=== PATIENT | male | born 1960 | race Caucasian/White ===

== ENCOUNTER 2019-07-15 16:37 | Inpatient (IN) ==
[2019-07-15 17:22] LABS: Basophils # (auto) 0.09 K/uL (0-0.2); Basophils % (auto) 1.2 %; Eosinophils # (auto) 0.07 K/uL (0-0.5); Eosinophils % (auto) 0.9 %; Hematocrit (blood only) 44.6 % (42-52); Hemoglobin 15.1 g/dL (14.0-18.0); Immature Granulocytes # (auto) 0.04 K/uL (0.00-0.02); Immature Granulocytes % (auto) 0.5 %; Lymphocytes # (auto) 1.42 K/uL (1.2-3.4); Lymphocytes % (auto) 18.6 %; Mean Corpuscular Hemoglobin 32.5 pg (25-34); Mean Corpuscular Hgb Conc 33.9 g/dL (32-36); Mean Corpuscular Volume 96.1 fL (80-100); Mean Platelet Volume 11.9 fL (7.4-10.4); Monocytes # (auto) 0.65 K/uL (0.11-0.59); Monocytes % (auto) 8.5 %; Neutrophils # (auto) 5.35 K/uL (1.4-6.5); Neutrophils % (auto) 70.3 %; Platelet Count 205 K/uL (130-400); RDW Coefficient of Variation 14.4 % (11.5-14.5); Red Blood Count 4.64 M/uL (4.7-6.1); White Blood Count 7.62 K/uL (4.8-10.8)
[2019-07-15 17:36] LABS: Alanine Aminotransferase 29 U/L (12-78); Albumin Level 4.1 gm/dl (3.4-5.0); Aspartate Aminotransferase 20 U/L (15-37); BUN Creatinine Ratio 22.9 (10-20); Blood Urea Nitrogen 42 mg/dl (7-18); Calcium 9.2 mg/dl (8.5-10.1); Carbon Dioxide 27 mmol/L (21-32); Chloride 95 mmol/L (98-107); Est GFR (African American) 45.8; Est GFR (Non-African American) 39.5; Glucose 218 mg/dl (70-99); Potassium 5.1 mmol/L (3.5-5.1); Sodium 132 mmol/L (136-145)
[2019-07-15 17:37] LABS: INR 3.5 (0.9-1.1); Partial Thromboplastin Ratio 1.3; Partial Thromboplastin Time 33.9 Seconds (21.0-31.0); Prothrombin Time 33.1 Seconds (9.0-12.0)
[2019-07-15 17:41] LABS: Albumin Globulin Ratio 1.1 (0.9-2); Alkaline Phosphatase 57 U/L (45-117); Bilirubin,Total 1.4 mg/dl (0.2-1); Globulin 3.8 gm/dl (2.5-4.0); NT Pro B Type Natriuretic Pept 2860 pg/ml (0-900); Total Protein 7.9 gm/dl (6.4-8.2); Troponin I < 0.015 ng/ml (0-0.045)
[2019-07-15 18:08] LABS: Appearance Urine Clear (Clear); Bilirubin Urine Negative (Negative); Blood Urine Negative (Negative); Color Urine Yellow; Glucose Urine UA 3+ (Negative); Ketones Urine Negative (Negative); Leukocyte Esterase Urine Negative (Negative); Nitrite Urine Negative (Negative); Protein Urine Negative (Negative); Specific Gravity Urine 1.027 (1.000-1.030); Urobilinogen Urine Negative (Negative)
--- NOTE | 2019-07-15 18:40 | XRay Report ---
SINGLE VIEW CHEST CLINICAL HISTORY: Dyspnea. FINDINGS: An AP, portable, upright chest radiograph is compared to study dated 04/01/2016. The examina tion is degraded by portable technique and patient rotation. A 3-lead cardiac AICD is unchanged in po sition and partially obscures the left lower chest. The heart is enlarged. There is mild pulmonary va scular congestion. There are low lung volumes with elevation of the right hemidiaphragm and bibasilar atelectasis. Trace pleural effusions are suspected. No pneumothorax is seen. The skeletal structures are osteopenic. The bony thorax is grossly intact. IMPRESSION: 1. Cardiomegaly and AICD. There is mild pulmonary vascular congestion. 2. Low lung volumes. 3. Suspect small pleural effusions. Electronically signed by: Kalpesh Juarez M.D. 07/15/2019 6:39 PM
[2019-07-15] MEDS ORDERED: FUROSEMIDE 40 MG/4 ML VIAL IV STA (19:13)
[2019-07-15 19:30] LABS: Magnesium 2.5 mg/dl (1.8-2.4)
[2019-07-15] MEDS ORDERED: dilTIAZem HCl 5 MG/ML 5 ML VIAL IV STA (19:33)
[2019-07-15] MEDS ORDERED: dilTIAZem HCl 125 MG in DEXTROSE 5% 100 ML IV STA (19:33)
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
[2019-07-15] MEDS ORDERED: ALBUMIN 25% 50 ML IV ONE (20:45)
--- NOTE | 2019-07-15 21:20 | Ultrasound Report ---
ULTRASOUND ASCITES CHECK CLINICAL HISTORY: Abdominal distention. COMPARISON STUDY: No priors. FINDINGS: Real-time grayscale sonography of all 4 quadrants of the abdomen is performed to assess for abdominal ascites. No abdominal ascites is identified. IMPRESSION: No abdominal ascites is seen. Electronically signed by: Kalpesh Juarez M.D. 07/15/2019 9:17 PM
[2019-07-15] MEDS ORDERED: DIGOXIN 250 MCG in SYRINGE 9 ML IV ONE (21:30)
[2019-07-15] MEDS ORDERED: GLUCOSE 10 TABS/TUBE PO PRN (22:05)
[2019-07-15] MEDS ORDERED: NITROGLYCERIN SL 0.4 MG/TAB TAB SL PRN (22:05)
[2019-07-15] MEDS ORDERED: CARBOHYDRATES FOR HYPOGLYCEMIA PO PRN (22:05)
[2019-07-15] MEDS ORDERED: PROMETHAZINE HCL 12.5 MG in SODIUM CHLORIDE 0.9% 50 ML IV PRN (22:05)
[2019-07-15] MEDS ORDERED: GLUCOSE 40% GEL 15 GM TUBE PO PRN (22:05)
[2019-07-15] MEDS ORDERED: DEXTROSE 50% 50 ML SYRINGE IV PRN (22:05)
[2019-07-15] MEDS ORDERED: GLUCAGON FOR INJ 1 MG VIAL SQ PRN (22:05)
[2019-07-15] MEDS ORDERED: TRAMADOL HCL 50 MG TABLET PO PRN (22:05)
[2019-07-15] MEDS: INSULIN ASPART 100 UNITS/ML 3 ML PEN SC SCH (22:34)
[2019-07-15] MEDS: ASPIRIN 81 MG ECTAB PO SCH (22:54)
[2019-07-15] MEDS: MIRTAZAPINE TAB 15 MG TAB PO SCH (22:54)
[2019-07-15] MEDS: ATORVASTATIN 40 MG TAB PO SCH (22:54)
[2019-07-15] MEDS: ARIPiprazole 10 MG TAB PO SCH (22:54)
[2019-07-15] MEDS: INSULIN GLARGINE SOLOSTAR 100 UNITS/ML 3 ML PEN SC SCH (22:54)
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
[2019-07-16] MEDS ORDERED: ALBUMIN 25% 50 ML IV ONE (02:46)
[2019-07-16] MEDS ORDERED: DIGOXIN 250 MCG in SYRINGE 9 ML IV ONE (03:00)
[2019-07-16 07:11] LABS: Basophils # (auto) 0.08 K/uL (0-0.2); Basophils % (auto) 1.1 %; Eosinophils # (auto) 0.07 K/uL (0-0.5); Eosinophils % (auto) 0.9 %; Hematocrit (blood only) 39.6 % (42-52); Hemoglobin 13.4 g/dL (14.0-18.0); Immature Granulocytes # (auto) 0.02 K/uL (0.00-0.02); Immature Granulocytes % (auto) 0.3 %; Lymphocytes # (auto) 1.66 K/uL (1.2-3.4); Lymphocytes % (auto) 22.4 %; Mean Corpuscular Hemoglobin 31.8 pg (25-34); Mean Corpuscular Hgb Conc 33.8 g/dL (32-36); Mean Corpuscular Volume 93.8 fL (80-100); Mean Platelet Volume 11.1 fL (7.4-10.4); Monocytes # (auto) 0.77 K/uL (0.11-0.59); Monocytes % (auto) 10.4 %; Neutrophils # (auto) 4.81 K/uL (1.4-6.5); Neutrophils % (auto) 64.9 %; Platelet Count 169 K/uL (130-400); RDW Coefficient of Variation 14.2 % (11.5-14.5); RDW Standard Deviation 48.5 fL (36.4-46.3); Red Blood Count 4.22 M/uL (4.7-6.1); White Blood Count 7.41 K/uL (4.8-10.8)
[2019-07-16 07:23] LABS: INR 3.3 (0.9-1.1); Prothrombin Time 31.2 Seconds (9.0-12.0)
[2019-07-16 07:52] LABS: BUN Creatinine Ratio 27.3 (10-20); Calcium 9.2 mg/dl (8.5-10.1); Creatinine Clr Calc Pharmacy 70.7 ml/min; Est GFR (African American) 67.2; Potassium 3.7 mmol/L (3.5-5.1)
[2019-07-16] MEDS: INSULIN ASPART 100 UNITS/ML 3 ML PEN SC SCH ×4 (07:52→21:00)
[2019-07-16] MEDS ORDERED: ALBUMIN 25% 50 ML with FUROSEMIDE 60 MG IV ONE (08:00)
[2019-07-16] MEDS: DIGOXIN 0.25 MG TAB PO SCH (08:04)
[2019-07-16] MEDS: INSULIN GLARGINE SOLOSTAR 100 UNITS/ML 3 ML PEN SC SCH ×2 (09:35→21:00)
[2019-07-16] MEDS: METOPROLOL SUCC 50MG EXT REL TAB PO SCH (09:39)
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
[2019-07-16] MEDS ORDERED: AMIODARONE / D5W 150 MG/100 ML BAG IV STA (10:34)
[2019-07-16] MEDS ORDERED: AMIODARONE IV BOLUS / DRIP IV STA (10:34)
[2019-07-16] MEDS ORDERED: AMIODARONE / D5W 360 MG/200 ML BAG IV SCH (10:45)
[2019-07-16] MEDS ORDERED: DIGOXIN 0.25 MG TAB PO SCH (16:00)
[2019-07-16] MEDS: AMIODARONE / D5W 360 MG/200 ML BAG IV SCH (16:51)
--- NOTE | 2019-07-16 17:17 | Hospitalist Progress Note ---
Date of Service July 16, 2019 Assessment & Plan (1) Atrial fibrillation with RVR: Present on admission with worsening SOB and weight gained after missing diuretic for more than 2 days EKG on admission showed Afib with RVR Rate uncontrolled with HR btw 110 to 130 Received IV Digoxin and IV Cardizem, then started on Cardizem drip that was discontinued Cardiology on board Starting on Amiodarone drip Continue monitor in tele monitor INR 3.3 today Continue coumadin (2) Acute on chronic systolic CHF (congestive heart failure): CXR showed cardiomegaly and AICD. There is mild pulmonary vascular congestion. Pro BNP on admission 2860 Continue IV lasix 40mg BID Continue fluid restriction Monitor I/O (3) Hypertension: BP stable Lisinopril on hold due to VAIBHAV Continue metoprolol (4) Acute kidney injury: Creatinine on admission 1.8, Improved to 1.3 today Lisinopril on hold Will monitor BMP while on IV lasix Avoid nephrotoxic agents Diabetes Recent outpatient hemoglobin A1c of 8.3 last June 2019 On lantus and insulin sliding scale Monitor BS DVT px on coumadin Code Status FULL CODE Disposition Continue monitor in tele Subjective Pt was seen and examined Lying in bed with mild respiratory distress Pt said that he develops SOB with minimal exertion He said that sometimes while he lies down he feels like he cannot breath He said that feeling where he cannot breath makes him very anxious and causing his heart rate to elevate higher Currently denies any chest pain, dizziness and fever Physical Exam Physical Exam: General- No acute distress Head- atraumatic Eyes- PERRL, EOMI, ENT- oropharynx clear Neck- supple, no JVD Lungs- diminished breath sound Heart- irregular rhythm, Tachycardia, no murmur Abdomen- normal bowel sounds, soft, nontender Extremities- no calf tenderness, no edema Neuro- alert, oriented x 3; PERRL, EOMI; no facial palsy; no dysarthria Skin- warm & dry Results & Data Vital Signs (Past 12 Hours) Vital Signs Temp Pulse Pulse Resp BP Pulse Ox 07/16/19 15:49 36.3 C L 135 H 19 120/80 96 07/16/19 14:54 118 H 07/16/19 12:49 111 H 108/78 97 07/16/19 11:02 36.4 C L 109 H 18 107/76 99 07/16/19 09:41 120 H 113/77 07/16/19 08:04 110 H 07/16/19 07:04 36.6 C 92 H 19 96/67 L 96
[2019-07-16] MEDS: WARFARIN SOD 5 MG TAB PO SCH (18:22)
[2019-07-16] MEDS: ASPIRIN 81 MG ECTAB PO SCH (19:57)
[2019-07-16] MEDS: ARIPiprazole 10 MG TAB PO SCH (19:57)
[2019-07-16] MEDS: MIRTAZAPINE TAB 15 MG TAB PO SCH (19:57)
[2019-07-16] MEDS: ATORVASTATIN 40 MG TAB PO SCH (19:57)
[2019-07-16] MEDS: FUROSEMIDE 40 MG in SYRINGE 0 ML IV SCH (19:57)
[2019-07-17] MEDS: AMIODARONE / D5W 360 MG/200 ML BAG IV SCH ×2 (03:54→19:21)
[2019-07-17 07:24] LABS: Hematocrit (blood only) 46.4 % (42-52); Hemoglobin 15.8 g/dL (14.0-18.0); Mean Corpuscular Hemoglobin 32.6 pg (25-34); Mean Corpuscular Hgb Conc 34.1 g/dL (32-36); Mean Corpuscular Volume 95.7 fL (80-100); Mean Platelet Volume 11.7 fL (7.4-10.4); Platelet Count 180 K/uL (130-400); RDW Coefficient of Variation 14.3 % (11.5-14.5); RDW Standard Deviation 49.9 fL (36.4-46.3); Red Blood Count 4.85 M/uL (4.7-6.1); White Blood Count 10.49 K/uL (4.8-10.8)
[2019-07-17 07:33] LABS: Prothrombin Time 28.7 Seconds (9.0-12.0)
[2019-07-17 07:54] LABS: BUN Creatinine Ratio 22.8 (10-20); Calcium 9.7 mg/dl (8.5-10.1); Creatinine Clr Calc Pharmacy 67.8 ml/min; Est GFR (African American) 64.9; Potassium 3.7 mmol/L (3.5-5.1)
[2019-07-17] MEDS: METOPROLOL SUCC 50MG EXT REL TAB PO SCH (08:37)
[2019-07-17] MEDS: FUROSEMIDE 40 MG in SYRINGE 0 ML IV SCH ×2 (08:39→20:11)
[2019-07-17] MEDS: INSULIN GLARGINE SOLOSTAR 100 UNITS/ML 3 ML PEN SC SCH ×2 (08:41→20:18)
[2019-07-17] MEDS: INSULIN ASPART 100 UNITS/ML 3 ML PEN SC SCH ×4 (08:42→20:19)
[2019-07-17] MEDS: AMIODARONE 200 MG TAB PO SCH (10:50)
--- NOTE | 2019-07-17 11:31 | Cardiology Progress Note ---
Date of Service July 17, 2019 Assessment & Plan (1) Atrial fibrillation with RVR: (2) Acute on chronic systolic CHF (congestive heart failure): (3) Presence of biventricular AICD: (4) Ischemic cardiomyopathy: Acute heart failure precipitated by paroxysmal atrial fibrillation and noncom pliance with medical therapies. Start oral amiodarone, 200 mg 3 times daily. Plans for external direct-current cardioversion in the next 48 to 72 hours pending clinical response. Continue IV Lasix 40 mg twice daily. Restart Aldactone today. Follow fluid balance, daily weight, letter lites, and GFR daily. ICD interrogation demonstrates atrial fibrillation with rapid ventricular response dating back to April. Dysrhythmia likely precipitating ongoing decompensated systolic heart failure. Subjective Patient seen and examined at the bedside. Shortness of breath improved over the past 24 hours. Heart rate unchanged with addition of IV amiodarone. Patient denies chest discomfort. Reports dyspnea on exertion and orthopnea. No significant edema. Fluid balance -2500 cc over the past 24 hours. Renal function is stable. Review of Systems Review of Systems: All systems reviewed & are unremarkable except as noted in HPI & below Physical Exam Physical Exam: General: NAD, AAO x3, well nourished. HEENT: Normocephalic. Atraumatic. Conjunctiva pink, no scleral icterus. Neck: No carotid bruits, the carotid upstrokes are brisk. No JVD. No HJR Heart: Irregular, tachycardic. Normal S-1 and S-2. No murmurs or rub appreciated. PMI is not displaced. No RV heave. Lungs: Diminished breath sounds at the bases bilaterally. No rhonchi or wheeze. Scant crackles at the left base. Abdomen: Normal bowel sounds. Soft. Nontender. No masses or organomegaly. No abdominal bruits. Extremities: No clubbing, cyanosis, or edema. Pulses: radial=2/4, Dorsalis pedis =2/4, posterior tibial=2/4. Neuro: Cranial nerves grossly intact. No focal motor deficit. Results & Data Vital Signs (Past 12 Hours) Vital Signs Temp Pulse Resp BP BP Pulse Ox 07/17/19 08:13 36.6 C 123 H 142/72 H 97 07/17/19 03:46 36.5 C 105 H 20 103/72 97 07/16/19 23:53 37.0 C 110 H 21 107/75 97 Laboratory Results Laboratory Results - last 24 hr 07/16/19 07/16/19 07/16/19 11:21 16:44 20:30 WBC RBC Hgb Hct MCV MCH MCHC RDW Std Deviation RDW Coeff of Macy Plt Count MPV PT INR Sodium Potassium Chloride Carbon Dioxide Anion Gap BUN Creatinine Est Cr Clr Drug Dosing Est GFR ( Amer) Est GFR (Non-Af Amer) BUN/Creatinine Ratio Glucose POC Glucose 175 H 227 H 164 H Calcium 07/17/19 07/17/19 07/17/19 06:45 06:45 06:45 WBC 10.49 RBC 4.85 Hgb 15.8 Hct 46.4 MCV 95.7 MCH 32.6 MCHC 34.1 RDW Std Deviation 49.9 H RDW Coeff of Macy 14.3 Plt Count 180 MPV 11.7 H PT 28.7 H INR 3.0 H Sodium 134 L Potassium 3.7 Chloride 96 L Carbon Dioxide 29 Anion Gap 9.0 BUN 31 H Creatinine 1.38 Est Cr Clr Drug Dosing 67.8 Est GFR ( Amer) 64.9 Est GFR (Non-Af Amer) 56.0 BUN/Creatinine Ratio 22.8 H Glucose 116 H POC Glucose Calcium 9.7
[2019-07-17] MEDS: SPIRONOLACTONE 25 MG TAB PO SCH (12:25)
--- NOTE | 2019-07-17 15:38 | Hospitalist Progress Note ---
Date of Service July 17, 2019 Assessment & Plan (1) Atrial fibrillation with RVR: Present on admission with worsening SOB and weight gained after missing diuretic for more than 2 days EKG on admission showed Afib with RVR Rate uncontrolled with HR btw 100's to 120 Received IV Digoxin and IV Cardizem, then started on Cardizem drip that was discontinued Cardiology on board On Amiodarone drip. Starting on oral amiodarone 200 mg 3 times daily. Plans for external direct-current cardioversion in the next 48 to 72 hours if remain in Afib Continue monitor in tele monitor INR 3.0 today Continue coumadin (2) Acute on chronic systolic CHF (congestive heart failure): CXR showed cardiomegaly and AICD. There is mild pulmonary vascular congestion. Pro BNP on admission 2860 Continue IV lasix 40mg BID Spironolactone added today Continue fluid restriction Monitor I/O Monitor BMP in am (3) Hypertension: BP stable Lisinopril on hold due to VAIBHAV Continue metoprolol (4) Acute kidney injury: Creatinine on admission 1.8, Improved to 1.3 today Lisinopril on hold Will monitor BMP while on IV lasix Avoid nephrotoxic agents resolved Diabetes Recent outpatient hemoglobin A1c of 8.3 last June 2019 On lantus and insulin sliding scale Monitor BS DVT px on coumadin Code Status FULL CODE Disposition Continue monitor in tele Subjective Pt was seen and examined Sitting in the chair with no distress He said that his breathing feels better today He said that diuretic works because he is been urinating alot Denies any chest pain, palpitation and fever Physical Exam Physical Exam: General- No acute distress Head- atraumatic Eyes- PERRL, EOMI, ENT- oropharynx clear Neck- supple, no JVD Lungs- diminished breath sound Heart- irregular rhythm, Tachycardia, no murmur Abdomen- normal bowel sounds, soft, nontender Extremities- no calf tenderness, no edema Neuro- alert, oriented x 3; PERRL, EOMI; no facial palsy; no dysarthria Skin- warm & dry Results & Data Vital Signs (Past 12 Hours) Vital Signs Temp Pulse Resp BP BP Pulse Ox 07/17/19 12:12 36.8 C 119 H 18 90/69 L 99 07/17/19 08:13 36.6 C 123 H 142/72 H 97 07/17/19 03:46 36.5 C 105 H 20 103/72 97
[2019-07-17] MEDS: WARFARIN SOD 5 MG TAB PO SCH (15:41)
[2019-07-17] MEDS: MIRTAZAPINE TAB 15 MG TAB PO SCH (20:11)
[2019-07-17] MEDS: ATORVASTATIN 40 MG TAB PO SCH (20:11)
[2019-07-17] MEDS: ASPIRIN 81 MG ECTAB PO SCH (20:11)
[2019-07-17] MEDS: ARIPiprazole 10 MG TAB PO SCH (20:11)
[2019-07-17] MEDS: ACETAMINOPHEN 325 MG TAB PO PRN (23:39)
[2019-07-18] MEDS ORDERED: DIGOXIN 250 MCG in SYRINGE 9 ML IV ONE
[2019-07-18] MEDS ORDERED: AMIODARONE 200 MG TAB PO SCH
[2019-07-18 00:30] LABS: Potassium 3.4 mmol/L (3.5-5.1)
[2019-07-18 00:34] LABS: BUN Creatinine Ratio 21.1 (10-20); Calcium 9.5 mg/dl (8.5-10.1); Creatinine Clr Calc Pharmacy 61.6 ml/min; Est GFR (African American) 57.7; Est GFR (Non-African American) 49.8; Magnesium 2.6 mg/dl (1.8-2.4)
[2019-07-18 00:36] LABS: Albumin Level 4.4 gm/dl (3.4-5.0)
[2019-07-18 00:40] LABS: Bilirubin Direct 0.8 mg/dl (0-0.2); Bilirubin,Total 2.5 mg/dl (0.2-1); Total Protein 8.1 gm/dl (6.4-8.2)
--- NOTE | 2019-07-18 00:42 | Hospitalist Progress Note ---
Date of Service July 18, 2019 Subjective Patient noted to be in rapid A. fib as per RN, cardiac rate 140s, SBP 90-110s. Missed PM oral amnio dose as per RN. Fever spike noted. No unusual cough, diarrhea, dysuria complaints as per RN. Serum creatinine 1.52 K 3.4 Procalcitonin WNL UA hyaline casts AP Rapid A. fib secondary to fever secondary to ARF, diuretic Rx, hypokalemia Rule out occult infection Facilitate oral Amio Continue amiodarone infusion Replace potassium IV Digoxin 1 dose IV albumin, hold Lasix, spironolactone for now until creatinine at baseline Cultures, check lactic acid, hold off on antibiotics until bacterial source identified for fever Will relay to AM provider. Results & Data Vital Signs (Past 12 Hours) Vital Signs Temp Pulse Pulse Resp BP Pulse Ox 07/18/19 00:33 36.7 C 07/18/19 00:03 142 H 07/17/19 23:05 38.1 C H 131 H 19 111/78 99 07/17/19 19:31 36.5 C 130 H 24 102/67 100 07/17/19 15:23 36.4 C L 112 H 20 119/82 96
[2019-07-18 00:54] LABS: Basophils # (auto) 0.02 K/uL (0-0.2); Basophils % (auto) 0.2 %; Eosinophils # (auto) 0.01 K/uL (0-0.5); Eosinophils % (auto) 0.1 %; Hemoglobin 14.8 g/dL (14.0-18.0); Immature Granulocytes # (auto) 0.04 K/uL (0.00-0.02); Immature Granulocytes % (auto) 0.4 %; Lymphocytes # (auto) 0.89 K/uL (1.2-3.4); Lymphocytes % (auto) 9.1 %; Mean Corpuscular Hgb Conc 34.4 g/dL (32-36); Mean Corpuscular Volume 92.9 fL (80-100); Mean Platelet Volume 11.2 fL (7.4-10.4); Monocytes # (auto) 0.78 K/uL (0.11-0.59); Neutrophils # (auto) 8.07 K/uL (1.4-6.5); Neutrophils % (auto) 82.2 %; Platelet Count 199 K/uL (130-400); RDW Coefficient of Variation 14.3 % (11.5-14.5); RDW Standard Deviation 48.1 fL (36.4-46.3); Red Blood Count 4.63 M/uL (4.7-6.1); White Blood Count 9.81 K/uL (4.8-10.8)
[2019-07-18] MEDS ORDERED: ALBUMIN 25% 50 ML IV ONE ×2 (01:00→03:15)
[2019-07-18 01:04] LABS: INR 3.4 (0.9-1.1); Prothrombin Time 32.1 Seconds (9.0-12.0)
[2019-07-18] MEDS ORDERED: POTASSIUM CHLORIDE 20 MEQ TABCR PO ONE ×2 (01:15)
[2019-07-18] MEDS ORDERED: METOPROLOL TARTRATE 1 MG/ML VIAL IV STA (01:49)
[2019-07-18 02:15] LABS: Appearance Urine Clear (Clear); Bacteria Urine Automated Negative (Negative); Bilirubin Urine Negative (Negative); Blood Urine Negative (Negative); Color Urine Yellow; Epithelial Cell Urine Auto >30 /lpf (0-5); Glucose Urine UA 3+ (Negative); Ketones Urine Negative (Negative); Leukocyte Esterase Urine Negative (Negative); Nitrite Urine Negative (Negative); Protein Urine 2+ (Negative); RBC Urine Automated 0-4 /hpf (0-4); Specific Gravity Urine 1.023 (1.000-1.030); Urobilinogen Urine Negative (Negative)
[2019-07-18] MEDS ORDERED: SODIUM CHLORIDE 0.9% 1000ML 1,000 ML IV SCH (02:15)
[2019-07-18 02:29] LABS: Cast Urine Automated >30 /lpf (0-5)
[2019-07-18] MEDS: METOPROLOL SUCC 25MG EXT REL TAB PO SCH (04:50)
[2019-07-18 07:06] LABS: BUN Creatinine Ratio 21.4 (10-20); Creatinine Clr Calc Pharmacy 67.7 ml/min; Est GFR (African American) 64.3; Est GFR (Non-African American) 55.5; Potassium 4.3 mmol/L (3.5-5.1)
--- NOTE | 2019-07-18 07:39 | XRay Report ---
XR chest 1V portable HISTORY: fever COMPARISON: Chest 07/15/2019. FINDINGS: No pneumothorax. Mild interstitial pulmonary edema and small bilateral pleural effusions. P atchy left basilar density is also noted. The heart remains mildly enlarged. Left-sided pacemaker/def ibrillator. IMPRESSION: 1. Interval development of mild interstitial pulmonary edema and small bilateral pleural effusions. 2. Nonspecific patchy left basilar density. This favors atelectasis from the pleural effusions but co uld also represent a pneumonia. Electronically signed by: Tristen Soto M.D. 07/18/2019 7:38 AM
[2019-07-18] MEDS: AMIODARONE / D5W 360 MG/200 ML BAG IV SCH (07:40)
[2019-07-18] MEDS: AMIODARONE 200 MG TAB PO SCH ×3 (07:41→16:57)
[2019-07-18] MEDS: DIGOXIN 0.25 MG TAB PO SCH (07:41)
[2019-07-18] MEDS: INSULIN GLARGINE SOLOSTAR 100 UNITS/ML 3 ML PEN SC SCH ×2 (07:42→20:33)
[2019-07-18] MEDS: INSULIN ASPART 100 UNITS/ML 3 ML PEN SC SCH ×4 (07:46→20:33)
[2019-07-18] MEDS ORDERED: METOPROLOL SUCC 25MG EXT REL TAB PO SCH (09:00)
--- NOTE | 2019-07-18 12:29 | Cardiology Progress Note ---
Date of Service July 18, 2019 Assessment & Plan (1) Atrial fibrillation with RVR: (2) Acute on chronic systolic CHF (congestive heart failure): (3) Presence of biventricular AICD: (4) Ischemic cardiomyopathy: Discontinue intravenous amiodarone. Continue oral amiodarone loading and tel emetry monitoring. Repeat ECG today. Risk, benefits, alternatives to external direct-current cardioversion discussed with patient at bedside. He is agreeable. He will be made n.p.o. except medications after midnight. Anesthesia consulted for sedation. Procedure will take place in a.m. [employer] on call pharmacy technician will be present after procedure for interrogation and programming. Continue IV Lasix 40 twice daily. Restart Aldactone. Cultures pending due to fever spike overnight. No recurrent fevers today. Continue to monitor. Subjective Patient seen and examined at the bedside. Fever reported overnight. Cultures pending at this time. Currently patient is feeling well. Denies chest pain or unusual shortness of breath. Edema unchanged. Sleeping in a chair due to orthopnea which is unchanged. Heart rate remains elevated on telemetry. Offers no new concerns/complaints this time. Review of Systems Review of Systems: All systems reviewed & are unremarkable except as noted in HPI & below Physical Exam Physical Exam: General: NAD, AAO x3, well nourished. HEENT: Normocephalic. Atraumatic. Conjunctiva pink, no scleral icterus. Neck: No carotid bruits, the carotid upstrokes are brisk. No JVD. No HJR Heart: Irregular, tachycardic. Normal S-1 and S-2. No murmurs or rub appreciated. PMI is not displaced. No RV heave. Lungs: Diminished breath sounds at the bases bilaterally. No rhonchi or wheeze. Scant crackles at the left base. Abdomen: Normal bowel sounds. Soft. Nontender. No masses or organomegaly. No abdominal bruits. Extremities: 1+ bilateral pretibial edema peer no clubbing, or cyanosis. Pulses: radial=2/4, Dorsalis pedis =2/4, posterior tibial=2/4. Neuro: Cranial nerves grossly intact. No focal motor deficit. Results & Data Vital Signs (Past 12 Hours) Vital Signs Temp Pulse Pulse Resp BP BP BP 07/18/19 11:04 36.8 C 117 H 21 116/81 07/18/19 07:41 115 H 07/18/19 06:42 36.8 C 113 H 19 104/74 07/18/19 03:40 122 H 07/18/19 03:07 37.4 C 121 H 17 132/80 07/18/19 02:14 97/65 L 07/18/19 01:59 97/65 L 07/18/19 00:33 36.7 C Pulse Ox 07/18/19 11:04 99 07/18/19 07:41 07/18/19 06:42 98 07/18/19 03:40 07/18/19 03:07 98 07/18/19 02:14 07/18/19 01:59 07/18/19 00:33 Laboratory Results Laboratory Results - last 24 hr 07/17/19 07/17/19 07/17/19 07:38 11:46 16:07 WBC RBC Hgb Hct MCV MCH MCHC RDW Std Deviation RDW Coeff of Macy Plt Count MPV Immature Gran % (Auto) Neut % (Auto) Lymph % (Auto) [place] % (Auto) Eos % (Auto) Baso % (Auto) Immature Gran # (Auto) Neut # (Auto) Lymph # (Auto) [place] # (Auto) Eos # (Auto) Baso # (Auto) PT INR Sodium Potassium Chloride Carbon Dioxide Anion Gap BUN Creatinine Est Cr Clr Drug Dosing Est GFR ( Amer) Est GFR (Non-Af Amer) BUN/Creatinine Ratio Glucose POC Glucose 123 H 172 H 236 H Lactate Calcium Magnesium Total Bilirubin Direct Bilirubin AST ALT Alkaline Phosphatase Total Protein Albumin Procalcitonin Urine Color Urine Appearance Urine pH Ur Specific [place] Urine Protein Urine Glucose (UA) Urine Ketones Urine Blood Urine Nitrite Urine Bilirubin Urine Urobilinogen Ur Leukocyte Esterase Urine WBC (Auto) Urine RBC (Auto) U Hyaline Cast (Auto) U Epithel Cells (Auto) Urine Bacteria (Auto) Granular Casts 07/17/19 07/17/19 07/18/19 20:12 23:46 00:44 WBC 9.81 RBC 4.63 L Hgb 14.8 Hct 43.0 MCV 92.9 MCH 32.0 MCHC 34.4 RDW Std Deviation 48.1 H RDW Coeff of Macy 14.3 Plt Count 199 MPV 11.2 H Immature Gran % (Auto) 0.4 Neut % (Auto) 82.2 Lymph % (Auto) 9.1 [place] % (Auto) 8.0 Eos % (Auto) 0.1 Baso % (Auto) 0.2 Immature Gran # (Auto) 0.04 H Neut # (Auto) 8.07 H Lymph # (Auto) 0.89 L [place] # (Auto) 0.78 H Eos # (Auto) 0.01 Baso # (Auto) 0.02 PT INR Sodium 133 L Potassium 3.4 L Chloride 96 L Carbon Dioxide 27 Anion Gap 10.0 BUN 32 H Creatinine 1.52 H Est Cr Clr Drug Dosing 61.6 Est GFR ( Amer) 57.7 Est GFR (Non-Af Amer) 49.8 BUN/Creatinine Ratio 21.1 H Glucose 164 H POC Glucose 216 H Lactate Calcium 9.5 Magnesium 2.6 H Total Bilirubin 2.5 H Direct Bilirubin 0.8 H AST 27 ALT 37 Alkaline Phosphatase 59 Total Protein 8.1 Albumin 4.4 Procalcitonin Urine Color Urine Appearance Urine pH Ur Specific [place] Urine Protein Urine Glucose (UA) Urine Ketones Urine Blood Urine Nitrite Urine Bilirubin Urine Urobilinogen Ur Leukocyte Esterase Urine WBC (Auto) Urine RBC (Auto) U Hyaline Cast (Auto) U Epithel Cells (Auto) Urine Bacteria (Auto) Granular Casts 07/18/19 07/18/19 07/18/19 00:44 00:44 00:44 WBC RBC Hgb Hct MCV MCH MCHC RDW Std Deviation RDW Coeff of Macy Plt Count MPV Immature Gran % (Auto) Neut % (Auto) Lymph % (Auto) [place] % (Auto) Eos % (Auto) Baso % (Auto) Immature Gran # (Auto) Neut # (Auto) Lymph # (Auto) [place] # (Auto) Eos # (Auto) Baso # (Auto) PT 32.1 H INR 3.4 H Sodium Potassium Chloride Carbon Dioxide Anion Gap BUN Creatinine Est Cr Clr Drug Dosing Est GFR ( Amer) Est GFR (Non-Af Amer) BUN/Creatinine Ratio Glucose POC Glucose Lactate 1.6 Calcium Magnesium Total Bilirubin Direct Bilirubin AST ALT Alkaline Phosphatase Total Protein Albumin Procalcitonin 0.05 Urine Color Urine Appearance Urine pH Ur Specific [place] Urine Protein Urine Glucose (UA) Urine Ketones Urine Blood Urine Nitrite Urine Bilirubin Urine Urobilinogen Ur Leukocyte Esterase Urine WBC (Auto) Urine RBC (Auto) U Hyaline Cast (Auto) U Epithel Cells (Auto) Urine Bacteria (Auto) Granular Casts 07/18/19 07/18/19 07/18/19 01:53 06:19 07:16 WBC RBC Hgb Hct MCV MCH MCHC RDW Std Deviation RDW Coeff of Macy Plt Count MPV Immature Gran % (Auto) Neut % (Auto) Lymph % (Auto) [place] % (Auto) Eos % (Auto) Baso % (Auto) Immature Gran # (Auto) Neut # (Auto) Lymph # (Auto) [place] # (Auto) Eos # (Auto) Baso # (Auto) PT INR Sodium 133 L Potassium 4.3 D Chloride 95 L Carbon Dioxide 29 Anion Gap 9.0 BUN 30 H Creatinine 1.39 Est Cr Clr Drug Dosing 67.7 Est GFR ( Amer) 64.3 Est GFR (Non-Af Amer) 55.5 BUN/Creatinine Ratio 21.4 H Glucose 135 H POC Glucose 132 H Lactate Calcium 9.0 Magnesium Total Bilirubin Direct Bilirubin AST ALT Alkaline Phosphatase Total Protein Albumin Procalcitonin Urine Color Yellow Urine Appearance Clear Urine pH 5.0 Ur Specific [place] 1.023 Urine Protein 2+ H Urine Glucose (UA) 3+ H Urine Ketones Negative Urine Blood Negative Urine Nitrite Negative Urine Bilirubin Negative Urine Urobilinogen Negative Ur Leukocyte Esterase Negative Urine WBC (Auto) 1-5 Urine RBC (Auto) 0-4 U Hyaline Cast (Auto) >30 H U Epithel Cells (Auto) >30 H Urine Bacteria (Auto) Negative Granular Casts 10-20 H 07/18/19 11:12 WBC RBC Hgb Hct MCV MCH MCHC RDW Std Deviation RDW Coeff of Macy Plt Count MPV Immature Gran % (Auto) Neut % (Auto) Lymph % (Auto) [place] % (Auto) Eos % (Auto) Baso % (Auto) Immature Gran # (Auto) Neut # (Auto) Lymph # (Auto) [place] # (Auto) Eos # (Auto) Baso # (Auto) PT INR Sodium Potassium Chloride Carbon Dioxide Anion Gap BUN Creatinine Est Cr Clr Drug Dosing Est GFR ( Amer) Est GFR (Non-Af Amer) BUN/Creatinine Ratio Glucose POC Glucose 207 H Lactate Calcium Magnesium Total Bilirubin Direct Bilirubin AST ALT Alkaline Phosphatase Total Protein Albumin Procalcitonin Urine Color Urine Appearance Urine pH Ur Specific [place] Urine Protein Urine Glucose (UA) Urine Ketones Urine Blood Urine Nitrite Urine Bilirubin Urine Urobilinogen Ur Leukocyte Esterase Urine WBC (Auto) Urine RBC (Auto) U Hyaline Cast (Auto) U Epithel Cells (Auto) Urine Bacteria (Auto) Granular Casts
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
[2019-07-18] MEDS: WARFARIN SOD 5 MG TAB PO SCH (16:57)
--- NOTE | 2019-07-18 17:30 | Hospitalist Progress Note ---
Date of Service July 18, 2019 Assessment & Plan (1) Atrial fibrillation with RVR: Present on admission with worsening SOB and weight gained after missing diuretic for more than 2 days EKG on admission showed Afib with RVR Rate uncontrolled with HR btw 100's to 120 Received IV Digoxin and IV Cardizem, then started on Cardizem drip that was discontinued Amiodarone drip was restarted And later on started on oral amiodarone 200 mg 3 times daily. Plans for external direct-current cardioversion tomorrow Appreciate cardiology input and recommendation Patient remains stable with minimal symptoms of shortness of breath but no chest pain (2) Acute on chronic systolic CHF (congestive heart failure): CXR showed cardiomegaly and AICD. There is mild pulmonary vascular congestion. Pro BNP on admission 2860 Continue IV lasix 40mg BID Spironolactone added today Continue fluid restriction Monitor I/O Kidney function remains stable as 07/18 (3) Hypertension: BP stable Lisinopril on hold due to VAIBHAV Continue metoprolol (4) Acute kidney injury: Creatinine on admission 1.8, Improved to 1.3 today Lisinopril on hold Will monitor BMP while on IV lasix Avoid nephrotoxic agents resolved with creatinine 1.39 as of 07/18 Diabetes Recent outpatient hemoglobin A1c of 8.3 last June 2019 On lantus and insulin sliding scale Monitor BS DVT px on coumadin INR is 3.4 as on 07/18 Code Status FULL CODE Disposition Continue monitor in tele Subjective 07/18 The patient was seen and examined in telemetry unit Has had short runs of RVR last night Remain free of any symptoms Still complains of some shortness of breath at rest but denies any chest pain Review of Systems Review of Systems: All systems reviewed and are unremarkable except as noted Respiratory: + dyspnea (At rest and with exertion) Cardiovascular: no chest pain Physical Exam Physical Exam: Sitting on a chair without any significant symptoms Constitutional: + ill appearing; no acute distress Eyes: PERRL, conjunctivae normal, anicteric sclerae ENMT: external ear and nose normal, oropharynx normal Neck: trachea midline, no thyromegaly Respiratory: normal respiratory effort Auscultation: + diminished lung sounds and + crackles (Minimal crackles at bases) Cardiovascular: Rate/Rhythm: + tachycardic; + abnormal rate and + abnormal rhythm Gastrointestinal (Abdomen): Inspection/Auscultation: abdomen normal to inspection and normal bowel sounds Percussion/Palpation: abdomen soft Musculoskeletal: No acute arthritis in any joints Neurologic: moves all extremities; no focal motor deficits Results & Data Vital Signs (Past 12 Hours) Vital Signs Temp Pulse Pulse Resp BP Pulse Ox 07/18/19 15:00 36.6 C 115 H 22 122/84 98 07/18/19 11:04 36.8 C 117 H 21 116/81 99 07/18/19 07:41 115 H 07/18/19 06:42 36.8 C 113 H 19 104/74 98 Laboratory Results Short CBC 07/18/19 Range/Units 00:44 WBC 9.81 (4.8-10.8) K/uL Hgb 14.8 (14.0-18.0) g/dL Hct 43.0 (42-52) % Plt Count 199 (130-400) K/uL BMP 07/17/19 07/18/19 23:46 06:19 Sodium 133 L 133 L Potassium 3.4 L 4.3 D Chloride 96 L 95 L Carbon Dioxide 27 29 BUN 32 H 30 H Creatinine 1.52 H 1.39 Glucose 164 H 135 H Calcium 9.5 9.0 Liver Function 07/17/19 Range/Units 23:46 Total Bilirubin 2.5 H (0.2-1) mg/dl Direct Bilirubin 0.8 H (0-0.2) mg/dl AST 27 (15-37) U/L ALT 37 (12-78) U/L Alkaline Phosphatase 59 (45-117) U/L Albumin 4.4 (3.4-5.0) gm/dl Urine 07/18/19 Range/Units 01:53 Urine Color Yellow Urine Appearance Clear (Clear) Urine pH 5.0 (4.5-7.5) Ur Specific [place] 1.023 (1.000-1.030) Urine Protein 2+ H (Negative) Urine Glucose (UA) 3+ H (Negative) Medications Administered Current Inpatient Medications Acetaminophen (Tylenol) 650 mg PO Q4H PRN PRN Reason: Pain or Fever Stop: 08/14/19 22:04 Last Admin: 07/17/19 23:39 Dose: 650 mg Documented by: Amiodarone HCl (Cordarone) 200 mg PO TIDM СВЕТЛАНА Stop: 08/17/19 07:44 Last Admin: 07/18/19 16:57 Dose: 200 mg Documented by: Aripiprazole (Abilify) 10 mg PO HS [facility] Stop: 08/14/19 22:04 Last Admin: 07/17/19 20:11 Dose: 10 mg Documented by: Aspirin (Ecotrin Ectab) 81 mg PO HS [facility] Stop: 08/14/19 22:04 Last Admin: 07/17/19 20:11 Dose: 81 mg Documented by: Atorvastatin Calcium (Lipitor) 40 mg PO HS [facility] Stop: 08/14/19 22:04 Last Admin: 07/17/19 20:11 Dose: 40 mg Documented by: Dextrose (Dextrose 50%) 25 - 50 ml IV UD PRN; Protocol PRN Reason: Hypoglycemia Protocol Stop: 08/14/19 22:04 Digoxin (Lanoxin) 0.25 mg PO MoWeFr [facility] Stop: 08/15/19 07:19 Last Admin: 07/18/19 07:41 Dose: 0.25 mg Documented by: Glucagon (Glucagen) 1 mg SQ UD PRN; Protocol PRN Reason: Hypoglycemia Protocol Stop: 08/14/19 22:04 Glucose (Glucose 40%) 15 - 30 gm PO UD PRN; Protocol PRN Reason: Hypoglycemia Protocol Stop: 08/14/19 22:04 Glucose (Dex4 Glucose) 4 - 8 tabs PO UD PRN; Protocol PRN Reason: Hypoglycemia Protocol Stop: 08/14/19 22:04 Promethazine HCl 12.5 mg/ (Sodium Chloride) 50.5 mls @ 202 mls/hr IV Q6H PRN PRN Reason: Nausea And Vomiting Stop: 08/14/19 22:04 Furosemide 40 mg/ Syringe 4 mls @ 4 mls/min IV BID [facility] Stop: 08/15/19 20:59 Last Admin: 07/17/19 20:11 Dose: 4 mls/min Documented by: Insulin Aspart (Novolog Flexpen) 0 units SC ACHS [facility] Stop: 08/14/19 22:04 Last Admin: 07/18/19 16:58 Dose: 4 units Documented by: Insulin Glargine (Lantus Solostar Pen) 5 units SC BID [facility] Stop: 08/14/19 22:04 Last Admin: 07/18/19 07:42 Dose: 5 units Documented by: Lorazepam (Ativan) 0.25 mg PO BID PRN PRN Reason: Anxiety Stop: 08/15/19 18:02 Metoprolol Succinate (Toprol Xl) 25 mg PO DAILY [facility] Stop: 08/17/19 03:14 Last Admin: 07/18/19 04:50 Dose: 25 mg Documented by: Mirtazapine (Remeron) 15 mg PO HS [facility]АН[facility] Stop: 08/14/19 22:04 Last Admin: 07/17/19 20:11 Dose: 15 mg Documented by: Miscellaneous (Carbohydrates For Hypoglycemia) 15 - 30 gm PO UD PRN PRN Reason: Hypoglycemia Treatment Stop: 08/14/19 22:04 Nitroglycerin (Nitrostat) 0.4 mg SL UD PRN PRN Reason: Chest Pain Stop: 08/14/19 22:04 Spironolactone (Aldactone) 12.5 mg PO DAILY [facility] Stop: 08/16/19 11:44 Last Admin: 07/17/19 12:25 Dose: 12.5 mg Documented by: Tramadol HCl (Ultram) 25 mg PO Q4H PRN PRN Reason: Pain Stop: 08/14/19 22:04 Warfarin Sodium (Coumadin) 5 mg PO DAILY@1600 [facility] Stop: 08/15/19 17:39 Last Admin: 07/18/19 16:57 Dose: 5 mg Documented by:
[2019-07-18] MEDS: ARIPiprazole 10 MG TAB PO SCH (20:31)
[2019-07-18] MEDS: MIRTAZAPINE TAB 15 MG TAB PO SCH (20:31)
[2019-07-18] MEDS: ATORVASTATIN 40 MG TAB PO SCH (20:31)
[2019-07-18] MEDS: ASPIRIN 81 MG ECTAB PO SCH (20:32)
[2019-07-19] MEDS: ACETAMINOPHEN 325 MG TAB PO PRN (01:06)
[2019-07-19 07:35] LABS: BUN Creatinine Ratio 25.9 (10-20); Creatinine Clr Calc Pharmacy 72.6 ml/min; Est GFR (African American) 69.7; Est GFR (Non-African American) 60.1; Magnesium 2.7 mg/dl (1.8-2.4); Potassium 3.9 mmol/L (3.5-5.1)
[2019-07-19] MEDS ORDERED: ATROPINE SULFATE 0.1 MG/ML 10ML SYR IV PRN (08:07)
[2019-07-19] MEDS ORDERED: ePHEDrine sulfate 50 MG/ML AMP IV PRN (08:07)
--- NOTE | 2019-07-19 08:27 | Cardioversion ---
Date of Service July 19, 2019 Electrical Cardioversion Rpt Electrical Cardioversion Report Patient brought to the cardiac holding area in a fasting state. Defibrillator pads were placed in anterior and posterior position. Informed consent obtained. Conscious sedation provided by the anesthesia service. Please see separate report for documentation. When adequate sedation was achieved, the defibrillator was synced to the QRS complex. A single 200 J shock was delivered. Patient was successfully converted from atrial fibrillation to sinus rhythm. ICD reprogrammed by durability technician at bedside. AV sequential pacing confirmed. Antitachycardia pacing settings were activated post cardioversion. No complication. No focal motor neurologic deficit post procedure. Conclusion: Successful external cardioversion form atrial fibrillation to Sinus rhythm with 200J.
[2019-07-19] MEDS ORDERED: PROPOFOL IV EMULSION 10 MG/ML 20 ML VIAL IV ONE (08:28)
[2019-07-19] MEDS ORDERED: LIDOCAINE HCL 2% MPF (LOCAL) 5 ML VIAL INFIL ONE (08:28)
--- NOTE | 2019-07-19 08:32 | Anesthesiology Progress Note ---
Date of Service July 19, 2019 Anesthesia Post Procedure Vital Signs Vital Signs: Temp Pulse Resp BP Pulse Ox 07/19/19 07:30 36.9 C 111 H 20 110/77 99 07/19/19 03:00 37.4 C 128 H 19 115/79 98 07/19/19 02:19 37.0 C 07/19/19 00:05 39.3 C H 128 H 20 108/75 97 07/18/19 19:12 37.3 C 115 H 17 109/76 97 07/18/19 15:00 36.6 C 115 H 22 122/84 98 07/18/19 11:04 36.8 C 117 H 21 116/81 99 Transfer of Care Handoff Completed per policy Notes Mental Status: alert / awake / arousable Patient Amnestic to Procedure: Yes Nausea / Vomiting: adequately controlled Pain: adequately controlled Airway Patency, RR, SpO2: stable & adequate BP & HR: stable & adequate Hydration State: stable & adequate Anesthetic Complications: no major complications apparent and Pt Satisfied with anesthetic care
[2019-07-19] MEDS: AMIODARONE 200 MG TAB PO SCH ×3 (09:13→16:59)
[2019-07-19] MEDS: SPIRONOLACTONE 25 MG TAB PO SCH (09:13)
[2019-07-19] MEDS: METOPROLOL SUCC 25MG EXT REL TAB PO SCH (09:13)
[2019-07-19] MEDS: INSULIN GLARGINE SOLOSTAR 100 UNITS/ML 3 ML PEN SC SCH ×2 (09:14→20:41)
[2019-07-19] MEDS: INSULIN ASPART 100 UNITS/ML 3 ML PEN SC SCH ×4 (09:14→20:41)
[2019-07-19] MEDS ORDERED: FUROSEMIDE 40 MG/4 ML VIAL IV STA (10:51)
--- NOTE | 2019-07-19 11:00 | Cardiology Progress Note ---
Date of Service July 19, 2019 Assessment & Plan (1) Atrial fibrillation with RVR: (2) Acute on chronic systolic CHF (congestive heart failure): (3) Presence of biventricular AICD: (4) Ischemic cardiomyopathy: Restart IV Lasix 40 mg twice daily. Continue oral amiodarone loading and tel emetry monitoring. Maintain negative fluid balance. Follow urine output, daily weight, electrolytes, GFR. Recurrent fever noted overnight. Possible pneumonia on chest x-ray. Will discuss antibiotic therapy with internal medicine.. Subjective Patient seen and examined at the bedside. External direct-current cardioversion performed this morning without complication. Antitachycardia settings programmed post cardioversion. Patient tolerated procedure well. Lasix placed on hold. Patient developed fever overnight. Cultures negative thus far. He offers no complaints at this time. Review of Systems Review of Systems: All systems reviewed & are unremarkable except as noted in HPI & below Physical Exam Physical Exam: General: NAD, AAO x3, well nourished. HEENT: Normocephalic. Atraumatic. Conjunctiva pink, no scleral icterus. Neck: No carotid bruits, the carotid upstrokes are brisk. No JVD. No HJR Heart: Regular rhythm. Normal S-1 and S-2. No murmurs or rub appreciated. PMI is not displaced. No RV heave. Lungs: Diminished breath sounds at the bases bilaterally. No rhonchi or wheeze. Scant crackles at the left base. Abdomen: Normal bowel sounds. Soft. Nonte nder. No masses or organomegaly. No abdominal bruits. Extremities: 1+ bilateral pretibial edema peer no clubbing, or cyanosis. Pulses: radial=2/4, Dorsalis pedis =2/4, posterior tibial=2/4. Neuro: Cranial nerves grossly intact. No focal motor deficit. Results & Data Vital Signs (Past 12 Hours) Vital Signs Temp Pulse Resp BP BP Pulse Ox 07/19/19 08:30 91 H 14 96/76 L 98 07/19/19 08:15 91 H 14 89/64 L 100 07/19/19 07:30 36.9 C 111 H 20 110/77 99 07/19/19 03:00 37.4 C 128 H 19 115/79 98 07/19/19 02:19 37.0 C 07/19/19 00:05 39.3 C H 128 H 20 108/75 97 Laboratory Results Laboratory Results - last 24 hr 07/18/19 07/18/19 07/18/19 11:12 16:28 20:07 Sodium Potassium Chloride Carbon Dioxide Anion Gap BUN Creatinine Est Cr Clr Drug Dosing Est GFR ( Amer) Est GFR (Non-Af Amer) BUN/Creatinine Ratio Glucose POC Glucose 207 H 204 H 267 H Calcium Magnesium 07/19/19 07/19/19 06:42 07:14 Sodium 133 L Potassium 3.9 Chloride 100 Carbon Dioxide 24 Anion Gap 9.0 BUN 34 H Creatinine 1.30 Est Cr Clr Drug Dosing 72.6 Est GFR ( Amer) 69.7 Est GFR (Non-Af Amer) 60.1 BUN/Creatinine Ratio 25.9 H Glucose 110 H POC Glucose 114 H Calcium 9.0 Magnesium 2.7 H
--- NOTE | 2019-07-19 13:29 | Hospitalist Progress Note ---
Date of Service July 19, 2019 Assessment & Plan (1) Atrial fibrillation with RVR: Present on admission with worsening SOB and weight gained after missing diuretic for more than 2 days EKG on admission showed Afib with RVR Rate uncontrolled with HR btw 100's to 120 Received IV Digoxin and IV Cardizem, then started on Cardizem drip that was discontinued Amiodarone drip was restarted And later on started on oral amiodarone 200 mg 3 times daily. Plans for external direct-current cardioversion tomorrow Appreciate cardiology input and recommendation Status post cardioversion this morning Remains same sinus rhythm Likely be discharged tomorrow Possible left basal pneumonia Has had fever last night more than 39 degrees No more fever since this morning Chest x-ray one secondary to possible left basilar infiltrate Could be secondary to aspiration Started with the oral Augmentin 875 mg twice daily for about 7 days to continue (2) Acute on chronic systolic CHF (congestive heart failure): Has ischemic cardiomyopathy with biventricular AICD CXR showed cardiomegaly and AICD. There is mild pulmonary vascular congestion. Has ischemic cardiomyopathy with placement of biventricular AICD Pro BNP on admission 2860 Continue IV lasix 40mg BID Spironolactone added today Continue fluid restriction Monitor I/O Kidney function remains stable as 07/18 Intravenous Lasix 40 mg twice daily have been restarted (3) Hypertension: BP stable Lisinopril on hold due to VAIBHAV Continue metoprolol (4) Acute kidney injury: Creatinine on admission 1.8, Improved to 1.3 today Lisinopril on hold Will monitor BMP while on IV lasix Avoid nephrotoxic agents resolved with creatinine 1.39 as of 07/18 Will monitor PRP Diabetes Recent outpatient hemoglobin A1c of 8.3 last June 2019 On lantus and insulin sliding scale Monitor BS DVT px on coumadin INR is 3.4 as on 07/18 Code Status FULL CODE Disposition Continue monitor in tele Subjective 07/18 The patient was seen and examined in telemetry unit Has had short runs of RVR last night Remain free of any symptoms Still complains of some shortness of breath at rest but denies any chest pain 07/19 The patient was seen and examined in telemetry unit He is status post cardioversion and the heart remains in sinus rhythm Remains generally weak and lethargic Remains shortness of breath on exertion Noted to have fever last night and the chest x-ray 1 second showed possible left basilar infiltrate Review of Systems Review of Systems: All systems reviewed and are unremarkable except as noted Respiratory: + dyspnea (At rest and with exertion) Physical Exam Physical Exam: Sitting on a chair without any acute distress Constitutional: + ill appearing; no acute distress Eyes: PERRL, conjunctivae normal, anicteric sclerae ENMT: external ear and nose normal, oropharynx normal Neck: trachea midline, no thyromegaly Respiratory: normal respiratory effort Auscultation: + diminished lung sounds and + crackles (Minimal crackles at bases) Cardiovascular: Rate/Rhythm: + tachycardic; + abnormal rate and + abnormal rhythm Extremities: + edema (1+ edema bilateral) Gastrointestinal (Abdomen): Inspection/Auscultation: abdomen normal to inspection and normal bowel sounds Percussion/Palpation: abdomen soft Neurologic: moves all extremities; no focal motor deficits Results & Data Vital Signs (Past 12 Hours) Vital Signs Temp Pulse Resp BP BP Pulse Ox 07/19/19 12:07 36.6 C 93 H 20 116/80 97 07/19/19 09:09 36.4 C L 91 H 18 112/86 99 07/19/19 08:30 91 H 14 96/76 L 98 07/19/19 08:15 91 H 14 89/64 L 100 07/19/19 07:30 36.9 C 111 H 20 110/77 99 07/19/19 03:00 37.4 C 128 H 19 115/79 98 07/19/19 02:19 37.0 C Laboratory Results [facility] 07/19/19 06:42 Sodium 133 L Potassium 3.9 Chloride 100 Carbon Dioxide 24 BUN 34 H Creatinine 1.30 Glucose 110 H Calcium 9.0 Medications Administered Current Inpatient Medications Acetaminophen (Tylenol) 650 mg PO Q4H PRN PRN Reason: Pain or Fever Stop: 08/14/19 22:04 Last Admin: 07/19/19 01:06 Dose: 650 mg Documented by: Amiodarone HCl (Cordarone) 200 mg PO TIDM [facility] Stop: 08/17/19 07:44 Last Admin: 07/19/19 12:20 Dose: 200 mg Documented by: Amoxicillin/Clavulanate Potassium (Augmentin 875mg) 1 tab PO BIDM [facility] Stop: 07/26/19 16:59 Aripiprazole (Abilify) 10 mg PO HS [facility] Stop: 08/14/19 22:04 Last Admin: 07/18/19 20:31 Dose: 10 mg Documented by: Aspirin (Ecotrin Ectab) 81 mg PO HS [facility] Stop: 08/14/19 22:04 Last Admin: 07/18/19 20:32 Dose: 81 mg Documented by: Atorvastatin Calcium (Lipitor) 40 mg PO HS [facility] Stop: 08/14/19 22:04 Last Admin: 07/18/19 20:31 Dose: 40 mg Documented by: Dextrose (Dextrose 50%) 25 - 50 ml IV UD PRN; Protocol PRN Reason: Hypoglycemia Protocol Stop: 08/14/19 22:04 Digoxin (Lanoxin) 0.25 mg PO MoWeFr [facility] Stop: 08/15/19 07:19 Last Admin: 07/18/19 07:41 Dose: 0.25 mg Documented by: Glucagon (Glucagen) 1 mg SQ UD PRN; Protocol PRN Reason: Hypoglycemia Protocol Stop: 08/14/19 22:04 Glucose (Glucose 40%) 15 - 30 gm PO UD PRN; Protocol PRN Reason: Hypoglycemia Protocol Stop: 08/14/19 22:04 Glucose (Dex4 Glucose) 4 - 8 tabs PO UD PRN; Protocol PRN Reason: Hypoglycemia Protocol Stop: 08/14/19 22:04 Promethazine HCl 12.5 mg/ (Sodium Chloride) 50.5 mls @ 202 mls/hr IV Q6H PRN PRN Reason: Nausea And Vomiting Stop: 08/14/19 22:04 Furosemide 40 mg/ Syringe 4 mls @ 4 mls/min IV BID [facility] Stop: 08/15/19 20:59 Last Admin: 07/17/19 20:11 Dose: 4 mls/min Documented by: Insulin Aspart (Novolog Flexpen) 0 units SC ACHS [facility] Stop: 08/14/19 22:04 Last Admin: 07/19/19 12:19 Dose: 2 units Documented by: Insulin Glargine (Lantus Solostar Pen) 5 units SC BID [facility] Stop: 08/14/19 22:04 Last Admin: 07/19/19 09:14 Dose: 5 units Documented by: Lorazepam (Ativan) 0.25 mg PO BID PRN PRN Reason: Anxiety Stop: 08/15/19 18:02 Metoprolol Succinate (Toprol Xl) 25 mg PO DAILY [facility] Stop: 08/17/19 03:14 Last Admin: 07/19/19 09:13 Dose: 25 mg Documented by: Mirtazapine (Remeron) 15 mg PO HS [facility] Stop: 08/14/19 22:04 Last Admin: 07/18/19 20:31 Dose: 15 mg Documented by: Miscellaneous (Carbohydrates For Hypoglycemia) 15 - 30 gm PO UD PRN PRN Reason: Hypoglycemia Treatment Stop: 08/14/19 22:04 Nitroglycerin (Nitrostat) 0.4 mg SL UD PRN PRN Reason: Chest Pain Stop: 08/14/19 22:04 Spironolactone (Aldactone) 12.5 mg PO DAILY [facility] Stop: 08/16/19 11:44 Last Admin: 07/19/19 09:13 Dose: 12.5 mg Documented by: Tramadol HCl (Ultram) 25 mg PO Q4H PRN PRN Reason: Pain Stop: 08/14/19 22:04 Warfarin Sodium (Coumadin) 5 mg PO DAILY@1600 [facility] Stop: 08/15/19 17:39 Last Admin: 07/18/19 16:57 Dose: 5 mg Documented by:
[2019-07-19] MEDS: WARFARIN SOD 5 MG TAB PO SCH ×2 (16:33→16:58)
[2019-07-19] MEDS: AMOXICILLIN/CLAVULANATE 875 MG TAB PO SCH (16:59)
[2019-07-19] MEDS: MIRTAZAPINE TAB 15 MG TAB PO SCH (20:43)
[2019-07-19] MEDS: ASPIRIN 81 MG ECTAB PO SCH (20:43)
[2019-07-19] MEDS: ATORVASTATIN 40 MG TAB PO SCH (20:43)
[2019-07-19] MEDS: ARIPiprazole 10 MG TAB PO SCH (20:43)
[2019-07-19] MEDS: FUROSEMIDE 40 MG in SYRINGE 0 ML IV SCH (20:44)
[2019-07-20 07:01] LABS: BUN Creatinine Ratio 25.3 (10-20); Calcium 8.9 mg/dl (8.5-10.1); Creatinine Clr Calc Pharmacy 74.1 ml/min; Est GFR (Non-African American) 61.3; Magnesium 2.6 mg/dl (1.8-2.4); Potassium 3.8 mmol/L (3.5-5.1)
[2019-07-20] MEDS: AMIODARONE 200 MG TAB PO SCH ×4 (07:48→20:57)
[2019-07-20] MEDS: SPIRONOLACTONE 25 MG TAB PO SCH (07:48)
[2019-07-20] MEDS: AMOXICILLIN/CLAVULANATE 875 MG TAB PO SCH ×2 (07:48→17:26)
[2019-07-20] MEDS: DIGOXIN 0.25 MG TAB PO SCH (07:49)
[2019-07-20] MEDS: FUROSEMIDE 40 MG in SYRINGE 0 ML IV SCH ×2 (07:49→20:13)
[2019-07-20] MEDS: METOPROLOL SUCC 25MG EXT REL TAB PO SCH (07:49)
[2019-07-20] MEDS: INSULIN ASPART 100 UNITS/ML 3 ML PEN SC SCH ×4 (08:57→20:16)
[2019-07-20] MEDS: INSULIN GLARGINE SOLOSTAR 100 UNITS/ML 3 ML PEN SC SCH ×2 (08:59→20:14)
[2019-07-20 09:37] LABS: Basophils # (auto) 0.07 K/uL (0-0.2); Basophils % (auto) 0.8 %; Eosinophils # (auto) 0.09 K/uL (0-0.5); Hematocrit (blood only) 42.8 % (42-52); Hemoglobin 14.5 g/dL (14.0-18.0); Immature Granulocytes # (auto) 0.03 K/uL (0.00-0.02); Immature Granulocytes % (auto) 0.3 %; Lymphocytes # (auto) 1.33 K/uL (1.2-3.4); Lymphocytes % (auto) 14.5 %; Mean Corpuscular Hemoglobin 32.2 pg (25-34); Mean Corpuscular Hgb Conc 33.9 g/dL (32-36); Mean Corpuscular Volume 95.1 fL (80-100); Mean Platelet Volume 11.9 fL (7.4-10.4); Monocytes # (auto) 0.59 K/uL (0.11-0.59); Monocytes % (auto) 6.4 %; Neutrophils # (auto) 7.06 K/uL (1.4-6.5); Platelet Count 183 K/uL (130-400); RDW Coefficient of Variation 14.2 % (11.5-14.5); RDW Standard Deviation 49.3 fL (36.4-46.3); White Blood Count 9.17 K/uL (4.8-10.8)
[2019-07-20 09:55] LABS: Prothrombin Time 61.6 Seconds (9.0-12.0)
[2019-07-20 10:32] LABS: INR 6.9 (0.9-1.1)
[2019-07-20] MEDS: LORazepam 0.5 MG TAB PO PRN (10:46)
--- NOTE | 2019-07-20 14:26 | Hospitalist Progress Note ---
Date of Service July 20, 2019 Assessment & Plan (1) Atrial fibrillation with RVR: Present on admission with worsening SOB and weight gained after missing diuretic for more than 2 days EKG on admission showed Afib with RVR Rate uncontrolled with HR btw 100's to 120 Received IV Digoxin and IV Cardizem, then started on Cardizem drip that was discontinued Amiodarone drip was restarted And later on started on oral amiodarone 200 mg 3 times daily. Plans for external direct-current cardioversion tomorrow Appreciate cardiology input and recommendation Status post cardioversion this morning Remains same sinus rhythm and denies any significant symptoms except weakness Will need a few more days to be discharged Possible left basal pneumonia Has had fever last night more than 39 degrees No more fever since this morning Chest x-ray one secondary to possible left basilar infiltrate Could be secondary to aspiration Started with the oral Augmentin 875 mg twice daily for about 7 days to continue (2) Acute on chronic systolic CHF (congestive heart failure): Has ischemic cardiomyopathy with biventricular AICD CXR showed cardiomegaly and AICD. There is mild pulmonary vascular congestion. Has ischemic cardiomyopathy with placement of biventricular AICD Pro BNP on admission 2860 Continue IV lasix 40mg BID Spironolactone added today Continue fluid restriction Monitor I/O Kidney function remains stable as 07/18 Intravenous Lasix 40 mg twice daily have been restarted Will need more diuresis before ready for discharge (3) Hypertension: BP stable Lisinopril on hold due to VAIBHAV Continue metoprolol (4) Acute kidney injury: Creatinine on admission 1.8, Improved to 1.3 today Lisinopril on hold Will monitor BMP while on IV lasix Avoid nephrotoxic agents resolved with creatinine 1.39 as of 07/18 Will monitor PRP-creatinine is back to baseline and normal Diabetes Recent outpatient hemoglobin A1c of 8.3 last June 2019 On lantus and insulin sliding scale Monitor BS DVT px on coumadin INR is 3.4 as on 07/18 Code Status FULL CODE Disposition Continue monitor in tele Subjective 07/18 The patient was seen and examined in telemetry unit Has had short runs of RVR last night Remain free of any symptoms Still complains of some shortness of breath at rest but denies any chest pain 07/19 The patient was seen and examined in telemetry unit He is status post cardioversion and the heart remains in sinus rhythm Remains generally weak and lethargic Remains shortness of breath on exertion Noted to have fever last night and the chest x-ray 1 second showed possible left basilar infiltrate 07/20 Patient was seen and examined in telemetry unit He has been complaining of some shortness of breath at rest Remains weak and tired Definitely not yet ready to go home Review of Systems Review of Systems: All systems reviewed and are unremarkable except as noted. Constitutional: + fatigue and + weakness Respiratory: + dyspnea (Minimal dyspnea at rest) Neurologic: + unsteadiness and + generalized weakness Physical Exam Physical Exam: Sitting on a chair without acute shortness of breath Constitutional: + ill appearing; no acute distress Eyes: PERRL, conjunctivae normal, anicteric sclerae ENMT: external ear and nose normal, oropharynx normal Neck: trachea midline, no thyromegaly Respiratory: normal respiratory effort Auscultation: + diminished lung sounds and + crackles (Minimal crackles at bases) Cardiovascular: Rate/Rhythm: + tachycardic; + abnormal rate and + abnormal rhythm Extremities: + edema (1+ edema bilateral) Gastrointestinal (Abdomen): Inspection/Auscultation: abdomen normal to inspection and normal bowel sounds Percussion/Palpation: abdomen soft Neurologic: moves all extremities; no focal motor deficits Results & Data Vital Signs (Past 12 Hours) Vital Signs Temp Pulse Pulse Resp BP BP Pulse Ox 07/20/19 10:50 36.6 C 85 19 116/76 96 07/20/19 07:49 95 H 07/20/19 07:13 36.4 C L 95 H 18 106/73 95 07/20/19 03:26 36.5 C 98 H 18 100/70 98 Laboratory Results Short CBC 07/20/19 Range/Units 09:19 WBC 9.17 (4.8-10.8) K/uL Hgb 14.5 (14.0-18.0) g/dL Hct 42.8 (42-52) % Plt Count 183 (130-400) K/uL BMP 07/20/19 06:19 Sodium 132 L Potassium 3.8 Chloride 95 L Carbon Dioxide 28 BUN 32 H Creatinine 1.28 Glucose 87 Calcium 8.9 Medications Administered Current Inpatient Medications Acetaminophen (Tylenol) 650 mg PO Q4H PRN PRN Reason: Pain or Fever Stop: 08/14/19 22:04 Last Admin: 07/19/19 01:06 Dose: 650 mg Documented by: Amiodarone HCl (Cordarone) 200 mg PO TIDM [facility] Stop: 08/17/19 07:44 Last Admin: 07/20/19 12:42 Dose: 200 mg Documented by: Amoxicillin/Clavulanate Potassium (Augmentin 875mg) 1 tab PO BIDM [facility] Stop: 07/26/19 16:59 Last Admin: 07/20/19 07:48 Dose: 1 tab Documented by: Aripiprazole (Abilify) 10 mg PO HS [facility] Stop: 08/14/19 22:04 Last Admin: 07/19/19 20:43 Dose: 10 mg Documented by: Aspirin (Ecotrin Ectab) 81 mg PO HS [facility] Stop: 08/14/19 22:04 Last Admin: 07/19/19 20:43 Dose: 81 mg Documented by: Atorvastatin Calcium (Lipitor) 40 mg PO HS [facility] Stop: 08/14/19 22:04 Last Admin: 07/19/19 20:43 Dose: 40 mg Documented by: Dextrose (Dextrose 50%) 25 - 50 ml IV UD PRN; Protocol PRN Reason: Hypoglycemia Protocol Stop: 08/14/19 22:04 Digoxin (Lanoxin) 0.25 mg PO MoWeFr [facility] Stop: 08/15/19 07:19 Last Admin: 07/20/19 07:49 Dose: 0.25 mg Documented by: Glucagon (Glucagen) 1 mg SQ UD PRN; Protocol PRN Reason: Hypoglycemia Protocol Stop: 08/14/19 22:04 Glucose (Glucose 40%) 15 - 30 gm PO UD PRN; Protocol PRN Reason: Hypoglycemia Protocol Stop: 08/14/19 22:04 Glucose (Dex4 Glucose) 4 - 8 tabs PO UD PRN; Protocol PRN Reason: Hypoglycemia Protocol Stop: 08/14/19 22:04 Promethazine HCl 12.5 mg/ (Sodium Chloride) 50.5 mls @ 202 mls/hr IV Q6H PRN PRN Reason: Nausea And Vomiting Stop: 08/14/19 22:04 Furosemide 40 mg/ Syringe 4 mls @ 4 mls/min IV BID [facility] Stop: 08/15/19 20:59 Last Admin: 07/20/19 07:49 Dose: 4 mls/min Documented by: Insulin Aspart (Novolog Flexpen) 0 units SC ACHS [facility] Stop: 08/14/19 22:04 Last Admin: 07/20/19 12:39 Dose: 3 units Documented by: Insulin Glargine (Lantus Solostar Pen) 5 units SC BID [facility] Stop: 08/14/19 22:04 Last Admin: 07/20/19 08:59 Dose: 5 units Documented by: Lorazepam (Ativan) 0.25 mg PO BID PRN PRN Reason: Anxiety Stop: 08/15/19 18:02 Last Admin: 07/20/19 10:46 Dose: 0.25 mg Documented by: Metoprolol Succinate (Toprol Xl) 25 mg PO DAILY [facility] Stop: 08/17/19 03:14 Last Admin: 07/20/19 07:49 Dose: 25 mg Documented by: Mirtazapine (Remeron) 15 mg PO HS [facility] Stop: 08/14/19 22:04 Last Admin: 07/19/19 20:43 Dose: 15 mg Documented by: Miscellaneous (Carbohydrates For Hypoglycemia) 15 - 30 gm PO UD PRN PRN Reason: Hypoglycemia Treatment Stop: 08/14/19 22:04 Nitroglycerin (Nitrostat) 0.4 mg SL UD PRN PRN Reason: Chest Pain Stop: 08/14/19 22:04 Spironolactone (Aldactone) 12.5 mg PO DAILY [facility] Stop: 08/16/19 11:44 Last Admin: 07/20/19 07:48 Dose: 12.5 mg Documented by: Tramadol HCl (Ultram) 25 mg PO Q4H PRN PRN Reason: Pain Stop: 08/14/19 22:04 Warfarin Sodium (Coumadin) 5 mg PO DAILY@1600 [facility] Stop: 08/15/19 17:39 Last Admin: 07/19/19 16:58 Dose: 5 mg Documented by:
--- NOTE | 2019-07-20 15:51 | Cardiology Progress Note ---
Date of Service July 20, 2019 Assessment & Plan (1) Atrial fibrillation with RVR: (2) Acute on chronic systolic CHF (congestive heart failure): (3) Presence of biventricular AICD: (4) Ischemic cardiomyopathy: (5) Pneumonia: Continue IV Lasix 40 mg twice daily. Continue oral amiodarone loading 200 mg 3 times daily (total 6-8gm) and telemetry monitoring. Reduce dose to 200 mg once daily when loading complete. Maintain negative fluid balance. Follow urine output, daily weight, electrolytes, GFR. Antibiotics per internal medicine. Subjective Patient seen and examined at the bedside. Fluid balance -2.2 L over the past 24 hours. Edema unchanged. Subjectively, patient feeling better. Shortness of breath improved. Remains sinus rhythm on telemetry as well as AV sequential pacing. Offers no new concerns/complaints at this time. Review of Systems Review of Systems: All systems reviewed & are unremarkable except as noted in HPI & below Physical Exam Physical Exam: General: NAD, AAO x3, well nourished. HEENT: Normocephalic. Atraumatic. Conjunctiva pink, no scleral icterus. Neck: No carotid bruits, the carotid upstrokes are brisk. No JVD. No HJR Heart: Regular rhythm. Normal S-1 and S-2. No murmurs or rub appreciated. PMI is not displaced. No RV heave. Lungs: Diminished breath sounds at the bases bilaterally. No rhonchi or wheeze. Scant crackles at the left base. Abdomen: Normal bowel sounds. Soft. Nontender. No masses or organomegaly. No abdominal bruits. Extremities: 1-2+ bilateral pretibial edema. no clubbing, or cyanosis. Pulses: radial=2/4, Dorsalis pedis =2/4, posterior tibial=2/4. Neuro: Cranial nerves grossly intact. No focal motor deficit. Results & Data Vital Signs (Past 12 Hours) Vital Signs Temp Pulse Pulse Resp BP BP Pulse Ox 07/20/19 15:13 36.6 C 91 H 20 110/76 92 07/20/19 10:50 36.6 C 85 19 116/76 96 07/20/19 07:49 95 H 07/20/19 07:13 36.4 C L 95 H 18 106/73 95
[2019-07-20] MEDS: ATORVASTATIN 40 MG TAB PO SCH (20:13)
[2019-07-20] MEDS: MIRTAZAPINE TAB 15 MG TAB PO SCH (20:13)
[2019-07-20] MEDS: ARIPiprazole 10 MG TAB PO SCH (20:13)
[2019-07-20] MEDS: ASPIRIN 81 MG ECTAB PO SCH (20:13)
[2019-07-21 06:57] LABS: Basophils # (auto) 0.07 K/uL (0-0.2); Basophils % (auto) 0.8 %; Eosinophils # (auto) 0.11 K/uL (0-0.5); Eosinophils % (auto) 1.3 %; Hematocrit (blood only) 40.7 % (42-52); Immature Granulocytes # (auto) 0.03 K/uL (0.00-0.02); Immature Granulocytes % (auto) 0.4 %; Lymphocytes # (auto) 1.41 K/uL (1.2-3.4); Lymphocytes % (auto) 16.9 %; Mean Corpuscular Hemoglobin 32.3 pg (25-34); Mean Corpuscular Hgb Conc 34.4 g/dL (32-36); Mean Corpuscular Volume 93.8 fL (80-100); Mean Platelet Volume 11.5 fL (7.4-10.4); Monocytes # (auto) 0.61 K/uL (0.11-0.59); Monocytes % (auto) 7.3 %; Neutrophils # (auto) 6.12 K/uL (1.4-6.5); Neutrophils % (auto) 73.3 %; Platelet Count 193 K/uL (130-400); RDW Coefficient of Variation 14.2 % (11.5-14.5); RDW Standard Deviation 48.5 fL (36.4-46.3); Red Blood Count 4.34 M/uL (4.7-6.1); White Blood Count 8.35 K/uL (4.8-10.8)
[2019-07-21 07:29] LABS: Prothrombin Time 45.5 Seconds (9.0-12.0)
[2019-07-21 07:31] LABS: BUN Creatinine Ratio 23.7 (10-20); Calcium 9.3 mg/dl (8.5-10.1); Creatinine Clr Calc Pharmacy 67.8 ml/min; Est GFR (African American) 64.3; Est GFR (Non-African American) 55.5; Magnesium 2.5 mg/dl (1.8-2.4); Potassium 3.6 mmol/L (3.5-5.1)
[2019-07-21] MEDS: AMOXICILLIN/CLAVULANATE 875 MG TAB PO SCH ×2 (08:25→17:21)
[2019-07-21] MEDS: METOPROLOL SUCC 25MG EXT REL TAB PO SCH (08:25)
[2019-07-21] MEDS: SPIRONOLACTONE 25 MG TAB PO SCH (08:25)
[2019-07-21] MEDS: FUROSEMIDE 40 MG in SYRINGE 0 ML IV SCH ×2 (08:25→21:32)
[2019-07-21] MEDS: AMIODARONE 200 MG TAB PO SCH ×3 (08:26→17:21)
[2019-07-21] MEDS: INSULIN ASPART 100 UNITS/ML 3 ML PEN SC SCH ×4 (08:26→21:34)
[2019-07-21] MEDS: INSULIN GLARGINE SOLOSTAR 100 UNITS/ML 3 ML PEN SC SCH ×2 (08:27→21:34)
--- NOTE | 2019-07-21 12:29 | Cardiology Progress Note ---
Date of Service July 21, 2019 Assessment & Plan (1) Atrial fibrillation with RVR: Patient remains in sinus rhythm status post synchronized electrical cardioversion We will continue amiodarone load Increase Toprol-XL to 25 mg a.m. 12.5 g p.m. Discontinue digoxin INR is remained supratherapeutic likely due to amiodarone, warfarin remains on hold (2) Acute on chronic systolic CHF (congestive heart failure): We will continue IV Lasix today hold dose after p.m. dose this evening Supplement potassium while continuing spironolactone (3) Presence of biventricular AICD: (4) Ischemic cardiomyopathy: As above. (5) Pneumonia: Follow-up chest x-ray ordered for a.m. Antibiotics per internal medicine. Subjective Patient seen and examined at the bedside. Chart, medications, telemetry reviewed. Remains sinus rhythm on telemetry as well as AV sequential pacing. Heart rate still trending somewhat high. Has continued to manifest diuresis with improving lower extremity edema Physical Exam Constitutional: WD/WN, vitals as above Eyes: PERRL, conjunctivae normal, anicteric sclerae ENMT: external ear and nose normal, oropharynx normal Neck: trachea midline, no thyromegaly Respiratory: Auscultation: + crackles (Few left basilar) Cardiovascular: Rate/Rhythm: regular rate, regular rhythm and + tachycardic Heart Sounds: normal S1 and normal S2; no murmur Vessels: normal carotid upstroke and radial pulses present; no JVD and no carotid bruit Extremities: + edema (1-2+) Gastrointestinal (Abdomen): normal bowel sounds, soft, nontender, no hepatosplenomegaly Musculoskeletal: no cyanosis or clubbing, extremities motor strength 5/5 Skin: no rashes, warm and dry Neurologic: Motor/Sensory: + tremor Psychiatric: A+Ox3, euthymic affect Results & Data Vital Signs (Past 12 Hours) Vital Signs Temp Pulse Resp BP BP Pulse Ox 07/21/19 10:46 36.5 C 90 20 106/74 91 07/21/19 07:47 36.5 C 102 H 16 111/79 94 07/21/19 03:51 36.4 C L 96 H 18 130/80 95
[2019-07-21] MEDS ORDERED: POTASSIUM CHLORIDE 20 MEQ TABCR PO SCH (13:00)
[2019-07-21] MEDS: LORazepam 0.5 MG TAB PO PRN (18:39)
[2019-07-21] MEDS ORDERED: METOPROLOL SUCC 25MG EXT REL TAB PO SCH (21:00)
[2019-07-21] MEDS: ARIPiprazole 10 MG TAB PO SCH (21:33)
[2019-07-21] MEDS: MIRTAZAPINE TAB 15 MG TAB PO SCH (21:33)
[2019-07-21] MEDS: ASPIRIN 81 MG ECTAB PO SCH (21:33)
[2019-07-21] MEDS: ATORVASTATIN 40 MG TAB PO SCH (21:33)
[2019-07-22 06:54] LABS: INR 3.7 (0.9-1.1); Prothrombin Time 34.9 Seconds (9.0-12.0)
--- NOTE | 2019-07-22 07:32 | XRay Report ---
XR chest 1V portable HISTORY: Pneumonia, heart failure COMPARISON: Chest 07/18/2019. FINDINGS: No pneumothorax. There are low lung volumes. Mild interstitial pulmonary edema persists. Sm all bilateral pleural effusions have improved. Left-sided pacemaker/defibrillator is again noted. The heart remains mildly enlarged. IMPRESSION: 1. No change in the mild interstitial pulmonary edema. 2. Small bilateral pleural effusions have improved. Electronically signed by: Tristen Soto M.D. 07/22/2019 7:30 AM
[2019-07-22 07:34] VITALS: TEMP 97.5
[2019-07-22] MEDS: AMIODARONE 200 MG TAB PO SCH ×2 (09:02→13:17)
[2019-07-22] MEDS: SPIRONOLACTONE 25 MG TAB PO SCH (09:02)
[2019-07-22] MEDS: INSULIN GLARGINE SOLOSTAR 100 UNITS/ML 3 ML PEN SC SCH (09:03)
[2019-07-22] MEDS: AMOXICILLIN/CLAVULANATE 875 MG TAB PO SCH (09:03)
[2019-07-22] MEDS: INSULIN ASPART 100 UNITS/ML 3 ML PEN SC SCH ×2 (09:12→13:18)
[2019-07-22] MEDS: METOPROLOL SUCC 25MG EXT REL TAB PO SCH (09:34)
--- NOTE | 2019-07-22 10:45 | Hospitalist Progress Note ---
Date of Service The date of service is July 22, 2019 July 22, 2019 Assessment & Plan (1) Atrial fibrillation with RVR: Present on admission with worsening SOB and weight gained after missing diuretic for more than 2 days EKG on admission showed Afib with RVR Rate uncontrolled with HR btw 100's to 120 Received IV Digoxin and IV Cardizem, then started on Cardizem drip that was discontinued Amiodarone drip was restarted And later on started on oral amiodarone 200 mg 3 times daily. Plans for external direct-current cardioversion tomorrow Appreciate cardiology input and recommendation Status post cardioversion this morning Remains same sinus rhythm and denies any significant symptoms except weakness Will need a few more days to be discharged Remains weak and lethargic-not been participating in physical therapy We will discussed the sister about discharge home today Likely to need more physical therapy in the hospital in that case I will transfer him out of telemetry unit to medical floor this afternoon Possible left basal pneumonia Has had fever last night more than 39 degrees No more fever since this morning Chest x-ray one secondary to possible left basilar infiltrate Could be secondary to aspiration Started with the oral Augmentin 875 mg twice daily for about 7 days to continue INR is up likely secondary to antibiotic (2) Acute on chronic systolic CHF (congestive heart failure): Has ischemic cardiomyopathy with biventricular AICD CXR showed cardiomegaly and AICD. There is mild pulmonary vascular congestion. Has ischemic cardiomyopathy with placement of biventricular AICD Pro BNP on admission 2860 Continue IV lasix 40mg BID Spironolactone added today Continue fluid restriction Monitor I/O Kidney function remains stable as 07/18 Intravenous Lasix 40 mg twice daily have been restarted We will start him oral dose of furosemide on discharge (3) Hypertension: BP stable Lisinopril on hold due to VAIBHAV Continue metoprolol (4) Acute kidney injury: Creatinine on admission 1.8, Improved to 1.3 today Lisinopril on hold Will monitor BMP while on IV lasix Avoid nephrotoxic agents resolved with creatinine 1.39 as of 07/18 Will monitor PRP-creatinine is back to baseline and normal Diabetes Recent outpatient hemoglobin A1c of 8.3 last June 2019 On lantus and insulin sliding scale Monitor BS DVT px on coumadin INR is 3.4 as on 07/18 Code Status FULL CODE Disposition Continue monitor in tele To do steps O2 saturation could not be performed due to weakness We will get room air ABG to evaluate oxygen level Will discuss with the sister about more physical therapy in house or even send the patient home with home health services Subjective 07/18 The patient was seen and examined in telemetry unit Has had short runs of RVR last night Remain free of any symptoms Still complains of some shortness of breath at rest but denies any chest pain 07/19 The patient was seen and examined in telemetry unit He is status post cardioversion and the heart remains in sinus rhythm Remains generally weak and lethargic Remains shortness of breath on exertion Noted to have fever last night and the chest x-ray 1 second showed possible left basilar infiltrate 07/20 Patient was seen and examined in telemetry unit He has been complaining of some shortness of breath at rest Remains weak and tired Definitely not yet ready to go home 07/21 The patient was seen and examined in telemetry unit He remains weak but denies any other symptoms Review of Systems Review of Systems: All systems reviewed and are unremarkable except as noted. Constitutional: + fatigue and + weakness Respiratory: + dyspnea (Minimal dyspnea at rest) Neurologic: + unsteadiness and + generalized weakness Physical Exam Physical Exam: Remains weak and lethargic but looks brighter Constitutional: + ill appearing; no acute distress Eyes: PERRL, conjunctivae normal, anicteric sclerae ENMT: external ear and nose normal, oropharynx normal Neck: trachea midline, no thyromegaly Respiratory: normal respiratory effort Auscultation: + diminished lung sounds and + crackles (Minimal crackles at bases) Cardiovascular: Rate/Rhythm: + tachycardic; + abnormal rate and + abnormal rhythm Extremities: + edema (1+ edema bilateral) Gastrointestinal (Abdomen): Inspection/Auscultation: abdomen normal to inspection and normal bowel sounds Percussion/Palpation: abdomen soft Neurologic: moves all extremities; no focal motor deficits Results & Data Vital Signs (Past 12 Hours) Vital Signs Temp Pulse Resp BP BP Pulse Ox 07/22/19 07:33 36.4 C L 88 18 112/81 98 07/22/19 03:37 36.9 C 98 H 18 109/79 91 07/22/19 00:17 36.5 C 106 H 16 109/74 97
[2019-07-22 11:03] VITALS: PULSE 97; O2SAT 92
[2019-07-22 11:47] LABS: Base Excess ABG 1.9 mEq/L (-9-1.8); HCO3 ABG 24 mmol/L (19-24); Oxygen Saturation ABG 96.8 % (90-95); PCO2 ABG 30 mmHg (35-46); PO2 ABG 81 mm/Hg (80-95)
[2019-07-22 11:49] LABS: Allen Test Pos (Pos)
[2019-07-22 11:51] LABS: pH ABG 7.52 (7.35-7.45)
--- NOTE | 2019-07-22 12:08 | Hospitalist Progress Note ---
Date of Service July 22, 2019 Assessment & Plan (1) Atrial fibrillation with RVR: Present on admission with worsening SOB and weight gained after missing diuretic for more than 2 days EKG on admission showed Afib with RVR Rate uncontrolled with HR btw 100's to 120 Received IV Digoxin and IV Cardizem, then started on Cardizem drip that was discontinued Amiodarone drip was restarted And later on started on oral amiodarone 200 mg 3 times daily. Plans for external direct-current cardioversion tomorrow Appreciate cardiology input and recommendation Status post cardioversion this morning Remains same sinus rhythm and denies any significant symptoms except weakness Will need a few more days to be discharged Remains weak and lethargic-not been participating in physical therapy Has been participating in physical therapy Remains weak and lethargy otherwise stable at res Will need to discuss with the sister before sending him home He did not want to participate in to do steps O2 saturation test Arterial blood gas on room air showed respiratory alkalosis with CO2 of 31 and PO2 of 81 Possible left basal pneumonia Has had fever last night more than 39 degrees No more fever since this morning Chest x-ray one secondary to possible left basilar infiltrate Could be secondary to aspiration Started with the oral Augmentin 875 mg twice daily for about 7 days to continue INR is up likely secondary to antibiotic (2) Acute on chronic systolic CHF (congestive heart failure): Has ischemic cardiomyopathy with biventricular AICD CXR showed cardiomegaly and AICD. There is mild pulmonary vascular congestion. Has ischemic cardiomyopathy with placement of biventricular AICD Pro BNP on admission 2860 Continue IV lasix 40mg BID Spironolactone added today Continue fluid restriction Monitor I/O Kidney function remains stable as 07/18 Intravenous Lasix 40 mg twice daily have been restarted We will start him oral dose of furosemide on discharge (3) Hypertension: BP stable Lisinopril on hold due to VAIBHAV Continue metoprolol (4) Acute kidney injury: Creatinine on admission 1.8, Improved to 1.3 today Lisinopril on hold Will monitor BMP while on IV lasix Avoid nephrotoxic agents resolved with creatinine 1.39 as of 07/18 Will monitor PRP-creatinine is back to baseline and normal Diabetes Recent outpatient hemoglobin A1c of 8.3 last June 2019 On lantus and insulin sliding scale Monitor BS DVT px on coumadin INR is 3.4 as on 07/18 INR is more than 3 today We will hold Coumadin today decrease the dose from tomorrow Code Status FULL CODE Disposition Continue monitor in tele To do steps O2 saturation could not be performed due to weakness We will get room air ABG to evaluate oxygen level Will discuss with the sister about more physical therapy in house or even send the patient home with home health services Subjective 07/18 The patient was seen and examined in telemetry unit Has had short runs of RVR last night Remain free of any symptoms Still complains of some shortness of breath at rest but denies any chest pain 07/19 The patient was seen and examined in telemetry unit He is status post cardioversion and the heart remains in sinus rhythm Remains generally weak and lethargic Remains shortness of breath on exertion Noted to have fever last night and the chest x-ray 1 second showed possible left basilar infiltrate 07/20 Patient was seen and examined in telemetry unit He has been complaining of some shortness of breath at rest Remains weak and tired Definitely not yet ready to go home 07/21 The patient was seen and examined in telemetry unit He remains weak but denies any other symptoms 07/22 The patient was seen and examined in telemetry unit He has been remains weak and lethargic and has not been participating in physical therapy He did not even go for to do steps O2 saturation test He denies any acute symptoms at rest He wants to go home today and I discussed that with his sister before sending him home Review of Systems Review of Systems: All systems reviewed and are unremarkable except as noted. Constitutional: + fatigue and + weakness Respiratory: + dyspnea (Minimal dyspnea at rest) Cardiovascular: no chest pain Neurologic: + unsteadiness and + generalized weakness Physical Exam Physical Exam: Denies any acute symptoms at rest Constitutional: + ill appearing; no acute distress Eyes: PERRL, conjunctivae normal, anicteric sclerae ENMT: external ear and nose normal, oropharynx normal Neck: trachea midline, no thyromegaly Respiratory: normal respiratory effort Auscultation: + diminished lung sounds and + crackles (Minimal crackles at bases) Cardiovascular: Rate/Rhythm: + tachycardic; + abnormal rate and + abnormal rhythm Extremities: + edema (1+ edema bilateral) Gastrointestinal (Abdomen): Inspection/Auscultation: abdomen normal to inspection and normal bowel sounds Percussion/Palpation: abdomen soft Neurologic: moves all extremities; no focal motor deficits Remains pleasantly confused Results & Data Vital Signs (Past 12 Hours) Vital Signs Temp Pulse Resp BP BP Pulse Ox 07/22/19 11:03 97 H 18 116/69 92 07/22/19 07:33 36.4 C L 88 18 112/81 98 07/22/19 03:37 36.9 C 98 H 18 109/79 91 07/22/19 00:17 36.5 C 106 H 16 109/74 97 Medications Administered Current Inpatient Medications Acetaminophen (Tylenol) 650 mg PO Q4H PRN PRN Reason: Pain or Fever Stop: 08/14/19 22:04 Last Admin: 07/19/19 01:06 Dose: 650 mg Documented by: Amiodarone HCl (Cordarone) 200 mg PO TIDM [facility] Stop: 08/17/19 07:44 Last Admin: 07/22/19 09:02 Dose: 200 mg Documented by: Amoxicillin/Clavulanate Potassium (Augmentin 875mg) 1 tab PO BIDM [facility] Stop: 07/26/19 16:59 Last Admin: 07/22/19 09:03 Dose: 1 tab Documented by: Aripiprazole (Abilify) 10 mg PO [facility] Stop: 08/14/19 22:04 Last Admin: 07/21/19 21:33 Dose: 10 mg Documented by: Aspirin (Ecotrin Ectab) 81 mg PO [facility] Stop: 08/14/19 22:04 Last Admin: 07/21/19 21:33 Dose: 81 mg Documented by: Atorvastatin Calcium (Lipitor) 40 mg PO [facility] Stop: 08/14/19 22:04 Last Admin: 07/21/19 21:33 Dose: 40 mg Documented by: Dextrose (Dextrose 50%) 25 - 50 ml IV UD PRN; Protocol PRN Reason: Hypoglycemia Protocol Stop: 08/14/19 22:04 Glucagon (Glucagen) 1 mg SQ UD PRN; Protocol PRN Reason: Hypoglycemia Protocol Stop: 08/14/19 22:04 Glucose (Glucose 40%) 15 - 30 gm PO UD PRN; Protocol PRN Reason: Hypoglycemia Protocol Stop: 08/14/19 22:04 Glucose (Dex4 Glucose) 4 - 8 tabs PO UD PRN; Protocol PRN Reason: Hypoglycemia Protocol Stop: 08/14/19 22:04 Promethazine HCl 12.5 mg/ (Sodium Chloride) 50.5 mls @ 202 mls/hr IV Q6H PRN PRN Reason: Nausea And Vomiting Stop: 08/14/19 22:04 Furosemide 40 mg/ Syringe 4 mls @ 4 mls/min IV BID СВЕТЛАНА Stop: 08/15/19 20:59 Last Admin: 07/21/19 21:32 Dose: 4 mls/min Documented by: Insulin Aspart (Novolog Flexpen) 0 units SC ACHS СВЕТЛАНА Stop: 08/14/19 22:04 Last Admin: 07/22/19 09:12 Dose: 3 units Documented by: Insulin Glargine (Lantus Solostar Pen) 5 units SC BID СВЕТЛАНА Stop: 08/14/19 22:04 Last Admin: 07/22/19 09:03 Dose: 5 units Documented by: Lorazepam (Ativan) 0.25 mg PO BID PRN PRN Reason: Anxiety Stop: 08/15/19 18:02 Last Admin: 07/21/19 18:39 Dose: 0.25 mg Documented by: Metoprolol Succinate (Toprol Xl) 25 mg PO DAILY [facility] Stop: 08/17/19 03:14 Last Admin: 07/22/19 09:34 Dose: 25 mg Documented by: Metoprolol Succinate (Toprol Xl) 12.5 mg PO QPM [facility] Stop: 08/20/19 20:59 Last Admin: 07/21/19 21:36 Dose: 12.5 mg Documented by: Mirtazapine (Remeron) 15 mg PO HS [facility] Stop: 08/14/19 22:04 Last Admin: 07/21/19 21:33 Dose: 15 mg Documented by: Miscellaneous (Carbohydrates For Hypoglycemia) 15 - 30 gm PO UD PRN PRN Reason: Hypoglycemia Treatment Stop: 08/14/19 22:04 Nitroglycerin (Nitrostat) 0.4 mg SL UD PRN PRN Reason: Chest Pain Stop: 08/14/19 22:04 Spironolactone (Aldactone) 12.5 mg PO DAILY [facility] Stop: 08/16/19 11:44 Last Admin: 07/22/19 09:02 Dose: 12.5 mg Documented by: Tramadol HCl (Ultram) 25 mg PO Q4H PRN PRN Reason: Pain Stop: 08/14/19 22:04 Warfarin Sodium (Coumadin) 5 mg PO DAILY@1600 [facility] Stop: 08/15/19 17:39 Last Admin: 07/19/19 16:58 Dose: 5 mg Documented by:
--- NOTE | 2019-07-22 13:13 | Cardiology Progress Note ---
Date of Service July 22, 2019 Assessment & Plan (1) Atrial fibrillation with RVR: Patient remains in sinus rhythm status post synchronized electrical cardioversion We will continue amiodarone load Toprol 25 mill grams twice per day INR is remained supratherapeutic likely due to amiodarone,, antibiotic warfarin remains on hold (2) Acute on chronic systolic CHF (congestive heart failure): Will change IV Lasix to oral Continue spironolactone (3) Presence of biventricular AICD: (4) Ischemic cardiomyopathy: As above. (5) Pneumonia: Follow-up chest x-ray ordered for a.m. Antibiotics per internal medicine. Subjective Patient seen and examined at the bedside. Chart, medications, telemetry reviewed. Remains sinus rhythm on telemetry as well as AV sequential pacing. . Heart rate slowed somewhat but still elevated Continues to diurese Physical Exam Constitutional: WD/WN, vitals as above Eyes: PERRL, conjunctivae normal, anicteric sclerae ENMT: external ear and nose normal, oropharynx normal Neck: trachea midline, no thyromegaly Respiratory: Auscultation: + crackles (Few left basilar) Cardiovascular: Rate/Rhythm: regular rate, regular rhythm and + tachycardic Heart Sounds: normal S1 and normal S2; no murmur Vessels: normal carotid upstroke and radial pulses present; no JVD and no carotid bruit Extremities: + edema (1-2+) Gastrointestinal (Abdomen): normal bowel sounds, soft, nontender, no hepatosplenomegaly Musculoskeletal: no cyanosis or clubbing, extremities motor strength 5/5 Skin: no rashes, warm and dry Neurologic: Motor/Sensory: + tremor Psychiatric: A+Ox3, euthymic affect Results & Data Vital Signs (Past 12 Hours) Vital Signs Temp Pulse Resp BP BP Pulse Ox 07/22/19 11:03 97 H 18 116/69 92 07/22/19 07:33 36.4 C L 88 18 112/81 98 07/22/19 03:37 36.9 C 98 H 18 109/79 91
[2019-07-22 15:33] VITALS: BP 109/79
[2019-07-22] MEDS ORDERED: FUROSEMIDE 40 MG TAB PO SCH (17:00)
[2019-07-22] MEDS ORDERED: METOPROLOL SUCC 25MG EXT REL TAB PO SCH (21:00)
--- NOTE | 2019-07-23 07:22 | Discharge Summary ---
Date of Service July 23, 2019 Admission HPI Per Admitting Provider 59 year old male who presents to the ED for evaluation of shortness of breath, weight gain, and lower extremity edema. About 2 weeks ago, patient was instructed by the Coumadin clinic to hold his Coumadin for 2 days. Patient accidentally did not take any of his afternoon pills during those 2 days and therefore missed his Lasix. He started to develop orthopnea, weight gain, worsening lower extremity edema and was seen by his PCP on 07/05 and Lasix was increased for 3 days. Despite this, patient still has had worsening of symptoms. He reports a 7 pound weight gain in the past 2 weeks. He denies chest pain. No lightheadedness, dizziness, diaphoresis, syncopal events. He denies abdominal pain, nausea, vomiting, diarrhea. No fevers or chills. He denies any urinary symptoms. In the ED, patient was found to be in A. fib with RVR. Labs show mild VAIBHAV with creatinine 1.8. proBNP 2860. Patient was given Lasix 40 mg IV, Cardizem 5 mg bolus and started on a drip. Admission Exam Per Admitting Provider Constitutional: WD/WN, vitals as above Eyes: PERRL, conjunctivae normal, anicteric sclerae ENMT: external ear and nose normal, oropharynx normal Respiratory: normal respiratory effort; no respiratory distress Auscultation: + crackles (Bilateral bases) Cardiovascular: Rate/Rhythm: + tachycardic and + irregularly irregular Vessels: normal peripheral pulses Extremities: + edema (+2 pitting edema BLE) Gastrointestinal (Abdomen): normal bowel sounds, soft, nontender, no hepatosplenomegaly Musculoskeletal: no cyanosis or clubbing, extremities motor strength 5/5 Skin: no rashes, warm and dry Neurologic: PERRL, EOMI, accommodation nl, no face palsy, no dysarthria Psychiatric: Orientation: alert and oriented x 3 Affect: + flat affect Principal Diagnosis Atrial fibrillation with RVR, status post cardioversion with reversion to sinus rhythm on amiodarone, ischemic cardiomyopathy status post AICD, chronic systolic heart failure, pneumonia Discharge Exam Constitutional + ill appearing; no acute distress Eyes PERRL, conjunctivae normal, anicteric sclerae ENMT external ear and nose normal, oropharynx normal Neck trachea midline, no thyromegaly Respiratory normal respiratory effort Auscultation: + diminished lung sounds and + crackles (Minimal crackles at bases) Cardiovascular Rate/Rhythm: + tachycardic; + abnormal rate and + abnormal rhythm Extremities: + edema (1+ edema bilateral) Gastrointestinal (Abdomen) Inspection/Auscultation: abdomen normal to inspection and normal bowel sounds Percussion/Palpation: abdomen soft Neurologic moves all extremities; no focal motor deficits Discharge Data Allergies Allergy/AdvReac Type Severity Reaction Status Date / Time codeine Allergy Severe ANAPHYLAXSI Unverified 07/15/19 19:43 S propoxyphene Allergy Severe RASH PER PT Unverified 07/15/19 19:43 oxycodone Allergy Intermediate RASH Unverified 07/15/19 20:37 acetaminophen Allergy Unknown RASH-PT Unverified 07/15/19 19:43 NOT SURE Consultations 07/15/19 20:46 ED Decision to Admit Stat 07/15/19 22:05 Consult Cardiology Routine Consult Case Management - Discharge Planning Routine 07/18/19 11:01 Consult Anesthesiology Routine 07/22/19 14:30 Consult Case Management - Discharge Planning Routine Procedures Performed Operation Date: 07/19/19 08:00 Actual Procedures p Cardioversion - Nick Pabon DO Ordered Studies 07/15/19 20:43 US abdomen ltd ascites Urgent Hospital Course (1) Atrial fibrillation with RVR: Present on admission with worsening SOB and weight gained after missing diuretic for more than 2 days EKG on admission showed Afib with RVR Rate uncontrolled with HR btw 100's to 120 Received IV Digoxin and IV Cardizem, then started on Cardizem drip that was discontinued Amiodarone drip was restarted And later on started on oral amiodarone 200 mg 3 times daily. Plans for external direct-current cardioversion tomorrow Appreciate cardiology input and recommendation Status post cardioversion this morning Remains same sinus rhythm and denies any significant symptoms except weakness Will need a few more days to be discharged Remains weak and lethargic-not been participating in physical therapy Has been participating in physical therapy Remains weak and lethargy otherwise stable at [facility] Will need to discuss with the sister before sending him home He did not want to participate in to do steps O2 saturation test Arterial blood gas on room air showed respiratory alkalosis with CO2 of 31 and PO2 of 81 Possible left basal pneumonia Has had fever last night more than 39 degrees No more fever since this morning Chest x-ray one secondary to possible left basilar infiltrate Could be secondary to aspiration Started with the oral Augmentin 875 mg twice daily for about 7 days to continue INR is up likely secondary to antibiotic (2) Acute on chronic systolic CHF (congestive heart failure): Has ischemic cardiomyopathy with biventricular AICD CXR showed cardiomegaly and AICD. There is mild pulmonary vascular congestion. Has ischemic cardiomyopathy with placement of biventricular AICD Pro BNP on admission 2860 Continue IV lasix 40mg BID Spironolactone added today Continue fluid restriction Monitor I/O Kidney function remains stable as 07/18 Intravenous Lasix 40 mg twice daily have been restarted We will start him oral dose of furosemide on discharge (3) Hypertension: BP stable Lisinopril on hold due to VAIBHAV Continue metoprolol (4) Acute kidney injury: Creatinine on admission 1.8, Improved to 1.3 today Lisinopril on hold Will monitor BMP while on IV lasix Avoid nephrotoxic agents resolved with creatinine 1.39 as of 07/18 Will monitor PRP-creatinine is back to baseline and normal Diabetes Recent outpatient hemoglobin A1c of 8.3 last June 2019 On lantus and insulin sliding scale Monitor BS DVT px on coumadin INR is 3.4 as on 07/18 INR is more than 3 today We will hold Coumadin today decrease the dose from tomorrow Code Status FULL CODE Disposition Continue monitor in tele To do steps O2 saturation could not be performed due to weakness We will get room air ABG to evaluate oxygen level Will discuss with the sister about more physical therapy in house or even send the patient home with home health services Total Time Total Time Spent Total Time Spent (In Minutes): 35 minutes Total Time Includes: Examination of the Patient, Discharge Planning, Medication Reconciliation and Communication With Other Providers Discharge Plan Discharge Items Patient Disposition: Home - Home Health Services Reason For Visit: CHF Discharge Diagnosis: Atrial fibrillation with RVR, status post cardioversion with reversion to sinus rhythm on amiodarone, ischemic cardiomyopathy status post AICD, chronic systolic heart failure, pneumonia Condition on Discharge: Fair Activity: Resume your previous activity Activity Comment: Take extreme precaution to avoid falls Non-emergency contact: Primary Care Provider Call non-emergency contact if: you have any medication questions and your symptoms worsen Follow-up/Referrals: Gómez Pierson MD [Primary Care Provider] - (Your doctor's office will call with an appointment within 7 days. Keep appointment with your coagulation clinic. Cardiology will call with an appointment within 1 to 2 weeks.) Diet: Heart Healthy and Low Sodium (2gm) Fluids: 1500ml (6 cups) Addtl Attending Provider Instructions: Start taking Coumadin 5 mg from Tuesday afternoon. Have your INR checked on Tuesday for further dosing. Please take extreme precaution to avoid fall. Try to keep your legs elevated while sitting and especially while lying/sleep Pending Studies at Discharge: No Stand-Alone Forms: My [facility] Medications and DC Order Prescriptions: New amiodarone 200 mg Tablet 200 mg PO BID 30 Days Qty: 60 RF: 0 spironolactone 25 mg Tablet 12.5 mg PO DAILY 30 Days Qty: 15 RF: 0 metoprolol succinate 25 mg Tablet Extended Release 24 Hr 25 mg PO BID 30 Days Qty: 60 RF: 0 amoxicillin-pot clavulanate 875-125 mg Tablet 1 tab PO BIDM 4 Days Qty: 8 RF: 0 Continued glipizide 5 mg tablet extended release 24hr 5 mg PO DAILY RF: 0 furosemide 40 mg tablet 40 mg PO BID RF: 0 Jardiance 10 mg tablet 10 mg PO DAILY RF: 0 atorvastatin 40 mg tablet 40 mg PO HS RF: 0 albuterol sulfate 90 mcg/actuation Hfa Aerosol Inhaler 2 puff INHALATION Q4H PRN (Reason: Wheezing) RF: 0 warfarin 5 mg tablet 5 mg PO MOFR RF: 0 warfarin 5 mg tablet 7.5 mg PO SUTUWETHSA RF: 0 aripiprazole 10 mg tablet 10 mg PO HS RF: 0 aspirin [Aspir-81] 81 mg Tablet,Delayed Release (Dr/Ec) 81 mg PO HS RF: 0 mupirocin 2 % ointment 1 applic topical TID RF: 0 mirtazapine 15 mg tablet 15 mg PO HS RF: 0 Discontinued spironolactone 25 mg tablet 12.5 mg PO Q2D RF: 0 metoprolol succinate 100 mg tablet extended release 24 hr 100 mg PO DAILY RF: 0 lisinopril 2.5 mg tablet 2.5 mg PO QAM RF: 0 metformin 1,000 mg tablet 1,000 mg PO BIDM RF: 0 digoxin 250 mcg tablet 250 mcg PO 3XWK RF: 0 Discharge Orders: Discharge Order (Routine); Ordered 07/22/19 Ordered By: Gus Walton Admission Data Admit Date/Time: 07/15/19 20:47 Attending Provider: Gus Walton Admit Provider: Catracho Mcintyre Primary Care Provider: Gómez Pierson Other Providers: Catracho Mcintyre ; Nick Pabon ; Shirley Alaniz ; Reyna Cheney ; Zee Mckeon ; Eleonora Meza ; Tracie Renee ; Brittany Ordonez ; Tona Levine ; José Miguel Hickey ; Fadi Burton ; Khang Moreno ; Tristen Reyez ; Coral Reyez ; King Hahn ; Mai Santos ; Justo Mendez ; Gautam Pedersen ; Chano Murillo ; Bubba Wayne ; Carlos Samano ; Jen Marcano ; Kit Carvalho ; Amber Mas ; Ann Marie Carvalho ; Galdino Walden ; Yulia Chance ; Tremayne Duncan ; Yumiko Ward ; Bety Romero ; Carlton Milton ; Erika Smith A ; Apoorva Gonzales ; Bree Connelly ; Priya Kim ; Catracho Kim V ; Silvestre Bravo ; Eleonora Reyes ; Rocco Hoyt ; Viraj Castillo ; Katy Ponce ; Cat Loo ; Catracho Schmidt ; Espinoza Marcano ; Luis Sampson ; Bridgette Carter ; Bree Lam ; Khang Nielsen ; Michelle Richey ; Gautam Mcnair ; Emory Samano ; Ana Celis ; Johnathon Padilla ; Odalys Garcia Other Interventions: Discharge Summary Assessment (RN) Last Done: 07/22/19 15:32 DC Date/Time DO NOT enter until pt leaves facility: 07/22/19 16:18
== END 2019-07-22 16:18 | disposition home health service (06) | DRG 308 ==
LOC: ED 16:37 → SUATTDRO 20:47 → 2S 20:47

== ENCOUNTER 2019-07-24 21:39 | Inpatient (IN) ==
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
[2019-07-24 23:55] LABS: Basophils # (auto) 0.06 K/uL (0-0.2); Basophils % (auto) 0.6 %; Eosinophils # (auto) 0.04 K/uL (0-0.5); Eosinophils % (auto) 0.4 %; Hematocrit (blood only) 42.7 % (42-52); Hemoglobin 14.9 g/dL (14.0-18.0); Immature Granulocytes # (auto) 0.08 K/uL (0.00-0.02); Immature Granulocytes % (auto) 0.8 %; Lymphocytes # (auto) 1.68 K/uL (1.2-3.4); Mean Corpuscular Hemoglobin 32.7 pg (25-34); Mean Corpuscular Hgb Conc 34.9 g/dL (32-36); Mean Corpuscular Volume 93.6 fL (80-100); Mean Platelet Volume 11.4 fL (7.4-10.4); Monocytes # (auto) 0.88 K/uL (0.11-0.59); Monocytes % (auto) 8.4 %; Neutrophils # (auto) 7.77 K/uL (1.4-6.5); Neutrophils % (auto) 73.8 %; Platelet Count 200 K/uL (130-400); RDW Coefficient of Variation 15.1 % (11.5-14.5); RDW Standard Deviation 49.8 fL (36.4-46.3); Red Blood Count 4.56 M/uL (4.7-6.1); White Blood Count 10.51 K/uL (4.8-10.8)
[2019-07-25 00:39] LABS: Partial Thromboplastin Ratio 1.1; Prothrombin Time 28.2 Seconds (9.0-12.0)
[2019-07-25 00:45] LABS: Alanine Aminotransferase 569 U/L (12-78); Albumin Level 3.6 gm/dl (3.4-5.0); Aspartate Aminotransferase 319 U/L (15-37); BUN Creatinine Ratio 21.9 (10-20); Blood Urea Nitrogen 48 mg/dl (7-18); Calcium 8.9 mg/dl (8.5-10.1); Carbon Dioxide 26 mmol/L (21-32); Chloride 94 mmol/L (98-107); Creatinine Clr Calc Pharmacy 39.8 ml/min; Est GFR (African American) 37.1; Glucose 261 mg/dl (70-99); Potassium 4.9 mmol/L (3.5-5.1); Sodium 132 mmol/L (136-145)
[2019-07-25 00:49] LABS: Albumin Globulin Ratio 0.9 (0.9-2); Alkaline Phosphatase 95 U/L (45-117); Bilirubin,Total 2.7 mg/dl (0.2-1); Globulin 3.8 gm/dl (2.5-4.0); Total Protein 7.4 gm/dl (6.4-8.2); Troponin I < 0.015 ng/ml (0-0.045)
[2019-07-25] MEDS ORDERED: SODIUM CHLORIDE 0.9% 1000ML 250 ML IV ONE (01:07)
[2019-07-25] MEDS ORDERED: ALBUTEROL HFA 8 GM INHALER INH PRN (04:16)
[2019-07-25] MEDS ORDERED: NITROGLYCERIN SL 0.4 MG/TAB TAB SL PRN (04:16)
[2019-07-25] MEDS ORDERED: ALUMINUM/MAGNESIUM SUSP 30 ML UDC PO PRN (04:16)
[2019-07-25] MEDS ORDERED: ONDANSETRON INJ 2 MG/ML 2 ML VIAL IV PRN (04:16)
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
[2019-07-25] MEDS ORDERED: GLUCOSE 40% GEL 15 GM TUBE PO PRN (05:00)
[2019-07-25] MEDS ORDERED: GLUCAGON FOR INJ 1 MG VIAL IM PRN (05:00)
[2019-07-25] MEDS ORDERED: CARBOHYDRATES FOR HYPOGLYCEMIA PO PRN (05:00)
[2019-07-25] MEDS ORDERED: DEXTROSE 50% 50 ML SYRINGE IV PRN (05:00)
[2019-07-25] MEDS ORDERED: GLUCOSE 10 TABS/TUBE PO PRN (05:00)
[2019-07-25] MEDS ORDERED: INFLUENZA VIRUS QUAD VACCINE 0.5 ML SYR IM ONE (06:15)
[2019-07-25] MEDS ORDERED: INFLUENZA ADMINISTRATION CHARGE ONE (06:15)
--- NOTE | 2019-07-25 06:53 | Ultrasound Report ---
BILIARY ULTRASOUND CLINICAL HISTORY: Elevated bilirubin and LFTs. COMPARISON STUDY: February 19, 2016 FINDINGS: The study was difficult for technical standpoint secondary to patient's body habitus and inability to take deep breaths. The pancreas was not visualized. No focal hepatic masses were visualized. There is slightly coarsened hepatic echotexture. There is a nonspecific finding which can indicate hepatic steatosis or a nonspecific hepatitis. No gallstones are visualized. There is no ductal dilatation. The common bile duct measured 5 mm. There is no right-sided hydronephrosis. IMPRESSION: 1. Technically limited study. Nondiagnostic evaluation of pancreas. Ultrasonographically normal gallb ladder. No ductal dilatation. 2. Slightly coarsened hepatic echotexture. This is a nonspecific finding which could indicate hepatic steatosis or nonspecific hepatitis. Electronically signed by: Eleazar Yee M.D. 07/25/2019 6:51 AM
[2019-07-25 07:01] LABS: Basophils # (auto) 0.07 K/uL (0-0.2); Basophils % (auto) 0.7 %; Eosinophils # (auto) 0.06 K/uL (0-0.5); Eosinophils % (auto) 0.6 %; Hematocrit (blood only) 42.4 % (42-52); Hemoglobin 14.3 g/dL (14.0-18.0); Immature Granulocytes # (auto) 0.07 K/uL (0.00-0.02); Immature Granulocytes % (auto) 0.7 %; Lymphocytes # (auto) 1.57 K/uL (1.2-3.4); Lymphocytes % (auto) 16.3 %; Mean Corpuscular Hemoglobin 31.9 pg (25-34); Mean Corpuscular Hgb Conc 33.7 g/dL (32-36); Mean Corpuscular Volume 94.6 fL (80-100); Mean Platelet Volume 11.4 fL (7.4-10.4); Monocytes # (auto) 1.16 K/uL (0.11-0.59); Neutrophils % (auto) 69.7 %; Platelet Count 192 K/uL (130-400); RDW Coefficient of Variation 15.1 % (11.5-14.5); RDW Standard Deviation 51.3 fL (36.4-46.3); Red Blood Count 4.48 M/uL (4.7-6.1); White Blood Count 9.63 K/uL (4.8-10.8)
--- NOTE | 2019-07-25 07:08 | XRay Report ---
SINGLE VIEW CHEST CLINICAL HISTORY: Dyspnea. FINDINGS: An AP, portable, upright chest radiograph is compared to study dated 07/22/2019. The examina tion is degraded by portable technique and patient rotation. A 3-lead cardiac AICD is unchanged in p osition and partially obscures the left lung base. The heart is enlarged noting atherosclerotic calci fication of the thoracic aorta. There is mild pulmonary vascular congestion. Scarring/atelectasis is seen at both lung bases. No airspace consolidation or large pleural effusion is identified. No pneumo thorax is seen. The skeletal structures are osteopenic. The bony thorax is grossly intact. IMPRESSION: 1. Cardiomegaly and AICD. There is mild pulmonary vascular congestion. 2. No airspace consolidation or large pleural effusion is identified. Electronically signed by: Kalpesh Juarez M.D. 07/25/2019 7:07 AM
[2019-07-25 07:15] LABS: INR 3.1 (0.9-1.1); Prothrombin Time 29.2 Seconds (9.0-12.0)
[2019-07-25 07:27] LABS: Albumin Level 3.6 gm/dl (3.4-5.0); BUN Creatinine Ratio 24.8 (10-20); Bilirubin Direct 1.3 mg/dl (0-0.2); Calcium 9.5 mg/dl (8.5-10.1); Creatinine Clr Calc Pharmacy 48.7 ml/min; Est GFR (Non-African American) 37.1; Magnesium 2.4 mg/dl (1.8-2.4); Potassium 4.3 mmol/L (3.5-5.1)
[2019-07-25 07:29] LABS: Bilirubin,Total 2.7 mg/dl (0.2-1); Total Protein 7.3 gm/dl (6.4-8.2)
[2019-07-25] MEDS: AMOXICILLIN/CLAVULANATE 875 MG TAB PO SCH ×2 (08:06→16:59)
[2019-07-25] MEDS: INSULIN ASPART 100 UNITS/ML 3 ML PEN SC SCH ×4 (08:07→20:22)
[2019-07-25] MEDS: METOPROLOL SUCC 25MG EXT REL TAB PO SCH ×2 (08:08→20:21)
[2019-07-25] MEDS: INSULIN GLARGINE SOLOSTAR 100 UNITS/ML 3 ML PEN SC SCH ×2 (08:08→20:22)
[2019-07-25] MEDS ORDERED: AMIODARONE 200 MG TAB PO SCH (09:00)
[2019-07-25 12:43] LABS: Base Excess ABG -0.6 mEq/L (-9-1.8); HCO3 ABG 21 mmol/L (19-24); PCO2 ABG 27 mmHg (35-46); PO2 ABG 97 mm/Hg (80-95)
[2019-07-25 12:47] LABS: Allen Test Pos (Pos)
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
--- NOTE | 2019-07-25 14:54 | Hospitalist Progress Note ---
Date of Service July 25, 2019 Assessment & Plan (1) Acute dyspnea: Patient is a 59 yr female with H/O chronic systolic CHF--EF less than 20% S/P biventricular AICD placement, DM, CKD III, recently diagnosed to have afib presents with SOB, Orthopnea. Shortness of breath/Orthopnea Possible due to Amiodarone Toxicity DD: Pulmonary HTN contributing CXR:Cardiomegaly and AICD. There is mild pulmonary vascular congestion. No airspace consolidation or large pleural effusion is identified. Will need CT chest when renal function improves Saturating well on room air Will consider Pulmonology eval if needed Amiodarone discontinued Appreciate Cardiology Input Monitor Volume status closely Resume diuretics as able Acute kidney injury on CKD III Baseline Cr:1.3 Cr:1.94 today Hold diuretics for now Avoid Nephrotoxics as able Monitor renal function Transaminitis Likely due to amiodarone --Gall Bladder USD:Technically limited study. Nondiagnostic evaluation of pancreas. Ultrasonographically normal gallbladder. No ductal dilatation. Slightly coarsened hepatic echotexture. This is a nonspecific finding which could indicate hepatic steatosis or nonspecific hepatitis. --Monitor LFTs --Consider GI eval if no improvement of LFTs off amiodarone H/O left basilar pneumonia Diagnosed during prior admission Continue Augmentin to complete the course Chronic systolic congestive heart failure EF of 20%, biventricular AICD Diuretics held due to VAIBHAV Monitor Volume status Resume diuretics as able Hypertension Continue Metoprolol Monitor DM II: Continue ISS, Lantus Monitor Atrial fibrillation Amiodarone discontinued Continue Metoprolol Continue Coumadin for anticoagulation Monitor INR:3.1 today Monitor on Telemetry DVT Px: ON Coumadin Code Status Full Code Subjective Patient is seen and examined at bedside Complains of Insomnia due to Orthopnea Also reports palpitations Denies any chest pain, SOB, dizziness, nausea, abd pain Discussed with Cardiology Today Review of Systems Review of Systems: All systems reviewed & are unremarkable except as noted in HPI & below Physical Exam Physical Exam: Physical Exam: Vitals signs as noted above General Appearance:Moderately built and nourished, no apparent distress Head: normocephalic, Atraumatic Eyes: normal inspection, EOMI Neck: supple, Trachea midline Respiratory/Chest: Decreased breath sounds at bases Cardiovascular: S1, S2, +systolic murmur Abdomen/GI:Soft, Non tender, Bowel sounds present Extremities/Musculoskelatal:normal inspection, B/L LE edema Neurologic/Psych:AAOX3, grossly no focal neurological deficits, +Resting tremor Skin: normal color, warm Results & Data Vital Signs (Past 12 Hours) Vital Signs Temp Pulse Pulse Resp BP BP Pulse Ox 07/25/19 12:17 36.4 C L 99 H 18 115/76 97 07/25/19 06:43 36.4 C L 95 H 22 99/69 L 94 07/25/19 04:00 36.8 C 94 H 16 119/87 98 07/25/19 03:14 110/86 07/25/19 03:00 97 H 13 95 Laboratory Results Short CBC 07/24/19 07/25/19 Range/Units 23:13 06:48 WBC 10.51 9.63 (4.8-10.8) K/uL Hgb 14.9 14.3 (14.0-18.0) g/dL Hct 42.7 42.4 (42-52) % Plt Count 200 192 (130-400) K/uL BMP 07/24/19 07/25/19 07/25/19 23:13 00:12 06:48 Sodium Cancelled 132 L 131 L Potassium Cancelled 4.9 4.3 Chloride Cancelled 94 L 97 L Carbon Dioxide Cancelled 26 24 BUN Cancelled 48 H 48 H Creatinine Cancelled 2.19 H 1.94 H Glucose Cancelled 261 H 215 H Calcium Cancelled 8.9 9.5 Cardiac Enzymes 07/24/19 07/25/19 Range/Units 23:13 00:12 Troponin I Cancelled < 0.015 Liver Function 07/24/19 07/25/19 07/25/19 Range/Units 23:13 00:12 06:48 Total Bilirubin Cancelled 2.7 H 2.7 H Direct Bilirubin 1.3 H (0-0.2) mg/dl AST Cancelled 319 H 379 H ALT Cancelled 569 H 597 H Alkaline Phosphatase Cancelled 95 94 Albumin Cancelled 3.6 3.6
[2019-07-25] MEDS: WARFARIN SOD 7.5 MG TAB PO SCH (16:59)
[2019-07-25] MEDS: ASPIRIN 81 MG ECTAB PO SCH (20:21)
[2019-07-25] MEDS: LORazepam 0.5 MG TAB PO PRN (20:21)
[2019-07-25] MEDS: ARIPiprazole 10 MG TAB PO SCH (20:21)
[2019-07-25] MEDS: ATORVASTATIN 40 MG TAB PO SCH (20:21)
[2019-07-25] MEDS: MIRTAZAPINE TAB 15 MG TAB PO SCH (20:21)
[2019-07-26 06:04] LABS: INR 3.1 (0.9-1.1); Prothrombin Time 29.3 Seconds (9.0-12.0)
[2019-07-26 06:23] LABS: Albumin Level 3.3 gm/dl (3.4-5.0); BUN Creatinine Ratio 23.4 (10-20); Calcium 8.7 mg/dl (8.5-10.1); Creatinine Clr Calc Pharmacy 54.3 ml/min; Est GFR (Non-African American) 42.3
[2019-07-26 06:26] LABS: Albumin Globulin Ratio 0.9 (0.9-2); Bilirubin,Total 2.3 mg/dl (0.2-1); Globulin 3.6 gm/dl (2.5-4.0); Total Protein 6.9 gm/dl (6.4-8.2)
[2019-07-26] MEDS: INSULIN ASPART 100 UNITS/ML 3 ML PEN SC SCH ×4 (08:20→20:48)
[2019-07-26] MEDS: INSULIN GLARGINE SOLOSTAR 100 UNITS/ML 3 ML PEN SC SCH ×2 (08:21→20:47)
[2019-07-26] MEDS: METOPROLOL SUCC 25MG EXT REL TAB PO SCH ×2 (08:21→19:27)
[2019-07-26] MEDS: AMOXICILLIN/CLAVULANATE 875 MG TAB PO SCH (08:22)
[2019-07-26] MEDS: LORazepam 0.5 MG TAB PO PRN ×2 (11:33→20:47)
--- NOTE | 2019-07-26 15:48 | Cardiology Progress Note ---
Date of Service July 26, 2019 Assessment & Plan (1) Acute dyspnea: Clinically patient has returned to baseline. Diuretics have been held and he does not examined significantly volume overloaded. His amiodarone has been stopped but no other intervention was performed. So at this point I am not quite sure what to make of his episode of shortness of breath. I still believe that pulmonary medicine evaluation and likely high-resolution CT scan of the chest would be appropriate We will continue to follow his volume status clinically. (2) Transaminitis: Concern for amiodarone toxicity, no significant improvement today Would not hesitate to ask our GI colleagues for input (3) VAIBHAV (acute kidney injury): Diuretics being held Improving To be followed (4) Atrial fibrillation with RVR: Currently normal sinus rhythm Should he go back into atrial fibrillation would recommend attempting rate control with IV beta-blockade and if that is insufficient Cardizem drip (5) Acute on chronic systolic CHF (congestive heart failure): Does not examine as significantly volume overloaded at this time. Diuretics held secondary to his acute kidney failure We will continue to follow his volume status clinically. Subjective Patient seen and examined, out of bed in chair. States that he feels well today. He states his breathing has improved since admission and believes it is now back to baseline. He denies expressing any chest pain, palpitations, lightheadedness, dizziness or syncope. Telemetry monitoring shows normal sinus rhythm. Review of Systems Review of Systems: All systems reviewed & are unremarkable except as noted in HPI & below Physical Exam Physical Exam: General: Awake, alert and oriented x 3. No acute distress. Flattened affect does not make eye contact during conversation HEENT: Normocephalic, atraumatic. Pupils equal, round and reactive to light and accommodation. Extraocular muscles are intact. Anicteric sclera. Moist mucous membranes. Neck: No JVD. No bruit. Cardiovascular: Regular. Positive S-4. Normal S-1 and S-2. No S-3. 3/6 holosystolic ejection murmur, 5th intercostal space, mid-clavicular line without radiation. No rubs. Pulmonary: Clear to auscultation bilaterally. No rales, rhonchi, or wheezing. Abdomen: Bowel sounds x 4, soft. No rebound, guarding or tenderness. No organomegaly. Extremities: No clubbing, cyanosis or edema. +2 pedal pulses bilaterally. Skin: Warm and dry. Results & Data Vital Signs (Past 12 Hours) Vital Signs Temp Pulse Resp BP BP Pulse Ox 07/26/19 11:40 36.6 C 82 18 125/66 93 07/26/19 08:00 37.1 C 74 20 106/79 94 07/26/19 07:22 73 18 109/77 98 07/26/19 04:50 36.4 C L 73 22 108/76 97
[2019-07-26] MEDS: WARFARIN SOD 7.5 MG TAB PO SCH (17:06)
--- NOTE | 2019-07-26 17:34 | Hospitalist Progress Note ---
Date of Service July 26, 2019 Assessment & Plan (1) Acute dyspnea: Patient is a 59 yr female with H/O chronic systolic CHF--EF less than 20% S/P biventricular AICD placement, DM, CKD III, recently diagnosed to have afib presents with SOB, Orthopnea. Shortness of breath/Orthopnea Possible due to Amiodarone Toxicity DD: Pulmonary HTN contributing CXR:Cardiomegaly and AICD. There is mild pulmonary vascular congestion. No airspace consolidation or large pleural effusion is identified. Will need CT chest when renal function improves Saturating well on room air Will consider Pulmonology eval if needed Amiodarone discontinued Appreciate Cardiology Input Monitor Volume status closely Resume diuretics as able Symptomatically improved today Acute kidney injury on CKD III Baseline Cr:1.3 Cr:1.94>>>1.74 Hold diuretics for now Avoid Nephrotoxics as able Monitor renal function Transaminitis Likely due to amiodarone --Gall Bladder USD:Technically limited study. Nondiagnostic evaluation of pancreas. Ultrasonographically normal gallbladder. No ductal dilatation. Slightly coarsened hepatic echotexture. This is a nonspecific finding which could indicate hepatic steatosis or nonspecific hepatitis. --Monitor LFTs daily --Consider GI eval if no significant improvement of LFTs --May take several days for LFTs to improve if transaminitis secondary to amiodarone as per GI H/O left basilar pneumonia Diagnosed during prior admission Continue Augmentin to complete the course Chronic systolic congestive heart failure EF of 20%, biventricular AICD Diuretics held due to VAIBHAV Monitor Volume status Resume diuretics as able Hypertension Continue Metoprolol Monitor DM II: Continue ISS, Lantus Monitor Atrial fibrillation Amiodarone discontinued Continue Metoprolol Continue Coumadin for anticoagulation Monitor INR:3.1 today Monitor on Telemetry DVT Px: ON Coumadin Code Status Full Code Disposition Home with Home Health when stable Subjective Patient is seen and examined at bedside States feeling better today Orthopnea, SOB improved Slept well overnight per patient Denies any chest pain, dizziness, nausea, abd pain Offers no complaints Discussed with GI Today-- advised to continue monitoring LFTs Review of Systems Review of Systems: All systems reviewed & are unremarkable except as noted in HPI & below Physical Exam Physical Exam: Physical Exam: Vitals signs as noted above General Appearance:Moderately built and nourished, no apparent distress Head: normocephalic, Atraumatic Eyes: normal inspection, EOMI Neck: supple, Trachea midline Respiratory/Chest: Decreased breath sounds at bases Cardiovascular: S1, S2, +systolic murmur Abdomen/GI:Soft, Non tender, Bowel sounds present Extremities/Musculoskelatal:normal inspection, B/L LE edema Neurologic/Psych:AAOX3, grossly no focal neurological deficits, +Resting tremor Skin: normal color, warm Results & Data Vital Signs (Past 12 Hours) Vital Signs Temp Pulse Pulse Resp BP BP Pulse Ox 07/26/19 16:04 36.6 C 89 18 109/69 96 07/26/19 11:40 36.6 C 82 18 125/66 93 07/26/19 08:00 37.1 C 74 20 106/79 94 07/26/19 07:22 73 18 109/77 98 Laboratory Results [facility] 07/26/19 05:35 Sodium 133 L Potassium 4.0 Chloride 100 Carbon Dioxide 26 BUN 41 H Creatinine 1.74 H Glucose 103 H Calcium 8.7 Liver Function 07/26/19 Range/Units 05:35 Total Bilirubin 2.3 H (0.2-1) mg/dl AST 303 H (15-37) U/L ALT 568 H (12-78) U/L Alkaline Phosphatase 85 (45-117) U/L Albumin 3.3 L (3.4-5.0) gm/dl
[2019-07-26] MEDS: ASPIRIN 81 MG ECTAB PO SCH (19:26)
[2019-07-26] MEDS: ATORVASTATIN 40 MG TAB PO SCH (19:27)
[2019-07-26] MEDS: ARIPiprazole 10 MG TAB PO SCH (19:27)
[2019-07-26] MEDS: MIRTAZAPINE TAB 15 MG TAB PO SCH (19:27)
[2019-07-27 08:41] LABS: INR 5.2 (0.9-1.1); Prothrombin Time 47.2 Seconds (9.0-12.0)
[2019-07-27] MEDS: INSULIN ASPART 100 UNITS/ML 3 ML PEN SC SCH ×4 (08:45→21:16)
[2019-07-27] MEDS: INSULIN GLARGINE SOLOSTAR 100 UNITS/ML 3 ML PEN SC SCH ×2 (08:46→21:16)
[2019-07-27] MEDS: METOPROLOL SUCC 25MG EXT REL TAB PO SCH ×3 (08:47→21:20)
[2019-07-27 08:48] LABS: Albumin Level 3.7 gm/dl (3.4-5.0); BUN Creatinine Ratio 24.1 (10-20); Calcium 9.4 mg/dl (8.5-10.1); Creatinine Clr Calc Pharmacy 54.5 ml/min; Est GFR (African American) 48.7; Potassium 3.9 mmol/L (3.5-5.1)
[2019-07-27 08:51] LABS: Bilirubin,Total 2.4 mg/dl (0.2-1); Globulin 3.9 gm/dl (2.5-4.0); Total Protein 7.6 gm/dl (6.4-8.2)
[2019-07-27] MEDS: LORazepam 0.5 MG TAB PO PRN ×3 (09:12→23:40)
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
--- NOTE | 2019-07-27 11:04 | CT Scan Report ---
CT SCAN OF THE CHEST WITHOUT IV CONTRAST CLINICAL HISTORY: Dyspnea. Clinical concern for amiodarone toxicity. COMPARISON STUDY: Chest x-ray dated 07/24/2019. TECHNIQUE: CT scan of the thorax was performed from the thoracic inlet to the upper abdomen. Images are reviewed in the axial, sagittal, and coronal planes. IV contrast was not administered for this ex amination as per the referring clinician. A dose lowering technique was utilized adhering to the [facility]. Examination is severely degraded by motion artifact. CT DOSE: 685.81 mGy.cm FINDINGS: Thyroid: Imaged portions of the thyroid gland are normal in size and attenuation. Thoracic aorta: There is atherosclerotic calcification of the thoracic aorta, which is normal in kely abe and demonstrates 4-vessel variant arch anatomy. Heart: A 3-lead cardiac AICD is present in the right chest wall. The heart is markedly enlarged and t here is trace pericardial effusion. The coronary arteries are densely calcified. Myocardial calcific ation in the ventricular septum and left ventricular wall suggests previous ischemia. The pulmonary a rteries appear dilated indicator pulmonary artery hypertension. Lungs and pleural spaces: Evaluation of the lung parenchyma is severely degraded by motion artifact. This degrades assessment for small pulmonary lesions. Emphysema change is suggested. There are small loculated pleural effusions. Loculated pleural fluid is seen at the anterior left lung base, the ante rior right lung base, and at the lateral left apex. Trace fluid is noted along the left major fissure . Trace dependent pleural effusion is seen at the right lung base. There is no lobar consolidation to indicate pneumonia. Mild diffuse intralobular septal thickening suggests congestive failure. The tra kenneth and central airways are clear. There is no hyperdense pulmonary lesion seen to indicate amiodaro ne toxicity. Mediastinum: There are mildly enlarged and the sternal lymph nodes. A pretracheal node on image #99 m easures 1.6 cm in short axis prevascular nodes measure up to 10 mm in short axis. A subcarinal node m easures 1.4 cm in short axis. Cristina: Not well assessed without IV contrast. Axillae: There is no axillary lymphadenopathy. Upper abdomen: Partially visualized upper abdominal viscera is grossly unremarkable but not well eval uated. There is no hepatic hyperdensity to suggest amiodarone toxicity. A calcified hepatic granuloma is incidentally noted. Skeletal structures: The skeletal structures are osteopenic. Degenerative change is noted throughout the thoracic spine and in the shoulders. No lytic or blastic bony lesions are seen. There is chronic posttraumatic deformity of the left scapula. IMPRESSION: 1. Severely motion degraded examination. 2. There is no CT evidence of amiodarone toxicity as clinically queried 3. Marked cardiomegaly and AICD. There is diffuse intralobular septal thickening. This could present acute versus chronic congestive change. 4. Suspect emphysema. 5. Small loculated pleural effusions as above. 6. There is no airspace consolidation typical for pneumonia. 7. Mildly enlarged mediastinal lymph nodes are nonspecific. 8. Additional findings as above. Electronically signed by: Kalpesh Juarez M.D. 07/27/2019 11:03 AM
[2019-07-27] MEDS ORDERED: WARFARIN SOD 5 MG TAB PO SCH (16:00)
--- NOTE | 2019-07-27 16:41 | Cardiology Progress Note ---
Date of Service July 27, 2019 Assessment & Plan (1) Acute dyspnea: Clinically patient has returned to baseline. Diuretics have been held and he does not examined significantly volume overloaded. His amiodarone has been stopped but no other intervention was performed. So at this point I am not quite sure what to make of his episode of shortness of breath. CT performed, no sign of amio toxicity, emphasematous changes, no significant volume overload cont to hold diuretics We will continue to follow his volume status clinically. ok to d/c tele from cardiac standpoint (2) Transaminitis: Concern for amiodarone toxicity, no significant improvement today Has been seen by GI (3) VAIBHAV (acute kidney injury): Diuretics being held Improving To be followed (4) Atrial fibrillation with RVR: Currently normal sinus rhythm Should he go back into atrial fibrillation would recommend attempting rate control with IV beta-blockade and if that is insufficient Cardizem drip (5) Acute on chronic systolic CHF (congestive heart failure): Does not examine as significantly volume overloaded at this time. Diuretics held secondary to his acute kidney failure We will continue to follow his volume status clinically. Subjective Pt seen and examined, states that he's feeling anxious today. States breathing is ok, no sob. Denies cp, palpitations, lightheadedness or dizziness. tele reviewed: sinus rhythm without arrhythmia or significant ectopy. Review of Systems Review of Systems: All systems reviewed & are unremarkable except as noted in HPI & below Physical Exam Physical Exam: General: Awake, alert and oriented x 3. No acute distress. Moderately anxious HEENT: Normocephalic, atraumatic. Pupils equal, round and reactive to light and accommodation. Extraocular muscles are intact. Anicteric sclera. Moist mucous membranes. Neck: No JVD. No bruit. Cardiovascular: Regular. Positive S-4. Normal S-1 and S-2. No S-3. No murmurs or rubs. Pulmonary: Clear to auscultation B/L. No rales, rhonchi or wheezing Abdomen: Bowel sounds x 4, soft. No rebound, guarding or tenderness. No organomegaly. Extremities: No clubbing, cyanosis or edema. +2 pedal pulses bilaterally. Skin: Warm and dry. Results & Data Vital Signs (Past 12 Hours) Vital Signs Temp Pulse Resp BP BP Pulse Ox 07/27/19 15:10 36.5 C 91 H 19 111/77 94 07/27/19 11:36 36.4 C L 91 H 17 113/80 94 07/27/19 07:28 36.6 C 95 H 17 117/82 98
--- NOTE | 2019-07-27 18:59 | Hospitalist Progress Note ---
Date of Service July 27, 2019 Assessment & Plan (1) Acute dyspnea: Patient is a 59 yr female with H/O chronic systolic CHF--EF less than 20% S/P biventricular AICD placement, DM, CKD III, recently diagnosed to have afib presents with SOB, Orthopnea. Shortness of breath/Orthopnea: Likely due to CHF CT chest not suggestive of amiodarone toxicity Pulmonary HTN could be contributing CXR:Cardiomegaly and AICD. There is mild pulmonary vascular congestion. No airspace consolidation or large pleural effusion is identified. Saturating well on room air Will consider Pulmonology eval if needed Amiodarone discontinued Appreciate Cardiology Input Monitor Volume status closely Resume diuretics as able Acute kidney injury on CKD III Baseline Cr:1.3 Cr:1.94>>>1.75 Hold diuretics for now Avoid Nephrotoxics as able Monitor renal function Will consider nephrology input if no improvement Transaminitis Likely due to amiodarone, Augmentin --Gall Bladder USD:Technically limited study. Nondiagnostic evaluation of pancreas. Ultrasonographically normal gallbladder. No ductal dilatation. Slightly coarsened hepatic echotexture. This is a nonspecific finding which could indicate hepatic steatosis or nonspecific hepatitis. --Monitor LFTs daily --Appreciate GI Input --Persistent elevated INR, if develops altered mental status--could be due to acute liver failure --Acute hepatitis panel, PANKAJ, AMA, ASMA pending --We will check factor V, factor VII if INR continues to be elevated H/O left basilar pneumonia Diagnosed during prior admission Completed Augmentin course Acute on Chronic systolic congestive heart failure EF of 20%, biventricular AICD Diuretics held due to VAIBHAV Monitor Volume status Resume diuretics as able Hypertension Continue Metoprolol Monitor DM II: Continue ISS, Lantus Monitor Atrial fibrillation Amiodarone discontinued Continue Metoprolol Continue to hold Coumadin Monitor INR:5.2 DVT Px: INR supratherapeutic Coumadin on hold Code Status Full Code Disposition Home with Home Health when stable Subjective Patient is seen and examined at bedside Patient was anxious earlier today Received Ativan--currently drowsy Denies any significant shortness of breath CT chest not suggestive of amiodarone toxicity Orthopnea, SOB improved Review of Systems Review of Systems: All systems reviewed & are unremarkable except as noted in HPI & below Physical Exam Physical Exam: Physical Exam: Vitals signs as noted above General Appearance:Moderately built and nourished, no apparent distress Head: normocephalic, Atraumatic Eyes: normal inspection, EOMI Neck: supple, Trachea midline Respiratory/Chest: Decreased breath sounds at bases Cardiovascular: S1, S2, +systolic murmur Abdomen/GI:Soft, Non tender, Bowel sounds present Extremities/Musculoskelatal:normal inspection, B/L LE edema Neurologic/Psych:AAOX3, grossly no focal neurological deficits, +Resting tremor Skin: normal color, warm Results & Data Vital Signs (Past 12 Hours) Vital Signs Temp Pulse Resp BP BP Pulse Ox 07/27/19 15:10 36.5 C 91 H 19 111/77 94 07/27/19 11:36 36.4 C L 91 H 17 113/80 94 07/27/19 07:28 36.6 C 95 H 17 117/82 98 Laboratory Results [facility] 07/27/19 08:07 Sodium 131 L Potassium 3.9 Chloride 98 Carbon Dioxide 25 BUN 42 H Creatinine 1.75 H Glucose 122 H Calcium 9.4 Liver Function 07/27/19 Range/Units 08:07 Total Bilirubin 2.4 H (0.2-1) mg/dl AST 230 H (15-37) U/L ALT 522 H (12-78) U/L Alkaline Phosphatase 97 (45-117) U/L Albumin 3.7 (3.4-5.0) gm/dl
[2019-07-27] MEDS: MIRTAZAPINE TAB 15 MG TAB PO SCH (19:53)
[2019-07-27] MEDS: ARIPiprazole 10 MG TAB PO SCH (19:53)
[2019-07-27] MEDS: ASPIRIN 81 MG ECTAB PO SCH (19:54)
[2019-07-27] MEDS: ATORVASTATIN 40 MG TAB PO SCH ×2 (21:15→21:20)
[2019-07-27] MEDS ORDERED: POTASSIUM CHLORIDE 20 MEQ TABCR PO STA (23:14)
[2019-07-27] MEDS ORDERED: METOPROLOL TARTRATE 25 MG TAB PO STA (23:16)
[2019-07-27 23:42] LABS: Magnesium 2.8 mg/dl (1.8-2.4)
[2019-07-27] MEDS ORDERED: LORazepam 0.5 MG TAB PO STA (23:44)
[2019-07-28 07:31] LABS: Prothrombin Time 51.1 Seconds (9.0-12.0)
[2019-07-28 07:45] LABS: Albumin Level 3.7 gm/dl (3.4-5.0); BUN Creatinine Ratio 24.4 (10-20); Bilirubin Direct 1.1 mg/dl (0-0.2); Calcium 9.1 mg/dl (8.5-10.1); Creatinine Clr Calc Pharmacy 55.7 ml/min; Est GFR (African American) 49.7; Est GFR (Non-African American) 42.9
[2019-07-28 07:46] LABS: INR 5.6 (0.9-1.1)
[2019-07-28 07:48] LABS: Bilirubin,Total 2.4 mg/dl (0.2-1)
[2019-07-28] MEDS: INSULIN ASPART 100 UNITS/ML 3 ML PEN SC SCH ×4 (08:35→20:20)
[2019-07-28] MEDS: INSULIN GLARGINE SOLOSTAR 100 UNITS/ML 3 ML PEN SC SCH ×2 (08:35→20:21)
[2019-07-28 08:43] LABS: Hepatitis B Surface Antigen Neg (Neg)
[2019-07-28 09:11] LABS: Hepatitis C IgG 13Yrs+Old_Rflx Neg (Neg)
--- NOTE | 2019-07-28 09:54 | Gastroenterology Progress Note ---
Date of Service July 28, 2019 Assessment & Plan (1) Transaminitis: (2) Bilirubinemia: Liver panel improved slightly overnight, however, his INR has risen significantly. Obvious asterixis on exam and unable to answer questions appropriately. I spoke with Dr. Corona his hospitalist and recommended transfer to Liver Transplant center secondary to elevated INR and decreased mental status. Clearly the patient has significant comorbid medical conditions and may not meet criteria for transplant including Schizoaffective disorder and history of heart failure. Would at least check with transplant center for any recommendations at this time. Agree with stopping his Amiodarone and Augmentin Subjective Kit was sitting in bedside chair this AM. He is having a hard time staying awake during our discussion, and states, "I barely slept last night." Nursing reports that he was agitated overnight, and did receive Ativan therapy. He is not able to answer questions appropriately at present. Review of Systems Review of Systems: Unobtainable due to cognitive status Physical Exam Constitutional: WD/WN, vitals as above + ill appearing (Chronic) and + disheveled Respiratory: normal respiratory effort, lungs clear to auscultation Cardiovascular: RRR, no murmur, no edema Gastrointestinal (Abdomen): normal bowel sounds, soft, nontender, no hepatosplenomegaly Neurologic: + Asterixis Results & Data Vital Signs (Past 12 Hours) Vital Signs Temp Pulse Pulse Resp BP Pulse Ox 07/28/19 07:58 36.3 C L 92 H 18 116/78 90 07/28/19 04:52 36.8 C 94 H 20 113/83 97 07/27/19 23:45 104 H 07/27/19 23:07 36.4 C L 99 H 20 111/78 98 PG Care Time/CCT Total # of Minutes Spent Total Time Spent with Patient: Total time spent is greater than 50% in coordination of care (as documented) at patient's floor/unit and/or counseling patient:
[2019-07-28] MEDS: METOPROLOL SUCC 25MG EXT REL TAB PO SCH ×2 (10:20→20:17)
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
--- NOTE | 2019-07-28 11:57 | Cardiology Progress Note ---
Date of Service July 28, 2019 Assessment & Plan (1) Acute dyspnea: Clinically patient has returned to baseline. Diuretics have been held and he does not examined significantly volume overloaded. His amiodarone has been stopped but no other intervention was performed. So at this point I am not quite sure what to make of his episode of shortness of breath. CT performed, no sign of amio toxicity, emphasematous changes, no significant volume overload cont to hold diuretics We will continue to follow his volume status clinically. ok to d/c tele from cardiac standpoint (2) Transaminitis: Concern for amiodarone toxicity, no significant improvement today Has been seen by GI (3) VAIBHAV (acute kidney injury): Diuretics being held Improving To be followed (4) Atrial fibrillation with RVR: Currently normal sinus rhythm Should he go back into atrial fibrillation would recommend attempting rate control with IV beta-blockade and if that is insufficient Cardizem drip (5) Acute on chronic systolic CHF (congestive heart failure): Does not examine as significantly volume overloaded at this time. Diuretics held secondary to his acute kidney failure We will continue to follow his volume status clinically. Subjective Pt seen and examined, states that he feels well today. Still mildly anxious but breathing is at baseline. Denies cp, sob, palpitation, lightheadedness or dizziness. Tele reviewed: sinus rhythm without arrhythmia or significant ectopy. Review of Systems Review of Systems: All systems reviewed & are unremarkable except as noted in HPI & below Physical Exam Physical Exam: General: Awake, alert and oriented x 3. No acute distress. Flattened affect. HEENT: Normocephalic, atraumatic. Pupils equal, round and reactive to light and accommodation. Extraocular muscles are intact. Anicteric sclera. Moist mucous membranes. Neck: No JVD. No bruit. Cardiovascular: Regular. Positive S-4. Normal S-1 and S-2. No S-3. No murmurs or rubs. Pulmonary: Clear to auscultation B/L. No rales, rhonchi or wheezing Abdomen: Bowel sounds x 4, soft. No rebound, guarding or tenderness. No organomegaly. Extremities: No clubbing, cyanosis or edema. +2 pedal pulses bilaterally. Skin: Warm and dry. Results & Data Vital Signs (Past 12 Hours) Vital Signs Temp Pulse Pulse Resp BP Pulse Ox 07/28/19 11:53 36.4 C L 90 21 114/80 92 07/28/19 09:48 93 H 07/28/19 07:58 36.3 C L 92 H 18 116/78 90 07/28/19 04:52 36.8 C 94 H 20 113/83 97
--- NOTE | 2019-07-28 12:38 | Hospitalist Progress Note ---
Date of Service July 28, 2019 Assessment & Plan (1) Acute dyspnea: Patient is a 59 yr female with H/O chronic systolic CHF--EF less than 20% S/P biventricular AICD placement, DM, CKD III, recently diagnosed to have afib presents with SOB, Orthopnea. Shortness of breath/Orthopnea: Likely due to acute hepatic failure, CHF could be contributing CT chest not suggestive of amiodarone toxicity Pulmonary HTN could be contributing CXR:Cardiomegaly and AICD. There is mild pulmonary vascular congestion. No airspace consolidation or large pleural effusion is identified. Saturating well on room air Will consider Pulmonology eval if needed Amiodarone discontinued Appreciate Cardiology Input Monitor Volume status closely Resume diuretics as able Acute kidney injury on CKD III Baseline Cr:1.3 Cr:1.94>>>1.75 Hold diuretics for now Avoid Nephrotoxics as able Monitor renal function Will consider nephrology input if no improvement Transaminitis Likely due to amiodarone, Augmentin --Gall Bladder USD:Technically limited study. Nondiagnostic evaluation of pancreas. Ultrasonographically normal gallbladder. No ductal dilatation. Slightly coarsened hepatic echotexture. This is a nonspecific finding which could indicate hepatic steatosis or nonspecific hepatitis. --Monitor LFTs daily --Appreciate GI Input --Persistent elevated INR, if develops altered mental status--could be due to acute liver failure --Acute hepatitis panel pending -- PANKAJ, AMA, ASMA pending --Digoxin level:0.4 --Hepatitis A IgM antibody pending --Hepatitis C antibody negative --Hepatitis B core IgM antibody pending --We will check factor V, factor VII if INR continues to be elevated --Discussed with gastroenterology Case today Given MELD score 36, +Asterixis, gastroenterology recommended transfer to higher facility for evaluation by liver transplant team --Patient is accepted by Cecilia Miller at [facility] for further evaluation and management H/O left basilar pneumonia Diagnosed during prior admission Completed Augmentin course Acute on Chronic systolic congestive heart failure EF of 20%, biventricular AICD Diuretics held due to VAIBHAV Monitor Volume status Resume diuretics as able Hypertension Continue Metoprolol Monitor DM II: Continue ISS, Lantus Monitor Atrial fibrillation Amiodarone discontinued Continue Metoprolol Continue to hold Coumadin Monitor INR:5.6 DVT Px: INR supratherapeutic Coumadin on hold Code Status Full Code Disposition Transferred to [facility] for evaluation by liver transplant team Family: Sister aware of the transfer/patient's condition Accepting physician: Dr.Yanni Bateman Subjective Patient is seen and examined at bedside Sitting in chair, very drowsy this morning States sleeping poorly last night No significant change in shortness of breath from yesterday Discussed with gastroenterology today Given MELD score 36, +Asterixis, gastroenterology recommended transfer to higher facility for evaluation by liver transplant team INR remains elevated, no bleeding issues Review of Systems Review of Systems: All systems reviewed & are unremarkable except as noted in HPI & below Physical Exam Physical Exam: Physical Exam: Vitals signs as noted above General Appearance:Moderately built and nourished, no apparent distress Head: normocephalic, Atraumatic Eyes: normal inspection, EOMI Neck: supple, Trachea midline Respiratory/Chest: Decreased breath sounds at bases Cardiovascular: S1, S2, +systolic murmur Abdomen/GI:Soft, Non tender, Bowel sounds present Extremities/Musculoskelatal:normal inspection, B/L LE edema Neurologic/Psych:AAOX3, grossly no focal neurological deficits, +tremor, drowsy Skin: normal color, warm Results & Data Vital Signs (Past 12 Hours) Vital Signs Temp Pulse Pulse Resp BP Pulse Ox 07/28/19 11:53 36.4 C L 90 21 114/80 92 07/28/19 09:48 93 H 07/28/19 07:58 36.3 C L 92 H 18 116/78 90 07/28/19 04:52 36.8 C 94 H 20 113/83 97 Laboratory Results [facility] 07/28/19 06:34 Sodium 128 L Potassium 4.0 Chloride 95 L Carbon Dioxide 27 BUN 42 H Creatinine 1.72 H Glucose 109 H Calcium 9.1 Liver Function 07/28/19 Range/Units 06:34 Total Bilirubin 2.4 H (0.2-1) mg/dl Direct Bilirubin 1.1 H (0-0.2) mg/dl AST 199 H (15-37) U/L ALT 487 H (12-78) U/L Alkaline Phosphatase 102 (45-117) U/L Albumin 3.7 (3.4-5.0) gm/dl
--- NOTE | 2019-07-28 12:45 | Discharge Summary ---
Date of Service July 28, 2019 Admission HPI Per Admitting Provider CHIEF COMPLAINT: Shortness of breath. HISTORY OF PRESENT ILLNESS: This is a 59-year-old male with past medical history significant for type 2 diabetes, hyperlipidemia, chronic systolic congestive heart failure, ejection fraction of less than 20%, hypertension, ischemic cardiomyopathy, paroxysmal atrial tachycardia, left ventricular thrombus with old [place], chronic kidney disease stage III, schizoaffective disorder, depression, history of psychosis, CAD status post stent placement, biventricular AICD, history of coma, history of cerebrovascular accident. Currently lives with his sister. Was recently in the hospital for rapid AFib and CHF. He was admitted on 07/15/2019 and discharge on 07/22/2019. His medications were adjusted. He was started on amiodarone. He was on Cardizem drip and then later on amiodarone drip and discharged on amiodarone p.o. and also his spironolactone was changed to daily dose, Toprol-XL dose was decreased to 25 mg b.i.d. and on discharge he was at 4 more days of Augmentin for his possible pneumonia and his lisinopril, metformin, and digoxin were stopped last admission. Does continue with the glipizide and Jardiance for diabetes. The patient says since going home he is getting short of breath. When he lies down, he gets short of breath, but denies any shortness of breath on exertion. He is ambulating okay. He says he is eating okay. Denies any chest pain. No nausea, no vomiting, no headache, no dizziness, no blurred vision, no earache, no runny nose, no sore throat, no dysphagia. Normal bowel and bladder movements. No hematuria or hematochezia. His edema in the legs is same. Denies any fever, chills, no cough. 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 So we are called for admission. Currently hemodynamically stable. Admission Exam Per Admitting Provider PHYSICAL EXAMINATION: GENERAL: The patient is of moderate build, not in acute distress. VITAL SIGNS: Temperature 36.7, pulse 97, respiratory rate 20, blood pressure 112/77, oxygen 91% on room air. HEENT: No pallor, no icterus. Pupils equal, round, and reactive. NECK: No JVD. No neck masses. No carotid bruits. CARDIOVASCULAR: S1, S2 heard, regular rate and rhythm, no murmur, no gallop. RESPIRATORY SYSTEM: Normal AP diameter. No accessory muscle use. No wheezing. Mild bibasilar crackles. ABDOMEN: Soft, bowel sounds present, nontender. Nontender. No distention. CENTRAL NERVOUS SYSTEM: Cranial nerves II-XII grossly intact. Nonfocal. EXTREMITIES: Lower extremity edema present, no erythema seen. 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 Supratherapeutic INR Hyponatremia CHF exacerbation History of ischemic cardiomyopathy EF less than 20% S/P AICD Transaminitis Atrial fibrillation Discharge Data Allergies Allergy/AdvReac Type Severity Reaction Status Date / Time codeine Allergy Severe ANAPHYLAXSI Verified 07/24/19 23:28 S propoxyphene Allergy Severe RASH PER PT Verified 07/24/19 23:28 oxycodone Allergy Intermediate RASH Verified 07/24/19 23:28 acetaminophen Allergy Unknown RASH-PT Verified 07/24/19 23:28 NOT SURE Consultations 07/25/19 04:16 Consult Case Management - Discharge Planning Routine 07/25/19 08:00 Consult Cardiology Routine 07/27/19 09:36 Consult Gastroenterology Routine Procedures Performed Chest CT: 1. Severely motion degraded examination. 2. There is no CT evidence of amiodarone toxicity as clinically queried 3. Marked cardiomegaly and AICD. There is diffuse intralobular septal thickening. This could present acute versus chronic congestive change. 4. Suspect emphysema. 5. Small loculated pleural effusions as above. 6. There is no airspace consolidation typical for pneumonia. 7. Mildly enlarged mediastinal lymph nodes are nonspecific. Gallbladder ultrasound 1. Technically limited study. Nondiagnostic evaluation of pancreas. Ultrasonographically normal gallbladder. No ductal dilatation. 2. Slightly coarsened hepatic echotexture. This is a nonspecific finding which could indicate hepatic steatosis or nonspecific hepatitis. Ordered Studies 07/25/19 01:08 US gallbladder Urgent 07/27/19 09:35 CT chest wo con Routine Hospital Course (1) Acute dyspnea: Patient is a 59 yr female with H/O chronic systolic CHF--EF less than 20% S/P biventricular AICD placement, DM, CKD III, recently diagnosed to have afib presents with SOB, Orthopnea. Shortness of breath/Orthopnea: Likely due to acute hepatic failure, CHF could be contributing CT chest not suggestive of amiodarone toxicity Pulmonary HTN could be contributing CXR:Cardiomegaly and AICD. There is mild pulmonary vascular congestion. No airspace consolidation or large pleural effusion is identified. Saturating well on room air Will consider Pulmonology eval if needed Amiodarone discontinued Appreciate Cardiology Input Monitor Volume status closely Resume diuretics as able Acute kidney injury on CKD III Baseline Cr:1.3 Cr:1.94>>>1.75 Hold diuretics for now Avoid Nephrotoxics as able Monitor renal function Will consider nephrology input if no improvement Transaminitis Likely due to amiodarone, Augmentin --Gall Bladder USD:Technically limited study. Nondiagnostic evaluation of pancreas. Ultrasonographically normal gallbladder. No ductal dilatation. Slightly coarsened hepatic echotexture. This is a nonspecific finding which could indicate hepatic steatosis or nonspecific hepatitis. --Monitor LFTs daily --Appreciate GI Input --Persistent elevated INR, if develops altered mental status--could be due to acute liver failure --Acute hepatitis panel pending -- PANKAJ, AMA, ASMA pending --Digoxin level:0.4 --Hepatitis A IgM antibody pending --Hepatitis C antibody negative --Hepatitis B core IgM antibody pending --We will check factor V, factor VII if INR continues to be elevated --Discussed with gastroenterology Case today Given MELD score 36, +Asterixis, gastroenterology recommended transfer to higher facility for evaluation by liver transplant team --Patient is accepted by Cecilia Miller at [facility] for further evaluation and management H/O left basilar pneumonia Diagnosed during prior admission Completed Augmentin course Acute on Chronic systolic congestive heart failure EF of 20%, biventricular AICD Diuretics held due to VAIBHAV Monitor Volume status Resume diuretics as able Hypertension Continue Metoprolol Monitor DM II: Continue ISS, Lantus Monitor Atrial fibrillation Amiodarone discontinued Continue Metoprolol Continue to hold Coumadin Monitor INR:5.6 DVT Px: INR supratherapeutic Coumadin on hold Code Status Full Code Disposition Transferred to [facility] for evaluation by liver transplant team Family: Sister aware of the transfer/patient's condition Accepting physician: Dr.Yanni Bateman Total Time Total Time Spent Total Time Spent (In Minutes): 40 minutes Total Time Includes: Examination of the Patient, Discharge Planning, Medication Reconciliation, Communication With Other Providers and Other Discharge Plan Discharge Items Patient Disposition: Transfer Acute Care Hospital Reason For Visit: SOB Discharge Diagnosis: Acute hepatic failure Possible amiodarone toxicity VAIBHAV on CKD III Supratherapeutic INR Hyponatremia CHF exacerbation History of ischemic cardiomyopathy EF less than 20% S/P AICD Transaminitis Atrial fibrillation Activity: Per Instructions section Exercise/Sports: Wait until after follow-up appointment Non-emergency contact: Primary Care Provider, Car Tester and Environmental Adviser Call non-emergency contact if: you have any medication questions, your symptoms worsen, your pain is not controlled, your pain is worsening, your pain is unusual for you, your pain is concerning for you and you have a fever Follow-up/Referrals: Gómez Pierson MD [Primary Care Provider] - Diet: Carb Consistent or DM2, Heart Healthy and Low Sodium (2gm) Addtl Attending Provider Instructions: Follow-up with Dr.Yanni Bateman at [facility] for further evaluation and management Follow-up with your primary care physician, material man and antenna machine operator upon discharge from the hospital Seek immediate medical attention if your symptoms reoccur or worsen Pending Studies at Discharge: Yes Studies:: Serological and immunological tests Stand-Alone Forms: My [facility] Skilled Items Patient informed of condition?: Yes DNR: No Discharge Level of Care: Other Communicable Disease: No Discharge Prognosis: Stable Lines: None Urinary Catheter: No Medications and DC Order Prescriptions: Continued glipizide 5 mg tablet extended release 24hr 5 mg PO DAILY RF: 0 furosemide 40 mg tablet 40 mg PO BID RF: 0 Jardiance 10 mg tablet 10 mg PO DAILY RF: 0 atorvastatin 40 mg tablet 40 mg PO HS RF: 0 albuterol sulfate 90 mcg/actuation Hfa Aerosol Inhaler 2 puff INHALATION Q4H PRN (Reason: Wheezing) RF: 0 warfarin 5 mg tablet 5 mg PO MOFR RF: 0 warfarin 5 mg tablet 7.5 mg PO SUTUWETHSA RF: 0 aripiprazole 10 mg tablet 10 mg PO HS RF: 0 aspirin [Aspir-81] 81 mg Tablet,Delayed Release (Dr/Ec) 81 mg PO HS RF: 0 mirtazapine 15 mg tablet 15 mg PO HS RF: 0 spironolactone 25 mg Tablet 12.5 mg PO DAILY 30 Days Qty: 15 RF: 0 metoprolol succinate 25 mg Tablet Extended Release 24 Hr 25 mg PO BID 30 Days Qty: 60 RF: 0 Discontinued amiodarone 200 mg Tablet 200 mg PO BID 30 Days Qty: 60 RF: 0 Discharge Orders: Discharge Order (Routine); Ordered 07/28/19 Ordered By: Vahe Corona Admission Data Admit Date/Time: 07/25/19 14:39 Attending Provider: Vahe Corona Admit Provider: Mc Mercedes Primary Care Provider: Gómez Pierson Other Providers: Carlton Garcia ; Gautam Ellington ; Israel Pérez ; Nick Pabon ; Khang Copeland ; Kit Cook ; Janine Morales ; Lupe Gordillo ; Murali Romero ; Jaylin Padron ; Esther Lr ; Edin Zavala ; Austen Rainey ; Gaurav Eaton ; Mica Casper ; Vlad Galindo ; Lance Villar ; Gay Cruz ; Mitra Kent ; Naz Lombardo ; Dee Tomas ; Ayanna Blandon ; [facility]
[2019-07-28] MEDS ORDERED: ALBUT/IPRATROP 3MG/0.5MG NEB 3 ML VIAL NEB PRN (16:40)
[2019-07-28] MEDS ORDERED: Nursing to Pharmacy Communication ONE (16:41)
[2019-07-28] MEDS ORDERED: PHARMACY GLYCEMIC MGMT CONSULT PRN (16:42)
[2019-07-28] MEDS ORDERED: ALBUTEROL 0.083% NEBU SOLN 3 ML VIAL NEB PRN (16:44)
[2019-07-28] MEDS ORDERED: INSULIN HUMAN REGULAR PER UNIT 5 UNITS in SYRINGE 4.95 ML IV ONE (17:15)
--- NOTE | 2019-07-28 17:48 | XRay Report ---
XR chest 1V portable HISTORY: 59 years-old Male SOB acute shortness of breath COMPARISON: Chest CT 07/27/2019, chest radiograph 07/24/2019 TECHNIQUE: Portable AP view of the chest FINDINGS: Cardiac silhouette is enlarged, unchanged. Left subclavian pacer/AICD redemonstrated. Unchanged mild right hemidiaphragmatic elevation. There is mild pulmonary vascular congestion. No large pleural effu omega. Subsegmental left basilar opacities. Degenerative changes of the shoulders and spine. IMPRESSION: 1. Cardiomegaly with pulmonary vascular congestion. 2. Unchanged mild right hemidiaphragmatic elevation. 3. Subsegmental left basilar opacities suggest atelectasis, pneumonitis considered less likely. The above report was generated using voice recognition software. It may contain grammatical, syntax o r spelling errors. Electronically signed by: Balaji Mooney M.D. 07/28/2019 5:47 PM
[2019-07-28] MEDS ORDERED: FUROSEMIDE 40 MG/4 ML VIAL IV STA (17:52)
[2019-07-28] MEDS ORDERED: FUROSEMIDE 40 MG in SYRINGE 0 ML IV STA (17:58)
[2019-07-28] MEDS: ARIPiprazole 10 MG TAB PO SCH (20:16)
[2019-07-28] MEDS: MIRTAZAPINE TAB 15 MG TAB PO SCH (20:16)
[2019-07-28] MEDS: ATORVASTATIN 40 MG TAB PO SCH (20:17)
[2019-07-28] MEDS: ASPIRIN 81 MG ECTAB PO SCH (20:17)
[2019-07-28] MEDS: LORazepam 0.5 MG TAB PO PRN (21:05)
[2019-07-28] MEDS ORDERED: INSULIN GLARGINE SOLOSTAR 100 UNITS/ML 3 ML PEN SC STA (21:17)
[2019-07-29] MEDS ORDERED: INSULIN ASPART 100 UNITS/ML 3 ML PEN SC SCH
[2019-07-31 19:25] LABS: Anti Nuclear Antibody Screen NEGATIVE (NEGATIVE); Hepatitis A Antibody IgM NON-REACTIVE (NON-REACTIVE); Hepatitis B Core Antibody IgM NON-REACTIVE (NON-REACTIVE); Smooth Muscle Antibody 1:40 TITER
== END 2019-07-28 23:00 | disposition short-term general hospital (02) | DRG 441 ==
LOC: ED 21:39 → 2S 21:39

== ENCOUNTER 2023-01-05 08:37 | Inpatient (IN) ==
--- NOTE | 2023-01-05 09:13 | Emergency Department Note ---
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 @ 999 mls/hr IV .Q1H1M СВЕТЛАНА Stop: 01/05/23 10:15 Last Infusion: 01/05/23 11:09 Dose: 0 mls/hr Documented By: Admin: 01/05/23 09:15 Dose: 999 mls/hr Documented By: AM Acetaminophen (Ofirmev) 1,000 mg in 100 mls @ 400 mls/hr IV NOW STA Stop: 01/05/23 10:04 Last Infusion: 01/05/23 10:50 Dose: 0 mls/hr Documented By: Admin: 01/05/23 10:12 Dose: 400 mls/hr Documented By: AM Ceftriaxone Sodium (Rocephin) 2,000 mg in 70 mls @ 140 mls/hr IV NOW STA Stop: 01/05/23 16:17 Last Admin: 01/05/23 16:24 Dose: 140 mls/hr Documented By: JACQUELIN Imaging Data Radiologist's Impression: Hip/Pelvis X-Ray 01/05/23 09:04 XR hip RT 2V w pelvis CLINICAL HISTORY: trauma TECHNIQUE: 2 views of the right hip and single frontal view of the pelvis were obtained. Comparison: None available at the time of this dictation. FINDINGS: There is no evidence of an acute fracture. Degenerative changes are seen in the hip joint. Vascular calcifications are noted. IMPRESSION: No evidence of acute osseous injury. ACT 112: Negative or not required by law. Electronically signed by: Luis Shelton M.D. 01/05/2023 10:32 AM Chest X-Ray 01/05/23 09:05 SINGLE VIEW CHEST CLINICAL HISTORY: Sepsis. FINDINGS: An AP, portable, upright chest radiograph is compared to study dated 07/28/2019 and correlated with chest CT dated 07/27/2019. A 3-lead cardiac ICD is unchanged in position. The heart is enlarged noting atherosclerotic calcification of the thoracic aorta. There is pulmonary vascular congestion. There are small pleural effusions with dependent atelectasis. No pneumothorax is seen. The skeletal structures are osteopenic. The bony thorax is grossly intact. Arthritic change is noted in the shoulders and spine. IMPRESSION: 1. Cardiomegaly and AICD with evidence of congestive failure. 2. Small pleural effusions. ACT 112: Negative or not required by law. Electronically signed by: Kalpesh Juarez M.D. 01/05/2023 10:39 AM Discharge Plan Visit Data Chief Complaint: Weakness Stated Complaint: SOB, WEAKNESS, BACK PAIN ED Provider: Lucero Mesa Discharge Problem: Dyspnea, Hypoxia, Fall, Acute pain of right hip, Generalized weakness, Elevated troponin, Elevated brain natriuretic peptide (BNP) level, Tremor Patient Disposition: Admitted As Inpatient Discharge Instructions Interventions: ED Discharge Assessment Last Done: 01/05/23 15:40
[2023-01-05] MEDS ORDERED: SODIUM CHLORIDE 0.9% 1000ML 1,000 ML IV SCH (09:15)
[2023-01-05 09:29] LABS: Basophils # (auto) 0.09 K/uL (0-0.2); Basophils % (auto) 0.7 %; Eosinophils # (auto) 0.01 K/uL (0-0.50); Eosinophils % (auto) 0.1 %; Hematocrit (blood only) 45.1 % (42.0-52.0); Hemoglobin 15.4 g/dl (14.0-18.0); Immature Granulocytes # (auto) 0.06 K/uL (0.01-0.20); Immature Granulocytes % (auto) 0.5 %; Lymphocytes # (auto) 0.76 K/uL (1.2-3.4); Lymphocytes % (auto) 6.1 %; Mean Corpuscular Hgb Conc 34.1 g/dL (32.0-36.0); Mean Corpuscular Volume 96.6 fL (80.0-100.0); Mean Platelet Volume 12.7 fL (9.4-12.4); Neutrophils # (auto) 10.58 K/uL (1.40-6.50); Neutrophils % (auto) 84.6 %; Platelet Count 173 K/uL (130-400); RDW Coefficient of Variation 13.2 % (11.5-14.5); RDW Standard Deviation 46.7 fL (36.4-46.3); Red Blood Count 4.67 M/uL (4.70-6.10)
[2023-01-05 09:40] LABS: Albumin Level 4.1 gm/dl (3.4-5.0); BUN Creatinine Ratio 17.5 (10-20); Bilirubin Direct 0.5 mg/dl (0-0.2); Calcium 9.5 mg/dl (8.6-10.3); Creatinine Clr Calc Pharmacy 79.1 ml/min; Est GFR (African American) 75.2 ml/min; Est GFR (Non-African American) 64.9 ml/min; Magnesium 1.8 mg/dl (1.7-2.4); Potassium 4.2 mmol/L (3.5-5.1); Total Protein 7.5 gm/dl (6.0-8.3)
[2023-01-05 09:45] LABS: Troponin I High Sensitivity 24.1 pg/ml (0-20)
[2023-01-05] MEDS ORDERED: ACETAMINOPHEN 1,000 MG/100 ML VIAL IV STA (09:50)
[2023-01-05 10:00] LABS: INR 1.3 (0.9-1.1); Prothrombin Time 13.5 Seconds (9.0-12.0)
[2023-01-05 10:26] LABS: Adenovirus PCR Not Detected (NotDetected); Bordetella parapertussis PCR Not Detected (NotDetected); Bordetella pertussis PCR Not Detected (NotDetected); Chlamydia pneumoniae PCR Not Detected (NotDetected); Coronavirus 229E PCR Not Detected (NotDetected); Coronavirus CoV-2 (COVID19)PCR Not Detected (NotDetected); Coronavirus HKU1 PCR Not Detected (NotDetected); Coronavirus NL63 PCR Not Detected (NotDetected); Coronavirus OC43PCR Not Detected (NotDetected); Human Metapneumovirus PCR Not Detected (NotDetected); Influenza A PCR Not Detected (NotDetected); Influenza B PCR Not Detected (NotDetected); Mycoplasma pneumoniae PCR Not Detected (NotDetected); Parainfluenza Virus 1 PCR Not Detected (NotDetected); Parainfluenza Virus 2 PCR Not Detected (NotDetected); Parainfluenza Virus 3 PCR Not Detected (NotDetected); Parainfluenza Virus 4 PCR Not Detected (NotDetected); Respiratory Syncytial VirusPCR Not Detected (NotDetected); Rhinovirus/Enterovirus PCR Not Detected (NotDetected)
--- NOTE | 2023-01-05 10:33 | XRay Report ---
XR hip RT 2V w pelvis CLINICAL HISTORY: trauma TECHNIQUE: 2 views of the right hip and single frontal view of the pelvis were obtained. Comparison: None available at the time of this dictation. FINDINGS: There is no evidence of an acute fracture. Degenerative changes are seen in the hip joint. Vascular c alcifications are noted. IMPRESSION: No evidence of acute osseous injury. ACT 112: Negative or not required by law. Electronically signed by: Luis Shelton M.D. 01/05/2023 10:32 AM
--- NOTE | 2023-01-05 10:40 | XRay Report ---
SINGLE VIEW CHEST CLINICAL HISTORY: Sepsis. FINDINGS: An AP, portable, upright chest radiograph is compared to study dated 07/28/2019 and correla vipul with chest CT dated 07/27/2019. A 3-lead cardiac ICD is unchanged in position. The heart is enlar ged noting atherosclerotic calcification of the thoracic aorta. There is pulmonary vascular congestio n. There are small pleural effusions with dependent atelectasis. No pneumothorax is seen. The skeleta l structures are osteopenic. The bony thorax is grossly intact. Arthritic change is noted in the shou lders and spine. IMPRESSION: 1. Cardiomegaly and AICD with evidence of congestive failure. 2. Small pleural effusions. ACT 112: Negative or not required by law. Electronically signed by: Kalpesh Juarez M.D. 01/05/2023 10:39 AM
[2023-01-05] MEDS ORDERED: FUROSEMIDE 40 MG/4 ML VIAL IV ONE (12:09)
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
--- NOTE | 2023-01-05 13:27 | Communication Note ---
Date of Service: January 05, 2023 History and physical exam performed by me. History notable for 62-year-old man with ischemic cardiomyopathy with EF of less than 20%, diabetes and other medical problems as detailed who presents with weakness today. History provided by patient and sister who was at bedside. Reported he tried to get out of bed but was so weak that he fell back on the bed and then slid down to the floor and could not get up and was too much for assistance to get up hence they called EMS. Patient denied hitting his head. Was noted to be hypoxic by EMS and had a temperature of 38.1 on presentation. According to sister, patient has been chronically weak which has been getting worse over time. She also reports chronic tremors especially in the hands and lower jaw. He denies any fevers, chills at home, nausea, vomiting, cough, shortness of breath at rest, dysuria, frequency, urgency, diarrhea Patient responds sluggishly which sister said was his baseline Reported remote h/o smoking General: Not in resp distress Eyes: PERRL, conjunctivae normal, not pale, anicteric sclerae, EOM intact bilaterally ENMT: External ear and nose normal, oropharynx normal, lower jaw tremors Respiratory: Normal respiratory effort, no respiratory distress, on nasal cannula, Basilar crackles Cardiovascular: RRR S1 S2 Gastrointestinal (Abdomen): Abdomen is not distended, soft, non-tender to palpation, no guarding, no palpable hepatosplenomegaly, normal bowel sounds Musculoskeletal: No pedal edema Genitourinary: No CVA tenderness Skin: Has an erythematous patch on anterior mid kline of left leg with scab. Has multiple macular rash over both feet and leg, petechial like. Neurologic: Alert and oriented x to person, place and day of the week, not to month/year (appears to be baseline per sister), Resting tremors on RUE, No focal deficit in power noted Psychiatric: Flat affect Labs notable for WBC of 12.5, lactate of 3 improved to 1.2, troponin of 24, procalcitonin was normal less than 0.05 UA was not remarkable, digoxin level was on the lower end of normal 0.7, respiratory PCR was negative Chest x-ray noted cardiomegaly, ICD with evidence of congestive heart failure, small pleural effusions Hip and pelvic x-ray did not show any acute fracture. Generalized weakness Acute respiratory failure with hypoxia Acute on chronic systolic heart failure. IV Lasix 40 twice daily Cardiology consult Trend trop, check BNP EKG is paced Patient does have a rash on lower extremities and an area on the left leg that appear cellulitic Rash may be petechial as patient is on anticoagulant. Could also be vasculitic Ceftriaxone IV for now. Follow up infectious workup Get ESR, CRP Considering h/o progressive weakness, fall a few months ago per sister, tremors, sluggish speech; parkinsonism/parkinson disease process is a possibility PT/OT eval Patient reports he is DNR Other plans as detailed by Luann Morgan PA-C
[2023-01-05 13:32] LABS: Appearance Urine Clear (Clear); Bacteria Urine Automated Negative (Negative); Bilirubin Urine Negative (Negative); Blood Urine Negative (Negative); Color Urine Dark Yellow; Glucose Urine UA Negative (Negative); Ketones Urine Trace (Negative); Leukocyte Esterase Urine Negative (Negative); Nitrite Urine Negative (Negative); Protein Urine Trace (Negative); RBC Urine Automated 0-4 /hpf (0-4); Specific Gravity Urine 1.023 (1.000-1.030); Urobilinogen Urine Negative (Negative); pH Urine 6.5 (4.5-7.5)
--- NOTE | 2023-01-05 14:19 | Electrocardiogram Report ---
Test Reason : Blood Pressure : / mmHG Vent. Rate : 073 BPM Atrial Rate : 075 BPM P-R Int : 000 ms QRS Dur : 160 ms QT Int : 476 ms P-R-T Axes : 000 -79 266 degrees QTc Int : 524 ms Ventricular-paced rhythm Biventricular pacemaker detected Abnormal ECG When compared with ECG of 24-JUL-2019 22:29, Vent. rate has decreased BY 21 BPM Confirmed by Derrek Naqvi ([id number]) on 01/05/2023 2:19:26 PM Referred By: REFERRED SELF Confirmed By:Maxx Naqvi
[2023-01-05 14:28] LABS: C Reactive Protein 4.04 mg/dl (0-0.5)
[2023-01-05 14:33] LABS: Troponin I High Sensitivity 29.8 pg/ml (0-20)
[2023-01-05] MEDS ORDERED: GLUCOSE 40% GEL 15 GM TUBE PO PRN (15:43)
[2023-01-05] MEDS ORDERED: GLUCOSE 10 TAB/TUBE PO PRN (15:43)
[2023-01-05] MEDS ORDERED: DEXTROSE 50% 50 ML SYRINGE IV PRN (15:43)
[2023-01-05] MEDS ORDERED: POLYETHYLENE (MIRALAX) 17 GM PACK PO PRN (15:43)
[2023-01-05] MEDS ORDERED: GLUCAGON FOR INJ 1 MG VIAL SQ PRN (15:43)
[2023-01-05] MEDS ORDERED: cefTRIAXone SODIUM 2,000 MG/70 ML BAG IV STA (15:48)
[2023-01-05] MEDS: INSULIN ASPART PER UNIT CHARGE SC SCH ×2 (17:22→20:33)
[2023-01-05] MEDS: METOPROLOL SUCC 50MG EXT REL TAB PO SCH (18:16)
[2023-01-05] MEDS: traZODone HCL 50 MG TAB PO SCH (20:31)
[2023-01-05] MEDS: APIXABAN 5 MG TABLET PO SCH (20:31)
[2023-01-05] MEDS: ARIPiprazole 10 MG TAB PO SCH (20:31)
[2023-01-05] MEDS: FUROSEMIDE 40 MG/4 ML VIAL IV SCH (20:32)
[2023-01-05] MEDS: ATORVASTATIN 40 MG TAB PO SCH (20:32)
[2023-01-05] MEDS: LANTUS PER UNIT CHARGE SQ SCH (20:33)
[2023-01-06 07:23] LABS: Basophils # (auto) 0.06 K/uL (0-0.2); Basophils % (auto) 0.7 %; Eosinophils # (auto) 0.03 K/uL (0-0.50); Eosinophils % (auto) 0.3 %; Hematocrit (blood only) 40.1 % (42.0-52.0); Immature Granulocytes # (auto) 0.05 K/uL (0.01-0.20); Immature Granulocytes % (auto) 0.6 %; Lymphocytes # (auto) 1.42 K/uL (1.2-3.4); Lymphocytes % (auto) 16.2 %; Mean Corpuscular Hemoglobin 32.9 pg (25.0-34.0); Mean Corpuscular Hgb Conc 34.9 g/dL (32.0-36.0); Mean Corpuscular Volume 94.1 fL (80.0-100.0); Mean Platelet Volume 12.3 fL (9.4-12.4); Monocytes # (auto) 0.78 K/uL (0.11-0.59); Monocytes % (auto) 8.9 %; Neutrophils % (auto) 73.3 %; Platelet Count 158 K/uL (130-400); RDW Coefficient of Variation 12.9 % (11.5-14.5); RDW Standard Deviation 44.4 fL (36.4-46.3); Red Blood Count 4.26 M/uL (4.70-6.10); White Blood Count 8.74 K/ul (4.8-10.8)
[2023-01-06] MEDS: CARBOHYDRATES FOR HYPOGLYCEMIA PO PRN ×2 (07:25→07:46)
[2023-01-06 07:40] LABS: Calcium 8.8 mg/dl (8.6-10.3); Creatinine Clr Calc Pharmacy 83.5 ml/min; Est GFR (African American) 88.4 ml/min; Est GFR (Non-African American) 76.2 ml/min; Magnesium 1.9 mg/dl (1.7-2.4); Potassium 3.3 mmol/L (3.5-5.1)
[2023-01-06 08:10] LABS: Estimated Average Glucose 174 mg/dl; Hemoglobin A1C 7.7 % (4.5-5.6)
[2023-01-06] MEDS: LANTUS PER UNIT CHARGE SQ SCH (08:12)
[2023-01-06] MEDS: INSULIN ASPART PER UNIT CHARGE SC SCH ×4 (08:12→20:42)
[2023-01-06] MEDS: APIXABAN 5 MG TABLET PO SCH ×2 (08:19→20:41)
[2023-01-06] MEDS: DIGOXIN 0.125 MG TAB PO SCH (08:19)
[2023-01-06] MEDS: MULTIVITAMIN TAB PO SCH (08:20)
[2023-01-06] MEDS: ASPIRIN 81 MG ECTAB PO SCH (08:20)
[2023-01-06] MEDS: METOPROLOL SUCC 50MG EXT REL TAB PO SCH (08:20)
[2023-01-06] MEDS: FUROSEMIDE 40 MG/4 ML VIAL IV SCH (08:21)
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
[2023-01-06] MEDS ORDERED: POTASSIUM CHLORIDE CRTAB 20 MEQ TABCR PO STA (09:50)
--- NOTE | 2023-01-06 14:18 | Electrocardiogram Report ---
Test Reason : Blood Pressure : / mmHG Vent. Rate : 061 BPM Atrial Rate : 227 BPM P-R Int : 000 ms QRS Dur : 166 ms QT Int : 476 ms P-R-T Axes : 000 269 078 degrees QTc Int : 479 ms Ventricular-paced rhythm Biventricular pacemaker detected Abnormal ECG When compared with ECG of 05-JAN-2023 08:53, Vent. rate has decreased BY 12 BPM Confirmed by Derrek Naqvi ([id number]) on 01/06/2023 2:17:50 PM Referred By: REFERRED SELF Confirmed By:Maxx Naqvi
[2023-01-06] MEDS: cefTRIAXone SODIUM 2,000 MG in DEXTROSE 5% 50 ML IV SCH (15:52)
[2023-01-06] MEDS ORDERED: cefTRIAXone SODIUM 1,000 MG in DEXTROSE 5% AD-VAN 50 ML IV SCH (16:00)
[2023-01-06] MEDS: ATORVASTATIN 40 MG TAB PO SCH (20:41)
[2023-01-06] MEDS: ARIPiprazole 10 MG TAB PO SCH (20:41)
[2023-01-06] MEDS: traZODone HCL 50 MG TAB PO SCH (20:43)
--- NOTE | 2023-01-06 22:51 | Hospitalist Progress Note ---
Date of Service January 06, 2023 Assessment & Plan (1) Weakness: Plan: Patient is 62-year-old male with PMH chronic systolic heart failure, chronic ischemic cardiomyopathy, persistent atrial fibrillation, s/p BiV AICD, AV dav ablation, LV thrombus without [place], HTN, dyslipidemia, DM II, CKD III, CVA, schizoaffective disorder presented to ER with complaint of weakness. Progressive weakness, last night so weak had to lower self to floor and unable to get up. CT chest showed no acute finding Blood cx no growth and procalcitonin negative Questionable cellulitis Currently on IV ceftriaxone Continue PT/OT Fall precaution (2) Leukocytosis: Plan: Possible reactive WBC: 12.5 and lactate: 3 on admission Blood culture and procalcitonin negative Lactate and WBC are normalized Blood cultures pending CXR: No acute infiltrate Continue ceftriaxone (3) Rash: Plan: Cellulitis vs vasculitis Elevated ESR and CRP Continue ceftriaxone Consider to add low-dose of steroid (4) Elevated troponin: Plan: High-sensitivity troponin: 24, then peak to 29.8 EKG: Paced rhythm Denies chest pain or shortness of breath Trop trending down Echo shows severely reduced LV systolic function with large, septal, inferior and posterior scar with severe hypokinesis with ejection fraction 15 to 20% Continue monitor (5) Chronic systolic HF (heart failure): (6) Ischemic cardiomyopathy: Plan: S/p BiV AICD CXR: Cardiomegaly and AICD with evidence of congestive failure. Small pleural effusions. BNP 172 Cardiology on board-does not think patient is volume overload IV Lasix discontinued by cardiology Will resume torsemide p.o. Continue all outpatient cardiac medications No further cardiac testing necessary at this time as per cardiology Continue monitor closely (7) Atrial fibrillation: Plan: Persistent atrial fibrillation anticoagulated on Eliquis Digoxin level pending Continue digoxin, Eliquis, metoprolol succinate (8) Left ventricular apical thrombus: Plan: History LV thrombus Continue Eliquis (9) Hyperlipidemia: Plan: Continue atorvastatin (10) DM2 (diabetes mellitus, type 2): Plan: Most recent hemoglobin A1c 7.7 on 01/06 Continue to hold home metformin, Trulicity Continue home Lantus Novolog sliding scale per protocol Continue monitor blood sugar (11) CKD (chronic kidney disease), stage III: Plan: Cr: 1.2. Baseline Cr~1.3 Monitor renal functions, avoid nephrotoxic agents when possible (12) Schizoaffective disorder: Plan: Continue aripiprazole, trazodone DVT Prophylaxis On Eliquis CODE STATUS DNR/DNI Admission and Anticipated Discharge Date Admission Date: January 05, 2023 Subjective Patient was seen and evaluated for follow-up weakness Lying in bed no acute distress Patient said that he walked with therapy today in the hallway He said that he has very poor energy Denies any chest pain, palpitation, dizziness, shortness of breath. Review of Systems Review of Systems: All systems reviewed & are unremarkable except as noted in Subjective Physical Exam Physical Exam: General- No acute distress Head- atraumatic Eyes- PERRL, EOMI, ENT- oropharynx clear Neck- supple, no JVD Lungs- clear to auscultation Heart- regular rhythm; no murmur Abdomen- normal bowel sounds, soft, nontender Extremities- no calf tenderness, +multiple macular rash over both feet and l eg, petechial like, +bruises in LE Neuro- alert, oriented x 3; PERRL, EOMI; no facial palsy; no dysarthria Skin- warm & dry Results & Data Results & Data Vital Signs (Past 12 Hours) Vital Signs Temp Pulse Pulse Resp BP Pulse Ox O2 Del Method 01/06/23 19:00 36.6 C 75 18 106/70 95 Room Air 01/06/23 15:00 60 01/06/23 14:41 36.7 C 60 18 114/70 97 Room Air 01/06/23 12:54 92 01/06/23 12:00 36.8 C 64 16 116/72 95 Room Air
[2023-01-07 06:51] LABS: BUN Creatinine Ratio 17.9 (10-20); Calcium 8.9 mg/dl (8.6-10.3); Creatinine Clr Calc Pharmacy 89.4 ml/min; Est GFR (African American) 87.4 ml/min; Est GFR (Non-African American) 75.4 ml/min; Potassium 3.8 mmol/L (3.5-5.1)
[2023-01-07] MEDS: ASPIRIN 81 MG ECTAB PO SCH (07:55)
[2023-01-07] MEDS: TORSEMIDE 20 MG TAB PO SCH ×2 (07:55→16:37)
[2023-01-07] MEDS: APIXABAN 5 MG TABLET PO SCH ×2 (07:55→21:15)
[2023-01-07] MEDS: SPIRONOLACTONE 12.5 MG TAB PO SCH (07:55)
[2023-01-07] MEDS: METOPROLOL SUCC 50MG EXT REL TAB PO SCH (07:55)
[2023-01-07] MEDS: DIGOXIN 0.125 MG TAB PO SCH (07:56)
[2023-01-07] MEDS: MULTIVITAMIN TAB PO SCH (07:57)
[2023-01-07] MEDS: INSULIN ASPART PER UNIT CHARGE SC SCH ×4 (08:02→21:15)
[2023-01-07] MEDS: cefTRIAXone SODIUM 2,000 MG in DEXTROSE 5% 50 ML IV SCH (16:38)
--- NOTE | 2023-01-07 17:01 | Hospitalist Progress Note ---
Date of Service January 07, 2023 Assessment & Plan (1) Weakness: Plan: Patient is 62-year-old male with PMH chronic systolic heart failure, chronic ischemic cardiomyopathy, persistent atrial fibrillation, s/p BiV AICD, AV dav ablation, LV thrombus without [place], HTN, dyslipidemia, DM II, CKD III, CVA, schizoaffective disorder presented to ER with complaint of weakness. Progressive weakness, last night so weak had to lower self to floor and unable to get up. CT chest showed no acute finding Blood cx no growth and procalcitonin negative Questionable cellulitis Currently on IV ceftriaxone Continue PT/OT Fall precaution (2) Leukocytosis: Plan: Possible reactive WBC: 12.5 and lactate: 3 on admission Blood culture and procalcitonin negative Lactate and WBC are normalized Blood cultures pending CXR: No acute infiltrate Continue ceftriaxone (3) Rash: Plan: Cellulitis vs vasculitis Elevated ESR and CRP Continue ceftriaxone Clinically improved significantly (4) Elevated troponin: Plan: High-sensitivity troponin: 24, then peak to 29.8 EKG: Paced rhythm Denies chest pain or shortness of breath Trop trending down Echo shows severely reduced LV systolic function with large, septal, inferior and posterior scar with severe hypokinesis with ejection fraction 15 to 20% Continue monitor (5) Chronic systolic HF (heart failure): (6) Ischemic cardiomyopathy: Plan: S/p BiV AICD CXR: Cardiomegaly and AICD with evidence of congestive failure. Small pleural effusions. BNP 172 Cardiology on board-does not think patient is volume overload IV Lasix discontinued by cardiology Will resume torsemide p.o. Continue all outpatient cardiac medications No further cardiac testing necessary at this time as per cardiology Continue monitor closely (7) Atrial fibrillation: Plan: Persistent atrial fibrillation anticoagulated on Eliquis Digoxin level pending Continue digoxin, Eliquis, metoprolol succinate (8) Left ventricular apical thrombus: Plan: History LV thrombus Continue Eliquis (9) Hyperlipidemia: Plan: Continue atorvastatin (10) DM2 (diabetes mellitus, type 2): Plan: Most recent hemoglobin A1c 7.7 on 01/06 Continue to hold home metformin, Trulicity Continue home Lantus Novolog sliding scale per protocol Continue monitor blood sugar (11) CKD (chronic kidney disease), stage III: Plan: Cr: 1.2. Baseline Cr~1.3 Monitor renal functions, avoid nephrotoxic agents when possible (12) Schizoaffective disorder: Plan: Continue aripiprazole, trazodone DVT Prophylaxis On Eliquis CODE STATUS DNR/DNI Admission and Anticipated Discharge Date Admission Date: January 05, 2023 Subjective Patient was seen and evaluated for follow-up weakness Sitting in chair with no acute distress watching TV Denies any chest pain, palpitation, dizziness, shortness of breath. Review of Systems Review of Systems: All systems reviewed & are unremarkable except as noted in Subjective Physical Exam Physical Exam: General- No acute distress Head- atraumatic Eyes- PERRL, EOMI, ENT- oropharynx clear Neck- supple, no JVD Lungs- clear to auscultation Heart- regular rhythm; no murmur Abdomen- normal bowel sounds, soft, nontender Extremities- no calf tenderness, +multiple macular rash over both feet and leg, petechial like, +bruises in LE Neuro- alert, oriented x 3; PERRL, EOMI; no facial palsy; no dysarthria Skin- warm & dry Results & Data Results & Data Vital Signs (Past 12 Hours) Vital Signs Temp Pulse Pulse Resp BP Pulse Ox O2 Del Method 01/07/23 16:18 60 01/07/23 15:07 36.6 C 60 20 121/72 94 Room Air 01/07/23 11:44 37.1 C 61 20 117/65 95 Room Air 01/07/23 07:32 36.6 C 79 20 127/79 95 Room Air 01/07/23 07:04 68
[2023-01-07] MEDS: ARIPiprazole 10 MG TAB PO SCH (21:14)
[2023-01-07] MEDS: ATORVASTATIN 40 MG TAB PO SCH (21:15)
[2023-01-07] MEDS: traZODone HCL 50 MG TAB PO SCH (21:17)
[2023-01-08] MEDS: METOPROLOL SUCC 50MG EXT REL TAB PO SCH (08:26)
[2023-01-08] MEDS: SPIRONOLACTONE 12.5 MG TAB PO SCH (08:26)
[2023-01-08] MEDS: TORSEMIDE 20 MG TAB PO SCH ×2 (08:26→17:23)
[2023-01-08] MEDS: MULTIVITAMIN TAB PO SCH (08:26)
[2023-01-08] MEDS: DIGOXIN 0.125 MG TAB PO SCH (08:27)
[2023-01-08] MEDS: ASPIRIN 81 MG ECTAB PO SCH (08:27)
[2023-01-08] MEDS: APIXABAN 5 MG TABLET PO SCH ×2 (08:27→21:45)
[2023-01-08] MEDS: INSULIN ASPART PER UNIT CHARGE SC SCH ×4 (08:31→21:49)
[2023-01-08] MEDS: cefTRIAXone SODIUM 2,000 MG in DEXTROSE 5% 50 ML IV SCH (16:41)
--- NOTE | 2023-01-08 17:35 | Hospitalist Progress Note ---
Date of Service January 08, 2023 Assessment & Plan (1) Weakness: Plan: Patient is 62-year-old male with PMH chronic systolic heart failure, chronic ischemic cardiomyopathy, persistent atrial fibrillation, s/p BiV AICD, AV dav ablation, LV thrombus without [place], HTN, dyslipidemia, DM II, CKD III, CVA, schizoaffective disorder presented to ER with complaint of weakness. Progressive weakness, last night so weak had to lower self to floor and unable to get up. CT chest showed no acute finding Blood cx no growth and procalcitonin negative Questionable cellulitis Currently on IV ceftriaxone Continue PT/OT Fall precaution (2) Leukocytosis: Plan: Possible reactive WBC: 12.5 and lactate: 3 on admission Blood culture and procalcitonin negative Lactate and WBC are normalized Blood cultures pending CXR: No acute infiltrate Continue ceftriaxone (3) Rash: Plan: Cellulitis vs vasculitis Elevated ESR and CRP Continue ceftriaxone will transition to PO abx to complete the course Resolved (4) Elevated troponin: Plan: High-sensitivity troponin: 24, then peak to 29.8 EKG: Paced rhythm Denies chest pain or shortness of breath Trop trending down Echo shows severely reduced LV systolic function with large, septal, inferior and posterior scar with severe hypokinesis with ejection fraction 15 to 20% Continue monitor (5) Chronic systolic HF (heart failure): (6) Ischemic cardiomyopathy: Plan: S/p BiV AICD CXR: Cardiomegaly and AICD with evidence of congestive failure. Small pleural effusions. BNP 172 Cardiology on board-does not think patient is volume overload IV Lasix discontinued by cardiology Will resume torsemide p.o. Continue all outpatient cardiac medications No further cardiac testing necessary at this time as per cardiology Continue monitor closely (7) Atrial fibrillation: Plan: Persistent atrial fibrillation anticoagulated on Eliquis Digoxin level pending Continue digoxin, Eliquis, metoprolol succinate (8) Left ventricular apical thrombus: Plan: History LV thrombus Continue Eliquis (9) Hyperlipidemia: Plan: Continue atorvastatin (10) DM2 (diabetes mellitus, type 2): Plan: Most recent hemoglobin A1c 7.7 on 01/06 Continue to hold home metformin, Trulicity Continue home Lantus Novolog sliding scale per protocol Continue monitor blood sugar (11) CKD (chronic kidney disease), stage III: Plan: Cr: 1.2. Baseline Cr~1.3 Monitor renal functions, avoid nephrotoxic agents when possible (12) Schizoaffective disorder: Plan: Continue aripiprazole, trazodone DVT Prophylaxis On Eliquis CODE STATUS DNR/DNI Admission and Anticipated Discharge Date Admission Date: January 05, 2023 Subjective Patient was seen and evaluated for follow-up weakness Sitting in chair with no acute distress Denies any chest pain, palpitation, dizziness, shortness of breath. Review of Systems Review of Systems: All systems reviewed & are unremarkable except as noted in Subjective Physical Exam Physical Exam: General- No acute distress Head- atraumatic Eyes- PERRL, EOMI, ENT- oropharynx clear Neck- supple, no JVD Lungs- clear to auscultation Heart- regular rhythm; no murmur Abdomen- normal bowel sounds, soft, nontender Extremities- no calf tenderness, +multiple macular rash over both feet and leg, petechial like, +bruises in LE Neuro- alert, oriented x 3; PERRL, EOMI; no facial palsy; no dysarthria Skin- warm & dry Results & Data Results & Data Vital Signs (Past 12 Hours) Vital Signs Temp Pulse Pulse Resp BP BP Pulse Ox 01/08/23 14:33 36.6 C 61 20 112/74 95 01/08/23 11:47 36.6 C 60 20 119/78 96 01/08/23 08:27 62 01/08/23 07:00 36.6 C 60 20 116/74 92 O2 Del Method 01/08/23 14:33 Room Air 01/08/23 11:47 Room Air 01/08/23 08:27 01/08/23 07:00 Room Air
[2023-01-08] MEDS: ARIPiprazole 10 MG TAB PO SCH (21:45)
[2023-01-08] MEDS: ATORVASTATIN 40 MG TAB PO SCH (21:45)
[2023-01-08] MEDS: traZODone HCL 50 MG TAB PO SCH (21:48)
[2023-01-09] MEDS: ACETAMINOPHEN 325 MG TAB PO PRN (01:08)
[2023-01-09] MEDS: METOPROLOL SUCC 50MG EXT REL TAB PO SCH (08:39)
[2023-01-09] MEDS: APIXABAN 5 MG TABLET PO SCH ×2 (08:39→22:30)
[2023-01-09] MEDS: TORSEMIDE 20 MG TAB PO SCH ×2 (08:39→17:29)
[2023-01-09] MEDS: MULTIVITAMIN TAB PO SCH (08:39)
[2023-01-09] MEDS: SPIRONOLACTONE 12.5 MG TAB PO SCH (08:40)
[2023-01-09] MEDS: DIGOXIN 0.125 MG TAB PO SCH (08:40)
[2023-01-09] MEDS: ASPIRIN 81 MG ECTAB PO SCH (08:40)
[2023-01-09] MEDS: INSULIN ASPART PER UNIT CHARGE SC SCH ×4 (08:43→22:36)
[2023-01-09] MEDS ORDERED: LANTUS PER UNIT CHARGE SQ SCH (09:00)
--- NOTE | 2023-01-09 15:00 | Hospitalist Progress Note ---
Date of Service January 09, 2023 Assessment & Plan (1) Weakness: Plan: Patient is 62-year-old male with PMH chronic systolic heart failure, chronic ischemic cardiomyopathy, persistent atrial fibrillation, s/p BiV AICD, AV dav ablation, LV thrombus without [place], HTN, dyslipidemia, DM II, CKD III, CVA, schizoaffective disorder presented to ER with complaint of weakness. Progressive weakness, last night so weak had to lower self to floor and unable to get up. CT chest showed no acute finding Blood cx no growth and procalcitonin negative Questionable cellulitis Currently on IV ceftriaxone Continue PT/OT Fall precaution (2) Leukocytosis: Plan: Possible reactive WBC: 12.5 and lactate: 3 on admission Blood culture and procalcitonin negative Lactate and WBC are normalized Blood cultures no growth CXR: No acute infiltrate Continue ceftriaxone (3) Rash: Plan: Cellulitis vs vasculitis Elevated ESR and CRP Continue ceftriaxone will transition to PO abx to complete the course Resolved (4) Elevated troponin: Plan: High-sensitivity troponin: 24, then peak to 29.8 EKG: Paced rhythm Denies chest pain or shortness of breath Trop trending down Echo shows severely reduced LV systolic function with large, septal, inferior and posterior scar with severe hypokinesis with ejection fraction 15 to 20% Continue monitor (5) Chronic systolic HF (heart failure): (6) Ischemic cardiomyopathy: Plan: S/p BiV AICD CXR: Cardiomegaly and AICD with evidence of congestive failure. Small pleural effusions. BNP 172 Cardiology on board-does not think patient is volume overload IV Lasix discontinued by cardiology Will resume torsemide p.o. Continue all outpatient cardiac medications No further cardiac testing necessary at this time as per cardiology Continue monitor closely (7) Atrial fibrillation: Plan: Persistent atrial fibrillation anticoagulated on Eliquis Digoxin level pending Continue digoxin, Eliquis, metoprolol succinate (8) Left ventricular apical thrombus: Plan: History LV thrombus Continue Eliquis (9) Hyperlipidemia: Plan: Continue atorvastatin (10) DM2 (diabetes mellitus, type 2): Plan: Most recent hemoglobin A1c 7.7 on 01/06 Continue to hold home metformin, Trulicity Continue home Lantus Novolog sliding scale per protocol Continue monitor blood sugar (11) CKD (chronic kidney disease), stage III: Plan: Cr: 1.2. Baseline Cr~1.3 Monitor renal functions, avoid nephrotoxic agents when possible (12) Schizoaffective disorder: Plan: Continue aripiprazole, trazodone DVT Prophylaxis On Eliquis CODE STATUS DNR/DNI Admission and Anticipated Discharge Date Admission Date: January 05, 2023 Subjective Patient was seen and evaluated for follow-up weakness Sitting in chair with no acute distress Denies any chest pain, palpitation, dizziness, shortness of breath. Review of Systems Review of Systems: All systems reviewed & are unremarkable except as noted in Subjective Physical Exam Physical Exam: General- No acute distress Head- atraumatic Eyes- PERRL, EOMI, ENT- oropharynx clear Neck- supple, no JVD Lungs- clear to auscultation Heart- regular rhythm; no murmur Abdomen- normal bowel sounds, soft, nontender Extremities- no calf tenderness, +multiple macular rash over both feet and leg, petechial like, +bruises in LE Neuro- alert, oriented x 3; PERRL, EOMI; no facial palsy; no dysarthria Skin- warm & dry Results & Data Results & Data Vital Signs (Past 12 Hours) Vital Signs Temp Pulse Pulse Resp BP BP Pulse Ox 01/09/23 08:16 01/09/23 11:10 36.5 C 61 20 116/71 93 01/09/23 08:40 61 01/09/23 08:05 36.4 C L 61 20 112/69 92 01/09/23 07:24 64 01/09/23 04:05 37.0 C 58 L 20 112/67 94 O2 Del Method 01/09/23 08:16 Room Air 01/09/23 11:10 Room Air 01/09/23 08:40 01/09/23 08:05 Room Air 01/09/23 07:24 01/09/23 04:05 Room Air
[2023-01-09] MEDS: cefTRIAXone SODIUM 2,000 MG in DEXTROSE 5% 50 ML IV SCH (17:28)
[2023-01-09] MEDS: traZODone HCL 50 MG TAB PO SCH (22:29)
[2023-01-09] MEDS: ATORVASTATIN 40 MG TAB PO SCH (22:30)
[2023-01-09] MEDS: ARIPiprazole 10 MG TAB PO SCH (22:30)
[2023-01-10] MEDS: APIXABAN 5 MG TABLET PO SCH ×2 (08:02→21:46)
[2023-01-10] MEDS: MULTIVITAMIN TAB PO SCH (08:03)
[2023-01-10] MEDS: DIGOXIN 0.125 MG TAB PO SCH (08:03)
[2023-01-10] MEDS: TORSEMIDE 20 MG TAB PO SCH ×2 (08:03→17:18)
[2023-01-10] MEDS: ASPIRIN 81 MG ECTAB PO SCH (08:03)
[2023-01-10] MEDS: METOPROLOL SUCC 50MG EXT REL TAB PO SCH (08:03)
[2023-01-10] MEDS: SPIRONOLACTONE 12.5 MG TAB PO SCH (08:03)
[2023-01-10] MEDS: INSULIN ASPART PER UNIT CHARGE SC SCH ×4 (08:11→21:46)
[2023-01-10 10:02] LABS: BUN Creatinine Ratio 18.8 (10-20); Calcium 8.9 mg/dl (8.6-10.3); Creatinine Clr Calc Pharmacy 78.3 ml/min; Est GFR (African American) 81.7 ml/min; Est GFR (Non-African American) 70.5 ml/min
[2023-01-10] MEDS: ACETAMINOPHEN 325 MG TAB PO PRN (12:22)
[2023-01-10] MEDS: cefTRIAXone SODIUM 2,000 MG in DEXTROSE 5% 50 ML IV SCH (16:15)
[2023-01-10] MEDS ORDERED: LANTUS PER UNIT CHARGE SQ SCH (21:00)
[2023-01-10] MEDS: traZODone HCL 50 MG TAB PO SCH (21:45)
[2023-01-10] MEDS: ARIPiprazole 10 MG TAB PO SCH (21:46)
[2023-01-10] MEDS: ATORVASTATIN 40 MG TAB PO SCH (21:46)
--- NOTE | 2023-01-10 21:57 | Hospitalist Progress Note ---
Date of Service January 10, 2023 Assessment & Plan (1) Weakness: Plan: Patient is 62-year-old male with PMH chronic systolic heart failure, chronic ischemic cardiomyopathy, persistent atrial fibrillation, s/p BiV AICD, AV dav ablation, LV thrombus without [place], HTN, dyslipidemia, DM II, CKD III, CVA, schizoaffective disorder presented to ER with complaint of weakness. Progressive weakness, last night so weak had to lower self to floor and unable to get up. CT chest showed no acute finding Blood cx no growth and procalcitonin negative Questionable cellulitis Continue IV ceftriaxone Continue PT/OT Fall precaution (2) Leukocytosis: Plan: Possible reactive WBC: 12.5 and lactate: 3 on admission Blood culture and procalcitonin negative Lactate and WBC are normalized Blood cultures no growth CXR: No acute infiltrate Continue ceftriaxone (3) Rash: Plan: Cellulitis vs vasculitis Elevated ESR and CRP Continue ceftriaxone will transition to PO abx to complete the course Resolved (4) Elevated troponin: Plan: High-sensitivity troponin: 24, then peak to 29.8 EKG: Paced rhythm Denies chest pain or shortness of breath Trop trending down Echo shows severely reduced LV systolic function with large, septal, inferior and posterior scar with severe hypokinesis with ejection fraction 15 to 20% Continue monitor (5) Chronic systolic HF (heart failure): (6) Ischemic cardiomyopathy: Plan: S/p BiV AICD CXR: Cardiomegaly and AICD with evidence of congestive failure. Small pleural effusions. BNP 172 Cardiology on board-does not think patient is volume overload IV Lasix discontinued by cardiology Will resume torsemide p.o. Continue all outpatient cardiac medications No further cardiac testing necessary at this time as per cardiology Continue monitor closely (7) Atrial fibrillation: Plan: Persistent atrial fibrillation anticoagulated on Eliquis Digoxin level pending Continue digoxin, Eliquis, metoprolol succinate (8) Left ventricular apical thrombus: Plan: History LV thrombus Continue Eliquis (9) Hyperlipidemia: Plan: Continue atorvastatin (10) DM2 (diabetes mellitus, type 2): Plan: Most recent hemoglobin A1c 7.7 on 01/06 Continue to hold home metformin, Trulicity Continue home Lantus Novolog sliding scale per protocol Continue monitor blood sugar (11) CKD (chronic kidney disease), stage III: Plan: Cr: 1.2. Baseline Cr~1.3 Monitor renal functions, avoid nephrotoxic agents when possible (12) Schizoaffective disorder: Plan: Continue aripiprazole, trazodone DVT Prophylaxis On Eliquis CODE STATUS DNR/DNI Disposition Waiting for placement Admission and Anticipated Discharge Date Admission Date: January 05, 2023 Subjective Patient was seen and evaluated for follow-up weakness Sitting in chair with no acute distress Denies any chest pain, palpitation, dizziness, shortness of breath. Review of Systems Review of Systems: All systems reviewed & are unremarkable except as noted in Subjective Physical Exam Physical Exam: General- No acute distress Head- atraumatic Eyes- PERRL, EOMI, ENT- oropharynx clear Neck- supple, no JVD Lungs- clear to auscultation Heart- regular rhythm; no murmur Abdomen- normal bowel sounds, soft, nontender Extremities- no calf tenderness, +multiple macular rash over both feet and leg, petechial like, +bruises in LE Neuro- alert, oriented x 3; PERRL, EOMI; no facial palsy; no dysarthria Skin- warm & dry Results & Data Results & Data Vital Signs (Past 12 Hours) Vital Signs Temp Pulse Resp BP BP Pulse Ox O2 Del Method 01/10/23 19:00 36.5 C 62 18 113/73 92 Room Air 01/10/23 15:11 36.4 C L 65 20 138/81 96 Room Air 01/10/23 11:13 34.6 C L 60 16 114/72 96 Room Air
[2023-01-11] MEDS: SPIRONOLACTONE 12.5 MG TAB PO SCH (08:00)
[2023-01-11] MEDS: TORSEMIDE 20 MG TAB PO SCH ×2 (08:00→17:23)
[2023-01-11] MEDS: APIXABAN 5 MG TABLET PO SCH ×2 (08:00→21:08)
[2023-01-11] MEDS: DIGOXIN 0.125 MG TAB PO SCH (08:01)
[2023-01-11] MEDS: MULTIVITAMIN TAB PO SCH (08:01)
[2023-01-11] MEDS: ASPIRIN 81 MG ECTAB PO SCH (08:01)
[2023-01-11] MEDS: METOPROLOL SUCC 50MG EXT REL TAB PO SCH (08:01)
[2023-01-11] MEDS: ACETAMINOPHEN 325 MG TAB PO PRN (08:05)
[2023-01-11] MEDS: INSULIN ASPART PER UNIT CHARGE SC SCH ×4 (08:05→21:08)
[2023-01-11] MEDS ORDERED: LANTUS PER UNIT CHARGE SQ ONE (09:44)
[2023-01-11] MEDS ORDERED: INSULIN ASPART PER UNIT CHARGE SC ONE (09:44)
[2023-01-11] MEDS: cefTRIAXone SODIUM 2,000 MG in DEXTROSE 5% 50 ML IV SCH (16:36)
--- NOTE | 2023-01-11 16:55 | Hospitalist Progress Note ---
Date of Service January 11, 2023 Assessment & Plan (1) Weakness: Plan: Patient is 62-year-old male with PMH chronic systolic heart failure, chronic ischemic cardiomyopathy, persistent atrial fibrillation, s/p BiV AICD, AV dav ablation, LV thrombus without [place], HTN, dyslipidemia, DM II, CKD III, CVA, schizoaffective disorder presented to ER with complaint of weakness. Progressive weakness, last night so weak had to lower self to floor and unable to get up. CT chest showed no acute finding Blood cx no growth and procalcitonin negative Questionable cellulitis Currently on IV ceftriaxone day 7, will discontinue abx Continue PT/OT Fall precaution (2) Leukocytosis: Plan: Possible reactive WBC: 12.5 and lactate: 3 on admission Blood culture and procalcitonin negative Lactate and WBC are normalized Blood cultures no growth CXR: No acute infiltrate Will complete 7 days course of ceftriaxone Resolved (3) Rash: Plan: Cellulitis vs vasculitis Elevated ESR and CRP Continue ceftriaxone will transition to PO abx to complete the course Resolved (4) Elevated troponin: Plan: High-sensitivity troponin: 24, then peak to 29.8 EKG: Paced rhythm Denies chest pain or shortness of breath Trop trending down Echo shows severely reduced LV systolic function with large, septal, inferior and posterior scar with severe hypokinesis with ejection fraction 15 to 20% Continue monitor (5) Chronic systolic HF (heart failure): (6) Ischemic cardiomyopathy: Plan: S/p BiV AICD CXR: Cardiomegaly and AICD with evidence of congestive failure. Small pleural effusions. BNP 172 Cardiology on board-does not think patient is volume overload IV Lasix discontinued by cardiology Continue torsemide p.o. Continue all outpatient cardiac medications No further cardiac testing necessary at this time as per cardiology Continue monitor closely (7) Atrial fibrillation: Plan: Persistent atrial fibrillation anticoagulated on Eliquis Digoxin level 0.7 Continue digoxin, Eliquis, metoprolol succinate (8) Left ventricular apical thrombus: Plan: History LV thrombus Continue Eliquis (9) Hyperlipidemia: Plan: Continue atorvastatin (10) DM2 (diabetes mellitus, type 2): Plan: Most recent hemoglobin A1c 7.7 on 01/06 Elevated BS today Continue to hold home metformin, Trulicity Lantus asjusted while inpatient Novolog sliding scale per protocol Continue monitor blood sugar (11) CKD (chronic kidney disease), stage III: Plan: Cr: 1.2. Baseline Cr~1.3 Monitor renal functions, avoid nephrotoxic agents when possible (12) Schizoaffective disorder: Plan: Continue aripiprazole, trazodone DVT Prophylaxis On Eliquis CODE STATUS DNR/DNI Disposition Waiting for placement Admission and Anticipated Discharge Date Admission Date: January 05, 2023 Subjective Patient was seen and evaluated for follow-up weakness Sitting in chair with no acute distress Waiting for placement to rehab Denies any chest pain, palpitation, dizziness, shortness of breath. Review of Systems Review of Systems: All systems reviewed & are unremarkable except as noted in Subjective Physical Exam Physical Exam: General- No acute distress Head- atraumatic Eyes- PERRL, EOMI, ENT- oropharynx clear Neck- supple, no JVD Lungs- clear to auscultation Heart- regular rhythm; no murmur Abdomen- normal bowel sounds, soft, nontender Extremities- no calf tenderness, +bruises in LE Neuro- alert, oriented x 3; PERRL, EOMI; no facial palsy; no dysarthria Skin- warm & dry Results & Data Results & Data Vital Signs (Past 12 Hours) Vital Signs Temp Pulse Pulse Resp BP Pulse Ox O2 Del Method 01/11/23 15:24 36.3 C L 65 18 111/70 96 Room Air 01/11/23 15:21 60 01/11/23 11:40 36.4 C L 60 18 108/70 95 Room Air 01/11/23 08:00 Room Air 01/11/23 07:30 60 01/11/23 08:01 63 01/11/23 07:34 36.6 C 63 18 117/75 97 Room Air
[2023-01-11] MEDS ORDERED: INSULIN HUMAN REGULAR PER UNIT 8 UNITS in SYRINGE 7.92 ML IV STA (17:20)
[2023-01-11] MEDS ORDERED: LANTUS PER UNIT CHARGE SQ SCH (21:00)
[2023-01-11] MEDS: traZODone HCL 50 MG TAB PO SCH (21:08)
[2023-01-11] MEDS: ATORVASTATIN 40 MG TAB PO SCH (21:08)
[2023-01-11] MEDS: ARIPiprazole 10 MG TAB PO SCH (21:08)
[2023-01-12 07:30] LABS: Hematocrit (blood only) 41.2 % (42.0-52.0); Hemoglobin 14.2 g/dl (14.0-18.0); Mean Corpuscular Hemoglobin 32.6 pg (25.0-34.0); Mean Corpuscular Hgb Conc 34.5 g/dL (32.0-36.0); Mean Corpuscular Volume 94.7 fL (80.0-100.0); Mean Platelet Volume 11.2 fL (9.4-12.4); Platelet Count 248 K/uL (130-400); RDW Coefficient of Variation 12.4 % (11.5-14.5); Red Blood Count 4.35 M/uL (4.70-6.10); White Blood Count 8.96 K/ul (4.8-10.8)
[2023-01-12] MEDS: INSULIN ASPART PER UNIT CHARGE SC SCH ×2 (08:12→12:04)
[2023-01-12] MEDS: MULTIVITAMIN TAB PO SCH (08:12)
[2023-01-12] MEDS: METOPROLOL SUCC 50MG EXT REL TAB PO SCH (08:12)
[2023-01-12] MEDS: SPIRONOLACTONE 12.5 MG TAB PO SCH (08:13)
[2023-01-12] MEDS: ASPIRIN 81 MG ECTAB PO SCH (08:13)
[2023-01-12] MEDS: TORSEMIDE 20 MG TAB PO SCH (08:13)
[2023-01-12] MEDS: APIXABAN 5 MG TABLET PO SCH (08:13)
[2023-01-12] MEDS: DIGOXIN 0.125 MG TAB PO SCH (08:13)
[2023-01-12 09:16] LABS: BUN Creatinine Ratio 18.3 (10-20); Creatinine Clr Calc Pharmacy 76.2 ml/min; Est GFR (African American) 79.2 ml/min; Est GFR (Non-African American) 68.3 ml/min; Potassium 3.9 mmol/L (3.5-5.1)
--- NOTE | 2023-01-12 12:01 | Hospitalist Progress Note ---
Date of Service January 12, 2023 Assessment & Plan (1) Weakness: Plan: Patient is 62 yo M with chronic systolic heart failure, chronic ischemic cardiomyopathy, persistent atrial fibrillation, s/p BiV AICD, AV dav ablation, LV thrombus without [place], HTN, dyslipidemia, DM II, CKD III, CVA, schizoaffective disorder presented to ER with complaint of weakness. Progressive weakness, prior to admission so weak had to lower self to floor and unable to get up. CT chest showed no acute finding Blood cx no growth and procalcitonin negative Questionable cellulitis Treated with IV ceftriaxone while inpt Continue PT/OT Fall precaution (2) Leukocytosis: Plan: Possible reactive WBC: 12.5 and lactate: 3 on admission Blood culture and procalcitonin negative Lactate and WBC are normalized Blood cultures no growth CXR: No acute infiltrate Will complete 7 days course of ceftriaxone Resolved (3) Rash: Plan: Cellulitis vs vasculitis Elevated ESR and CRP Continue ceftriaxone will transition to PO abx to complete the course Resolved (4) Elevated troponin: Plan: High-sensitivity troponin: 24, then peak to 29.8 EKG: Paced rhythm Denies chest pain or shortness of breath Echo shows severely reduced LV systolic function with large, septal, inferior and posterior scar with severe hypokinesis with ejection fraction 15 to 20%. No change from previous study. Continue monitor (5) Chronic systolic HF (heart failure): (6) Ischemic cardiomyopathy: Plan: S/p BiV AICD CXR: Cardiomegaly and AICD with evidence of congestive failure. Small pleural effusions. BNP 172 Cardiology consulted -does not think patient is volume overload IV Lasix discontinued by cardiology Continue torsemide p.o. Continue all outpatient cardiac medications No further cardiac testing necessary at this time as per cardiology Continue monitor closely (7) Atrial fibrillation: Plan: Persistent atrial fibrillation anticoagulated on Eliquis Digoxin level 0.7 Continue digoxin, Eliquis, metoprolol succinate (8) Left ventricular apical thrombus: Plan: History LV thrombus Continue Eliquis (9) Hyperlipidemia: Plan: Continue atorvastatin (10) DM2 (diabetes mellitus, type 2): Plan: Most recent hemoglobin A1c 7.7 on 01/06 Elevated BS today Continue to hold home metformin, Trulicity Lantus asjusted while inpatient Novolog sliding scale per protocol Continue monitor blood sugar (11) CKD (chronic kidney disease), stage III: Plan: Cr: 1.2. Baseline Cr~1.3 Monitor renal functions, avoid nephrotoxic agents when possible (12) Schizoaffective disorder: Plan: Continue aripiprazole, trazodone DVT Prophylaxis On Eliquis CODE STATUS DNR/DNI Disposition Waiting for placement Admission and Anticipated Discharge Date Admission Date: January 05, 2023 Subjective Patient was seen in follow-up weakness Currently sitting up in chair in no acute distress he is having lunch Denies any chest pain, palpitation, dizziness, shortness of breath. Waiting for placement to rehab Review of Systems Review of Systems: All systems reviewed & are unremarkable except as noted in Subjective Physical Exam Physical Exam: General- WD/WN M in no acute distress Head- atraumatic Eyes- PERRL, EOMI, ENT- oropharynx clear Neck- supple, no JVD Lungs- clear to auscultation Heart- regular rhythm; no murmur Abdomen- normal bowel sounds, soft, nontender Extremities- +bruises in LE, moves extremities Neuro- alert, oriented x 3; PERRL, EOMI; no facial palsy; no dysarthria, moves extremities Skin- warm & dry Results & Data Results & Data Vital Signs (Past 12 Hours) Vital Signs Temp Pulse Pulse Resp BP Pulse Ox O2 Del Method 01/12/23 11:45 36.5 C 62 18 122/77 95 Room Air 01/12/23 08:13 60 01/12/23 08:00 36.7 C 62 20 112/69 93 Room Air 01/12/23 03:05 36.7 C 65 18 113/70 95 Room Air Laboratory Results 01/12/23 01/12/23 01/12/23 Range/Units 11:32 07:27 06:48 WBC (4.8-10.8) K/ul RBC (4.70-6.10) M/uL Hgb (14.0-18.0) g/dl Hct (42.0-52.0) % MCV (80.0-100.0) fL MCH (25.0-34.0) pg MCHC (32.0-36.0) g/dL RDW Std Deviation (36.4-46.3) fL RDW Coeff of Macy (11.5-14.5) % Plt Count (130-400) K/uL MPV (9.4-12.4) fL Sodium 138 (136-145) mmol/L Potassium 3.9 (3.5-5.1) mmol/L Chloride 98 (98-107) mmol/L Carbon Dioxide 30 (21-32) mmol/L Anion Gap 10 (3-11) BUN 21 (6-23) mg/dl Creatinine 1.15 (0.6-1.4) mg/dl Est Cr Clr Drug Dosing 76.2 ml/min Est GFR ( Amer) 79.2 ml/min Est GFR (Non-Af Amer) 68.3 ml/min BUN/Creatinine Ratio 18.3 (10-20) Glucose 151 H (70-99(Fasting)) mg/dl POC Glucose 271 H 157 H (70-99) mg/dl Calcium 9.0 (8.6-10.3) mg/dl 01/12/23 01/11/23 01/11/23 Range/Units 06:48 20:19 16:29 WBC 8.96 (4.8-10.8) K/ul RBC 4.35 L (4.70-6.10) M/uL Hgb 14.2 (14.0-18.0) g/dl Hct 41.2 L (42.0-52.0) % MCV 94.7 (80.0-100.0) fL MCH 32.6 (25.0-34.0) pg MCHC 34.5 (32.0-36.0) g/dL RDW Std Deviation 43.0 (36.4-46.3) fL RDW Coeff of Macy 12.4 (11.5-14.5) % Plt Count 248 (130-400) K/uL MPV 11.2 (9.4-12.4) fL Sodium (136-145) mmol/L Potassium (3.5-5.1) mmol/L Chloride (98-107) mmol/L Carbon Dioxide (21-32) mmol/L Anion Gap (3-11) BUN (6-23) mg/dl Creatinine (0.6-1.4) mg/dl Est Cr Clr Drug Dosing ml/min Est GFR ( Amer) ml/min Est GFR (Non-Af Amer) ml/min BUN/Creatinine Ratio (10-20) Glucose (70-99(Fasting)) mg/dl POC Glucose 201 H 305 H* (70-99) mg/dl Calcium (8.6-10.3) mg/dl 01/11/23 Range/Units 16:28 WBC (4.8-10.8) K/ul RBC (4.70-6.10) M/uL Hgb (14.0-18.0) g/dl Hct (42.0-52.0) % MCV (80.0-100.0) fL MCH (25.0-34.0) pg MCHC (32.0-36.0) g/dL RDW Std Deviation (36.4-46.3) fL RDW Coeff of Macy (11.5-14.5) % Plt Count (130-400) K/uL MPV (9.4-12.4) fL Sodium (136-145) mmol/L Potassium (3.5-5.1) mmol/L Chloride (98-107) mmol/L Carbon Dioxide (21-32) mmol/L Anion Gap (3-11) BUN (6-23) mg/dl Creatinine (0.6-1.4) mg/dl Est Cr Clr Drug Dosing ml/min Est GFR ( Amer) ml/min Est GFR (Non-Af Amer) ml/min BUN/Creatinine Ratio (10-20) Glucose (70-99(Fasting)) mg/dl POC Glucose 301 H* (70-99) mg/dl Calcium (8.6-10.3) mg/dl Medications Administered Current Inpatient Medications Acetaminophen (Acetaminophen 325 Mg Tab) 650 mg PO Q4H PRN PRN Reason: Pain or Fever Stop: 02/04/23 15:42 Last Admin: 01/11/23 08:05 Dose: 650 mg Apixaban (Apixaban 5 Mg Tablet) 5 mg PO BID СВЕТЛАНА Stop: 02/04/23 20:59 Last Admin: 01/12/23 08:13 Dose: 5 mg Aripiprazole (Aripiprazole 10 Mg Tab) 10 mg PO HS СВЕТЛАНА Stop: 02/04/23 20:59 Last Admin: 01/11/23 21:08 Dose: 10 mg Aspirin (Aspirin 81 Mg Ectab) 81 mg PO DAILY СВЕТЛАНА Stop: 02/05/23 08:59 Last Admin: 01/12/23 08:13 Dose: 81 mg Atorvastatin Calcium (Atorvastatin 40 Mg Tab) 40 mg PO HS СВЕТЛАНА Stop: 02/04/23 20:59 Last Admin: 01/11/23 21:08 Dose: 40 mg Dextrose (Dextrose 50% 50 Ml Syringe) 25 - 50 ml IV UD PRN; Protocol PRN Reason: Hypoglycemia Protocol Stop: 02/04/23 15:42 Digoxin (Digoxin 0.125 Mg Tab) 0.125 mg PO DAILY СВЕТЛАНА Stop: 02/05/23 08:59 Last Admin: 01/12/23 08:13 Dose: 0.125 mg Glucagon (Glucagon For Inj 1 Mg Vial) 1 mg SQ UD PRN; Protocol PRN Reason: Hypoglycemia Protocol Stop: 02/04/23 15:42 Glucose (Glucose 10 Tab/Tube) 4 - 8 tab PO UD PRN; Protocol PRN Reason: Hypoglycemia Treatment Stop: 02/04/23 15:42 Glucose (Glucose 40% Gel 15 Gm Tube) 15 - 30 gm PO UD PRN; Protocol PRN Reason: Hypoglycemia Protocol Stop: 02/04/23 15:42 Ceftriaxone Sodium 2,000 mg/ (Dextrose) 70 mls @ 140 mls/hr IV Q24H СВЕТЛАНА Stop: 01/13/23 15:59 Last Infusion: 01/11/23 17:06 Dose: Infused Insulin Aspart (Insulin Aspart Per Unit Charge) 0 units SC ACHS СВЕТЛАНА Stop: 02/09/23 11:29 Last Admin: 01/12/23 08:12 Dose: 7 units Insulin Glargine (Lantus Per Unit Charge) 10 units SQ BID СВЕТЛАНА Stop: 02/10/23 20:59 Metoprolol Succinate (Metoprolol Succ 50mg Ext Rel Tab) 50 mg PO DAILY СВЕТЛАНА Stop: 02/04/23 15:42 Last Admin: 01/12/23 08:12 Dose: 50 mg Miscellaneous (Carbohydrates For Hypoglycemia ) 15 - 30 gm PO UD PRN PRN Reason: Hypoglycemia Protocol Stop: 02/04/23 15:42 Last Admin: 01/06/23 07:46 Dose: 15 gm Multivitamins (Multivitamin Tab) 1 tab PO DAILY СВЕТЛАНА Stop: 02/05/23 08:59 Last Admin: 01/12/23 08:12 Dose: 1 tab Polyethylene Glycol (Polyethylene (Miralax) 17 Gm Pack) 17 gm PO DAILY PRN PRN Reason: Constipation Stop: 02/04/23 15:42 Spironolactone (Spironolactone 12.5 Mg Tab) 12.5 mg PO DAILY СВЕТЛАНА Stop: 02/06/23 08:59 Last Admin: 01/12/23 08:13 Dose: 12.5 mg Torsemide (Torsemide 20 Mg Tab) 20 mg PO [id number] СВЕТЛАНА Stop: 02/06/23 08:59 Last Admin: 01/12/23 08:13 Dose: 20 mg Trazodone HCl (Trazodone Hcl 50 Mg Tab) 50 mg PO HS СВЕТЛАНА Stop: 02/04/23 20:59 Last Admin: 01/11/23 21:08 Dose: 50 mg
[2023-01-12] MEDS: cefTRIAXone SODIUM 2,000 MG in DEXTROSE 5% 50 ML IV SCH (13:00)
[2023-01-12] MEDS ORDERED: ADVANCED PROBIOTIC 1250 MG CAPSULE PO SCH (13:00)
--- NOTE | 2023-01-12 13:01 | Discharge Summary ---
Date of Service January 12, 2023 Admission HPI Per Admitting Provider Patient is 62-year-old male with PMH chronic systolic heart failure, chronic ischemic cardiomyopathy, persistent atrial fibrillation, s/p BiV AICD, AV dav ablation, LV thrombus without CT, HTN, dyslipidemia, DM II, CKD III, CVA, schizoaffective disorder presented to ER with complaint of weakness. History obtained from patient, patient's sister and inpatient and outpatient chart review. Patient reports during the night stood up out of bed and felt weak and slid himself to the floor. He was unable to get up off floor. Denies LOC, or hitting his head. Family found patient on floor this morning and also was unable to get patient up. It is reported patient was noted to be hypoxic upon EMS arrival. Patient and sister reports weakness for years, however been gradually worsening. He does not use assistive devices for ambulation. States over a month ago missed a step and fell, denies other falls. States past 3 months with bilateral lower leg sores and redness. Patient thinks hit left lower leg on trailer prior to onset of leg redness. Sister reports patient chronically slow to respond and no increase changes. Patient has tremors in arms, legs, mouth for at least a year. Denies fever/chills, diaphoresis, N/V/D/C, ELIZONDO, dizziness, syncope, vision changes, neck pain, CP, SOB, orthopnea, palpitations, cough, sore throat, choking, rhinorrhea, abdominal pain, paresthesias, extremity edema, other rashes, urinary symptoms. Per outpatient chart review: Echo 09/01/2021: EF<20%, diffuse hypokinesis to akinesis, large size apical, septal, inferior and posterior scar, mild MR, mild TR Admission Exam Per Admitting Provider General: Not in resp distress Eyes: PERRL, conjunctivae normal, not pale, anicteric sclerae, EOM intact bilaterally ENMT: External ear and nose normal, oropharynx normal, lower jaw tremors Respiratory: Normal respiratory effort, no respiratory distress, on nasal cannula, Basilar crackles Cardiovascular: RRR S1 S2 Gastrointestinal (Abdomen): Abdomen is not distended, soft, non-tender to palpation, no guarding, no palpable hepatosplenomegaly, normal bowel sounds Musculoskeletal: No pedal edema Genitourinary: No CVA tenderness Skin: Has an erythematous patch on anterior mid kline of left leg with scab. Has multiple macular rash over both feet and leg, petechial like. Neurologic: Alert and oriented x to person, place and day of the week, not to month/year (appears to be baseline per sister), Resting tremors on RUE, No focal deficit in power noted Psychiatric: Flat affect Principal Diagnosis Weakness, leukocytosis, rash - likely secondary to cellulitis Discharge Exam General- WD/WN M in no acute distress Head- atraumatic Eyes- PERRL, EOMI, ENT- oropharynx clear Neck- supple, no JVD Lungs- clear to auscultation Heart- regular rhythm; no murmur Abdomen- normal bowel sounds, soft, nontender Extremities- +bruises in LE, moves extremities Neuro- alert, oriented x 3; PERRL, EOMI; no facial palsy; no dysarthria, moves extremities Skin- warm & dry Discharge Data Allergies Allergy/AdvReac Type Severity Reaction Status Date / Time codeine Allergy Severe ANAPHYLAXSI Verified 01/05/23 09:43 S propoxyphene Allergy Severe RASH PER PT Verified 01/05/23 09:43 oxycodone Allergy Intermediate RASH Verified 01/05/23 09:43 acetaminophen Allergy Unknown RASH-PT Verified 01/05/23 09:43 NOT SURE Consultations 01/05/23 12:27 ED Decision to Admit Stat 01/05/23 13:32 Consult Cardiology Routine Hospital Course (1) Weakness: Patient is 62 yo M with chronic systolic heart failure, chronic ischemic cardiomyopathy, persistent atrial fibrillation, s/p BiV AICD, AV dav ablation, LV thrombus without CT, HTN, dyslipidemia, DM II, CKD III, CVA, schizoaffective disorder presented to ER with complaint of weakness. Progressive weakness, prior to admission so weak had to lower self to floor and unable to get up. CT chest showed no acute finding Blood cx no growth and procalcitonin negative Questionable cellulitis Treated with IV ceftriaxone while inpt Continue PT/OT Fall precaution (2) Leukocytosis: Possible reactive WBC: 12.5 and lactate: 3 on admission Blood culture and procalcitonin negative Lactate and WBC are normalized Blood cultures no growth CXR: No acute infiltrate Completed 7 days course of ceftriaxone, will DC on PO doxy to finish empiric course Resolved (3) Rash: Cellulitis vs vasculitis Elevated ESR and CRP Continue ceftriaxone will transition to PO abx to complete the course Resolved (4) Elevated troponin: High-sensitivity troponin: 24, then peak to 29.8 EKG: Paced rhythm Denies chest pain or shortness of breath Echo shows severely reduced LV systolic function with large, septal, inferior and posterior scar with severe hypokinesis with ejection fraction 15 to 20%. No change from previous study. Continue monitor (5) Chronic systolic HF (heart failure): (6) Ischemic cardiomyopathy: S/p BiV AICD CXR: Cardiomegaly and AICD with evidence of congestive failure. Small pleural effusions. BNP 172 Cardiology consulted -does not think patient is volume overload IV Lasix discontinued by cardiology Continue torsemide p.o. Continue all outpatient cardiac medications No further cardiac testing necessary at this time as per cardiology Continue monitor closely (7) Atrial fibrillation: Persistent atrial fibrillation anticoagulated on Eliquis Digoxin level 0.7 Continue digoxin, Eliquis, metoprolol succinate (8) Left ventricular apical thrombus: History LV thrombus Continue Eliquis (9) Hyperlipidemia: Continue atorvastatin (10) DM2 (diabetes mellitus, type 2): Most recent hemoglobin A1c 7.7 on 01/06 Continue to hold home metformin, Trulicity Lantus asjusted while inpatient Novolog sliding scale per protocol Continue monitor blood sugar (11) CKD (chronic kidney disease), stage III: Cr: 1.2. Baseline Cr~1.3 Monitor renal functions, avoid nephrotoxic agents when possible (12) Schizoaffective disorder: Continue aripiprazole, trazodone Total Time Total Time Spent Total Time Spent (In Minutes): 40 Discharge Plan Discharge Items Patient Disposition: Transfer Inpatient Rehab Fac Reason For Visit: WEAKNESS Discharge Diagnosis: Weakness, leukocytosis, rash - likely secondary to cellulitis Activity: Per Instructions section Non-emergency contact: Primary Care Provider Call non-emergency contact if: you have any medication questions and your symptoms worsen Follow-up/Referrals: Gómez Pierson MD [Primary Care Provider] - Diet: Carb Consistent or DM2 and Low Sodium (2gm) Addtl Attending Provider Instructions: Follow-up with primary care physician within 1 week. Finish antibiotic treatment as prescribed. Recommend taking probiotics, while on antibiotic, to prevent stomach upset. Pending Studies at Discharge: No Stand-Alone Forms: My [facility] Skilled Items Patient informed of condition?: Yes DNR: Yes Discharge Level of Care: Acute rehab Communicable Disease: No Discharge Prognosis: Stable Lines: None Urinary Catheter: No Medications and DC Order Prescriptions: New doxycycline hyclate 100 mg capsule 100 mg PO BID 4 Days Qty: 8 0RF Advanced Probiotic 625 mg (10 billion cell) Capsule 2 cap PO DAILY 5 Days Qty: 10 0RF Continued atorvastatin 40 mg tablet 40 mg PO HS aripiprazole 10 mg tablet 10 mg PO HS multivitamin Tablet 1 tab PO DAILY metformin 500 mg Tablet 2,000 mg PO DAILY metoprolol succinate 50 mg Tablet Extended Release 24 Hr 50 mg PO DAILY spironolactone 25 mg Tablet 12.5 mg DAILY digoxin 125 mcg (0.125 mg) Tablet 125 mcg PO DAILY Eliquis 5 mg Tablet 5 mg PO BID Trulicity 1.5 mg/0.5 mL Pen Injector 1.5 mg SUBCUT WK torsemide 20 mg tablet 20 mg PO BID aspirin [Aspirin Low-Strength] 81 mg Tablet,Delayed Release (Dr/Ec) 81 mg PO DAILY insulin glargine [Lantus Solostar U-100 Insulin] 100 unit/mL (3 mL) insulin pen 26 unit SUBCUT HS trazodone 50 mg tablet 50 mg PO HS Discharge Orders: Discharge Order (Routine); Ordered 01/12/23 Ordered By: Karri Maki/Other Patient Handouts: Managing Type 2 Diabetes Admission Data Admit Date/Time: 01/05/23 12:57 Attending Provider: Karri Alvarenga Admit Provider: Kathleen Lopez I. Primary Care Provider: Góemz Pierson Other Providers: Israel Pérez ; Kathleen Lopez I. ; [facility] ; Shirley Alaniz
--- NOTE | 2023-01-15 16:25 | Coding Query ---
CODING QUERY To promote full compliance with coding requirements relating to patient care, provider participation is requested in all cases of driver material handler uncertainty. Please assist us with the question(s) below: Coding Question(s): Pt admitted with dyspnea, general weakness , rise in troponin and elevated BNP. Cardiology consult stated diastolic heart failure with no fluid overload. Please document, if known or suspected, the etiology of the generalized weakness. Thanks for your help! Angelo Iglesias [facility] Physician's Response(s): weakness likely secondary to acute illness - cellulitis in the setting of known cardiomyopathy, severe systolic heart failure (EF < 20%). Pt improved on antibiotics. Principal Diagnosis: "that condition established after study, to be chiefly responsible for occasioning the admission of the patient to the hospital for care." Co-Existing Principal Diagnosis: "when two or more diagnoses equally meet the criteria for principal diagnosis as determined by the circumstances of admission, diagnostic work up, and/or therapy provided, and the Alphabetic Index, Tabular List, or another coding guideline does not provide sequencing direction, any one of the diagnoses may be sequenced first." "When the physician has documented what appears to be a current diagnosis in the body of the record, but has not included the diagnosis in the final diagnostic statement, the physician should be asked whether the diagnosis should be added." (Source Coding Clinic 2 QTR90. p3-4) FIDE
== END 2023-01-12 16:10 | DRG 602 ==
LOC: ED 08:37 → EDINP 12:57 → SUATTDRO 12:57 → EDINP 15:40 → 2N 16:42

== ENCOUNTER 2024-05-10 06:36 | Inpatient (IN) ==
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
[2024-05-10 07:17] LABS: Basophils # (auto) 0.07 K/uL (0.00-0.20); Basophils % (auto) 1.1 %; Hematocrit (blood only) 45.2 % (42.0-52.0); Hemoglobin 15.8 g/dl (14.0-18.0); Immature Granulocytes # (auto) 0.05 K/uL (0.01-0.20); Immature Granulocytes % (auto) 0.8 %; Lymphocytes # (auto) 0.72 K/uL (1.20-3.40); Lymphocytes % (auto) 11.1 %; Mean Corpuscular Hemoglobin 32.5 pg (25.0-34.0); Mean Platelet Volume 12.6 fL (9.4-12.4); Monocytes # (auto) 0.68 K/uL (0.11-0.59); Monocytes % (auto) 10.4 %; Neutrophils # (auto) 4.99 K/uL (1.40-6.50); Neutrophils % (auto) 76.6 %; Platelet Count 104 K/uL (130-400); RDW Coefficient of Variation 12.8 % (11.5-14.5); RDW Standard Deviation 43.7 fL (36.4-46.3); Red Blood Count 4.86 M/uL (4.70-6.10); White Blood Count 6.51 K/ul (4.8-10.8)
[2024-05-10] MEDS: SODIUM CHLORIDE 0.9% 500 ML IV ONE (07:42)
[2024-05-10 07:53] LABS: Influenza A virus by PCR Negative (Neg); Influenza B virus by PCR Negative (Neg); RSV by PCR Negative (Neg); SARS CoV2 RNA(COVID-19) Ceph NEGATIVE (Negative)
[2024-05-10 07:55] LABS: Alanine Aminotransferase 50 U/L (7-52); Bilirubin,Total 1.7 mg/dl (0.2-1.0); Blood Urea Nitrogen 35 mg/dl (6-23); Calcium 9.4 mg/dl (8.6-10.3); Carbon Dioxide 28 mmol/L (21-32); Chloride 99 mmol/L (98-107); Creatine Kinase 215 U/L (30-223); Creatinine Clr Calc Pharmacy 61.9 ml/min; Est GFR (Non-African American) 53.5 ml/min; Glucose 203 mg/dl (70-99(Fasting)); Total Protein 7.8 gm/dl (6.0-8.3); Troponin I High Sensitivity 47.5 pg/ml (0-20)
[2024-05-10 07:57] LABS: Appearance Urine Clear (Clear); Bacteria Urine Automated None Seen (None Seen); Bilirubin Urine Negative (Negative); Blood Urine 1+ (Negative); Color Urine Dark Yellow; Epithelial Cell Urine Auto 0-2 /hpf (0-2); Glucose Urine UA 1+ (Negative); Granular Casts Urine Present /lpf (None Prsent); Ketones Urine Negative (Negative); Leukocyte Esterase Urine Negative (Negative); Nitrite Urine Negative (Negative); Protein Urine 2+ (Negative); RBC Urine Automated 0-2 /hpf (0-2); Specific Gravity Urine 1.021 (1.000-1.030); Urobilinogen Urine Negative (Negative); WBC Urine Automated 0-5 /hpf (0-5)
--- NOTE | 2024-05-10 07:59 | XRay Report ---
XR chest 1V portable HISTORY: weakness COMPARISON: Chest 01/05/2023. FINDINGS: No pneumothorax. There are low lung volumes. The heart is mildly enlarged. There is mild ce ntral pulmonary vascular congestion without overt edema. This has improved. No new focal lung consoli dations to suggest a pneumonia. No pleural effusions. Left-sided pacemaker/defibrillator again noted. No acute fractures. IMPRESSION: Cardiomegaly and mild pulmonary vascular congestion without overt edema. This has improved. ACT 112: Negative or not required by law. Electronically signed by: Tristen Soto M.D. 05/10/2024 7:58 AM
--- NOTE | 2024-05-10 08:06 | CT Scan Report ---
HEAD CT NONCONTRAST CT DOSE: 625.8 mGy.cm HISTORY: leg weakness TECHNIQUE: Multiaxial CT images of the head were performed without the use of intravenous contrast. A utomated exposure control was utilized for this study. A dose lowering technique was utilized adheri ng to the principles of ALARA. Comparison: None. Findings: The paranasal sinuses and right mastoid air cells are clear. There is a left mastoid/middle ear effusion noted. Old nasal bone fractures are present. Mild motion artifact. Small foci of enceph alomalacia within the left occipital lobe and right high convexity consistent with old infarcts. Ther e is an old right basal ganglia infarct also noted. The calvarium and skull base are intact. There is no mass, hematoma, midline shift, acute infarct. White matter hypodensity is nonspecific but suggest latrice of microvascular ischemic change. The ventricles and sulci demonstrate mild age-related involutio nal changes. Impression: 1. Mild motion artifact. 2. No acute infarct or intracranial hemorrhage. 3. Old small infarcts as described above. ACT 112: Negative or not required by law. Electronically signed by: Tristen Soto M.D. 05/10/2024 8:03 AM
--- OUTSIDE RECORDS SUMMARY | 2024-05-10 08:25 | External Medical Summary | Summary of Care ---
Author Name Unknown Organization [facility] Address [address] [place] [address] Phone [phone] Care Team Providers Care Time Study Engineer Name Role Phone Lauren Benitez MD Primary Care Provide r Reason for Visit * Reason Comments eRx-Medication Refill Encounter Details Date Type Department Care Team (Late st Contact Info) Description 05/03/2024 Refill Cardiology, [facility] [address] [place] [phone] Kit Cook, [place] [address] [place] [address] Heart failure, systolic and diastolic, acute on chronic (HCC); HTN, goal below 140/90 Allergies Active Allergy Reactions Criticality Noted Date Comments Codeine Edema face/lips/tongue High 01/31/2016 Propoxyphene 01/31/2016 Oxycodone-Acetaminophen Itching 01/31/2016 No rash or swelling documented as of this encounter (statuses as of 05/04/2024) Medications Medication Sig Dispensed Refills Start Date End Date Status aspirin 81 MG chewable tablet Take 1 Tablet by mouth in the morning. with food.. 100 Tab 5 6 Active Alcohol Swabs PADS Use as directed daily. E 11.9 100 Each 11 6 Active ARIPiprazole (ABILIFY) 10 MG TabletIndications:Ot her schizoaffective disorders (HCC) Take 1 Tablet by mouth in the morning. One daily. 30 Tab 3 7 Active Multiple Vitamins-Minerals (ONE-A-DAY MENS 50+ ADVANTAGE) TABS Take by mouth. Activ e OneTouch Delica Lancets 33GIndications:Type 2 diabetes mellitus with hemoglobin A1c goal of less than 8.0% (HCC) Use to test blood sugar four times a day dx e11.9 400 Each 3 1 Active OneTouch Verio In Vitro Strip (Glucose Blood)Indications:Ty pe 2 diabetes mellitus with hemoglobin A1c goal of less than 8.0% (HCC) Use to test blood sugar four times a day dx e11.9 400 Strip 3 1 Active OneTouch Verio Flex System w/Device KitIndications:Type 2 diabetes mellitus with hemoglobin A1c goal of less than 8.0% (HCC) Use as directed . Ck FS daily E 11.9 1 Kit 2 Active traZODone HCl 50 MG Oral Tablet (Desyrel) Take 1 Tablet by mouth at bedtime. 30 Tablet 5 3 Active Nystatin 200070 UNIT/GM External CreamIndications:Brennan matophytosis of groin Apply topically to affected area 2 times a day. To affacted area for two weeks. 30 g 2 3 Active Spironolactone 25 MG Oral Tablet (Aldactone)Indicatio ns:Heart failure, systolic and diastolic, acute on chronic (HCC),HTN, goal below 140/90 TAKE 1 TABLET BY MOUTH IN THE MORNING 90 Tablet 3 3 Active Metoprolol Succinate ER 50 MG Oral Tablet Extended Release 24 Hour (toPROL XL)Indications:Ische navin cardiomyopathy,Perma nent atrial fibrillation (HCC),HTN, goal below 130/80 TAKE 1 TABLET BY MOUTH IN THE MORNING 90 Tablet 3 3 Active Eliquis 5 MG Oral Tablet (Apixaban) Take 1 tablet by mouth twice daily 180 Tablet 3 4 Active Tamsulosin HCl 0.4 MG Oral Capsule (Flomax)Indications: Nocturia Take 1 Capsule by mouth in the morning. 30 Capsule 2 4 Active Atorvastatin Calcium 40 MG Oral Tablet (Lipitor)Indications :Dyslipidemia, goal LDL below 70 Take 1 tablet by mouth once daily 90 Tablet 3 4 Active Trulicity 4.5 MG/0.5ML Subcutaneous Solution Pen-injector (Dulaglutide)Indicat ions:Type 2 diabetes mellitus with hemoglobin A1c goal of less than 8.0% ([facility]) Inject 4.5 mg under the skin once a week. 2 mL 5 4 Active Insulin Glargine Solostar 100 UNIT/ML Subcutaneous Solution Pen-injector (Lantus SoloStar)Indications :Type 2 diabetes mellitus with hemoglobin A1c goal of less than 8.0% ([facility]),Type 2 diabetes mellitus with microalbuminuria, without long-term current use of insulin ([facility]) Inject 30 Units under the skin every evening. DX e11.9 4 Active Torsemide 20 MG Oral Tablet (Demadex)Indications :Chronic systolic heart failure (HCC),HTN, goal below 130/80,Ischemic cardiomyopathy,Biven tricular automatic implantable cardioverter defibrillator in situ Take 1 Tablet by mouth in the morning. 4 Active BD Pen Needle Joanna 2nd Gen 32G X 4 MM (Insulin Pen Needle)Indications:T ype 2 diabetes mellitus with hemoglobin A1c goal of less than 8.0% ([facility]),Type 2 diabetes mellitus with microalbuminuria, without long-term current use of insulin ([facility]) USE TO INJECT LANTUS ONCE DAILY 100 Each 4 Active metFORMIN HCl ER 500 MG Oral Tablet Extended Release 24 Hour (Glucophage XR)Indications:Type 2 diabetes mellitus with hemoglobin A1c goal of less than 7.0% ([facility]),Type 2 diabetes mellitus with microalbuminuria, without long-term current use of insulin ([facility]) TAKE 4 TABLETS BY MOUTH IN THE MORNING 360 Tablet 1 4 Active Digoxin 125 MCG Oral Tablet (Lanoxin)Indications :Heart failure, systolic and diastolic, acute on chronic (HCC),HTN, goal below 140/90 Take 1 tablet by mouth once daily 90 Tablet 4 Active Digoxin 125 MCG Oral Tablet (Lanoxin)Indications :Heart failure, systolic and diastolic, acute on chronic (HCC),HTN, goal below 140/90 Take 1 tablet by mouth once daily 90 Tablet 3 3 05/04/20 24 Discontinued documented as of this encounter (statuses as of 05/04/2024) Active Problems Problem Noted Date Diagnosed Date Non-pressure chronic ulcer of left lower leg 06/2024 Major depressive disorder wi th single episode, in partial remission 05/26/2023 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 10/19/2022 Chronic left shoulder pain 10/19/2022 Unspecified sequelae of cerebral infarction 04/17 Age-related nuclear cataract, bilateral 12/18/19 Schizoaffective disorder, bipolar type Chronic systolic heart failure 12/17/2021 DNR (do not resuscitate) 08/12/2019 Overview: 08/04 see palliative consult [facility] Chronic anticoagulation 08/01/2019 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 06/01 FOB WNL juan carlos yearly PPD , STI in future. Biventricular automatic impl antable cardioverter defibrillator in situ 04/08/2016 Type 2 diabetes mellitus wit h microalbuminuria, without long-term current use of insulin 03/11/2016 Ischemic cardiomyopathy 02/26/2016 Dyslipidemia 02/26/2016 Schizoaffective disorder 02/05/2016 Overview: Jose Alberto [place]--lives w/sister--she assists w/meds. S/P coronary artery stent placement 02/05/2016 Type 2 diabetes mellitus wit h hemoglobin A1c goal of less than 8.0% Overview: Dx 23yo (obese) HTN, goal below 130/80 documented as of this encounter (statuses as of 05/04/2024) Resolved Problems Problem Noted Date Diagnosed Date Resolved Date Corns and callosities 05/11/20222022 Stage 3 chronic kidney disease 12/17/2021 12/30/2021 Acute cystitis 08/10/2019 09/03/2019 Acute hyponatremia 08/05/2019 9 Acute respiratory failure with hypoxia 07/31/2019 09/03/2019 Liver dysfunction 07/29/2019 11/25/2020 Chronic right shoulder pain 09/02/2016 11/25/2020 LV (left ventricular) mural thrombus 04/02/2016 12/20/2017 Stage 3 chronic kidney disease 03/25/2016 10/25/2023 PAT (paroxysmal atrial tachycardia) 03/18/2016 08/01/2019 Heart failure, systolic and diastolic, acute on chronic 03/06/2016 10/19/2022 CVA (cerebrovascular accident) 02/26/2016 09/08/2019 Abscess of right shoulder 02/05/2016 Heart failure, etiology unknown 02/05/2016 02/26/2016 Overview: 03/01 EF 20%. Hyperlipemia 08/01/2019 Depression 11/25/2020 Psychosis 08/01/2019 documented as of this encounter (statuses as of 05/04/2024) Immunizations Name Administration Dates Next Due COVID-19 mRNA, LNP-s, No Pre serve, 2-Dose Series (Moderna) 01/02/2021,12/12/2020 Hepatitis B, 20+ yrs 08/05/2016,03/11/2016,02/04 Pneumococcal Conjugate Vacci ne, 20-valent (Frnanca65) 05/11/2022 Pneumococcal Polysaccharide PPV23 (Pneumovax) 09/02/2016 Seasonal Influenza, PF, 6 M & above, IM , (FluLaval or Fluzone) 10/25/2023,07/06/2022,07/30/2021,07/15,08/31/2018,07/07/2017 Seasonal Influenza, Quadriva lent, No Preserve, IM 09/02/2016 TD - Tetanus/Diptheria (ADULT) 10/13/2015 TDAP (age 10 and older)(Boostrix) 02/05/2016 Zoster Vaccine Recombinant (Shingrix) 07/15/2020 ,06/15/2018 documented as of this encounter Social History Tobacco Use Types Packs/Day Years Used Date Smoking Tobacco: Former Cigarettes Q uit: 10/17/2014 Smokeless Tobacco: Never Alcohol Use Standard Drinks/Week Comments No 0 (1 standard drink = 0.6 oz pure alcohol) did drink alcohol, but no longer. PHQ-2 Answer Date Recorded PHQ Adult Total Score 0 11/25/2020 Hunger Vital Sign Answer Date Recorded Within the past 12 months, y ou worried that your food would run out before you got the money to buy more. Never true 11/25/19 21 Within the past 12 months, t he food you bought just didn't last and you didn't have money to get more. Never true 11/25/2020 Utilities Answer Date Recorded Do you have trouble paying y our heating, water, or electric bill? (Adult - for ages 18 years and over) Not on file 04/03/2024 Is your family able to pay t he heat, water, or electric bill? (Household - for ages 0-17 years) Not on file 04/03/2024 Does your family have access to good internet? (Household - for ages 0-17 years) Not on file 04/03/2024 Social Connections Answer Date Recorded How often do you feel lonely or isolated from those around you? (Adult - for ages 18 years and over) Not on file 04/03/2024 Sex and Gender Information Value Date Recorded Sex Assigned at Male 01/12/2019 10:37 AM EDT Gender Identity Male 01/12/2019 10:37 AM EDT Sexual Orientation Straight 01/12/2019 10 :37 AM EDT Job Start Date Occupation Industry Not on file Not on file Not on file documented as of this encounter Functional Status Functional Status Response Date of Assess ment Are you deaf or do you have serious difficulty h earing? No 07/29/2019 Are you blind or do you have serious difficulty seeing, even when wearing glasses? No 07/29/2019 Do you have serious difficul ty walking or climbing stairs? (5 years old or older) No 08/06/2019 Do you have difficulty dress ing or bathing? (5 years old or older) No 07/29/2019 Because of a physical, menta l, or emotional condition, do you have difficulty doing errands alone such as visiting a doctor s office or shopping? (15 years old or older) Yes 07/29/20 Cognitive Status Response Date of Assessm ent Because of a physical, menta l, or emotional condition, do you have serious difficulty concentrating, remembering, or making decisions? (5 years old or older) Yes 07/29/2019 documented as of this encounter Miscellaneous Notes * Telephone Encounter - Lauren Benitez MD - 05/04/2024 11:53 AM EDT Signed Prescriptions: Disp Refills Digoxin 125 MCG Oral Tablet (Lanoxin) 90 Tab*0 Sig: Take 1 tablet by mouth once daily Authorizing Provider: LAUREN BENITEZ * Telephone Encounter - Paula Macdonald CMA - 05/04/2024 11:47 AM EDTPending Prescriptions: Disp Refills Digoxin 125 MCG Oral Tablet 90 Tab*0 Sig: Take 1 tablet by mouth once daily * Telephone Encounter - Paula Macdonald CMA - 05/04/2024 11:44 AM EDT Pending Prescriptions: Disp Refills Digoxin 125 MCG Oral Tablet (Lanoxin) [Ph*90 Tab*0 Sig: Take 1 tablet by mouth once daily Last Visit: 04/21/2021 (in office), 01/20/2021 (telemedicine) Next Visit: 06/12/2024 Last date the medication was ordered: 05/09/2023 Patient Active Problem List Diagnosis Type 2 diabetes mellitus with hemoglobin A1c goal of less than 8.0% ([facility]) HTN, goal below 130/80 Schizoaffective disorder ([facility]) S/P coronary artery stent placement Ischemic cardiomyopathy Dyslipidemia Type 2 diabetes mellitus with microalbuminuria, without long-term current use of insulin ([facility]) Biventricular automatic implantable cardioverter defibrillator in situ Well adult exam History of coma History of CVA (cerebrovascular accident) 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 ([facility]) Chronic anticoagulation DNR (do not resuscitate) Age-related nuclear cataract, bilateral Schizoaffective disorder, bipolar type (HCC) Chronic systolic heart failure (HCC) Unspecified sequelae of cerebral infarction Type 2 diabetes mellitus with diabetic polyneuropathy (HCC) Chronic left shoulder pain Major depressive disorder with single episode, in partial remission (HCC) Non-pressure chronic ulcer of left lower leg (HCC) Labs: Lab Results Component Value Date/Time CREATININE - [facility] 1.2 01/24/2024 08:28 AM CREATININE - [facility] 1.1 08/14/2020 10:59 AM CREATININE ISTAT 1.0 08/23/2019 01:12 PM CREATININE, RANDOM URINE - [facility] 95 05/30/2023 07:56 AM CREATININE, RANDOM URINE - [facility] 24 09/07/2019 01:31 PM CREATININE-OUTSIDE LAB 0.98 08/27/2019 12:00 AM Lab Results Component Value Date/Time POTASSIUM - [facility] 4.4 01/24/2024 08:28 AM POTASSIUM - [facility] 4.4 08/14/2020 10:59 AM POTASSIUM POCT - [facility] 4.4 08/23/2019 01:12 PM POTASSIUM, RANDOM URINE - [facility] 76.3 08/04/2019 05:16 AM POTASSIUM, WHOLE BLOOD - [facility] 4.3 08/11/2019 08:01 AM POTASSIUM-OUTSIDE LAB 3.9 08/27/2019 12:00 AM Lab Results Component Value Date/Time TSH - [facility] 6.94 (H) 01/06/2022 08:12 AM TSH - [facility] 3.07 07/30/2019 05:11 AM Lab Results Component Value Date/Time LDL CHOLESTEROL (CALCULATED) - [facility] 40 12/27/2023 07:56 AM LDL CHOLESTEROL (CALCULATED) - [facility] 43 06/22/2023 07:48 AM LDL CHOLESTEROL (CALCULATED) - [facility] 154 (H) 10/09/2019 11:24 AM LDL CHOLESTEROL (CALCULATED) - [facility] 43 07/30/2019 05:11 AM LDL CHOLESTEROL (DIRECT MEASURE) - [facility] 50 05/10/2022 08:32 AM LDL CHOLESTEROL (DIRECT MEASURE) - [facility] 41 06/03/2021 08:16 AM LDL CHOLESTEROL (DIRECT MEASURE) - [facility] 55 07/15/2020 03:01 PM LDL CHOLESTEROL (DIRECT MEASURE) - [facility] NOT APPLICABLE 05/22/2018 07:46 AM Lab Results Component Value Date/Time ALT - [facility] 21 02/08/2023 09:02 AM ALT - [facility] 37 07/15/2020 03:01 PM ALT-OUTSIDE LAB 1,109 (A) 03/03/2016 12:00 AM Hemoglobin AIC Results: Lab Results Component Value Date/Time HEMOGLOBIN A1C - [facility] 8.8 (H) 01/24/2024 08:28 AM HEMOGLOBIN A1C - [facility] 10.1 (H) 10/25/2023 08:26 AM HEMOGLOBIN A1C - [facility] 9.9 (H) 06/22/2023 07:48 AM HEMOGLOBIN A1C - [facility] 9.0 (H) 07/15/2020 03:01 PM HEMOGLOBIN A1C - [facility] 7.2 (H) 10/09/2019 11:24 AM HEMOGLOBIN A1C - [facility] 8.2 (H) 07/30/2019 05:11 AM * Telephone Encounter - Gloria Mars CMA - 05/03/2024 8:40 AM EDTPending Prescriptions: Disp Refills Digoxin 125 MCG Oral Tablet 90 Tab*0 Sig: Take 1 tablet by mouth once daily * Telephone Encounter - Gloria Mars CMA - 05/03/2024 8:40 AM EDT Patient has not been seen by cardiology since 2021. Defer to PCP for refills/follow up. documented in this encounter Plan of Treatment Upcoming Encounters Date Type Department Care Team (Late st Contact Info) Description 06/12/2024 8:30 AM EDT Office Visit Cardiology, [facility] [address] [place] [phone] Yulia Ramirez CRNP [address] [place] [phone] 06/19/2024 8:30 AM EDT Office Visit Pharmacy, [address] [place] [phone] [place] [phone] 07/31/2024 7:40 AM EDT Office Visit Family Medicine [address] [place] [phone] Lauren Benitez MD [address] [place] [address] [place] [phone] Health Maintenance Due Date Last Done Comments Cologuard 2006 Colonoscopy 2006 Sigmoidoscopy 2006 Depression Monitoring 11/25/2021 11/25/2020 Colorectal Cancer Screening 01/06/2022 Fecal Occult Blood Test 01/06/2022 01/07/20 21, 06/30/2018, 06/14/2016 Diabetic Foot Exam 07/30/2022 07/30/2021, 0 06/15/2018, 03/31/2017, Additional history exists COVID-19 Vaccine ( season) 2023 01/02/2021, 12/12/2020 Diabetic Eye Exam 11/09/2023 11/09/2022, , 01/26/2017 DIG LEVEL FOR MEDICATION MONITORING YEARLY 04/18/2024 04/18/2023, 04/21/2021, 01/13/2021, Additional history exists Albumin/Creatinine Ratio 05/30/2024 023, 02/08/2023, 10/12/2021, Additional history exists Influenza Vaccine (FLU shot) (#1) 2024 10/25/2023, 07/06/2022, 07/30/2021, Additional history exists HbA1c 07/25/2024 01/24/2024, 01/0 06/2024, 06/22/2023, Additional history exists B-12 01/23/2025 01/24/2024, 03/2 12/2021, 08/14/2020, Additional history exists GFR 01/23/2025 01/24/2024, 01/0 06/2024, 08/23/2023, Additional history exists DTaP,Tdap,and Td Vaccines (2 - Td or Tdap) 02/04/2026 02/05/2016, 10/13/2015 Hepatitis B Vaccine Completed 08/05/2016, 03/11/2016, 02/05/2016 Zoster Vaccines Completed 07/15/2020, 06/15/2018 Pneumococcal Vaccine: Pediatrics (0 to 5 Years) and At-Risk Patients (6 to 64 Years) Completed 05/11/2022, 09/02/2016 HPV (Gardasil) Vaccine Aged Out No lo nger eligible based on patient's age to complete this topic MENINGOCOCCAL (MENACTRA/MENVEO) Aged Out No longer eligible based on patient's age to complete this topic documented as of this encounter Medical Devices Not on filedocumented as of this encounter Visit Diagnoses Diagnosis Heart failure, systolic and diastolic, acute on chronic (HCC) Acute on chronic combined systolic and diastolic heart failure HTN, goal below 140/90 Unspecified essential hypertension documented in this encounter Advance Directives Documents on File Type Date Recorded Patient Leather Scraper Expl anation Advance Directives and Living Will 05/20/2017 ADVANCE DIRECTIVE PE NNA ADVANCE HEALTH CARE DIRECTIVE Advance Directives and Living Will 05/20/2017 LIVING WILL LIVING W ILL DECLARATION Power of Automotive Porter 05/20/2017 POWER OF A TTORNEY DURABLE POWER OF DRAFTER DIRECTIONAL SURVEY FOR HEALTH CARE * No Code (Latest Code Status on File) Date Activated Date Inactivated Comments 07/31/2019 2:38 PM 08/12/2019 4:06 PM This order reflects the patients wishes and were consensually agreed upon. Question Answer Comments Discussion of Advance Directives occurred with: Patient/Family * Full Code Date Activated Date Inactivated Comments 07/29/2019 2:27 AM 07/31/2019 2:38 PM This order reflects the patients wishes and were consensually agreed upon. Question Answer Comments Discussion of Advance Directives occurred with: Family Care Teams Time Study Engineer Relationship Specialty Start Date End Date Lauren Benitez MD [address] [place] [address] [place] [phone] PCP - General Family Medicine 05/26/23 documented as of this encounter
--- OUTSIDE RECORDS SUMMARY | 2024-05-10 08:26 | External Medical Summary | Summary of Care ---
Author Name Unknown Organization [facility] Address [address] [place] [address] Phone [phone] Care Team Providers Care Mysql Dba Name Role Phone Lauren Benitez MD Primary Care Provide r Reason for Referral * Precert (Within 10 days (routine)) - Authorized Specialty Diagnoses / Procedures Referred By Sole mcallister Referred To Contact Cardiac Studies Diagnoses Mild mitral regurgitation Procedures ECHO, COMPLETE (2D), TRANS-THORACIC Lauren Benitez MD [address] [place] [address] [place] [id number] Referral ID Status Reason Start Date Expiration Date V isits Requested Visits Authorized [id number] Authorized Precert 02/21/2024 999 999 Reason for Visit * Reason Onset Date Comments Cardiology Study 02/21/2024 Encounter Details Date Type Department Care Team (Late st Contact Info) Description 02/21/2024 Telephone Cardiac Studies [address] [place] [phone] Lauren Benitez MD [address] [place] [address] [place] [phone] Cardiology Study Allergies Active Allergy Reactions Criticality Noted Date Comments Codeine Edema face/lips/tongue High 01/31/2016 Propoxyphene 01/31/2016 Oxycodone-Acetaminophen Itching 01/31/2016 No rash or swelling documented as of this encounter (statuses as of 04/23/2024) Medications Medication Sig Dispensed Refills Start Date End Date Status aspirin 81 MG chewable tablet Take 1 Tablet by mouth in the morning. with food.. 100 Tab 5 01/31/2016 Active Alcohol Swabs PADS Use as directed daily. E 11.9 100 Each 11 09/02/2016 Active ARIPiprazole (ABILIFY) 10 MG TabletIndications:Othe r schizoaffective disorders (HCC) Take 1 Tablet by mouth in the morning. One daily. 30 Tab 3 12/30/2016 Active Multiple Vitamins-Minerals (ONE-A-DAY MENS 50+ ADVANTAGE) TABS Take by mouth. Activ e OneTouch Delica Lancets 33GIndications:Type 2 diabetes mellitus with hemoglobin A1c goal of less than 8.0% ([facility]) Use to test blood sugar four times a day dx e11.9 400 Each 3 05/07/2021 Active OneTouch Verio In Vitro Strip (Glucose Blood)Indications:Type 2 diabetes mellitus with hemoglobin A1c goal of less than 8.0% ([facility]) Use to test blood sugar four times a day dx e11.9 400 Strip 3 05/07/2021 Active OneTouch Verio Flex System w/Device KitIndications:Type 2 diabetes mellitus with hemoglobin A1c goal of less than 8.0% ([facility]) Use as directed . Ck FS daily E 11.9 1 Kit 08/05/2022 Active traZODone HCl 50 MG Oral Tablet (Desyrel) Take 1 Tablet by mouth at bedtime. 30 Tablet 5 02/08/2023 Active Digoxin 125 MCG Oral Tablet (Lanoxin)Indications:H eart failure, systolic and diastolic, acute on chronic (HCC),HTN, goal below 140/90 Take 1 tablet by mouth once daily 90 Tablet 3 05/09/2023 Active Nystatin 495408 UNIT/GM External CreamIndications:[place] tophytosis of groin Apply topically to affected area 2 times a day. To affacted area for two weeks. 30 g 2 08/23/2023 Active Spironolactone 25 MG Oral Tablet (Aldactone)Indications :Heart failure, systolic and diastolic, acute on chronic (HCC),HTN, goal below 140/90 TAKE 1 TABLET BY MOUTH IN THE MORNING 90 Tablet 3 09/03/2023 Active Metoprolol Succinate ER 50 MG Oral Tablet Extended Release 24 Hour (toPROL XL)Indications:Ischemi c cardiomyopathy,Permane nt atrial fibrillation (HCC),HTN, goal below 130/80 TAKE 1 TABLET BY MOUTH IN THE MORNING 90 Tablet 3 10/12/2023 Active Eliquis 5 MG Oral Tablet (Apixaban) Take 1 tablet by mouth twice daily 180 Tablet 3 10/19/2023 Active Tamsulosin HCl 0.4 MG Oral Capsule (Flomax)Indications:No cturia Take 1 Capsule by mouth in the morning. 30 Capsule 2 10/25/2023 Active Atorvastatin Calcium 40 MG Oral Tablet (Lipitor)Indications:D yslipidemia, goal LDL below 70 Take 1 tablet by mouth once daily 90 Tablet 3 12/14/2023 Active Trulicity 4.5 MG/0.5ML Subcutaneous Solution Pen-injector (Dulaglutide)Indicatio ns:Type 2 diabetes mellitus with hemoglobin A1c goal of less than 8.0% ([facility]) Inject 4.5 mg under the skin once a week. 2 mL 5 12/24/2023 Active Insulin Glargine Solostar 100 UNIT/ML Subcutaneous Solution Pen-injector (Lantus SoloStar)Indications:T ype 2 diabetes mellitus with hemoglobin A1c goal of less than 8.0% ([facility]),Type 2 diabetes mellitus with microalbuminuria, without long-term current use of insulin ([facility]) Inject 30 Units under the skin every evening. DX e11.9 01/24/2024 Active Torsemide 20 MG Oral Tablet (Demadex)Indications:C hronic systolic heart failure (HCC),HTN, goal below 130/80,Ischemic cardiomyopathy,Biventr icular automatic implantable cardioverter defibrillator in situ Take 1 Tablet by mouth in the morning. 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 10/19/2022 Chronic left shoulder pain 10/19/2022 Unspecified sequelae of cerebral infarction 04/17 Age-related nuclear cataract, bilateral 12/18/19 22 Schizoaffective disorder, bipolar type 2 Chronic systolic heart failure 12/17/2021 DNR (do not resuscitate) 08/12/2019 Overview: 08/04 see palliative consult [facility] [place] anticoagulation 08/01/2019 Left ventricular thrombus without [place] 08/23/2017 History of coma 03/08/2017 Overview: 1976, [...] as of this encounter (statuses as of 04/23/2024) Resolved Problems Problem Noted Date Diagnosed Date [...] as of this encounter (statuses as of 04/23/2024) Immunizations Name Administration Dates Next Due COVID-19 mRNA, LNP-s, No Pre serve, 2-Dose Series (Moderna) 01/02/2021,12/12/2020 Hepatitis B, 20+ yrs 08/05/2016,03/11/2016,02/04 Pneumococcal Conjugate Vacci ne, 20-valent ([id number]) 05/11/2022 Pneumococcal Polysaccharide PPV23 (Pneumovax) 09/02/2016 Seasonal [...] Yes 07/29/2019 documented as of this encounter Plan of Treatment Upcoming Encounters Date Type Department Care Team (Late st Contact Info) Description 05/10/2024 9:00 AM EDT Cardiac Studies Cardiology, [facility] [address] [place] [address] [facility] [address] [address] 06/12/2024 8:30 AM EDT Office Visit Cardiology, [facility] [address] [place] [address] Yulia Raimrez CRNP [address] [place] [address] 06/19/2024 8:30 AM EDT Office Visit Pharmacy, [address] [place] [address] [place] [address] 07/31/2024 7:40 AM EDT Office Visit Family Medicine [address] [place] [phone] Lauren Benitez MD [address] [place] [address] [place] [phone] Health Maintenance Due Date Last Done Comments [...] 04/21/2021, 01/13/2021, Additional history exists Albumin/Creatinine Ratio 05/30/202405/30/ 023, 02/08/2023, 10/12/2021, Additional history exists Influenza Vaccine (FLU shot) (#1) 2024 10/25/2023, 07/06/2022, 07/30/2021, Additional history exists HbA1c 07/25/2024 01/24/2024, /0 06/2024, 06/22/2023, Additional history exists B-12 01/23/2025 01/24/2024, 03/2 12/2021, 08/14/2020, Additional history exists GFR 01/23/2025 01/24/2024, /0 06/2024, 08/23/2023, Additional history exists DTaP,Tdap,and Td [...] Not on filedocumented as of this encounter Results * ECHO, COMPLETE (2D), TRANS-THORACIC (02/21/2024 9:28 AM EDT) LEFT VENTRICULAR EJECTION FRACTION 20 % [facility] 02/21/2024 8:51 AM EDT Lauren Benitez MD ECHOCARDIOLOG Y [facility] documented in this encounter Visit Diagnoses Diagnosis Mild mitral regurgitation- Primary Mitral valve disorders documented in this encounter Advance Directives Documents on File Type Date Recorded Patient Billing And Accounting Staff Assistant Expl anation Advance Directives and Living Will 05/20/2017 ADVANCE DIRECTIVE PE NNA ADVANCE HEALTH CARE DIRECTIVE Advance Directives and Living Will 05/20/2017 LIVING WILL LIVING W ILL DECLARATION Power of Jewelry Manager 05/20/2017 POWER OF A TTORNEY DURABLE POWER OF MACHINE OPERATOR GENERAL FOR HEALTH CARE * No Code (Latest Code Status on File) Date Activated Date Inactivated Comments 07/31/2019 2:38 PM 08/12/2019 4:06 PM This orde r reflects the patients wishes and were consensually agreed upon. Question Answer Comments Discussion of Advance Directives occurred with: Patient/Family * Full Code Date Activated Date Inactivated Comments 07/29/2019 2:27 AM 07/31/2019 2:38 PM This order reflects the patients wishes and were consensually agreed upon. Question Answer Comments Discussion of Advance Directives occurred with: Family Care Teams Mysql Dba Relationship Specialty Start Date End Date Lauren Benitez MD [address] [place] [address] [place] [phone] PCP - General Family Medicine 05/26/23 documented as of this encounter
--- OUTSIDE RECORDS SUMMARY | 2024-05-10 08:26 | External Medical Summary | Summary of Care ---
Author Name Unknown Organization [facility] Address [address] [place] [address] Phone [phone] Care Team Providers Care Criminal Investigative Agent Name Role Phone Lauren Benitez MD Primary Care Provide r Reason for Visit * Reason Comments eRx-Medication Refill Encounter Details Date Type Department Care Team (Late st Contact Info) Description 03/18/2024 Refill Pharmacy, [address] [place] [phone] Lauren Benitez MD [address] [place] [address] [place] [phone] Type 2 diabetes mellitus with hemoglobin A1c goal of less than 8.0% ([facility]); Type 2 diabetes mellitus with microalbuminuria, without long-term current use of insulin ([facility]) Allergies Active Allergy Reactions Criticality Noted Date Comments Codeine Edema face/lips/tongue High 01/31/2016 Propoxyphene 01/31/2016 Oxycodone-Acetaminophen Itching 01/31/2016 No rash or swelling documented as of this encounter (statuses as of 03/19/2024) Medications Medication Sig Dispensed Refills Start Date [...] hemoglobin A1c goal of less than 8.0% ([facility]) Use to test blood sugar four times [...] hemoglobin A1c goal of less than 8.0% ([facility]) Use as directed . Ck FS daily E 11.9 1 Kit 2 Active traZODone HCl 50 MG Oral Tablet (Desyrel) Take 1 Tablet by mouth at bedtime. 30 Tablet 5 3 Active Digoxin 125 MCG Oral Tablet (Lanoxin)Indications :Heart failure, systolic and diastolic, acute on chronic (HCC),HTN, goal below 140/90 Take 1 tablet by mouth once daily 90 Tablet 3 3 Active Nystatin 437640 UNIT/GM External CreamIndications:[place]rennan matophytosis of groin Apply [...] twice daily 180 Tablet 3 4 Active metFORMIN HCl ER 500 MG Oral Tablet Extended Release 24 Hour (Glucophage XR)Indications:Type 2 diabetes mellitus with hemoglobin A1c goal of less than 7.0% ([facility]),Type 2 diabetes mellitus with microalbuminuria, without long-term current use of insulin ([facility]) 4 tabs in am 360 Tablet 1 4 Active Tamsulosin HCl 0.4 MG Oral [...] hemoglobin A1c goal of less than 8.0% ([facility]) Inject 4.5 mg under the skin once a week. 2 mL 5 4 Active Insulin Glargine Solostar 100 UNIT/ML Subcutaneous Solution Pen-injector (Lantus SoloStar)Indications :Type 2 diabetes mellitus with hemoglobin A1c goal of less than 8.0% (HCC),Type 2 diabetes mellitus with microalbuminuria, without long-term current use of insulin ([facility]) Inject 30 Units under the skin every [...] hemoglobin A1c goal of less than 8.0% (HCC),Type 2 diabetes mellitus with microalbuminuria, without long-term current use of insulin ([facility]) USE TO INJECT LANTUS ONCE DAILY 100 Each 4 Active BD Pen Needle Joanna 2nd Gen 32G X 4 MM (Insulin Pen Needle)Indications:T ype 2 diabetes mellitus with hemoglobin A1c goal of less than 8.0% ([facility]),Type 2 diabetes mellitus with microalbuminuria, without long-term current use of insulin ([facility]) Use to inject Lantus once daily 100 Each 1 3 03/19/20 24 Discontinued documented as of this encounter (statuses as of 03/19/2024) Active Problems Problem Noted Date Diagnosed Date [...] resuscitate) 08/12/2019 Overview: 08/04 see palliative consult [facility] Chronic anticoagulation 08/01/2019 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 08/23/2017 History of coma 03/08/2017 Overview: 1976, [...] as of this encounter (statuses as of 03/19/2024) Resolved Problems Problem Noted Date Diagnosed Date [...] as of this encounter (statuses as of 03/19/2024) Immunizations Name Administration Dates Next Due COVID-19 mRNA, LNP-s, No Pre serve, 2-Dose Series (Moderna) 01/02/2021,12/12/2020 Hepatitis B, 20+ yrs 08/05/2016,03/11/2016,02/04 Pneumococcal Conjugate Vacci ne, 20-valent ([id number]) 05/11/2022 Pneumococcal Polysaccharide PPV23 (Pneumovax) 09/02/2016 Seasonal [...] money to get more. Never true 11/25/2020 Sex and Gender Information Value Date Recorded [...] (15 years old or older) Yes 07/29/20 19 Cognitive Status Response Date of Assessm ent Because of a physical, menta l, or emotional condition, do you have serious difficulty concentrating, remembering, or making decisions? (5 years old or older) Yes 07/29/2019 documented as of this encounter Miscellaneous Notes * Telephone Encounter - Rosalba Contreras, [facility] - 03/19/2024 8:24 AM EDT Signed Prescriptions: Disp Refills BD Pen Needle Joanna 2nd Gen 32G X 4 MM (Ins*100 Ea*0 Sig: USE TOINJECT LANTUS ONCE DAILYAuthorizing Provider: Vi BENITEZ User: ROSALBA CONTRERAS documented in this encounter Plan of Treatment Upcoming Encounters Date Type Department Care Team (Late st Contact Info) Description 04/17/2024 8:30 AM EDT Office Visit Pharmacy, [address] [place] [address] [place] [address] 05/10/2024 9:00 AM EDT [facility] [place] [address] Gonzalo [facility] [address] [facility] [place] [address] 06/12/2024 8:30 AM EDT [facility] [place] [address] Yulia Ramirez CRNP [address] [place] [address] 07/31/2024 7:40 AM EDT Office Visit Family Medicine [address] [place] [phone] Lauren Benitez MD [address] [place] [address] [place] [address] Health Maintenance Due Date Last Done Comments Cologuard 2006 Colonoscopy 2006 Sigmoidoscopy 2006 Colorectal Cancer Screening 01/06/2022 Fecal Occult Blood Test 01/06/2022 01/07/20 21, 06/30/2018, 06/14/2016 Diabetic Foot Exam 07/30/2022 07/30/2021, 0 06/15/2018, 03/31/2017, Additional history exists COVID-19 Vaccine ( season) 2023 01/02/2021, 12/12/2020 Diabetic Eye Exam 11/09/2023 11/09/2022, , 01/26/2017 DIG LEVEL FOR MEDICATION MONITORING YEARLY 04/18/2024 04/18/2023, 04/21/2021, 01/13/2021, Additional history exists Albumin/Creatinine Ratio 05/30/2024 023, 02/08/2023, 10/12/2021, Additional history exists HbA1c 07/25/2024 01/24/2024, 0 06/2024, 06/22/2023, Additional history exists B-12 01/23/2025 01/24/2024, 12/16, 08/14/2020, Additional history exists GFR 01/23/2025 01/24/2024, 06/2024, 08/23/2023, Additional history exists DTaP,Tdap,and Td Vaccines (2 - Td or Tdap) 02/04/2026 02/05/2016, 10/13/2015 Hepatitis B Completed 08/05/2016, 02/15, 02/05/2016 Zoster Vaccines Completed 07/15/2020, 06/15/2018 Pneumococcal Vaccine: Pediatrics (0 to 5 Years) and At-Risk Patients (6 to 64 Years) Completed 05/11/2022, 09/02/2016 Influenza Vaccine (FLU shot) Completed 06/2024, 07/06/2022, 07/30/2021, Additional history exists GARDASIL-HPV IMMUNIZATION SERIES Aged Out No longer eligible based on patient's age to complete this topic MENINGOCOCCAL (MENACTRA/MENVEO) Aged Out No longer eligible based on patient's age to complete this topic documented as of this encounter Medical Devices Not on filedocumented as of this encounter Visit Diagnoses Diagnosis Type 2 diabetes mellitus with hemoglobin A1c goal of less than 8.0% (HCC) Type 2 diabetes mellitus with microalbuminuria, without long-term current use of insulin (HCC) documented in this encounter Advance Directives Documents on File Type Date Recorded Patient Beverage Specialist Expl anation Advance Directives and Living Will 05/20/2017 ADVANCE DIRECTIVE PE NNA ADVANCE HEALTH CARE DIRECTIVE Advance Directives and Living Will 05/20/2017 LIVING WILL LIVING W ILL DECLARATION Power of Promotion Producer 05/20/2017 POWER OF A TTORNEY DURABLE POWER OF POINT OF CARE SPECIALIST FOR HEALTH CARE * No Code (Latest [...] Advance Directives occurred with: Family Care Teams Criminal Investigative Agent Relationship Specialty Start Date End Date Lauren Benitez MD [address] [place] [address] [place] [phone] PCP - General Family Medicine 05/26/23 documented as of this encounter
--- OUTSIDE RECORDS SUMMARY | 2024-05-10 08:26 | External Medical Summary | Summary of Care ---
Author Name Unknown Organization [facility] Address [address] [place] [address] Phone [phone] Care Team Providers Care Novelty Twister Operator Name Role Phone Lauren Benitez MD Primary Care Provide r Reason for Visit * Reason Onset Date Comments Medication Problem 01/26/2024 Encounter Details Date Type Department Care Team (Late st Contact Info) Description 01/26/2024 Telephone Pharmacy Call Center [phone] [facility] [place] [phone] [place] [address] Medication Problem Allergies Active Allergy Reactions Criticality Noted Date Comments Codeine Edema face/lips/tongue High 01/31/2016 Propoxyphene 01/31/2016 Oxycodone-Acetaminophen Itching 01/31/2016 No rash or swelling documented as of this encounter (statuses as of 04/26/2024) Medications Medication Sig Dispensed Refills Start Date [...] hemoglobin A1c goal of less than 8.0% ([facility]) Use to test blood sugar four times a day dx e11.9 400 Strip 3 05/07/2021 Active OneTouch Verio Flex System w/Device KitIndications:Type 2 diabetes mellitus with hemoglobin A1c goal of less than 8.0% ([facility]) Use as directed . Ck FS [...] daily 90 Tablet 3 05/09/2023 Active Nystatin 584798 UNIT/GM External CreamIndications:[place] tophytosis of groin Apply topically to affected [...] hemoglobin A1c goal of less than 8.0% ([facility]) Inject 4.5 mg under the skin once a week. 2 mL 5 12/24/2023 Active Insulin Glargine Solostar 100 UNIT/ML Subcutaneous Solution Pen-injector (Lantus SoloStar)Indications:T ype 2 diabetes mellitus with hemoglobin A1c goal of less than 8.0% ([facility]),Type 2 diabetes mellitus with microalbuminuria, without long-term current use of insulin (HCC) Inject 30 Units under the skin every evening. DX e11.9 01/24/2024 Active Torsemide 20 MG Oral Tablet (Demadex)Indications:C hronic systolic heart failure (HCC),HTN, goal below 130/80,Ischemic cardiomyopathy,Biventr icular automatic implantable cardioverter defibrillator in situ Take 1 Tablet by mouth in the morning. 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 10/19/2022 Chronic left shoulder pain 10/19/2022 Unspecified sequelae of cerebral infarction 04/17 Age-related nuclear cataract, bilateral 12/18/19 Schizoaffective disorder, bipolar type 2 Chronic systolic heart failure 12/17/2021 DNR (do not resuscitate) 08/12/2019 Overview: 08/04 see palliative consult [facility] Chronic anticoagulation 08/01/2019 Left ventricular thrombus without [place] 08/23/2017 History of coma 03/08/2017 Overview: 1976, [...] as of this encounter (statuses as of 04/26/2024) Resolved Problems Problem Noted Date Diagnosed Date [...] as of this encounter (statuses as of 04/26/2024) Immunizations Name Administration Dates Next Due COVID-19 mRNA, LNP-s, No Pre serve, 2-Dose Series (Moderna) 01/02/2021,12/12/2020 Hepatitis B, 20+ yrs 08/05/2016,03/11/2016,02/04 Pneumococcal Conjugate Vacci ne, 20-valent ([id number]) 05/11/2022 Pneumococcal Polysaccharide PPV23 (Pneumovax) 09/02/2016 Seasonal [...] encounter Miscellaneous Notes * Telephone Encounter - Mellissa Smith PHARM Tech - 01/26/2024 3:06 PM EDT Caller's name: Bozena Preferred call back number(OFFICE NUMBER FOR ): [phone] Reason for call: Bozena calling about pts Trulicity, she said the [facility] pharmacy has the 3mg and is asking if you can send a prescription in for that. Please advise and return her call. Thank you, Mellissa Smith [facility] 01/26/2024,3:06 PM documented in this encounter Plan of Treatment Upcoming Encounters Date Type Department Care Team (Late st Contact Info) Description 05/10/2024 9:00 AM EDT Cardiac Studies Cardiology, [facility] [address] [facility] [place] [address] [facility] [address] [place] [address] 06/12/2024 8:30 AM EDT Office Visit Cardiology, [facility] [address] [place] [address] Yulia Ramirez CRNP [address] [place] [address] 06/19/2024 8:30 AM EDT Office Visit Pharmacy, [address] [place] [address] [place] [address] 07/31/2024 7:40 AM EDT Office Visit Family Medicine [address] [place] [phone] Lauren Benitez MD [address] [place] [address] [place] [address] Health Maintenance Due Date Last Done Comments [...] Not on filedocumented as of this encounter Advance Directives Documents on File Type Date Recorded Patient Senior Software Qa Analyst Expl anation Advance Directives and Living Will 05/20/2017 ADVANCE DIRECTIVE PE NNA ADVANCE HEALTH CARE DIRECTIVE Advance Directives and Living Will 05/20/2017 LIVING WILL LIVING W ILL DECLARATION Power of Timber Supervisor 05/20/2017 POWER OF A TTORNEY DURABLE POWER OF HYDRAULIC CONTROLS TECHNICIAN FOR HEALTH CARE * No Code (Latest [...] Advance Directives occurred with: Family Care Teams Novelty Twister Operator Relationship Specialty Start Date End Date Lauren Benitez MD [address] [place] [address] [place] [phone] PCP - General Family Medicine 05/26/23 documented as of this encounter
--- OUTSIDE RECORDS SUMMARY | 2024-05-10 08:26 | External Medical Summary | Summary of Care ---
Author Name Unknown Organization [facility] Address [address] [place] [address] Phone [phone] Care Team Providers Care Supervising Appraiser Name Role Phone Lauren Benitez MD Primary Care Provide r Reason for Visit * Reason Comments eRx-Medication Refill Encounter Details Date Type Department Care Team (Late st Contact Info) Description 04/03/2024 Refill Family Practice [facility] [address] [facility] [place] [address] Shiva Hernandez, DO [address] [place] [phone] Type 2 diabetes mellitus with hemoglobin A1c goal of less than 7.0% ([facility]); Type 2 diabetes mellitus with microalbuminuria, without long-term current use of insulin ([facility]) Allergies Active Allergy Reactions Criticality Noted Date Comments Codeine Edema face/lips/tongue High 01/31/2016 Propoxyphene 01/31/2016 Oxycodone-Acetaminophen Itching 01/31/2016 No rash or swelling documented as of this encounter (statuses as of 04/03/2024) Medications Medication Sig Dispensed Refills Start Date [...] hemoglobin A1c goal of less than 8.0% ([facility]) Use to test blood sugar four times [...] hemoglobin A1c goal of less than 8.0% ([facility]) Use as directed . Ck FS daily E 11.9 1 Kit 2 Active traZODone HCl 50 MG Oral Tablet (Desyrel) Take 1 Tablet by mouth at bedtime. 30 Tablet 5 3 Active Digoxin 125 MCG Oral Tablet (Lanoxin)Indications :Heart failure, systolic and diastolic, acute on chronic (HCC),HTN, goal below 140/90 Take 1 tablet by mouth once daily 90 Tablet 3 3 Active Nystatin 054180 UNIT/GM External CreamIndications:Brennan matophytosis of groin Apply [...] hemoglobin A1c goal of less than 8.0% ([facility]) Inject 4.5 mg under the skin once a week. 2 mL 5 4 Active Insulin Glargine Solostar 100 UNIT/ML Subcutaneous Solution Pen-injector (Lantus SoloStar)Indications :Type 2 diabetes mellitus with hemoglobin A1c goal of less than 8.0% ([facility]),Type 2 diabetes mellitus with microalbuminuria, without long-term current use of insulin ([facility]) Inject 30 Units under the skin every [...] hemoglobin A1c goal of less than 8.0% ([facility]),Type 2 diabetes mellitus with microalbuminuria, without long-term current use of insulin ([facility]) USE TO INJECT LANTUS ONCE DAILY 100 Each 4 Active metFORMIN HCl ER 500 MG Oral Tablet Extended Release 24 Hour (Glucophage XR)Indications:Type 2 diabetes mellitus with hemoglobin A1c goal of less than 7.0% ([facility]),Type 2 diabetes mellitus with microalbuminuria, without long-term current use of insulin ([facility]) TAKE 4 TABLETS BY MOUTH IN THE MORNING 360 Tablet 1 4 Active metFORMIN HCl ER 500 MG Oral Tablet Extended Release 24 Hour (Glucophage XR)Indications:Type 2 diabetes mellitus with hemoglobin A1c goal of less than 7.0% ([facility]),Type 2 diabetes mellitus with microalbuminuria, without long-term current use of insulin ([facility]) 4 tabs in am 360 Tablet 1 4 04/03/20 24 Discontinued documented as of this encounter (statuses as of 04/03/2024) Active Problems Problem Noted Date Diagnosed Date [...] resuscitate) 08/12/2019 Overview: 08/04 see palliative consult [facility] Chronic anticoagulation 08/01/2019 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 Never true 11/25/19 Within the past 12 months, t he [...] encounter Miscellaneous Notes * Telephone Encounter - Cely Kelly RPh - 04/03/2024 8:51 PM EDTSigned Prescriptions: Disp Refills metFORMIN HCl ER 500 MG Oral Tablet Extend*360 Ta*1 Sig: TAKE 4 TABLETS BY MOUTH IN THE MORNINGAuthorizing Provider: LAUREN BENITEZOrdermukesh User: CHARLES KELLY documented in this encounter Plan of Treatment Upcoming Encounters Date Type Department Care Team (Late st Contact Info) Description 04/17/2024 8:30 AM EDT Office Visit Pharmacy, [address] [place] [address] [place] [address] 05/10/2024 9:00 AM EDT Cardiac Studies Cardiology, [facility] [address] [facility] [place] [address] Gonzalo Levi [facility] [address] [facility] [place] [address] 06/12/2024 8:30 AM EDT Office Visit Cardiology, [facility] [address] [facility] [place] [address] Yulia Ramirez CRNP [address] [place] [address] 07/31/2024 7:40 AM EDT Office Visit Family Medicine [address] [place] [phone] Lauren Benitez MD [address] [place] [address] [place] [address] Health Maintenance Due Date Last Done Comments [...] 08/14/2020, Additional history exists GFR 01/23/2025 01/24/2024, 0 06/2024, 08/23/2023, Additional history exists DTaP,Tdap,and Td [...] hemoglobin A1c goal of less than 7.0% (HCC) Type 2 diabetes mellitus with microalbuminuria, without long-term current use of insulin (HCC) documented in this encounter Advance Directives Documents on File Type Date Recorded Patient Care Attendant Expl anation Advance Directives and Living Will 05/20/2017 ADVANCE DIRECTIVE PE NNA ADVANCE HEALTH CARE DIRECTIVE Advance Directives and Living Will 05/20/2017 LIVING WILL LIVING W ILL DECLARATION Power of Program Trainer 05/20/2017 POWER OF A TTORNEY DURABLE POWER OF SUPERVISOR COSTUMING FOR HEALTH CARE * No Code (Latest [...] Advance Directives occurred with: Family Care Teams Supervising Appraiser Relationship Specialty Start Date End Date Lauren Benitez MD [address] [place] [address] [place] [address] PCP - General Family Medicine 05/26/23 documented as of this encounter
--- OUTSIDE RECORDS SUMMARY | 2024-05-10 08:26 | External Medical Summary | Summary of Care ---
Author Name Unknown Organization [facility] Address [address] [place] [address] Phone [phone] Care Team Providers Care Design Quality Engineer Name Role Phone Lauren Benitez MD Primary Care Provide r Reason for Visit * Reason Comments Dosage Adjustment In Person (Anticoag Cl inic) Diabetes Follow-Up Encounter Details Date Type Department Care Team (Late st Contact Info) Description 04/17/2024 8:30 AM EDT Office Visit Pharmacy, [address] [place] [address] [place] [address] Type 2 diabetes mellitus with hyperglycemia, with long-term current use of insulin ([facility])* Allergies Active Allergy Reactions Criticality Noted Date Comments Codeine Edema face/lips/tongue High 01/31/2016 Propoxyphene 01/31/2016 Oxycodone-Acetaminophen Itching 01/31/2016 No rash or swelling documented as of this encounter (statuses as of 04/17/2024) Medications Medication Sig Dispensed Refills Start Date [...] ADVANTAGE) TABS Take by mouth. Activ e CredportTouch Delica Lancets 33GIndications:Type 2 diabetes mellitus with hemoglobin A1c goal of less than 8.0% ([facility]) Use to test blood sugar four times a day dx e11.9 400 Each 3 05/07/2021 Active OneTouch Verio In Vitro Strip (Glucose Blood)Indications:Type 2 diabetes mellitus with hemoglobin A1c goal of less than 8.0% ([facility]) Use to test blood sugar four times a day dx e11.9 400 Strip 3 05/07/2021 Active OneTouch Verio Flex System w/Device KitIndications:Type 2 diabetes mellitus with hemoglobin A1c goal of less than 8.0% ([facility]) Use as directed . Ck [...] daily 90 Tablet 3 05/09/2023 Active Nystatin 025203 UNIT/GM External CreamIndications:Peletier tophytosis of groin Apply topically to affected [...] goal of less than 8.0% ([facility]) Inject 4.5 mg under the skin once a week. 2 mL 5 12/24/2023 Active Insulin Glargine Solostar 100 UNIT/ML Subcutaneous Solution Pen-injector (Lantus SoloStar)Indications:T ype 2 diabetes mellitus with hemoglobin A1c goal of less than 8.0% (HCC),Type 2 diabetes mellitus with microalbuminuria, without long-term current use of insulin ([facility]) Inject 30 Units under the skin every evening. DX e11.9 01/24/2024 Active Torsemide 20 MG Oral Tablet (Demadex)Indications:C hronic systolic heart failure (HCC),HTN, goal below 130/80,Ischemic cardiomyopathy,Biventr icular automatic implantable cardioverter defibrillator in situ Take 1 Tablet by mouth in the morning. 01/24/2024 Active BD Pen Needle Joanna 2nd Gen 32G X 4 MM (Insulin Pen Needle)Indications:Typ e 2 diabetes mellitus with hemoglobin A1c goal of less than 8.0% (HCC),Type 2 diabetes mellitus with microalbuminuria, without long-term current use of insulin ([facility]) USE TO INJECT LANTUS ONCE DAILY 100 Each 03/19/2024 Active metFORMIN HCl ER 500 MG Oral Tablet Extended Release 24 Hour (Glucophage XR)Indications:Type 2 diabetes mellitus with hemoglobin A1c goal of less than 7.0% ([facility]),Type 2 diabetes mellitus with microalbuminuria, without long-term current use of insulin ([facility]) TAKE 4 TABLETS BY MOUTH IN THE MORNING 360 Tablet 1 04/03/2024 Active documented as of this encounter (statuses as of 04/17/2024) Active Problems Problem Noted Date Diagnosed Date [...] resuscitate) 08/12/2019 Overview: 08/04 see palliative consult [facility] Chronic anticoagulation 08/01/2019 Left ventricular thrombus without [place] 08/23/2017 History of coma 03/08/2017 Overview: 1976, [...] as of this encounter (statuses as of 04/17/2024) Resolved Problems Problem Noted Date Diagnosed Date [...] as of this encounter (statuses as of 04/17/2024) Immunizations Name Administration Dates Next Due COVID-19 mRNA, LNP-s, No Pre serve, 2-Dose Series (Moderna) 01/02/2021,12/12/2020 Hepatitis B, 20+ yrs 08/05/2016,03/11/2016,02/04 Pneumococcal Conjugate Vacci ne, 20-valent ([id number]) 05/11/2022 Pneumococcal Polysaccharide PPV23 (Pneumovax) 09/02/2016 Seasonal [...] Yes 07/29/2019 documented as of this encounter Progress Notes * Megan Contreras, [facility] - 04/17/2024 8:30 AM EDT Medication Therapy [facility] - Diabetes Management Progress Note Kit Reagn, identified by name and date of , is a 63 year old male being seen for diabetes management/education. Patient presents for return diabetic visit. DIABETES: Current diabetic medications: Metformin ER 500 mg - 2 tablets BID Lantus Pen - 30 units in the evening (patient had been taking 35 while out of Trulicity) Trulicity 4.5 mg SQ once a week - SATURDAYS eGFR 71 as of 10/25/23 Medication Injection Site: Abdomen Lifestyle: Diet: unchanged Glucose Review/SMBG: Readings obtained from patient device Pre am 122 160 86 366 258 261 213 251 304 284 232 Average [address] 231.6667 Range 280 Hypoglycemia: Does your blood sugar go below 70 mg/dL? No Hyperglycemia symptoms present: none Recent Labs Units 01/24/24 0828 10/25/23 0826 06/22/23 0748 HEMOGLOBIN A1C - [facility] % 8.8* 10.1* 9.9* Recent Labs Units 01/24/24 0828 10/25/23 0826 08/23/23 1042 ESTIMATED GLOMERULAR FILTRATION RATE - [facility] mL/min 69 71 73 CREATININE - [facility] mg/dL 1.2 1.2 1.1 HYPERTENSION: Patient on ACEi/ARB: no, not indicated BP Readings from Last 3 Encounters: 01/24/24 130/80 10/25/23 124/64 08/23/23 105/58 Blood pressure at goal: yes HYPERLIPIDEMIA: Patient is taking moderate or high intensity statin: yes HEALTH MAINTENANCE REVIEW: Health Maintenance Due Topic Date Due Depression Monitoring 11/25/2021 Colorectal Cancer Screening 01/06/2022 Diabetic Foot Exam 07/30/2022 COVID-19 Vaccine ( season) 2023 Diabetic Eye Exam 11/09/2023 DIG LEVEL FOR MEDICATION MONITORING YEARLY 04/18/2024 Albumin/Creatinine Ratio 05/30/2024 ASSESSMENT & PLAN: ICD-10-CM 1. Type 2 diabetes mellitus with hyperglycemia, with long-term current use of insulin ([facility]) E11.65 Z79.4 Considerations: HF Bozena, sister, helps manage medications Roman - declines, patient prefers fingerstick Declined SGLT2 (urinary incontinence) BG Readings - Blood sugars uncontrolled. Significantly elevated while off of Trulicity. Returning to baseline. Medications - Reviewed current regimen. Patient reports he was out of Trulicity for several weeks. MTM unaware. Just recently obtained, restarted without issue. Patient reports while without Trulicity he increased Lantus to 35 units. Encouraged to contact MTM if unable to obtain medication. Diet, Exercise, Lifestyle - Patient notes that his sister was away for a week, cheated with cheez-its, doritos, chips, etc. Encouraged when having these snacks to focus on serving size and place in abowl instead of eating out of the bag. Patient expressed understanding. Now that patient is back on Trulicity, encouraged to reduce Lantus to 30 units daily to avoid hypoglycemia. Patient expressed understanding. Patient is agreeable to SMBG 1 time(s) daily. Patient aware to contact clinic if any hypoglycemia before next visit. MEDICATION CHANGES: See below Diabetic Medications: Metformin ER 500 mg - 2 tablets BID Lantus Pen - 30 units in the evening (DEC from 35 units patient had been taking) Trulicity 4.5 mg SQ once a week - SATURDAYS eGFR 71 as of 10/25/23 HEALTH MAINTENANCE INTERVENTIONS: Deferred d/t time constraints FOLLOW UP: Return to clinic in 9 weeks 06/19/2024 Megan Contreras [facility] Clinical Pharmacist - Rfid Engineer Medication Therapy Management Clinic 04/17/2024, 8:30 AM documented in this encounter Plan of Treatment Upcoming Encounters Date Type Department Care Team (Late st Contact Info) Description 05/10/2024 9:00 AM EDT Cardiac Studies Cardiology, [facility] [address] [place] [address] Gonz[facility] [address] [place] [address] 06/12/2024 8:30 AM EDT Office Visit Cardiology, [facility] [address] [place] [address] Yulia Ramirez CRNP [address] [place] [phone] 06/19/2024 8:30 AM EDT Office Visit Pharmacy, [address] [place] [address] [place] [address] 07/31/2024 7:40 AM EDT Office Visit Family Medicine [address] [place] [phone] Lauren Benitez MD [address] [place] [address] [place] [address] Health Maintenance Due Date Last Done Comments [...] (6 to 64 Years) Completed 05/11/2022, 09/02/2016 GARDASIL-HPV IMMUNIZATION SERIES Aged Out No longer eligible based on patient's age to complete this topic MENINGOCOCCAL (MENACTRA/MENVEO) Aged Out No longer eligible based on patient's age to complete this topic documented as of this encounter Medical Devices Not on filedocumented as of this encounter Visit Diagnoses Diagnosis Type 2 diabetes mellitus with hyperglycemia, with long-term current use of insulin (HCC)- Primary documented in this encounter Advance Directives Documents on File Type Date Recorded Patient Diabetes Educator Expl anation Advance Directives and Living Will 05/20/2017 ADVANCE DIRECTIVE PE NNA ADVANCE HEALTH CARE DIRECTIVE Advance Directives and Living Will 05/20/2017 LIVING WILL LIVING W ILL DECLARATION Power of Foamite Mixer 05/20/2017 POWER OF A TTORNEY DURABLE POWER OF COIL CUTTER FOR HEALTH CARE * No Code (Latest [...] Advance Directives occurred with: Family Care Teams Design Quality Engineer Relationship Specialty Start Date End Date Lauren Benitez MD [address] [place] [address] [place] [address] PCP - General Family Medicine 05/26/23 documented as of this encounter
--- OUTSIDE RECORDS SUMMARY | 2024-05-10 08:27 | External Medical Summary | Summary of Care ---
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 02/06/2024 03:27 PM Modules accepted: Orders documented in this encounter Plan of Treatment Upcoming Encounters Date Type Department Care Team (Late st Contact Info) Description 02/21/2024 8:30 AM EDT Office Visit Pharmacy, [address] [place] [address] [place] [address] 02/21/2024 9:00 AM EDT Cardiac Studies Cardiac Studies [address] [place] [address] 05/10/2024 9:00 AM EDT Cardiac Studies Cardiology, [facility] [address] [place] [address] [facility] [address] [place] [address] 06/12/2024 8:30 AM EDT Office Visit Cardiology, [facility] [place] [address] Yulia Ramirez CRNP [address] [place] [address] 07/31/2024 7:40 AM EDT Office Visit Family Medicine [address] [place] [phone] Lauren Benitez MD [address] [place] [address] [place] [address] Scheduled Orders Name Type Priority Associated Diagnoses Orde r Schedule ECHO, COMPLETE (2D), TRANS-THORACIC Echocardiology Routine Chronic systolic heart failure (HCC) Mild mitral regurgitation Ordered: 01/24/2024 Health Maintenance Due Date Last Done Comments [...] Not on filedocumented as of this encounter Procedures Procedure Name Priority Date/Time Associated Diagnosis Comments HEMOGLOBIN A1C Routine 01/24/2024 8:28 AM EDT Type 2 diabetes mellitus with diabetic polyneuropathy, with long-term current use of insulin (HCC) BASIC METABOLIC PANEL Routine 01/24/2024 8:28 AM EDT Type 2 diabetes mellitus with diabetic polyneuropathy, with long-term current use of insulin (HCC) VITAMIN B12 Routine 01/24/2024 8:28 AM EDT Type 2 diabetes mellitus with diabetic polyneuropathy, with long-term current use of insulin (HCC) documented in this encounter Results * VITAMIN B12 (01/24/2024 8:28 AM EDT) Vitamin B12 821 232 - 1,245 pg/mL 01/24/2024 4:12 PM EDT LABORATORY [facility] Blood Venous blood specimen / Unknown Venipuncture / Unknown 01/24/2024 8:28 AM EDT 01/24/2024 8:28 AM EDT Lauren Benitez MD LAB BLOOD ORD ERABLES LABORATORY [facility] [address] [place] [address] * (ABNORMAL) BASIC METABOLIC PANEL (01/24/2024 8:28 AM EDT) BUN 25(H) 6 - 20 mg/dL 01/24/2024 3:35 PM EDT LABORATORY [facility] Creatinine 1.2 0.6 - 1.2 mg/dL 01/24/2024 3:35 PM EDT LABORATORY [facility] Estimated Glomerular Filtration Rate 69 >=60 mL/min 01/24/2024 3:35 PM EDT LAB[facility]ATORY [facility] Comment:eGFR is calculated b ased on the CKD-EPI 2020 equation Sodium 135 135 - 146 mmol/L 01/24/2024 3:35 PM EDT LAB[facility]ATORY [facility] Potassium 4.4 3.5 - 5.1 mmol/L 01/24/2024 3:35 PM EDT LAB[facility]ATORY [facility] Chloride 94(L) 98 - 107 mmol/L 01/24/2024 3:35 PM EDT LABORATORY [facility] CO2 31 22 - 32 mmol/L 01/24/2024 3:35 PM EDT LABORATORY [facility] Anion Gap 10 7 - 15 mmol/L 01/24/2024 3:35 PM EDT LABORATORY [facility] Glucose 200(H) 70 - 120 mg/dL 01/24/2024 3:35 PM EDT LABORATORY [facility] Calcium 9.6 8.4 - 10.2 mg/dL 01/24/2024 3:35 PM EDT LABORATORY [facility] Blood Venous blood specimen / Unknown Venipuncture / Unknown 01/24/2024 8:28 AM EDT 01/24/2024 8:28 AM EDT Lauren Benitez MD LAB BLOOD ORD ERABLES Performing Organization Address [facility] de Phone Number LABORATORY [facility] [address] [place] [address] * (ABNORMAL) HEMOGLOBIN A1C (01/24/2024 8:28 AM EDT) [facility] Hemoglobin A1C 8.8(H) 4.0 - 5.6 % 01/24/2024 3:41 PM EDT LABORATORY [facility] Comment:The use of HbA1c to monitor glycemic status is based on normal hemoglobin and HbA composition. This test should not be used in patients with abnormal hemoglobin that affects the half life of the red blood cell or the in vivo glycation rates. Estimated Average Glucose 206(H) <126 mg/dL 01/24/2024 3:41 PM EDT LABORATORY [facility] Blood Venous blood specimen / Unknown Venipuncture / Unknown 01/24/2024 8:28 AM EDT 01/24/2024 8:28 AM EDT Lauren Benitez MD LAB BLOOD ORD ERABLES Performing Organization Address [facility] Co de Phone Number LABORATORY [facility] [address] [place] [address] documented in this encounter Visit Diagnoses Diagnosis Type 2 diabetes mellitus with diabetic polyneuropathy, with long-term current use of insulin (HCC)- Primary Chronic systolic heart failure (HCC) Chronic systolic heart failure HTN, goal below 130/80 Unspecified essential hypertension Schizoaffective disorder, unspecified type (HCC) Mild mitral regurgitation Mitral valve disorders HFrEF (heart failure with reduced ejection fraction) (HCC) Type 2 diabetes mellitus with hemoglobin A1c goal of less than 8.0% (HCC) Type 2 diabetes mellitus with microalbuminuria, without long-term current use of insulin (HCC) Ischemic cardiomyopathy Other specified forms of chronic ischemic heart disease Biventricular automatic implantable cardioverter defibrillator in situ documented in this encounter Advance Directives Documents on File Type Date Recorded Patient Animal Handler Expl anation Advance Directives and Living Will 05/20/2017 ADVANCE DIRECTIVE PE NNA ADVANCE HEALTH CARE DIRECTIVE Advance Directives and Living Will 05/20/2017 LIVING WILL LIVING W ILL DECLARATION Power of Location Worker 05/20/2017 POWER OF A TTORNEY DURABLE POWER OF CONSULTANT INTERNSHIP FOR HEALTH CARE Latest Code Status on File Code Status Date Activated Date Inactivated Comments No Code 07/31/2019 2:38 PM 08/12/2019 4:06 PM Thi s order reflects the patients wishes and were consensually agreed upon. Question Answer Comments Discussion of Advance Directives occurred with: Patient/Family Code Status History Code Status Date Activated Date Inactivated Comments Full Code 07/29/2019 2:27 AM 07/31/2019 2:38 PM Thi s order reflects the patients wishes and were consensually agreed upon. Question Answer Comments Discussion of Advance Directives occurred with: Family Care Teams Laboratory Director Relationship Specialty Start Date End Date Lauren Benitez MD [address] [place] [address] [place] [address] PCP - General Family Medicine 05/26/23 documented as of this encounter"
--- OUTSIDE RECORDS SUMMARY | 2024-05-10 08:27 | External Medical Summary | Summary of Care ---
Author Name Unknown Organization [facility] Address [address] [place] [address] Phone [phone] Care Team Providers Care Used Car Lot Attendant Name Role Phone Lauren Benitez MD Primary Care Provide r Reason for Visit * Reason Comments Dosage Adjustment In Person (Anticoag Cl inic) Diabetes Follow-Up Encounter Details Date Type Department Care Team (Late st Contact Info) Description 02/21/2024 8:30 AM EDT Office Visit Pharmacy, [address] [place] [address] [place] [address] Type 2 diabetes mellitus with hemoglobin A1c goal of less than 8.0% ([facility])* Allergies Active Allergy Reactions Criticality Noted Date Comments Codeine Edema face/lips/tongue High 01/31/2016 Propoxyphene 01/31/2016 Oxycodone-Acetaminophen Itching 01/31/2016 No rash or swelling documented as of this encounter (statuses as of 02/21/2024) Medications Medication Sig Dispensed Refills Start Date [...] TABS Take by mouth. 0 Activ e [employer]Touch Delica Lancets 33GIndications:Type 2 diabetes mellitus with hemoglobin A1c goal of less than 8.0% ([facility]) Use to test blood sugar four times a day dx e11.9 400 Each 3 05/07/2021 Active OneTouch Verio In Vitro Strip (Glucose Blood)Indications:Type 2 diabetes mellitus with hemoglobin A1c goal of less than 8.0% ([facility]) Use to test blood sugar four times a day dx e11.9 400 Strip 3 05/07/2021 Active OneTouch Verio Flex System w/Device KitIndications:Type 2 diabetes mellitus with hemoglobin A1c goal of less than 8.0% ([facility]) Use as directed . Ck [...] daily 90 Tablet 3 05/09/2023 Active Nystatin 695147 UNIT/GM External CreamIndications:[place] tophytosis of groin Apply topically to affected [...] hemoglobin A1c goal of less than 8.0% ([facility]),Type 2 diabetes mellitus with microalbuminuria, without long-term current use of insulin ([facility]) Use to inject Lantus once daily 100 [...] hemoglobin A1c goal of less than 7.0% ([facility]),Type 2 diabetes mellitus with microalbuminuria, without long-term current use of insulin ([facility]) 4 tabs in am 360 Tablet 1 [...] hemoglobin A1c goal of less than 8.0% ([facility]) Inject 4.5 mg under the skin once a week. 2 mL 5 12/24/2023 Active Insulin Glargine Solostar 100 UNIT/ML Subcutaneous Solution Pen-injector (Lantus SoloStar)Indications:T ype 2 diabetes mellitus with hemoglobin A1c goal of less than 8.0% ([facility]),Type 2 diabetes mellitus with microalbuminuria, without long-term current use of insulin ([facility]) Inject 30 Units under the skin every evening. DX e11.9 0 01/24/2024 Active Torsemide 20 MG Oral Tablet (Demadex)Indications:C hronic systolic heart failure (HCC),HTN, goal below 130/80,Ischemic cardiomyopathy,Biventr icular automatic implantable cardioverter defibrillator in situ Take 1 Tablet by mouth in the morning. 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 - 02/21/2024 8:28 AM EDT Medication Therapy Disease Management Clinic - Diabetes Management Progress Note Kit Regan, identified by name and date of , is a 63 year old male being seen for diabetes management/education. Patient presents for return diabetic visit. Patient presents with sisterBozena DIABETES: Current diabetic medications: Metformin ER 500 mg - 2 tablets BID DEC Lantus Pen - 30 units in the evening Trulicity 4.5 mg SQ once a week - SATURDAYS eGFR 71 as of 10/25/23 Medication Injection Site: Abdomen Lifestyle: Diet: unchanged Glucose Review/SMBG: Readings obtained from patient documented BG logbook Pre am 96 167 119 109 137 82 141 70 83 89 76 101 115 130 133 157 176 108 166 185 143 93 154 Average 123 Hi [address] 122.619 Range 115 Hypoglycemia: Does your blood sugar go below [...] REVIEW: Health Maintenance Due Topic Date Due Colorectal Cancer Screening 01/06/2022 Diabetic Foot Exam 07/30/2022 COVID-19 Vaccine () 06/17/2023 Diabetic Eye Exam 11/09/2023 ASSESSMENT & PLAN: ICD-10-CM 1. Type 2 diabetes mellitus with hemoglobin A1c goal of less than 8.0% (HCC) E11.9 Considerations: HF Bozena, sister, helps manage medications Roman - declines, patient prefers fingerstick Declined SGLT2 (urinary incontinence) BG Readings - Blood sugars reviewed. A1c remaining above goal, however improvement noted. Encouraged to continue. Medications - Reviewed current regimen. Patient and sister state pharmacy is unable to obtain Trulicity. Discussed options. Will plan to continue to check back this week, if still unable to obtain they will contact patient with Trulicity dose that is available. Also discussed transition to Victoza short term. Diet, Exercise, Lifestyle - No significant lifestyle changes since last visit. Discsussed limiting CHOs while off of Trulicity. Discussed increasing activity as weather improves. Patient is agreeable to SMBG 1 time(s) daily. Patient aware to contact clinic if any hypoglycemia before next visit. MEDICATION CHANGES: no change Diabetic Medications: Metformin ER 500 mg - 2 tablets BID Lantus Pen - 30 units in the evening Trulicity 4.5 mg SQ once a week - SATURDAYS eGFR 71 as of 10/25/23 HEALTH MAINTENANCE INTERVENTIONS: Labs: Up to Date Immunizations: Up to Date Foot Exam: Due Eye Exam: Due Annual Wellness Visit: Due FOLLOW UP: Return to clinic in 8 weeks 04/17/2024 Megan Contreras [facility] Clinical Pharmacist - School Psychology Specialist Medication Therapy Management Clinic 02/21/2024, 8:28 AM documented in this encounter Plan of Treatment Upcoming Encounters Date Type Department Care Team (Late st Contact Info) Description 04/17/2024 8:30 AM EDT Office Visit Pharmacy, [address] [place] [address] [place] [address] 05/10/2024 9:00 AM EDT Cardiac Studies Cardiology, [facility] 132 [facility] [place] [address] [facility] [place] [address] 06/12/2024 8:30 AM EDT Office Visit Cardiology, [facility] 132 [facility] [place] [address] Yulia Ramirez CRNP 132 [facility] [place] [address] 07/31/2024 7:40 AM EDT Office Visit Family Medicine [address] [place] [phone] Lauren Benitez MD [address] [place] [address] [place] [address] Health Maintenance Due Date Last Done Comments Cologuard 2006 Colonoscopy 2006 Sigmoidoscopy 2006 Colorectal Cancer Screening 01/06/2022 Fecal Occult Blood Test 01/06/2022 01/07/20, 06/30/2018, 06/14/2016 Diabetic Foot Exam 07/30/2022 07/30/2021, 0 06/15/2018, 03/31/2017, Additional history exists COVID-19 Vaccine ( season) 2023 01/02/2021, 12/12/2020 Diabetic Eye Exam 11/09/2023 11/09/2022, , 01/26/2017 DIG LEVEL FOR MEDICATION MONITORING YEARLY 04/18/2024 04/18/2023, 04/21/2021, 01/13/2021, Additional history exists Albumin/Creatinine Ratio 05/30/2024 023, 02/08/2023, 10/12/2021, Additional history exists HbA1c 07/25/2024 01/24/2024, 06/2024, 06/22/2023, Additional history exists B-12 01/23/2025 [...] hemoglobin A1c goal of less than 8.0% (HCC)- Primary documented in this encounter Advance Directives Documents on File Type Date Recorded Patient Online Advertising Analyst Expl anation Advance Directives and Living Will 05/20/2017 ADVANCE DIRECTIVE PE NNA ADVANCE HEALTH CARE DIRECTIVE Advance Directives and Living Will 05/20/2017 LIVING WILL LIVING W ILL DECLARATION Power of Web User Experience Strategist 05/20/2017 POWER OF A TTORNEY DURABLE POWER OF DIRECTOR ONCOLOGY FOR HEALTH CARE Latest Code Status on [...] Advance Directives occurred with: Family Care Teams Used Car Lot Attendant Relationship Specialty Start Date End Date Lauren Benitez MD [address] [place] [address] [place] [address] PCP - General Family Medicine 05/26/23 documented as of this encounter
--- OUTSIDE RECORDS SUMMARY | 2024-05-10 08:27 | External Medical Summary | Summary of Care ---
Author Name Unknown Organization [facility] Address [address] [place] [address] Phone [phone] Care Team Providers Care Electronic Scale Tester Name Role Phone Lauren Benitez MD Primary Care Provide r Encounter Details Date Type Department Care Team (Late st Contact Info) Description 02/16/[facility] [address] [place] [address] [place] [phone] [place] [address] Allergies Active Allergy Reactions Criticality Noted Date Comments Codeine Edema face/lips/tongue High 01/31/2016 Propoxyphene 01/31/2016 Oxycodone-Acetaminophen Itching 01/31/2016 No rash or swelling documented as of this encounter (statuses as of 02/16/2024) Medications Medication Sig Dispensed Refills Start Date [...] hemoglobin A1c goal of less than 8.0% ([facility]) Use to test blood sugar four times a day dx e11.9 400 Each 3 05/07/2021 Active OneTouch Verio In Vitro Strip (Glucose Blood)Indications:Type 2 diabetes mellitus with hemoglobin A1c goal of less than 8.0% ([facility]) Use to test blood sugar four times a day dx e11.9 400 Strip 3 05/07/2021 Active OneTouch Verio Flex System w/Device KitIndications:Type 2 diabetes mellitus with hemoglobin A1c goal of less than 8.0% ([facility]) Use as directed . Ck [...] daily 90 Tablet 3 05/09/2023 Active Nystatin 499933 UNIT/GM External CreamIndications:[place] tophytosis of groin Apply topically to affected [...] hemoglobin A1c goal of less than 8.0% ([facility]),Type 2 diabetes mellitus with microalbuminuria, without long-term current use of insulin ([facility]) Use to inject Lantus once [...] hemoglobin A1c goal of less than 7.0% ([facility]),Type 2 diabetes mellitus with microalbuminuria, without long-term current use of insulin ([facility]) 4 tabs in am 360 [...] hemoglobin A1c goal of less than 8.0% ([facility]) Inject 4.5 mg under the skin once a week. 2 mL 5 12/24/2023 Active Insulin Glargine Solostar 100 UNIT/ML Subcutaneous Solution Pen-injector (Lantus SoloStar)Indications:T ype 2 diabetes mellitus with hemoglobin A1c goal of less than 8.0% ([facility]),Type 2 diabetes mellitus with microalbuminuria, without long-term current use of insulin ([facility]) Inject 30 Units under the skin every evening. DX e11.9 0 01/24/2024 Active Torsemide 20 MG Oral Tablet (Demadex)Indications:C hronic systolic heart failure (HCC),HTN, goal below 130/80,Ischemic cardiomyopathy,Biventr icular automatic implantable cardioverter defibrillator in situ Take 1 Tablet by mouth in the morning. 0 01/24/2024 Active documented as of this encounter (statuses as of 02/16/2024) Active Problems Problem Noted Date Diagnosed Date [...] 08/12/2019 Overview: 08/04 see palliative consult [facility] Chronic anticoagulation 08/01/2019 Left [...] as of this encounter (statuses as of 02/16/2024) Resolved Problems Problem Noted Date Diagnosed Date [...] as of this encounter (statuses as of 02/16/2024) Immunizations Name Administration Dates Next Due COVID-19 mRNA, LNP-s, No Pre serve, 2-Dose Series (Moderna) 01/02/2021,12/12/2020 Hepatitis B, 20+ yrs 08/05/2016,03/11/2016,02/04 Pneumococcal Conjugate Vacci ne, 20-valent ([id number]) 05/11/2022 Pneumococcal Polysaccharide PPV23 (Pneumovax) 09/02/2016 Seasonal [...] encounter Miscellaneous Notes * Telephone Encounter - Megan Contreras RPh - 02/16/2024 3:20 PM EDT Patient Phone Numbers Attempted to return call, no answer. Left message to return call to clinic. Of note, upcoming [facility] appointment on 02/20. Megan Contreras RPh, PharmD Clinical Pharmacist - Miniature Model Maker Medication Therapy Disease Management Clinic 02/16/2024, 3:20 PM [phone] * Telephone Encounter - Roosevelt Angel CPhT - 02/16/2024 9:04 AM EDT Caller's name: Bozena Preferred call back number(OFFICE NUMBER FOR ): [phone] Reason for call: Pt caregiver requesting to speak to [facility], says unable to get his RX Trulicity Thank you, Roosevelt Angel CPhT Optomechanical Technician [facility] 02/16/2024,9:04 AM documented in this encounter Plan of Treatment Upcoming Encounters Date Type Department Care Team (Late st Contact Info) Description 02/21/2024 8:30 AM EDT Office Visit Pharmacy, [address] [place] [address] [place] [address] 02/21/2024 9:00 AM EDT Cardiac Studies Cardiac Studies [address] [place] [address] 05/10/2024 9:00 AM EDT Cardiac Studies Cardiology, [facility] [place] [address] [facility] [place] [address] 06/12/2024 8:30 AM EDT Office Visit Cardiology, [facility] 132 [facility] [place] [address] Yulia Ramirez CRNP 132 [facility] [place] [address] 07/31/2024 7:40 AM EDT Office Visit Family Medicine [address] [place] [phone] Lauren Benitez MD [address] [place] [address] [place] [address] Health Maintenance Due Date Last Done Comments [...] Documents on File Type Date Recorded Patient Credit Card Clerk Expl anation Advance Directives and Living Will 05/20/2017 ADVANCE DIRECTIVE PE NNA ADVANCE HEALTH CARE DIRECTIVE Advance Directives and Living Will 05/20/2017 LIVING WILL LIVING W ILL DECLARATION Power of Tube Filler 05/20/2017 POWER OF A TTORNEY DURABLE POWER OF SEWER PIPE OFFBEARER FOR HEALTH CARE Latest Code Status on [...] Advance Directives occurred with: Family Care Teams Electronic Scale Tester Relationship Specialty Start Date End Date Lauren Benitez MD [address] [place] [address] [place] [address] PCP - General Family Medicine 05/26/23 documented as of this encounter
--- OUTSIDE RECORDS SUMMARY | 2024-05-10 08:27 | External Medical Summary | Summary of Care ---
Author Name Unknown Organization [facility] Address [address] [place] [address] Phone [phone] Care Team Providers Care Investments Manager Name Role Phone Lauren Benitez MD Primary Care Provide r Reason for Visit * Reason Onset Date Comments Medication Question 02/14/2024 Encounter Details Date Type Department Care Team (Late st Contact Info) Description 02/14/2024 Telephone Pharmacy Call Center [phone] [facility] [place] [address] [place] [address] Medication Question Allergies Active Allergy Reactions Criticality Noted Date Comments Codeine Edema face/lips/tongue High 01/31/2016 Propoxyphene 01/31/2016 Oxycodone-Acetaminophen Itching 01/31/2016 No rash or swelling documented as of this encounter (statuses as of 02/15/2024) Medications Medication Sig Dispensed Refills Start Date [...] hemoglobin A1c goal of less than 8.0% ([facility]) Use to test blood sugar four times a day dx e11.9 400 Each 3 05/07/2021 Active OneTouch Verio In Vitro Strip (Glucose Blood)Indications:Type 2 diabetes mellitus with hemoglobin A1c goal of less than 8.0% ([facility]) Use to test blood sugar four times a day dx e11.9 400 Strip 3 05/07/2021 Active OneTouch Verio Flex System w/Device KitIndications:Type 2 diabetes mellitus with hemoglobin A1c goal of less than 8.0% ([facility]) Use as directed . Ck FS daily E 11.9 1 Kit 0 08/05/2022 Active traZODone HCl 50 MG Oral Tablet (Desyrel) Take 1 Tablet by mouth at bedtime. 30 Tablet 5 02/08/2023 Active Digoxin 125 MCG Oral Tablet (Lanoxin)Indications:H eart failure, systolic and diastolic, acute on chronic ([facility]),HTN, goal below 140/90 Take 1 tablet by mouth once daily 90 Tablet 3 05/09/2023 Active Nystatin 345108 UNIT/GM External CreamIndications:[place] tophytosis of groin Apply topically to affected [...] hemoglobin A1c goal of less than 8.0% ([facility]),Type 2 diabetes mellitus with microalbuminuria, without long-term current use of insulin ([facility]) Use to inject Lantus once [...] hemoglobin A1c goal of less than 7.0% ([facility]),Type 2 diabetes mellitus with microalbuminuria, without long-term current use of insulin ([facility]) 4 tabs in am 360 [...] hemoglobin A1c goal of less than 8.0% ([facility]) Inject 4.5 mg under the skin once a week. 2 mL 5 12/24/2023 Active Insulin Glargine Solostar 100 UNIT/ML Subcutaneous Solution Pen-injector (Lantus SoloStar)Indications:T ype 2 diabetes mellitus with hemoglobin A1c goal of less than 8.0% ([facility]),Type 2 diabetes mellitus with microalbuminuria, without long-term current use of insulin ([facility]) Inject 30 Units under the skin every evening. DX e11.9 0 01/24/2024 Active Torsemide 20 MG Oral Tablet (Demadex)Indications:C hronic systolic heart failure (HCC),HTN, goal below 130/80,Ischemic cardiomyopathy,Biventr icular automatic implantable cardioverter defibrillator in situ Take 1 Tablet by mouth in the morning. 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 History of coma 03/08/2017 Overview: 1976, [...] as of this encounter (statuses as of 02/15/2024) Resolved Problems Problem Noted Date Diagnosed Date [...] as of this encounter (statuses as of 02/15/2024) Immunizations Name Administration Dates Next Due COVID-19 mRNA, LNP-s, No Pre serve, 2-Dose Series (Moderna) 01/02/2021,12/12/2020 Hepatitis B, 20+ yrs 08/05/2016,03/11/2016,02/04 Pneumococcal Conjugate Vacci ne, 20-valent ([id number]) 05/11/2022 Pneumococcal Polysaccharide PPV23 (Pneumovax) 09/02/2016 Seasonal [...] Telephone Encounter - Megan Contreras RPh - 02/15/2024 10:42 AM EDT Patient Phone Numbers Attempted to return call, no answer. Left message to return call to clinic to discuss. Megan Contreras RPh, PharmD Clinical Pharmacist - [facility] 02/15/2024, 10:42 AM [phone] * Telephone Encounter - Mellissa Smith mucker operator - 02/14/2024 3:10 PM EDT Caller's name: Bozena Preferred call back number(OFFICE NUMBER FOR ): [phone] Reason for call: Bozena calling due to pharmacy not being able to get the Trulicity, she has not called other pharmacies I advised her to do so and if she finds one to call us back, but she was also asking if there is something else he can take in the meantime because he is completely out. Please advise and return her call. Thank you, Mellissa Smith Mixing Machine Tender [facility] 02/14/2024,3:10 PM documented in this encounter Plan of Treatment Upcoming Encounters Date Type Department Care Team (Late st Contact Info) Description 02/21/2024 8:30 AM EDT Office Visit Pharmacy, [address] [place] [address] [place] [address] 02/21/2024 9:00 AM EDT Cardiac Studies Cardiac Studies [address] [place] [address] 05/10/2024 9:00 AM EDT Cardiac Studies Cardiology, [facility] [place] [address] Gonz[facility] [address] 06/12/2024 8:30 AM EDT Office Visit Cardiology, [facility] [place] [address] Yulia Ramirez CRNP 132 [facility] [place] [address] 07/31/2024 7:40 AM EDT Office Visit Family Medicine [address] [place] [phone] Lauren Benitez MD [address] [place] [address] [place] [address] Health Maintenance Due Date Last Done Comments [...] Documents on File Type Date Recorded Patient Hydraulic Hammer Operator Expl anation Advance Directives and Living Will 05/20/2017 ADVANCE DIRECTIVE PE NNA ADVANCE HEALTH CARE DIRECTIVE Advance Directives and Living Will 05/20/2017 LIVING WILL LIVING W ILL DECLARATION Power of Digital Measurement Advisor 05/20/2017 POWER OF A TTORNEY DURABLE POWER OF ANATOMY PROFESSOR FOR HEALTH CARE Latest Code Status on [...] Advance Directives occurred with: Family Care Teams Investments Manager Relationship Specialty Start Date End Date Lauren Benitez MD [address] [place] [address] [place] [address] PCP - General Family Medicine 05/26/23 documented as of this encounter
--- OUTSIDE RECORDS SUMMARY | 2024-05-10 08:27 | External Medical Summary | Summary of Care ---
Author Name Unknown Organization [facility] Address [address] [place] [address] Phone [phone] Care Team Providers Care Applications Support Engineer Name Role Phone Lauren Benitez MD Primary Care Provide r Encounter Details Date Type Department Care Team (Late st Contact Info) Description 02/21/2024 Population Health External Data Unspecified Department Allergies Active Allergy Reactions Criticality Noted Date [...] hemoglobin A1c goal of less than 8.0% ([facility]) Use to test blood sugar four times a day dx e11.9 400 Strip 3 05/07/2021 Active Tucoola Flex System w/Device KitIndications:Type 2 diabetes mellitus with hemoglobin A1c goal of less than 8.0% ([facility]) Use as directed . Ck FS daily E 11.9 1 Kit 0 08/05/2022 Active traZODone HCl 50 MG Oral Tablet (Desyrel) Take 1 Tablet by mouth at bedtime. 30 Tablet 5 02/08/2023 Active Digoxin 125 MCG Oral Tablet (Lanoxin)Indications:H eart failure, systolic and diastolic, acute on chronic ([facility]),HTN, goal below 140/90 Take 1 tablet by mouth once daily 90 Tablet 3 05/09/2023 Active Nystatin 984863 UNIT/GM External CreamIndications:[place] tophytosis of groin Apply topically to affected [...] hemoglobin A1c goal of less than 8.0% ([facility]),Type 2 diabetes mellitus with microalbuminuria, without long-term current use of insulin ([facility]) Use to inject Lantus once daily 100 Each 1 09/05/2023 Active Metoprolol Succinate ER 50 MG Oral Tablet Extended Release 24 Hour (toPROL XL)Indications:Ischemi c cardiomyopathy,Permane nt atrial fibrillation ([facility]),HTN, goal below 130/80 TAKE 1 TABLET BY MOUTH IN THE MORNING 90 Tablet 3 10/12/2023 Active Eliquis 5 MG Oral Tablet (Apixaban) Take 1 tablet by mouth twice daily 180 Tablet 3 10/19/2023 Active metFORMIN HCl ER 500 MG Oral Tablet Extended Release 24 Hour (Glucophage XR)Indications:Type 2 diabetes mellitus with hemoglobin A1c goal of less than 7.0% ([facility]),Type 2 diabetes mellitus with microalbuminuria, without long-term current use of insulin ([facility]) 4 tabs in am 360 Tablet 1 [...] hemoglobin A1c goal of less than 8.0% ([facility]) Inject 4.5 mg under the skin once a week. 2 mL 5 12/24/2023 Active Insulin Glargine Solostar 100 UNIT/ML Subcutaneous Solution Pen-injector (Lantus SoloStar)Indications:T ype 2 diabetes mellitus with hemoglobin A1c goal of less than 8.0% ([facility]),Type 2 diabetes mellitus with microalbuminuria, without long-term current use of insulin (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 [place] 08/23/2017 History of coma 03/08/2017 Overview: 1976, [...] yrs 08/05/2016,03/11/2016,02/04 Pneumococcal Conjugate Vacci ne, 20-valent ([id number]) 05/11/2022 Pneumococcal Polysaccharide PPV23 (Pneumovax) 09/02/2016 Seasonal [...] 02/21/2024 8:30 AM EDT Office Visit Pharmacy, [address] [place] [address] [place] [address] 02/21/2024 9:00 AM EDT Cardiac Studies Cardiac Studies [address] [place] [address] 05/10/2024 9:00 AM EDT Cardiac Studies Cardiology, [facility] 132 [facility] [place] [address] Amita Pacer [facility] 132 [facility] [place] [address] 06/12/2024 8:30 AM EDT Office Visit Cardiology, [facility] [address] [facility] [place] [address] Yulia Ramirez CRNP 132 [facility] [place] [address] 07/31/2024 7:40 AM EDT Office Visit Family Medicine [address] [place] [phone] Lauren Benitez MD [address] [place] [address] [place] [address] Health Maintenance Due Date Last Done Comments [...] Documents on File Type Date Recorded Patient Acquisitions Editor Expl anation Advance Directives and Living Will 05/20/2017 ADVANCE DIRECTIVE PE NNA ADVANCE HEALTH CARE DIRECTIVE Advance Directives and Living Will 05/20/2017 LIVING WILL LIVING W ILL DECLARATION Power of Paint Stockman 05/20/2017 POWER OF A TTORNEY DURABLE POWER OF CONTINUOUS ABSORPTION PROCESS OPERATOR FOR HEALTH CARE Latest Code Status on [...] Advance Directives occurred with: Family Care Teams Applications Support Engineer Relationship Specialty Start Date End Date Lauren Benitez MD [address] [place] [address] [place] [address] PCP - General Family Medicine 05/26/23 documented as of this encounter
--- OUTSIDE RECORDS SUMMARY | 2024-05-10 08:27 | External Medical Summary | Summary of Care ---
Author Name Unknown Organization [facility] Address [address] [place] [address] Phone [phone] Care Team Providers Care Biology Specialist Name Role Phone Lauren Benitez MD Primary Care Provide r Encounter Details Date Type Department Care Team (Late st Contact Info) Description 02/29/2024 Result Scan Unspecified Department Nick Pabon, DO [address] [place] [address] <No scans attached> Allergies Active Allergy Reactions Criticality Noted Date Comments Codeine Edema face/lips/tongue High 01/31/2016 Propoxyphene 01/31/2016 Oxycodone-Acetaminophen Itching 01/31/2016 No rash or swelling documented as of this encounter (statuses as of 02/29/2024) Medications Medication Sig Dispensed Refills Start Date [...] hemoglobin A1c goal of less than 8.0% ([facility]) Use to test blood sugar four times a day dx e11.9 400 Strip 3 05/07/2021 Active Rocket.LaTouch Verio Flex System w/Device KitIndications:Type 2 diabetes mellitus with hemoglobin A1c goal of less than 8.0% ([facility]) Use as directed . Ck FS daily E 11.9 1 Kit 0 08/05/2022 Active traZODone HCl 50 MG Oral Tablet (Desyrel) Take 1 Tablet by mouth at bedtime. 30 Tablet 5 02/08/2023 Active Digoxin 125 MCG Oral Tablet (Lanoxin)Indications:H eart failure, systolic and diastolic, acute on chronic ([facility]),HTN, goal below 140/90 Take 1 tablet by mouth once daily 90 Tablet 3 05/09/2023 Active Nystatin 774379 UNIT/GM External CreamIndications:[place] tophytosis of groin Apply topically to affected [...] hemoglobin A1c goal of less than 8.0% ([facility]),Type 2 diabetes mellitus with microalbuminuria, without long-term current use of insulin ([facility]) Use to inject Lantus once daily 100 [...] hemoglobin A1c goal of less than 7.0% ([facility]),Type 2 diabetes mellitus with microalbuminuria, without long-term current use of insulin ([facility]) 4 tabs in am 360 Tablet 1 [...] hemoglobin A1c goal of less than 8.0% ([facility]) Inject 4.5 mg under the skin once a week. 2 mL 5 12/24/2023 Active Insulin Glargine Solostar 100 UNIT/ML Subcutaneous Solution Pen-injector (Lantus SoloStar)Indications:T ype 2 diabetes mellitus with hemoglobin A1c goal of less than 8.0% ([facility]),Type 2 diabetes mellitus with microalbuminuria, without long-term current use of insulin ([facility]) Inject 30 Units under the skin every evening. DX e11.9 0 01/24/2024 Active Torsemide 20 MG Oral Tablet (Demadex)Indications:C hronic systolic heart failure (HCC),HTN, goal below 130/80,Ischemic cardiomyopathy,Biventr icular automatic implantable cardioverter defibrillator in situ Take 1 Tablet by mouth in the morning. 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 [place] 08/23/2017 History of coma 03/08/2017 Overview: 1976, [...] as of this encounter (statuses as of 02/29/2024) Resolved Problems Problem Noted Date Diagnosed Date [...] as of this encounter (statuses as of 02/29/2024) Immunizations Name Administration Dates Next Due COVID-19 mRNA, LNP-s, No Pre serve, 2-Dose Series (Moderna) 01/02/2021,12/12/2020 Hepatitis B, 20+ yrs 08/05/2016,03/11/2016,02/04 Pneumococcal Conjugate Vacci ne, 20-valent ([id number]) 05/11/2022 Pneumococcal Polysaccharide PPV23 (Pneumovax) 09/02/2016 Seasonal [...] 04/17/2024 8:30 AM EDT Office Visit Pharmacy, [address] [place] [address] [place] [address] 05/10/2024 9:00 AM EDT Cardiac Studies Cardiology, [facility] 132 [facility] [place] [address] [place], Pacer [facility] [address] [place] [address] 06/12/2024 8:30 AM EDT Office Visit Cardiology, [facility] [address] [place] [address] Yulia Ramirez CRNP 132 [facility] [place] [address] 07/31/2024 7:40 AM EDT Office Visit Family Medicine [address] [place] [phone] Lauren Benitez MD [address] [place] [address] [place] [address] Health Maintenance Due Date Last Done Comments [...] Procedure Name Priority Date/Time Associated Diagnosis Comments CARDIOLOGY SCANNED RESULT 02/29/2024 documented in this encounter Results * CARDIOLOGY SCANNED RESULT (02/29/2024) 02/29/2024 Nick Pabon DO OTHER documented in this encounter Advance Directives Documents on File Type Date Recorded Patient Church Organist Expl anation Advance Directives and Living Will 05/20/2017 ADVANCE DIRECTIVE PE NNA ADVANCE HEALTH CARE DIRECTIVE Advance Directives and Living Will 05/20/2017 LIVING WILL LIVING W ILL DECLARATION Power of Generator Worker 05/20/2017 POWER OF A TTORNEY DURABLE POWER OF THUMB SEWER FOR HEALTH CARE Latest Code Status on [...] Advance Directives occurred with: Family Care Teams Biology Specialist Relationship Specialty Start Date End Date Lauren Benitez MD [address] [place] [address] [place] [phone] PCP - General Family Medicine 05/26/23 documented as of this encounter
--- OUTSIDE RECORDS SUMMARY | 2024-05-10 08:27 | External Medical Summary | Summary of Care ---
Author Name Unknown Organization [facility] Address [address] [place] [address] Phone [phone] Care Team Providers Care Machine Stacker Name Role Phone Lauren Benitez MD Primary Care Provide r Reason for Visit * Reason Onset Date Comments Fax 02/07/2024 Encounter Details Date Type Department Care Team (Late st Contact Info) Description 02/07/2024 Telephone Family [address] [phone] Lauren Benitez MD [address] [place] [address] [place] [address] Fax Allergies Active Allergy Reactions Criticality Noted Date Comments Codeine Edema face/lips/tongue High 01/31/2016 Propoxyphene 01/31/2016 Oxycodone-Acetaminophen Itching 01/31/2016 No rash or swelling documented as of this encounter (statuses as of 02/08/2024) Medications Medication Sig Dispensed Refills Start Date [...] hemoglobin A1c goal of less than 8.0% ([facility]) Use to test blood sugar four times a day dx e11.9 400 Each 3 05/07/2021 Active OneTouch Verio In Vitro Strip (Glucose Blood)Indications:Type 2 diabetes mellitus with hemoglobin A1c goal of less than 8.0% ([facility]) Use to test blood sugar four times a day dx e11.9 400 Strip 3 05/07/2021 Active OneTouch Verio Flex System w/Device KitIndications:Type 2 diabetes mellitus with hemoglobin A1c goal of less than 8.0% ([facility]) Use as directed . Ck FS daily E 11.9 1 Kit 0 08/05/2022 Active traZODone HCl 50 MG Oral Tablet (Desyrel) Take 1 Tablet by mouth at bedtime. 30 Tablet 5 02/08/2023 Active Digoxin 125 MCG Oral Tablet (Lanoxin)Indications:H eart failure, systolic and diastolic, acute on chronic ([facility]),HTN, goal below 140/90 Take 1 tablet by mouth once daily 90 Tablet 3 05/09/2023 Active Nystatin 522544 UNIT/GM External CreamIndications:[place] tophytosis of groin Apply topically to affected [...] hemoglobin A1c goal of less than 8.0% ([facility]),Type 2 diabetes mellitus with microalbuminuria, without long-term current use of insulin ([facility]) Use to inject Lantus once daily [...] hemoglobin A1c goal of less than 7.0% ([facility]),Type 2 diabetes mellitus with microalbuminuria, without long-term current use of insulin ([facility]) 4 tabs in am 360 Tablet [...] hemoglobin A1c goal of less than 8.0% ([facility]) Inject 4.5 mg under the skin once a week. 2 mL 5 12/24/2023 Active Insulin Glargine Solostar 100 UNIT/ML Subcutaneous Solution Pen-injector (Lantus SoloStar)Indications:T ype 2 diabetes mellitus with hemoglobin A1c goal of less than 8.0% ([facility]),Type 2 diabetes mellitus with microalbuminuria, without long-term current use of insulin ([facility]) Inject 30 Units under the skin every evening. DX e11.9 0 01/24/2024 Active Torsemide 20 MG Oral Tablet (Demadex)Indications:C hronic systolic heart failure (HCC),HTN, goal below 130/80,Ischemic cardiomyopathy,Biventr icular automatic implantable cardioverter defibrillator in situ Take 1 Tablet by mouth in the morning. 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 [place] 08/23/2017 History of coma 03/08/2017 Overview: 1976, [...] as of this encounter (statuses as of 02/08/2024) Resolved Problems Problem Noted Date Diagnosed Date [...] as of this encounter (statuses as of 02/08/2024) Immunizations Name Administration Dates Next Due COVID-19 mRNA, LNP-s, No Pre serve, 2-Dose Series (Moderna) 01/02/2021,12/12/2020 Hepatitis B, 20+ yrs 08/05/2016,03/11/2016,02/04 Pneumococcal Conjugate Vacci ne, 20-valent ([id number]) 05/11/2022 Pneumococcal Polysaccharide PPV23 (Pneumovax) 09/02/2016 Seasonal [...] encounter Miscellaneous Notes * Telephone Encounter - Radha Baer LPN - 02/08/2024 9:52 AM EDT Faxed. * Telephone Encounter - Sandee Mattson OSA - 02/07/2024 10:18 AM EDT Caller requesting the following information to be faxed: Name/Company of caller: Gloria from [employer] Information requested to be faxed: [employer] Fax number: [phone] Attention to Name/Company: NA Any additional information?: NA documented in this encounter Plan of Treatment Upcoming Encounters Date Type Department Care Team (Late st Contact Info) Description 02/21/2024 8:30 AM EDT Office Visit Pharmacy, [address] [place] [address] [place] [address] 02/21/2024 9:00 AM EDT Cardiac Studies Cardiac Studies [address] [place] [address] 05/10/2024 9:00 AM EDT Cardiac Studies Cardiology, [facility] [address] [facility] [place] [address] [place], Pacer [facility] [address] [facility] [place] [address] 06/12/2024 8:30 AM EDT Office Visit Cardiology, [facility] [address] [facility] [place] [address] Yulia Ramirez CRNP [address] [facility] [place] [address] 07/31/2024 7:40 AM EDT Office Visit Family Medicine [address] [place] [phone] Lauren Benitez MD [address] [place] [address] [place] [address] Health Maintenance Due Date Last Done Comments [...] Documents on File Type Date Recorded Patient Dent Remover Expl anation Advance Directives and Living Will 05/20/2017 ADVANCE DIRECTIVE PE NNA ADVANCE HEALTH CARE DIRECTIVE Advance Directives and Living Will 05/20/2017 LIVING WILL LIVING W ILL DECLARATION Power of Powder And Primer Canning Leader 05/20/2017 POWER OF A TTORNEY DURABLE POWER OF PIPE BENDING MACHINE OPERATOR FOR HEALTH CARE Latest Code Status [...] Advance Directives occurred with: Family Care Teams Machine Stacker Relationship Specialty Start Date End Date Lauren Benitez MD [address] [place] [address] [place] [address] PCP - General Family Medicine 05/26/23 documented as of this encounter
--- OUTSIDE RECORDS SUMMARY | 2024-05-10 08:28 | External Medical Summary ---
Author Name Unknown Address Unknown Organization K01:[facility] [place] - [address] [place] [address] Laboratory Report Ordering Provider Test Date Status JASMIN NICHOLSON 01/24/2024 08:28:08 Melissa l Observation Date Value Abnormality Reference (Units ) Status BUN 01/24/2024 08:28:08 25 Above high normal 6-20 (mg/dL) Final Creatinine 01/24/2024 08:28:08 1.2 0.6-1.2 (mg/dL) Final Glomerular filtration rate/1.73 sq M.predicted [Volume Rate/Area] in Serum, Plasma or Blood by Creatinine-based formula (CKD-EPI) 01/24/2024 08:28:08 69 >=60 (mL/min) Final eGFR is calculated based on the CKD-EPI 2020 equation Sodium 01/24/2024 08:28:08 135 135-146 (m mol/L) Final Potassium 01/24/2024 08:28:08 4.4 3.5-5.1 (m mol/L) Final Cl 01/24/2024 08:28:08 94 Below low normal 98- 107 (mmol/L) Final CO2 01/24/2024 08:28:08 31 22-32 (mmo l/L) Final Anion gap 01/24/2024 08:28:08 10 7-15 (mmol /L) Final Glucose 01/24/2024 08:28:08 200 Above high normal 70 -120 (mg/dL) Final Calcium 01/24/2024 08:28:08 9.6 8.4-10.2 ( mg/dL) Final Performing Location [facility] [place] - [address] [place] [address]
--- OUTSIDE RECORDS SUMMARY | 2024-05-10 08:28 | External Medical Summary | Summary of Care ---
Author Name Unknown Organization [facility] Address [address] [place] [address] Phone [phone] Care Team Providers Care Boat Carpenter Mechanic Name Role Phone Lauren Benitez MD Primary Care Provide r Reason for Visit * Reason Onset Date Comments Test Results 01/25/2024 Encounter Details Date Type Department Care Team (Late st Contact Info) Description 01/25/[address] [phone] Lauren Benitez MD [address] [place] [address] [place] [address] Test Results Allergies Active Allergy Reactions Criticality Noted Date Comments Codeine Edema face/lips/tongue High 01/31/2016 Propoxyphene 01/31/2016 Oxycodone-Acetaminophen Itching 01/31/2016 No rash or swelling documented as of this encounter (statuses as of 01/25/2024) Medications Medication Sig Dispensed Refills Start Date [...] hemoglobin A1c goal of less than 8.0% ([facility]) Use to test blood sugar four times a day dx e11.9 400 Each 3 05/07/2021 Active OneTouch Verio In Vitro Strip (Glucose Blood)Indications:Type 2 diabetes mellitus with hemoglobin A1c goal of less than 8.0% ([facility]) Use to test blood sugar four times a day dx e11.9 400 Strip 3 05/07/2021 Active OneTouch Verio Flex System w/Device KitIndications:Type 2 diabetes mellitus with hemoglobin A1c goal of less than 8.0% ([facility]) Use as directed . Ck FS daily E 11.9 1 Kit 0 08/05/2022 Active traZODone HCl 50 MG Oral Tablet (Desyrel) Take 1 Tablet by mouth at bedtime. 30 Tablet 5 02/08/2023 Active Digoxin 125 MCG Oral Tablet (Lanoxin)Indications:H eart failure, systolic and diastolic, acute on chronic ([facility]),HTN, goal below 140/90 Take 1 tablet by mouth once daily 90 Tablet 3 05/09/2023 Active Nystatin 873864 UNIT/GM External CreamIndications:[place] tophytosis of groin Apply topically to affected [...] hemoglobin A1c goal of less than 8.0% ([facility]),Type 2 diabetes mellitus with microalbuminuria, without long-term current use of insulin ([facility]) Use to inject Lantus once [...] hemoglobin A1c goal of less than 7.0% ([facility]),Type 2 diabetes mellitus with microalbuminuria, without long-term current use of insulin ([facility]) 4 tabs in am 360 [...] hemoglobin A1c goal of less than 8.0% ([facility]) Inject 4.5 mg under the skin once a week. 2 mL 5 12/24/2023 Active Insulin Glargine Solostar 100 UNIT/ML Subcutaneous Solution Pen-injector (Lantus SoloStar)Indications:T ype 2 diabetes mellitus with hemoglobin A1c goal of less than 8.0% ([facility]),Type 2 diabetes mellitus with microalbuminuria, without long-term current use of insulin ([facility]) Inject 30 Units under the skin every evening. DX e11.9 0 01/24/2024 Active Torsemide 20 MG Oral Tablet (Demadex)Indications:C hronic systolic heart failure (HCC),HTN, goal below 130/80,Ischemic cardiomyopathy,Biventr icular automatic implantable cardioverter defibrillator in situ Take 1 Tablet by mouth in the morning. 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 [place] 08/23/2017 History of coma 03/08/2017 Overview: 1976, [...] as of this encounter (statuses as of 01/25/2024) Resolved Problems Problem Noted Date Diagnosed Date [...] as of this encounter (statuses as of 01/25/2024) Immunizations Name Administration Dates Next Due COVID-19 mRNA, LNP-s, No Pre serve, 2-Dose Series (Moderna) 01/02/2021,12/12/2020 Hepatitis B, 20+ yrs 08/05/2016,03/11/2016,02/04 Pneumococcal Conjugate Vacci ne, 20-valent ([id number]) 05/11/2022 Pneumococcal Polysaccharide PPV23 (Pneumovax) 09/02/2016 Seasonal [...] Telephone Encounter - Megan Contreras RPh - 01/25/2024 3:25 PM EDT Hemoglobin AIC Results: Lab Results Component Value Date/Time HEMOGLOBIN A1C - [facility] 8.8 (H) 01/24/2024 08:28 AM HEMOGLOBIN A1C - [facility] 10.1 (H) 10/25/2023 08:26 AM A1c improvement noted. Will plan to follow up at next previously scheduled MTM appointment. Megan Contreras RPh, PharmD Clinical Pharmacist - Hemodialysis Patient Care Specialist Medication Therapy Disease Management [facility] 01/25/2024, 3:26 PM [phone] * Telephone Encounter - Lauren Benitez MD - 01/25/2024 3:22 PM EDT Spoke to pt's sister Normal BMP A1C is improving -- for now continue the current regimen -- will evaluate the need for change in med during MT visit next month documented in this encounter Plan of Treatment Upcoming Encounters Date Type Department Care Team (Late st Contact Info) Description 02/21/2024 8:30 AM EDT Office Visit Pharmacy, [address] [place] [address] [place] [address] 02/21/2024 9:00 AM EDT Cardiac Studies Cardiac Studies [address] [place] [address] 05/10/2024 9:00 AM EDT Cardiac Studies Cardiology, [facility] [address] [facility] [place] [address] [facility] [address] [facility] [place] [address] 06/12/2024 8:30 AM EDT Office Visit Cardiology, [facility] [address] [facility] [place] [address] Yulia Ramirez CRNP 132 [facility] [place] [address] 07/31/2024 7:40 AM EDT Office Visit Family Medicine [address] [place] [phone] Lauren Benitez MD [address] [place] [address] [place] [address] Health Maintenance Due Date Last Done Comments [...] 10/12/2021, Additional history exists HbA1c 07/25/2024 01/24/2024, /0 [...] Documents on File Type Date Recorded Patient Casket Coverer Expl anation Advance Directives and Living Will 05/20/2017 ADVANCE DIRECTIVE PE NNA ADVANCE HEALTH CARE DIRECTIVE Advance Directives and Living Will 05/20/2017 LIVING WILL LIVING W ILL DECLARATION Power of Process Control Technician 05/20/2017 POWER OF A TTORNEY DURABLE POWER OF SKATE SHOP ATTENDANT FOR HEALTH CARE Latest Code Status on [...] Advance Directives occurred with: Family Care Teams Boat Carpenter Mechanic Relationship Specialty Start Date End Date Lauren Benitez MD [address] [place] [address] [place] [address] PCP - General Family Medicine 05/26/23 documented as of this encounter
--- OUTSIDE RECORDS SUMMARY | 2024-05-10 08:28 | External Medical Summary | Summary of Care ---
Author Name Unknown Organization [facility] Address [address] [place] [address] Phone [phone] Care Team Providers Care Credit Assistant Name Role Phone Lauren Benitez MD Primary Care Provide r Reason for Visit * Reason Comments Dosage Adjustment In Person (Anticoag Cl inic) Diabetes Follow-Up Encounter Details Date Type Department Care Team (Late st Contact Info) Description 01/03/2024 8:30 AM EDT Office Visit Pharmacy, [address] [place] [address] [place] [address] Type 2 diabetes mellitus with hemoglobin A1c goal of less than 8.0% ([facility])* Allergies Active Allergy Reactions Criticality Noted Date Comments Codeine Edema face/lips/tongue High 01/31/2016 Propoxyphene 01/31/2016 Oxycodone-Acetaminophen Itching 01/31/2016 No rash or swelling documented as of this encounter (statuses as of 01/03/2024) Medications Medication Sig Dispensed Refills Start Date [...] TABS Take by mouth. 0 Activ e SteelCloudTouch Delica Lancets 33GIndications:Type 2 diabetes mellitus with hemoglobin A1c goal of less than 8.0% ([facility]) Use to test blood sugar four times a day dx e11.9 400 Each 3 05/07/2021 Active OneTouch Verio In Vitro Strip (Glucose Blood)Indications:Type 2 diabetes mellitus with hemoglobin A1c goal of less than 8.0% ([facility]) Use to test blood sugar four times a day dx e11.9 400 Strip 3 05/07/2021 Active OneTouch Verio Flex System w/Device KitIndications:Type 2 diabetes mellitus with hemoglobin A1c goal of less than 8.0% ([facility]) Use as directed . Ck FS daily [...] daily 90 Tablet 3 05/09/2023 Active Nystatin 464596 UNIT/GM External CreamIndications:[place] tophytosis of groin Apply topically to affected [...] goal of less than 8.0% ([facility]),Type 2 diabetes mellitus with microalbuminuria, without long-term current use of insulin ([facility]) Use to inject Lantus once daily 100 Each 1 09/05/2023 Active Torsemide 20 MG Oral Tablet (Demadex)Indications:C hronic systolic heart failure (HCC),HTN, goal below 130/80,Ischemic cardiomyopathy,Biventr icular automatic implantable cardioverter defibrillator in situ Take 1 tablet by mouth twice daily 180 Tablet 3 09/20/2023 Active Metoprolol Succinate ER 50 MG Oral [...] goal of less than 7.0% ([facility]),Type 2 diabetes mellitus with microalbuminuria, without long-term current use of insulin ([facility]) 4 tabs in am 360 Tablet 1 10/25/2023 Active Tamsulosin HCl 0.4 MG Oral Capsule (Flomax)Indications:No cturia Take 1 Capsule by mouth in the morning. 30 Capsule 2 10/25/2023 Active Insulin Glargine Solostar 100 UNIT/ML Subcutaneous Solution Pen-injector (Lantus SoloStar)Indications:T ype 2 diabetes mellitus with hemoglobin A1c goal of less than 8.0% ([facility]),Type 2 diabetes mellitus with microalbuminuria, without long-term current use of insulin ([facility]) Inject 33 Units under the skin every evening. DX e11.9 30 mL 2 11/22/2023 Active Atorvastatin Calcium 40 MG Oral Tablet (Lipitor)Indications:D yslipidemia, goal LDL below 70 Take 1 tablet by mouth once daily 90 Tablet 3 12/14/2023 Active Trulicity 4.5 MG/0.5ML Subcutaneous Solution Pen-injector (Dulaglutide)Indicatio ns:Type 2 diabetes mellitus with hemoglobin A1c goal of less than 8.0% ([facility]) Inject 4.5 mg under the skin once a week. 2 mL 5 12/24/2023 Active documented as of this encounter (statuses as of 01/03/2024) Active Problems Problem Noted Date Diagnosed Date Non-pressure chronic ulcer of left lower leg 06/2024 Major depressive disorder wi th single episode, in partial remission 05/26/2023 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 10/19/2022 Chronic left shoulder pain 10/19/2022 Unspecified sequelae of cerebral infarction 04/17 Age-related nuclear cataract, bilateral 03/03/20 22 Schizoaffective disorder, bipolar type 2 Chronic systolic heart failure 12/17/2021 DNR (do not resuscitate) 08/12/2019 Overview: 08/04 see palliative consult [facility] Chronic anticoagulation 08/01/2019 Left ventricular thrombus without [...] as of this encounter (statuses as of 01/03/2024) Resolved Problems Problem Noted Date Diagnosed Date [...] as of this encounter (statuses as of 01/03/2024) Immunizations Name Administration Dates Next Due COVID-19 mRNA, LNP-s, No Pre serve, 2-Dose Series (Moderna) 01/02/2021,12/12/2020 Hepatitis B, 20+ yrs 08/05/2016,03/11/2016,02/04 Pneumococcal Conjugate Vacci ne, 20-valent ([id number]) 05/11/2022 Pneumococcal Polysaccharide PPV23 (Pneumovax) 09/02/2016 Seasonal [...] this encounter Progress Notes * Megan Contreras, [facility] - 01/03/2024 8:20 AM EDT Medication Therapy Disease Management Clinic - Diabetes Management Progress Note Kit Regan, identified by name and date of , is a 63 year old male being seen for diabetes management/education. Patient presents for return diabetic visit. Patient presents with sisterBozena DIABETES: Current diabetic medications: Metformin ER 500 mg - 2 tablets BID DEC Lantus Pen - 33 units in the evening Trulicity 4.5 mg SQ once a week - SATURDAYS eGFR 71 as of 10/25/23 Medication Injection Site: Abdomen Lifestyle: Diet: Discussed below Glucose Review/SMBG: Readings obtained from patient device Pre am 208 156 180 91 130 80 63 99 135 122 76 118 148 71 84 129 126 102 92 86 Average [address] 112[address]5 Range 145 Hypoglycemia: Does your blood sugar go below 70 mg/dL? Yes, discussed below Hyperglycemia symptoms present: none Recent Labs Units 10/25/23 0826 06/22/23 0748 05/26/23 0848 HEMOGLOBIN A1C - [facility] % 10.1* 9.9* 9.6* Recent Labs Units 10/25/23 0826 08/23/23 1042 05/26/23 0848 ESTIMATED GLOMERULAR FILTRATION RATE - [facility] mL/min 71 73 77 CREATININE - [facility] mg/dL 1.2 1.1 1.1 HYPERTENSION: Patient on ACEi/ARB: no, not indicated BP Readings from Last 3 Encounters: 10/25/23 124/64 08/23/23 105/58 05/26/23 110/78 Blood pressure at goal: yes HYPERLIPIDEMIA: Patient is taking moderate or high intensity statin: yes HEALTH MAINTENANCE REVIEW: Health Maintenance Due Topic Date Due Depression Screening 11/25/2021 Colorectal Cancer Screening 01/06/2022 Diabetic Foot Exam 07/30/2022 B-12 01/06/2023 COVID-19 Vaccine () 06/17/2023 Diabetic Eye Exam 11/09/2023 ASSESSMENT & PLAN: ICD-10-CM 1. Type 2 diabetes mellitus with hemoglobin A1c goal of less than 8.0% ([facility]) E11.9 Considerations: HF Bozena, sister, helps manage medications Roman - declines, patient prefers fingerstick Declined SGLT2 (urinary incontinence) BG Readings - Blood sugars reviewed. Patient still experiencing some hypoglycemia in the AM. AM average at goal (115mg/dL). Patient declines CGM, refuses to test BG later in the day. Will plan to repeat A1c at upcoming PCP visit to assess improvement. Medications - Reviewed current regimen, patient is adherent to regimen. Tolerating well. Will plan to further decrease Lantus at this time d/t AM hypoglycemia. Patient declined Jardiance in the past,Mounjaro not covered. Discussed possible transition to Ozempic to utilize 2mg dose. Hesitancy with m ealtime insulin as patient refuses to test later in the day. Diet, Exercise, Lifestyle - No significant lifestyle changes since last visit. Explained the plate method in detail and discussed the importance of eating a balanced diet with CHO and protein. Discussed how CHO, proteins and fats effect her blood sugar. Patient is agreeable to SMBG 1 time(s) daily. Patient aware to contact clinic if any hypoglycemia before next visit. MEDICATION CHANGES: Yes, see below Diabetic Medications: Metformin ER 500 mg - 2 tablets BID DEC Lantus Pen - 30 units in the evening Trulicity 4.5 mg SQ once a week - SATUR[place] eGFR 71 as of 10/25/23 HEALTH MAINTENANCE INTERVENTIONS: Labs: Up to Date Immunizations: Covid Foot Exam: Complete with next PCP visit on 01/23 Eye Exam: Complete with next PCP visit on 01/23 Annual Wellness Visit: N/A FOLLOW UP: Return to clinic in 7 weeks 02/21/2024 Megan Contreras [facility] Clinical Pharmacist - Solar Maintenance Technician Medication Therapy Management Clinic 01/03/2024, 8:20 AM documented in this encounter Plan of Treatment Upcoming Encounters Date Type Department Care Team (Late st Contact Info) Description 01/24/2024 8:00 AM EDT Office Visit Family Medicine [address] [place] [phone] Lauren Benitez MD [address] [place] [address] [place] [address] 02/21/2024 8:30 AM EDT Office Visit Pharmacy, [address] [place] [address] [place] [address] 05/10/2024 9:00 AM EDT Cardiac Studies Cardiology, [facility] [address] [facility] [place] [address] [facility] [address] [place] [address] Health Maintenance Due Date Last Done Comments Cologuard 2006 Colonoscopy 2006 Sigmoidoscopy 2006 Depression Screening 11/25/2021 11/25/2020 Colorectal Cancer Screening 01/06/2022 Fecal Occult Blood Test 01/06/2022 01/07/20 21, 06/30/2018, 06/14/2016 Diabetic Foot Exam 07/30/2022 07/30/2021, 0 06/15/2018, 03/31/2017, Additional history exists B-12 01/06/2023 01/06/2022, 07/18, 01/23/2019, Additional history exists COVID-19 Vaccine () 06/17/2023 01/02/2021, 12/12/2020 Diabetic Eye Exam 11/09/2023 11/09/2022, , 01/26/2017 DIG LEVEL FOR MEDICATION MONITORING YEARLY 04/18/2024 04/18/2023, 04/21/2021, 01/13/2021, Additional history exists HbA1c 04/24/2024 10/25/2023, 09/0 03/2023, 05/26/2023, Additional history exists Albumin/Creatinine Ratio 05/30/2024 023, 02/08/2023, 10/12/2021, Additional history exists GFR 10/25/2024 10/25/2023, 11/0 04/2023, 05/26/2023, Additional history exists DTaP,Tdap,and Td Vaccines (2 [...] Documents on File Type Date Recorded Patient Case Liner Expl anation Advance Directives and Living Will 05/20/2017 ADVANCE DIRECTIVE PE NNA ADVANCE HEALTH CARE DIRECTIVE Advance Directives and Living Will 05/20/2017 LIVING WILL LIVING W ILL DECLARATION Power of Roping Tender 05/20/2017 POWER OF A TTORNEY DURABLE POWER OF PATCHER WOOD WELDER FOR HEALTH CARE Latest Code Status on [...] Advance Directives occurred with: Family Care Teams Credit Assistant Relationship Specialty Start Date End Date Lauren Benitez MD [address] [place] [address] [place] [address] PCP - General Family Medicine 05/26/23 documented as of this encounter
--- OUTSIDE RECORDS SUMMARY | 2024-05-10 08:28 | External Medical Summary | Summary of Care ---
Author Name Unknown Organization [facility] Address [address] [place] [address] Phone [phone] Care Team Providers Care Bevel Mill Operator Name Role Phone Lauren Benitez MD Primary Care Provide r Reason for Visit * Reason Onset Date Comments Test Results 01/25/2024 Encounter Details Date Type Department Care Team (Late st Contact Info) Description 01/25/[address] [phone] Lauren Benitez MD [address] [place] [address] [place] [address] Test Results Allergies Active Allergy Reactions Criticality [...] A1c goal of less than 8.0% ([facility]) Use to test blood sugar four times a day dx e11.9 400 Each 3 05/07/2021 Active OneTouch Verio In Vitro Strip (Glucose Blood)Indications:Type 2 diabetes mellitus with hemoglobin A1c goal of less than 8.0% ([facility]) Use to test blood sugar four times a day dx e11.9 400 Strip 3 05/07/2021 Active OneTouch Verio Flex System w/Device KitIndications:Type 2 diabetes mellitus with hemoglobin A1c goal of less than 8.0% ([facility]) Use as directed . Ck FS daily E 11.9 1 Kit 0 08/05/2022 Active traZODone HCl 50 MG Oral Tablet (Desyrel) Take 1 Tablet by mouth at bedtime. 30 Tablet 5 02/08/2023 Active Digoxin 125 MCG Oral Tablet (Lanoxin)Indications:H eart failure, systolic and diastolic, acute on chronic ([facility]),HTN, goal below 140/90 Take 1 tablet by mouth once daily 90 Tablet 3 05/09/2023 Active Nystatin 016328 UNIT/GM External CreamIndications:[place] tophytosis of groin Apply topically to affected [...] A1c goal of less than 8.0% ([facility]),Type 2 diabetes mellitus with microalbuminuria, without long-term current use of insulin ([facility]) Use to inject Lantus once daily 100 [...] A1c goal of less than 7.0% ([facility]),Type 2 diabetes mellitus with microalbuminuria, without long-term current use of insulin ([facility]) 4 tabs in am 360 Tablet 1 [...] A1c goal of less than 8.0% ([facility]) Inject 4.5 mg under the skin once a week. 2 mL 5 12/24/2023 Active Insulin Glargine Solostar 100 UNIT/ML Subcutaneous Solution Pen-injector (Lantus SoloStar)Indications:T ype 2 diabetes mellitus with hemoglobin A1c goal of less than 8.0% ([facility]),Type 2 diabetes mellitus with microalbuminuria, without long-term current use of insulin ([facility]) Inject 30 Units under the skin every [...] resuscitate) 08/12/2019 Overview: 08/04 see palliative consult [facility] Chronic anticoagulation 08/01/2019 Left ventricular thrombus without [place] 08/23/2017 History of coma 03/08/2017 Overview: 1976, [...] yrs 08/05/2016,03/11/2016,02/04 Pneumococcal Conjugate Vacci ne, 20-valent ([id number]) 05/11/2022 Pneumococcal Polysaccharide PPV23 (Pneumovax) 09/02/2016 Seasonal [...] Megan Contreras RPh, PharmD Clinical Pharmacist - Tubular Products Fabricator Medication Therapy Disease Management Clinic 01/25/2024, 3:26 PM [phone] * Telephone Encounter - Lauren Benitez MD [...] 02/21/2024 8:30 AM EDT Office Visit Pharmacy, [address] [place] [address] [place] [address] 02/21/2024 9:00 AM EDT Cardiac Studies Cardiac Studies [address] [place] [address] 05/10/2024 9:00 AM EDT Cardiac Studies Cardiology, [facility] [address] [facility] [place] [address] [facility] [address] [facility] [address] [facility] [place] [address] 06/12/2024 8:30 AM EDT Office Visit Cardiology, [facility] [address] [facility] [place] [address] Yulia Ramirez CRNP 132 [facility] [place] [address] 07/31/2024 7:40 AM EDT Office Visit Family Medicine [address] [place] [phone] Lauren Benitez MD [address] [place] [address] [place] [address] Health Maintenance Due Date Last Done Comments [...] on File Type Date Recorded Patient Senior Vice President Expl anation Advance Directives and Living Will 05/20/2017 ADVANCE DIRECTIVE PE NNA ADVANCE HEALTH CARE DIRECTIVE Advance Directives and Living Will 05/20/2017 LIVING WILL LIVING W ILL DECLARATION Power of Treatment Technician 05/20/2017 POWER OF A TTORNEY DURABLE POWER OF MANAGEMENT TECH FOR HEALTH CARE Latest Code Status on [...] Advance Directives occurred with: Family Care Teams Bevel Mill Operator Relationship Specialty Start Date End Date Lauren Benitez MD [address] [place] [address] [place] [address] PCP - General Family Medicine 05/26/23 documented as of this encounter
--- OUTSIDE RECORDS SUMMARY | 2024-05-10 08:28 | External Medical Summary ---
Author Name Unknown Address Unknown Organization K01:[facility] [place] - [address] [place] [address] Laboratory Report Ordering Provider Test Date Status JASMIN NICHOLSON 01/24/2024 08:28:08 Melissa l Observation Date Value Abnormality Reference (Units ) Status Vitamin B12 01/24/2024 08:28:08 [phone] (pg/mL) Final Performing Location [facility] [place] - [address] [place] [address]
--- OUTSIDE RECORDS SUMMARY | 2024-05-10 08:28 | External Medical Summary | Summary of Care ---
Author Name Unknown Organization [facility] Address [address] [place] [address] Phone [phone] Care Team Providers Care Complex Human Resources Manager Name Role Phone Lauren Benitez MD Primary Care Provide r Reason for Visit * Reason Comments Outpatient Testing Encounter Details Date Type Department Care Team (Late st Contact Info) Description 01/24/2024 8:30 AM EDT Laboratory Laboratory [address] [place] [phone] [place] [address] Arrived Allergies Active Allergy Reactions Criticality Noted Date Comments Codeine Edema face/lips/tongue High 01/31/2016 Propoxyphene 01/31/2016 Oxycodone-Acetaminophen Itching 01/31/2016 No rash or swelling documented as of this encounter (statuses as of 01/24/2024) Medications Medication Sig Dispensed Refills Start Date [...] A1c goal of less than 8.0% ([facility]) Use to test blood sugar four times a day dx e11.9 400 Strip 3 05/07/2021 Active OneTouch Verio Flex System w/Device KitIndications:Type 2 diabetes mellitus with hemoglobin A1c goal of less than 8.0% ([facility]) Use as directed . Ck FS daily E 11.9 1 Kit 0 08/05/2022 Active traZODone HCl 50 MG Oral Tablet (Desyrel) Take 1 Tablet by mouth at bedtime. 30 Tablet 5 02/08/2023 Active Digoxin 125 MCG Oral Tablet (Lanoxin)Indications:H eart failure, systolic and diastolic, acute on chronic ([facility]),HTN, goal below 140/90 Take 1 tablet by mouth once daily 90 Tablet 3 05/09/2023 Active Nystatin 249093 UNIT/GM External CreamIndications:[place] tophytosis of groin Apply topically to affected [...] A1c goal of less than 8.0% ([facility]),Type 2 diabetes mellitus with microalbuminuria, without long-term current use of insulin ([facility]) Use to inject Lantus once daily [...] hemoglobin A1c goal of less than 7.0% ([facility]),Type 2 diabetes mellitus with microalbuminuria, without long-term current use of insulin ([facility]) 4 tabs in am 360 Tablet [...] A1c goal of less than 8.0% ([facility]) Inject 4.5 mg under the skin once a week. 2 mL 5 12/24/2023 Active Insulin Glargine Solostar 100 UNIT/ML Subcutaneous Solution Pen-injector (Lantus SoloStar)Indications:T ype 2 diabetes mellitus with hemoglobin A1c goal of less than 8.0% ([facility]),Type 2 diabetes mellitus with microalbuminuria, without long-term current use of insulin ([facility]) Inject 30 Units under the skin every evening. DX e11.9 0 01/24/2024 Active Torsemide 20 MG Oral Tablet (Demadex)Indications:C hronic systolic heart failure (HCC),HTN, goal below 130/80,Ischemic cardiomyopathy,Biventr icular automatic implantable cardioverter defibrillator in situ Take 1 Tablet by mouth in the morning. 0 01/24/2024 Active documented as of this encounter (statuses as of 01/24/2024) Active Problems Problem Noted Date Diagnosed Date [...] resuscitate) 08/12/2019 Overview: 08/04 see palliative consult [facility] [place] 08/01/2019 Left ventricular [...] as of this encounter (statuses as of 01/24/2024) Resolved Problems Problem Noted Date Diagnosed Date [...] as of this encounter (statuses as of 01/24/2024) Immunizations Name Administration Dates Next Due COVID-19 mRNA, LNP-s, No Pre serve, 2-Dose Series (Moderna) 01/02/2021,12/12/2020 Hepatitis B, 20+ yrs 08/05/2016,03/11/2016,02/04 Pneumococcal Conjugate Vacci ne, 20-valent ([id number]) 05/11/2022 Pneumococcal Polysaccharide PPV23 (Pneumovax) 09/02/2016 Seasonal [...] 02/21/2024 8:30 AM EDT Office Visit Pharmacy, [address] [place] [address] [place] [address] 02/21/2024 9:00 AM EDT Cardiac Studies Cardiac Studies [address] [place] [address] 05/10/2024 9:00 AM EDT Cardiac Studies Cardiology, [address] [place] [address] Gonzalo Levi [address] [place] [address] 06/12/2024 8:30 AM EDT Office Visit Cardiology, [facility] [place] [address] Yulia Ramirez CRNP [address] [place] [address] 07/31/2024 7:40 AM EDT Office Visit Family Medicine [address] [place] [phone] Lauren Benitez MD [address] [place] [address] [place] [address] Health Maintenance Due Date Last Done Comments Cologuard 2006 Colonoscopy 2006 Sigmoidoscopy 2006 Colorectal Cancer Screening 01/06/2022 Fecal Occult Blood Test 01/06/2022 01/07/20 21, 06/30/2018, 06/14/2016 Diabetic Foot Exam 07/30/2022 07/30/2021, 0 06/15/2018, 03/31/2017, Additional history exists B-12 01/06/2023 01/06/2022, 07/18, 01/23/2019, Additional history exists COVID-19 Vaccine ( season) [...] 02/04/2026 02/05/2016, 10/13/2015 Hepatitis B Completed 08/05/2016, 0503/2016, 02/05/2016 Zoster Vaccines Completed 07/15/2020, 06/15/2018 Pneumococcal [...] Documents on File Type Date Recorded 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 Advance Directives and Living Will 05/20/2017 ADVANCE DIRECTIVE PE NNA ADVANCE HEALTH CARE DIRECTIVE Advance Directives and Living Will 05/20/2017 LIVING WILL LIVING W ILL DECLARATION Power of Signing Teacher 05/20/2017 POWER OF A TTORNEY DURABLE POWER OF CASTING AND LOCKER ROOM SERVICER FOR HEALTH CARE Latest Code Status on [...] Advance Directives occurred with: Family Care Teams Complex Human Resources Manager Relationship Specialty Start Date End Date Lauren Benitez MD [address] [place] [address] [place] [address] PCP - General Family Medicine 05/26/23 documented as of this encounter
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
--- OUTSIDE RECORDS SUMMARY | 2024-05-10 08:28 | External Medical Summary | Summary of Care ---
Author Name Unknown Organization [facility] Address [address] [place] [address] Phone [phone] Care Team Providers Care Core Analyst Name Role Phone Lauren Benitez MD Primary Care Provide r Reason for Visit * Reason Comments Outpatient Testing Encounter Details Date Type Department Care Team (Late st Contact Info) Description 12/27/2023 7:50 AM EDT Laboratory Laboratory [address] [place] [phone] [place] [address] Encounter for long-term (current) use of other medications Allergies Active Allergy Reactions Criticality Noted Date Comments Codeine Edema face/lips/tongue High 01/31/2016 Propoxyphene 01/31/2016 Oxycodone-Acetaminophen Itching 01/31/2016 No rash or swelling documented as of this encounter (statuses as of 12/27/2023) Medications Medication Sig Dispensed Refills Start Date [...] A1c goal of less than 8.0% ([facility]) Use to test blood sugar four times a day dx e11.9 400 Each 3 05/07/2021 Active OneTouch Verio In Vitro Strip (Glucose Blood)Indications:Type 2 diabetes mellitus with hemoglobin A1c goal of less than 8.0% ([facility]) Use to test blood sugar four times a day dx e11.9 400 Strip 3 05/07/2021 Active OneTouch Verio Flex System w/Device KitIndications:Type 2 diabetes mellitus with hemoglobin A1c goal of less than 8.0% ([facility]) Use as directed . Ck FS daily E 11.9 1 Kit 0 08/05/2022 Active traZODone HCl 50 MG Oral Tablet (Desyrel) Take 1 Tablet by mouth at bedtime. 30 Tablet 5 02/08/2023 Active Digoxin 125 MCG Oral Tablet (Lanoxin)Indications:H eart failure, systolic and diastolic, acute on chronic ([facility]),HTN, goal below 140/90 Take 1 tablet by mouth once daily 90 Tablet 3 05/09/2023 Active Nystatin 306436 UNIT/GM External CreamIndications:[place] tophytosis of groin Apply topically to affected [...] A1c goal of less than 8.0% ([facility]),Type 2 diabetes mellitus with microalbuminuria, without long-term current use of insulin ([facility]) Use to inject Lantus [...] A1c goal of less than 7.0% ([facility]),Type 2 diabetes mellitus with microalbuminuria, without long-term current use of insulin ([facility]) 4 tabs in am 360 Tablet 1 10/25/2023 Active Tamsulosin HCl 0.4 MG Oral Capsule (Flomax)Indications:No cturia Take 1 Capsule by mouth in the morning. 30 Capsule 2 10/25/2023 Active Insulin Glargine Solostar 100 UNIT/ML Subcutaneous Solution Pen-injector (Lantus SoloStar)Indications:T ype 2 diabetes mellitus with hemoglobin A1c goal of less than 8.0% ([facility]),Type 2 diabetes mellitus with microalbuminuria, without long-term current use of insulin ([facility]) Inject 33 Units under the skin every evening. DX e11.9 30 mL 2 11/22/2023 Active Atorvastatin Calcium 40 MG Oral Tablet (Lipitor)Indications:D yslipidemia, goal LDL below 70 Take 1 tablet by mouth once daily 90 Tablet 3 12/14/2023 Active Trulicity 4.5 MG/0.5ML Subcutaneous Solution Pen-injector (Dulaglutide)Indicatio ns:Type 2 diabetes mellitus with hemoglobin A1c goal of less than 8.0% ([facility]) Inject 4.5 mg under the skin once a week. 2 mL 5 12/24/2023 Active documented as of this encounter (statuses as of 12/27/2023) Active Problems Problem Noted Date Diagnosed Date [...] Chronic anticoagulation 08/01/2019 Left ventricular thrombus without [place] 08/23/2017 History of coma 03/08/2017 Overview: 1976, [...] as of this encounter (statuses as of 12/27/2023) Resolved Problems Problem Noted Date Diagnosed Date [...] as of this encounter (statuses as of 12/27/2023) Immunizations Name Administration Dates Next Due COVID-19 mRNA, LNP-s, No Pre serve, 2-Dose Series (Moderna) 01/02/2021,12/12/2020 Hepatitis B, 20+ yrs 08/05/2016,03/11/2016,02/04 Pneumococcal Conjugate Vacci ne, 20-valent ([id number]) 05/11/2022 Pneumococcal Polysaccharide PPV23 (Pneumovax) 09/02/2016 Seasonal [...] 01/03/2024 8:30 AM EDT Office Visit Pharmacy, [address] [place] [address] [place] [address] 01/24/2024 8:00 AM EDT Office Visit Family Medicine [address] [place] [phone] Lauren Benitez MD [address] [place] [address] [place] [address] 05/10/2024 9:00 AM EDT Cardiac Studies Cardiology, [facility] [address] [facility] [place] [address] Gonzalo Levi [address] [place] [address] Pending Results Name Type Priority Associated Diagnoses Date /Time LIPID PANEL WITH DIRECT LDL IF TG IS HIGH Lab Routine Encounter for long-term (current) use of other medications 12/27/2023 7:56 AM EDT Health Maintenance Due Date Last Done Comments [...] as of this encounter Visit Diagnoses Diagnosis Encounter for long-term (current) use of other medications documented in this encounter Advance Directives Documents on File Type Date Recorded 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
--- OUTSIDE RECORDS SUMMARY | 2024-05-10 08:28 | External Medical Summary ---
Author Name Unknown Address Unknown Organization K01:[facility] [place] - [address] [facility] [address] Laboratory Report Ordering Provider Test Date Status LILARYANNICOLE OCONNORJUANA 01/24/2024 08:28:08 Melissa brennan Observation Date Value Abnormality Reference (Units ) Status HbA1C 01/24/2024 08:28:08 8.8 Above high normal 4. 0-5.6 (%) Final The use of HbA1c to monitor glycemic status is based on normal hemoglobin and HbA composition. This test should not be used in patients with abnormal hemoglobin that affects the half life of the red blood cell or the in vivo glycation rates. Glucose, estimated average 01/24/2024 08:28:08 206 Above high normal <126 (mg/dL) Tesfaye bazzi Performing Location [facility] [place] [facility] [address] [facility] [address]
--- OUTSIDE RECORDS SUMMARY | 2024-05-10 08:29 | External Medical Summary | Summary of Care ---
Author Name Unknown Organization [facility] Address [address] [place] [address] Phone [phone] Care Team Providers Care Scrub Tech Name Role Phone Lauren Benitez MD Primary Care Provide r Reason for Visit * Reason Comments Outpatient Testing Encounter Details Date Type Department Care Team (Late st Contact Info) Description 12/27/2023 7:50 AM EDT Laboratory Laboratory [address] [place] [phone] [place] [address] Encounter for long-term (current) use of other [...] goal of less than 8.0% ([facility]) Use to test blood sugar four times a day dx e11.9 400 Each 3 05/07/2021 Active OneTouch Verio In Vitro Strip (Glucose Blood)Indications:Type 2 diabetes mellitus with hemoglobin A1c goal of less than 8.0% ([facility]) Use to test blood sugar four times a day dx e11.9 400 Strip 3 05/07/2021 Active OneTouch Verio Flex System w/Device KitIndications:Type 2 diabetes mellitus with hemoglobin A1c goal of less than 8.0% ([facility]) Use as directed . Ck FS daily E 11.9 1 Kit 0 08/05/2022 Active traZODone HCl 50 MG Oral Tablet (Desyrel) Take 1 Tablet by mouth at bedtime. 30 Tablet 5 02/08/2023 Active Digoxin 125 MCG Oral Tablet (Lanoxin)Indications:H eart failure, systolic and diastolic, acute on chronic ([facility]),HTN, goal below 140/90 Take 1 tablet by mouth once daily 90 Tablet 3 05/09/2023 Active Nystatin 869522 UNIT/GM External CreamIndications:[place] tophytosis of groin Apply topically to affected [...] goal of less than 8.0% ([facility]),Type 2 diabetes mellitus with microalbuminuria, without long-term current use of insulin ([facility]) Use to inject Lantus once [...] goal of less than 7.0% ([facility]),Type 2 diabetes mellitus with microalbuminuria, without long-term current use of insulin ([facility]) 4 tabs in am 360 Tablet 1 10/25/2023 Active Tamsulosin HCl 0.4 MG Oral Capsule (Flomax)Indications:No cturia Take 1 Capsule by mouth in the morning. 30 Capsule 2 10/25/2023 Active Insulin Glargine Solostar 100 UNIT/ML Subcutaneous Solution Pen-injector (Lantus SoloStar)Indications:T ype 2 diabetes mellitus with hemoglobin A1c goal of less than 8.0% ([facility]),Type 2 diabetes mellitus with microalbuminuria, without long-term current use of insulin ([facility]) Inject 33 Units under the skin every evening. DX e11.9 30 mL 2 11/22/2023 Active Atorvastatin Calcium 40 MG Oral Tablet (Lipitor)Indications:D yslipidemia, goal LDL below 70 Take 1 tablet by mouth once daily 90 Tablet 3 12/14/2023 Active Trulicity 4.5 MG/0.5ML Subcutaneous Solution Pen-injector (Dulaglutide)Indicatio ns:Type 2 diabetes mellitus with hemoglobin A1c goal of less than 8.0% ([facility]) Inject 4.5 mg under the [...] Chronic anticoagulation 08/01/2019 Left ventricular thrombus without [place] 08/23/2017 History of coma 03/08/2017 Overview: 1976, [...] yrs 08/05/2016,03/11/2016,02/04 Pneumococcal Conjugate Vacci ne, 20-valent ([id number]) 05/11/2022 Pneumococcal Polysaccharide PPV23 (Pneumovax) 09/02/2016 Seasonal [...] 01/03/2024 8:30 AM EDT Office Visit Pharmacy, [address] [place] [address] [place] [address] 01/24/2024 8:00 AM EDT Office Visit Family Medicine [address] [place] [phone] Lauren Benitez MD [address] [place] [address] [place] [address] 05/10/2024 9:00 AM EDT Cardiac Studies Cardiology, [facility] [address] [facility] [place] [address] Gonzalo Levi [address] [place] [address] Pending Results Name Type Priority Associated Diagnoses [...] Documents on File Type Date Recorded Patient Pastry Assistant Expl anation Advance Directives and Living Will 05/20/2017 ADVANCE DIRECTIVE PE NNA ADVANCE HEALTH CARE DIRECTIVE Advance Directives and Living Will 05/20/2017 LIVING WILL LIVING W ILL DECLARATION Power of Hydrate Control Tender 05/20/2017 POWER OF A TTORNEY DURABLE POWER OF FISHER CRAB FOR HEALTH CARE Latest Code Status on [...] Advance Directives occurred with: Family Care Teams Scrub Tech Relationship Specialty Start Date End Date Lauren Benitez MD [address] [place] [address] [place] [phone] PCP - General Family Medicine 05/26/23 documented as of this encounter
--- OUTSIDE RECORDS SUMMARY | 2024-05-10 08:29 | External Medical Summary ---
Author Name Unknown Address Unknown Organization K01:[facility] [address] [facility] [id number] Laboratory Report Ordering Provider Test Date Status KAYLYNN CASTANON 12/27/2023 07:56:59 Final Observation Date Value Abnormality Reference (Units ) Status Triglyceride 12/27/2023 07:56:59 79 <=174 ( mg/dL) Final Triglyceride Reference Range s (mg/dL):
<150 Acceptable
150-174 Borderline high
175-499 High
>=500 Very high Cholesterol 12/27/2023 07:56:59 93 <200 (mg /dL) Final Total Cholesterol Reference Ranges (mg/dL):
<200 Desirable
200-239 Borderline high
>=240 High HDL 12/27/2023 07:56:59 37 Below low normal >39 (mg/dL) Final HDL Cholesterol Reference Ra nges (mg/dL):
>=60 High (Desirable)
<50 Low (Undesirable) For Females
<40 Low (Undesirable) For Males NON-HDL CHOLESTEROL 12/27/2023 07:56:59 56 <=159 (mg/dL) Final Non-HDL Cholesterol Referenc e Range (mg/dL):
<100 Target level for high risk ASCVD patient
<130 Optimal for general population
130-159 Near optimal for general population
160-189 Borderline High
190-219 High
>=220 Very High LDL, (calculated) 12/27/2023 07:56:59 40 <= 129 (mg/dL) Final LDL Cholesterol Reference Ra nges (mg/dL):
<70 Target level for high risk ASCVD patient
<100 Optimal for general population
100-129 Near optimal for general population
130-159 Borderline high
160-189 High
>=190 Very high Performing Location LABORATORY [facility] - [address] [facility] [address]
--- OUTSIDE RECORDS SUMMARY | 2024-05-10 08:29 | External Medical Summary | Summary of Care ---
Author Name Unknown Organization [facility] Address [address] [place] [address] Phone [phone] Care Team Providers Care Superintendent Operating Name Role Phone Lauren Benitez MD Primary Care Provide r Encounter Details Date Type Department Care Team (Late st Contact Info) Description 12/15/2023 Result Scan Unspecified Department Lupe Gordillo Molly, DO [address] [place], [place] [id number] <No scans attached> Allergies Active Allergy Reactions Criticality Noted Date Comments Codeine Edema face/lips/tongue High 01/31/2016 Propoxyphene 01/31/2016 Oxycodone-Acetaminophen Itching 01/31/2016 No rash or swelling documented as of this encounter (statuses as of 12/15/2023) Medications Medication Sig Dispensed Refills Start Date [...] dx e11.9 400 Each 3 05/07/2021 Active [employer] Verio In Vitro Strip (Glucose Blood)Indications:Type 2 diabetes mellitus with hemoglobin A1c goal of less than 8.0% ([facility]) Use to test blood sugar four times a day dx e11.9 400 Strip 3 05/07/2021 Active EarnestTouch Verio Flex System w/Device KitIndications:Type 2 diabetes mellitus with hemoglobin A1c goal of less than 8.0% ([facility]) Use as directed . Ck FS daily E 11.9 1 Kit 0 08/05/2022 Active traZODone HCl 50 MG Oral Tablet (Desyrel) Take 1 Tablet by mouth at bedtime. 30 Tablet 5 02/08/2023 Active Digoxin 125 MCG Oral Tablet (Lanoxin)Indications:H eart failure, systolic and diastolic, acute on chronic (HCC),HTN, goal below 140/90 Take 1 tablet by mouth once daily 90 Tablet 3 05/09/2023 Active Trulicity 4.5 MG/0.5ML Subcutaneous Solution Pen-injector (Dulaglutide)Indicatio ns:Type 2 diabetes mellitus with hemoglobin A1c goal of less than 8.0% ([facility]) Inject 4.5 mg under the skin once a week. 2 mL 5 06/27/2023 Active Nystatin 464798 UNIT/GM External CreamIndications:[place] tophytosis of groin Apply topically to affected [...] A1c goal of less than 8.0% ([facility]),Type 2 diabetes mellitus with microalbuminuria, without long-term current use of insulin ([facility]) Use to inject Lantus once daily 100 [...] A1c goal of less than 7.0% ([facility]),Type 2 diabetes mellitus with microalbuminuria, without long-term current use of insulin ([facility]) 4 tabs in am 360 Tablet 1 10/25/2023 Active Tamsulosin HCl 0.4 MG Oral Capsule (Flomax)Indications:No cturia Take 1 Capsule by mouth in the morning. 30 Capsule 2 10/25/2023 Active Insulin Glargine Solostar 100 UNIT/ML Subcutaneous Solution Pen-injector (Lantus SoloStar)Indications:T ype 2 diabetes mellitus with hemoglobin A1c goal of less than 8.0% ([facility]),Type 2 diabetes mellitus with microalbuminuria, without long-term current use of insulin ([facility]) Inject 33 Units under the skin every evening. DX e11.9 30 mL 2 11/22/2023 Active Atorvastatin Calcium 40 MG Oral Tablet (Lipitor)Indications:D yslipidemia, goal LDL below 70 Take 1 tablet by mouth once daily 90 Tablet 3 12/14/2023 Active documented as of this encounter (statuses as of 12/15/2023) Active Problems Problem Noted Date Diagnosed Date [...] as of this encounter (statuses as of 12/15/2023) Resolved Problems Problem Noted Date Diagnosed Date [...] as of this encounter (statuses as of 12/15/2023) Immunizations Name Administration Dates Next Due COVID-19 mRNA, LNP-s, No Pre serve, 2-Dose Series (Moderna) 01/02/2021,12/12/2020 Hepatitis B, 20+ yrs 08/05/2016,03/11/2016,02/04 Pneumococcal Conjugate Vacci ne, 20-valent ([id number]) 05/11/2022 Pneumococcal Polysaccharide PPV23 (Pneumovax) 09/02/2016 Seasonal [...] 01/03/2024 8:30 AM EDT Office Visit Pharmacy, [address] [place] [address] [place] [address] 01/24/2024 8:00 AM EDT Office Visit Family Medicine [address] [place] [phone] Lauren Benitez MD [address] [place] [address] [place] [address] 05/10/2024 9:00 AM EDT Cardiac Studies Cardiology, [facility] [address] [facility] [place] [address] [facility] [address] [place] [address] Health Maintenance Due Date Last Done Comments [...] Date/Time Associated Diagnosis Comments CARDIOLOGY SCANNED RESULT 12/15/2023 documented in this encounter Results * CARDIOLOGY SCANNED RESULT (12/15/2023) 12/15/2023 Lupe Gordillo DO OTHER documented in this encounter Advance Directives Documents on File Type Date Recorded Patient Product Marketing Analyst Expl anation Advance Directives and Living Will 05/20/2017 ADVANCE DIRECTIVE PE NNA ADVANCE HEALTH CARE DIRECTIVE Advance Directives and Living Will 05/20/2017 LIVING WILL LIVING W ILL DECLARATION Power of Social Director 05/20/2017 POWER OF A TTORNEY DURABLE POWER OF PRODUCTION PATTERN MAKER FOR HEALTH CARE Latest Code Status on [...] Advance Directives occurred with: Family Care Teams Superintendent Operating Relationship Specialty Start Date End Date Lauren Benitez MD [address] [place] [address] [place] [phone] PCP - General Family Medicine 05/26/23 documented as of this encounter
--- OUTSIDE RECORDS SUMMARY | 2024-05-10 08:29 | External Medical Summary | Summary of Care ---
Author Name Unknown Organization [facility] Address [address] [place] [address] Phone [phone] Care Team Providers Care Sack Keeper Name Role Phone Lauren Benitez MD Primary Care Provide r Reason for Visit * Reason Comments Outpatient Testing Encounter Details Date Type Department Care Team (Late st Contact Info) Description 12/27/2023 7:50 AM EDT Laboratory Laboratory [address] [place] [phone] [place] [address] Encounter for long-term (current) use of other [...] goal of less than 8.0% ([facility]) Use to test blood sugar four times a day dx e11.9 400 Each 3 05/07/2021 Active OneTouch Verio In Vitro Strip (Glucose Blood)Indications:Type 2 diabetes mellitus with hemoglobin A1c goal of less than 8.0% ([facility]) Use to test blood sugar four times a day dx e11.9 400 Strip 3 05/07/2021 Active OneTouch Verio Flex System w/Device KitIndications:Type 2 diabetes mellitus with hemoglobin A1c goal of less than 8.0% ([facility]) Use as directed . Ck FS daily E 11.9 1 Kit 0 08/05/2022 Active traZODone HCl 50 MG Oral Tablet (Desyrel) Take 1 Tablet by mouth at bedtime. 30 Tablet 5 02/08/2023 Active Digoxin 125 MCG Oral Tablet (Lanoxin)Indications:H eart failure, systolic and diastolic, acute on chronic ([facility]),HTN, goal below 140/90 Take 1 tablet by mouth once daily 90 Tablet 3 05/09/2023 Active Nystatin 590599 UNIT/GM External CreamIndications:[place] tophytosis of groin Apply topically to affected [...] goal of less than 8.0% ([facility]),Type 2 diabetes mellitus with microalbuminuria, without long-term current use of insulin ([facility]) Use to inject Lantus once [...] goal of less than 7.0% ([facility]),Type 2 diabetes mellitus with microalbuminuria, without long-term current use of insulin ([facility]) 4 tabs in am 360 Tablet 1 10/25/2023 Active Tamsulosin HCl 0.4 MG Oral Capsule (Flomax)Indications:No cturia Take 1 Capsule by mouth in the morning. 30 Capsule 2 10/25/2023 Active Insulin Glargine Solostar 100 UNIT/ML Subcutaneous Solution Pen-injector (Lantus SoloStar)Indications:T ype 2 diabetes mellitus with hemoglobin A1c goal of less than 8.0% ([facility]),Type 2 diabetes mellitus with microalbuminuria, without long-term current use of insulin ([facility]) Inject 33 Units under the skin every evening. DX e11.9 30 mL 2 11/22/2023 Active Atorvastatin Calcium 40 MG Oral Tablet (Lipitor)Indications:D yslipidemia, goal LDL below 70 Take 1 tablet by mouth once daily 90 Tablet 3 12/14/2023 Active Trulicity 4.5 MG/0.5ML Subcutaneous Solution Pen-injector (Dulaglutide)Indicatio ns:Type 2 diabetes mellitus with hemoglobin A1c goal of less than 8.0% ([facility]) Inject 4.5 mg under the [...] resuscitate) 08/12/2019 Overview: 08/04 see palliative consult [facility] Chronic anticoagulation 08/01/2019 Left ventricular thrombus without [...] yrs 08/05/2016,03/11/2016,02/04 Pneumococcal Conjugate Vacci ne, 20-valent ([id number]) 05/11/2022 Pneumococcal Polysaccharide PPV23 (Pneumovax) 09/02/2016 Seasonal [...] 01/03/2024 8:30 AM EDT Office Visit Pharmacy, [address] [place] [address] [place] [address] 01/24/2024 8:00 AM EDT Office Visit Family Medicine [address] [place] [phone] Lauren Benitez MD [address] [place] [address] [place] [address] 05/10/2024 9:00 AM EDT Cardiac Studies Cardiology, [facility] [address] [facility] [place] [address] Gonzalo Levi [address] [place] [address] Pending Results Name Type Priority Associated Diagnoses [...] Documents on File Type Date Recorded Patient In Tube Conversion Technician Expl anation Advance Directives and Living Will 05/20/2017 ADVANCE DIRECTIVE PE NNA ADVANCE HEALTH CARE DIRECTIVE Advance Directives and Living Will 05/20/2017 LIVING WILL LIVING W ILL DECLARATION Power of Laboratory Inspector 05/20/2017 POWER OF A TTORNEY DURABLE POWER OF ASSISTANT PROFESSOR OF RELIGION FOR HEALTH CARE Latest Code Status on [...] Advance Directives occurred with: Family Care Teams Sack Keeper Relationship Specialty Start Date End Date Lauren Benitez MD [address] [place] [address] [place] [address] PCP - General Family Medicine 05/26/23 documented as of this encounter
--- OUTSIDE RECORDS SUMMARY | 2024-05-10 08:29 | External Medical Summary | Summary of Care ---
Author Name Unknown Organization [facility] Address [address] [place] [address] Phone [phone] Care Team Providers Care Organizational Development Specialist Name Role Phone Lauren Benitez MD Primary Care Provide r Reason for Visit * Reason Comments eRx-Medication Refill Encounter Details Date Type Department Care Team (Late st Contact Info) Description 12/23/2023 Refill Family Medicine [address] [place] [phone] Lauren Benitez MD [address] [place] [address] [place] [address] Type 2 diabetes mellitus with hemoglobin A1c goal of less than 8.0% ([facility]) Allergies Active Allergy Reactions Criticality Noted Date Comments Codeine Edema face/lips/tongue High 01/31/2016 Propoxyphene 01/31/2016 Oxycodone-Acetaminophen Itching 01/31/2016 No rash or swelling documented as of this encounter (statuses as of 12/24/2023) Medications Medication Sig Dispensed Refills Start Date [...] FS daily E 11.9 1 Kit 0 2 Active traZODone HCl 50 MG Oral Tablet (Desyrel) Take 1 Tablet by mouth at bedtime. 30 Tablet 5 3 Active Digoxin 125 MCG Oral Tablet (Lanoxin)Indications :Heart failure, systolic and diastolic, acute on chronic (HCC),HTN, goal below 140/90 Take 1 tablet by mouth once daily 90 Tablet 3 3 Active Nystatin 260668 UNIT/GM External CreamIndications:Brennan matophytosis of groin Apply topically to affected area 2 times a day. To affacted area for two weeks. 30 g 2 3 Active Spironolactone 25 MG Oral Tablet (Aldactone)Indicatio ns:Heart failure, systolic and diastolic, acute on chronic (HCC),HTN, goal below 140/90 TAKE 1 TABLET BY MOUTH IN THE MORNING 90 Tablet 3 3 Active BD Pen Needle Joanna 2nd Gen 32G X 4 MM (Insulin Pen Needle)Indications:T ype 2 diabetes mellitus with hemoglobin A1c goal of less than 8.0% ([facility]),Type 2 diabetes mellitus with microalbuminuria, without long-term current use of insulin ([facility]) Use to inject Lantus once daily 100 Each 1 3 Active Torsemide 20 MG Oral Tablet (Demadex)Indications :Chronic systolic heart failure (HCC),HTN, goal below 130/80,Ischemic cardiomyopathy,Biven tricular automatic implantable cardioverter defibrillator in situ Take 1 tablet by mouth twice daily 180 Tablet 3 3 Active Metoprolol Succinate ER [...] hemoglobin A1c goal of less than 7.0% ([facility]),Type 2 diabetes mellitus with microalbuminuria, without long-term current use of insulin ([facility]) 4 tabs in am 360 Tablet 1 4 Active Tamsulosin HCl 0.4 MG Oral Capsule (Flomax)Indications: Nocturia Take 1 Capsule by mouth in the morning. 30 Capsule 2 4 Active Insulin Glargine Solostar 100 UNIT/ML Subcutaneous Solution Pen-injector (Lantus SoloStar)Indications :Type 2 diabetes mellitus with hemoglobin A1c goal of less than 8.0% ([facility]),Type 2 diabetes mellitus with microalbuminuria, without long-term current use of insulin ([facility]) Inject 33 Units under the skin every evening. DX e11.9 30 mL 2 4 Active Atorvastatin Calcium 40 MG Oral Tablet (Lipitor)Indications :Dyslipidemia, goal LDL below 70 Take 1 tablet by mouth once daily 90 Tablet 3 4 Active Trulicity 4.5 MG/0.5ML Subcutaneous Solution Pen-injector (Dulaglutide)Indicat ions:Type 2 diabetes mellitus with hemoglobin A1c goal of less than 8.0% ([facility]) Inject 4.5 mg under the skin once a week. 2 mL 5 4 Active Trulicity 4.5 MG/0.5ML Subcutaneous Solution Pen-injector (Dulaglutide)Indicat ions:Type 2 diabetes mellitus with hemoglobin A1c goal of less than 8.0% ([facility]) Inject 4.5 mg under the skin once a week. 2 mL 5 3 12/24/19 24 Discontinued documented as of this encounter (statuses as of 12/24/2023) Active Problems Problem Noted Date Diagnosed Date [...] 08/12/2019 Overview: 08/04 see palliative consult [facility] Chronic anticoagulation 08/01/2019 Left ventricular thrombus without [place] 08/23/2017 History of coma 03/08/2017 Overview: 1976, [...] as of this encounter (statuses as of 12/24/2023) Resolved Problems Problem Noted Date Diagnosed Date [...] as of this encounter (statuses as of 12/24/2023) Immunizations Name Administration Dates Next Due COVID-19 mRNA, LNP-s, No Pre serve, 2-Dose Series (Moderna) 01/02/2021,12/12/2020 Hepatitis B, 20+ yrs 08/05/2016,03/11/2016,02/04 Pneumococcal Conjugate Vacci ne, 20-valent ([id number]) 05/11/2022 Pneumococcal Polysaccharide PPV23 (Pneumovax) 09/02/2016 Seasonal [...] encounter Miscellaneous Notes * Telephone Encounter - Eliana Vincent, [facility] - 12/24/2023 6:36 AM ESTSigned Prescriptions: Disp Refills Trulicity 4.5 MG/0.5ML Subcutaneous Soluti*2 mL 5 Sig: Inject 4.5 mg under the skin once a week.Authorizing Provider: Vi BENITEZ User: ELIANA VINCENT documented in this encounter Plan of Treatment Upcoming Encounters Date Type Department Care Team (Late st Contact Info) Description 01/03/2024 8:30 AM EDT Office Visit Pharmacy, [address] [place] [address] [place] [address] 01/24/2024 8:00 AM EDT Office Visit Family Medicine [address] [place] [phone] Lauren Benitez MD [address] [place] [address] [place] [address] 05/10/2024 9:00 AM EDT Cardiac Studies Cardiology, [facility] [address] [place] [address] Mov[facility]onzalo shaffer [facility] [address] [place] [address] Health Maintenance Due Date Last Done Comments [...] A1c goal of less than 8.0% (HCC) documented in this encounter Advance Directives Documents on File Type Date Recorded Patient Polymerization Oven Operator Expl anation Advance Directives and Living Will 05/20/2017 ADVANCE DIRECTIVE PE NNA ADVANCE HEALTH CARE DIRECTIVE Advance Directives and Living Will 05/20/2017 LIVING WILL LIVING W ILL DECLARATION Power of Pediatric Radiologist 05/20/2017 POWER OF A TTORNEY DURABLE POWER OF IMAGING AIDE FOR HEALTH CARE Latest Code Status on [...] Advance Directives occurred with: Family Care Teams Organizational Development Specialist Relationship Specialty Start Date End Date Lauren Benitez MD [address] [place] [address] [place] [phone] PCP - General Family Medicine 05/26/23 documented as of this encounter
--- OUTSIDE RECORDS SUMMARY | 2024-05-10 08:30 | External Medical Summary | Summary of Care ---
Author Name Unknown Organization [facility] Address [address] [place] [address] Phone [phone] Care Team Providers Care Philosophy Lecturer Name Role Phone Lauren Benitez MD Primary Care Provide r Reason for Visit * Reason Comments eRx-Medication Refill Encounter Details Date Type Department Care Team (Late st Contact Info) Description 12/13/2023 Refill Cardiology, [facility] [address] [facility] [place] [address] Yulia Ramirez CRNP [address] [facility] [place] [address] Dyslipidemia, goal LDL below 70 Allergies Active Allergy Reactions Criticality Noted Date Comments Codeine Edema face/lips/tongue High 01/31/2016 Propoxyphene 01/31/2016 Oxycodone-Acetaminophen Itching 01/31/2016 No rash or swelling documented as of this encounter (statuses as of 12/14/2023) Medications Medication Sig Dispensed Refills Start Date [...] goal of less than 8.0% ([facility]) Use as directed . Ck FS daily E 11.9 1 Kit 0 2 Active traZODone HCl 50 MG Oral Tablet (Desyrel) Take 1 Tablet by mouth at bedtime. 30 Tablet 5 3 Active Digoxin 125 MCG Oral Tablet (Lanoxin)Indications :Heart failure, systolic and diastolic, acute on chronic (HCC),HTN, goal below 140/90 Take 1 tablet by mouth once daily 90 Tablet 3 3 Active Trulicity 4.5 MG/0.5ML Subcutaneous Solution Pen-injector (Dulaglutide)Indicat ions:Type 2 diabetes mellitus with hemoglobin A1c goal of less than 8.0% ([facility]) Inject 4.5 mg under the skin once a week. 2 mL 5 3 Active Nystatin 876518 UNIT/GM External CreamIndications:Brennan matophytosis of groin Apply [...] without long-term current use of insulin (HCC) Use to inject Lantus once daily 100 [...] goal of less than 7.0% ([facility]),Type 2 diabetes mellitus with microalbuminuria, without long-term current use of insulin ([facility]) 4 tabs in am 360 Tablet 1 4 Active Tamsulosin HCl 0.4 MG Oral Capsule (Flomax)Indications: Nocturia Take 1 Capsule by mouth in the morning. 30 Capsule 2 4 Active Insulin Glargine Solostar 100 UNIT/ML Subcutaneous Solution Pen-injector (Lantus SoloStar)Indications :Type 2 diabetes mellitus with hemoglobin A1c goal of less than 8.0% ([facility]),Type 2 diabetes mellitus with microalbuminuria, without long-term current use of insulin ([facility]) Inject 33 Units under the skin every evening. DX e11.9 30 mL 2 4 Active Atorvastatin Calcium 40 MG Oral Tablet (Lipitor)Indications :Dyslipidemia, goal LDL below 70 Take 1 tablet by mouth once daily 90 Tablet 3 4 Active Atorvastatin Calcium 40 MG Oral Tablet (Lipitor)Indications :Dyslipidemia, goal LDL below 70 Take 1 tablet by mouth once daily 90 Tablet 3 3 12/14/19 24 Discontinued documented as of this encounter (statuses as of 12/14/2023) Active Problems Problem Noted Date Diagnosed Date [...] 08/12/2019 Overview: 08/04 see palliative consult [facility] Chronic anticoagulation 08/01/2019 Left ventricular [...] as of this encounter (statuses as of 12/14/2023) Resolved Problems Problem Noted Date Diagnosed Date [...] as of this encounter (statuses as of 12/14/2023) Immunizations Name Administration Dates Next Due COVID-19 mRNA, LNP-s, No Pre serve, 2-Dose Series (Moderna) 01/02/2021,12/12/2020 Hepatitis B, 20+ yrs 08/05/2016,03/11/2016,02/04 Pneumococcal Conjugate Vacci ne, 20-valent ([id number]) 05/11/2022 Pneumococcal Polysaccharide PPV23 (Pneumovax) 09/02/2016 Seasonal [...] Telephone Encounter - Lauren Benitez MD - 12/14/2023 11:58 AM EST Signed Prescriptions: Disp Refills Atorvastatin Calcium 40 MG Oral Tablet (Li*90 Tab*3 Sig: Take 1 tablet by mouth once daily Authorizing Provider: LAUREN BENITEZ * Telephone Encounter - Margarita Mallory RN - 12/14/2023 11:41 AM ESTPending Prescriptions: Disp Refills Atorvastatin Calcium 40 MG Oral Tablet (Li*90 Tab*3 Sig: Take 1 tablet by mouth once daily * Telephone Encounter - Margarita Mallory RN - 12/14/2023 11:40 AM EST Pending Prescriptions: Disp Refills Atorvastatin Calcium 40 MG Oral Tablet (L*90 Tab*0 Sig: Take 1 tablet by mouth once daily Last Visit: 10/25/23 Next Visit: 01/24/24 Last date the medication was ordered: 11/15/22 Patient Active Problem List Diagnosis Code Type 2 diabetes mellitus with hemoglobin A1c goal of less than 8.0% ([facility]) E11.9 HTN, goal below 130/80 I10 Schizoaffective disorder ([facility]) F25.9 S/P coronary artery stent placement Z95.5 Ischemic cardiomyopathy I25.5 Dyslipidemia E78.5 Type 2 diabetes mellitus with microalbuminuria, without long-term current use of insulin ([facility]) E11.29, R80.9 Biventricular automatic implantable cardioverter defibrillator in situ Z95.810 Well adult exam Z00.00 History of coma Z87.898 History of CVA (cerebrovascular accident) Z86.73 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 ([facility]) I24.0 Chronic anticoagulation Z79.01 DNR (do not resuscitate) Z66 Age-related nuclear cataract, bilateral H25.13 Schizoaffective disorder, bipolar type ([facility]) F25.0 Chronic systolic heart failure ([facility]) I50.22 Unspecified sequelae of cerebral infarction I69.30 Type 2 diabetes mellitus with diabetic polyneuropathy ([facility]) E11.42 Chronic left shoulder pain M25.512, G89.29 Major depressive disorder with single episode, in partial remission ([facility]) F32.4 Non-pressure chronic ulcer of left lower leg ([facility]) L97.929 Labs: Lab Results Component Value Date/Time CREATININE - [facility] 1.2 10/25/2023 08:26 AM CREATININE - [facility] 1.1 08/14/2020 10:59 AM CREATININE ISTAT 1.0 08/23/2019 01:12 PM CREATININE, RANDOM URINE - [facility] 95 05/30/2023 07:56 AM CREATININE, RANDOM URINE - [facility] 24 09/07/2019 01:31 PM CREATININE-OUTSIDE LAB 0.98 08/27/2019 12:00 AM Lab Results Component Value Date/Time POTASSIUM - [facility] 4.2 10/25/2023 08:26 AM POTASSIUM - [facility] 4.4 08/14/2020 10:59 [...] Value Date/Time LDL CHOLESTEROL (CALCULATED) - [facility] 43 06/22/2023 07:48 AM LDL CHOLESTEROL (CALCULATED) - [facility] 37 02/23/2023 07:51 AM LDL CHOLESTEROL (CALCULATED) - [facility] 154 [...] Component Value Date/Time HEMOGLOBIN A1C - [facility] 10.1 (H) 10/25/2023 08:26 AM HEMOGLOBIN A1C - [facility] 9.9 (H) 06/22/2023 07:48 AM HEMOGLOBIN A1C - [facility] 9.6 (H) 05/26/2023 08:48 AM HEMOGLOBIN A1C - [facility] 9.0 (H) 07/15/2020 03:01 PM HEMOGLOBIN A1C - [facility] 7.2 (H) 10/09/2019 11:24 AM HEMOGLOBIN A1C - [facility] 8.2 (H) 07/30/2019 05:11 AM * Telephone Encounter - Gloria Mars COT - 12/14/2023 11:22 AM ESTPending Prescriptions: Disp Refills Atorvastatin Calcium 40 MG Oral Tablet 90 Tab*0 Sig: Take 1 tablet by mouth once daily * Telephone Encounter - Gloria Mars COT - 12/14/2023 11:22 AM EST Patient has not been seen by cardiology since 2021. Defer to PCP for refills/follow up. documented in this encounter Plan of Treatment Upcoming Encounters Date Type Department Care Team (Late st Contact Info) Description 01/03/2024 8:30 AM EDT Office Visit Pharmacy, [address] [place] [address] [place] [phone] 01/24/2024 8:00 AM EDT Office Visit Family Medicine [address] [place] [phone] Lauren Benitez MD [address] [place] [address] [place] [phone] 05/10/2024 9:00 AM EDT Cardiac Studies Cardiology, [facility] [address] [facility] [place] [phone] [place], [facility] [address] [place] [address] Health Maintenance Due Date Last Done Comments [...] as of this encounter Visit Diagnoses Diagnosis Dyslipidemia, goal LDL below 70 Other and unspecified hyperlipidemia documented in this encounter Advance Directives Documents on File Type Date Recorded 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 Expl 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
--- OUTSIDE RECORDS SUMMARY | 2024-05-10 08:30 | External Medical Summary | Summary of Care ---
Author Name Unknown Organization [facility] Address [address] [place] [address] Phone [phone] Care Team Providers Care Supervisor Press Room Name Role Phone Lauren Benitez MD Primary Care Provide r Reason for Visit * Reason Comments Dosage Adjustment In Person (Anticoag Cl inic) Diabetes Follow-Up Encounter Details Date Type Department Care Team (Late st Contact Info) Description 11/22/2023 8:30 AM EST Office Visit Pharmacy, [address] [place] [phone] [place] [address] Type 2 diabetes mellitus with hemoglobin A1c goal of less than 8.0% ([facility])*; Type 2 diabetes mellitus with microalbuminuria, without long-term current use of insulin ([facility]) Allergies Active Allergy Reactions Criticality Noted Date Comments Codeine Edema face/lips/tongue High 01/31/2016 Propoxyphene 01/31/2016 Oxycodone-Acetaminophen Itching 01/31/2016 No rash or swelling documented as of this encounter (statuses as of 11/22/2023) Medications Medication Sig Dispensed Refills Start Date [...] TABS Take by mouth. 0 Activ e Win the Planet[employer] Delica Lancets 33GIndications:Type 2 diabetes mellitus with [...] E 11.9 1 Kit 0 08/05/2022 Active Atorvastatin Calcium 40 MG Oral Tablet (Lipitor)Indications :Dyslipidemia, goal LDL below 70 Take 1 tablet by mouth once daily 90 Tablet 3 11/15/2022 Active traZODone HCl 50 MG Oral Tablet [...] A1c goal of less than 8.0% (HCC) Inject 4.5 mg under the skin once a week. 2 mL 5 06/27/2023 Active Nystatin 625949 UNIT/GM External CreamIndications:Brennan matophytosis of groin Apply [...] 09/05/2023 Active Torsemide 20 MG Oral Tablet (Demadex)Indications [...] insulin ([facility]) Inject 33 Units under the skin every evening. DX e11.9 30 mL 2 11/22/2023 Active Insulin Glargine Solostar 100 UNIT/ML Subcutaneous Solution Pen-injector (Lantus SoloStar)Indications :Type 2 diabetes mellitus with hemoglobin A1c goal of less than 8.0% ([facility]),Type 2 diabetes mellitus with microalbuminuria, without long-term current use of insulin ([facility]) Inject 35 Units under the skin every evening. DX e11.9 30 mL 2 10/31/2023 Discontinue d(Refill) documented as of this encounter (statuses as of 11/22/2023) Active Problems Problem Noted Date Diagnosed Date [...] Chronic anticoagulation 08/01/2019 Left ventricular thrombus without PA 08/23/2017 History of coma 03/08/2017 Overview: 1976, [...] as of this encounter (statuses as of 11/22/2023) Resolved Problems Problem Noted Date Diagnosed Date [...] as of this encounter (statuses as of 11/22/2023) Immunizations Name Administration Dates Next Due COVID-19 mRNA, LNP-s, No Pre serve, 2-Dose Series (Moderna) 01/02/2021,12/12/2020 Hepatitis B, 20+ yrs 08/05/2016,03/11/2016,02/04 Pneumococcal Conjugate Vacci ne, 20-valent ([id number]) 05/11/2022 Pneumococcal Polysaccharide PPV23 (Pneumovax) 09/02/2016 Seasonal [...] this encounter Progress Notes * Megan Contreras, [facility] - 11/22/2023 8:28 AM EST Medication Therapy [facility] - Diabetes Management Progress Note Kit Regan, identified by name and date of , is a 63 year old male being seen for diabetes management/education. Patient presents for return diabetic visit. Patient presents with sister, Bozena DIABETES: Current diabetic medications: Metformin ER 500 mg - 2 tablets BID Lantus Pen - 30 units in the evening (increased to 35 units by PCP on 10/31) Trulicity 4.5 mg SQ once a week - SATURDAYS eGFR 77 as of 05/26/23 Medication Injection Site: Abdomen Lifestyle: Diet: Discussed below Glucose Review/SMBG: Readings obtained from patient device Pre am 133 79 115 137 127 79 92 105 63 78 95 108 159 146 114 Average [address] 108.3077 Range 96 Hypoglycemia: Does your blood sugar go below 70 mg/dL? Yes Hyperglycemia symptoms present: none Recent Labs Units [...] Foot Exam 07/30/2022 B-12 01/06/2023 COVID-19 Vaccine ( season) 2023 Diabetic Eye Exam 11/09/2023 ASSESSMENT & PLAN: ICD-10-CM 1. Type 2 diabetes mellitus with hemoglobin A1c goal of less than 8.0% (HCC) E11.9 Considerations: HF Bozena, sister, helps manage medications Roman - declines, patient prefers fingerstick Declined SGLT2 (urinary incontinence) BG Readings - Blood sugars reviewed. Recent A1c obtained last month further increased to 10.1%. Readings averaging 109mg/dL in the AM. Patient refuses to test later in the day. Further discussed CGM,patient declines. Medications - Reviewed current regimen. PCP increased Lantus to 35 units daily. Patient experiencing some lows in the AM. Likely d/t lack of meal coverage throughout the day. Patient declined Jardiance at PCP visit. Hesitancy with mealtime insulin as patient refuses to test later in the day. Diet, Exercise, Lifestyle - No significant lifestyle changes since last visit. Explained the plate method in detail and discussed the importance of eating a balanced diet with CHO and protein. Discussed how CHO, proteins and fats effect her blood sugar. Will plan to slightly decrease Lantus dose to avoid AM hypoglycemia. Encouraged to work on lifestyle/diet modifications as well as test later in the day. Of note, at the end of the appointment patient notes to not understanding why he needs to come to MTM appointments and wait. Reviewed that patient's appointment was at 8:30AM today. Patient's sister states she thought it was at 8:20AM. Reviewed that MTM is a voluntary service if patient does not want to participate. Patient and sister report they would like to continue at this time. Patient is agreeable to SMBG 1 time(s) [...] Due Eye Exam: Due Annual Wellness Visit: N/A FOLLOW UP: Return to clinic in 6 weeks 01/03/2024 Megan Contreras RPh Clinical Pharmacist - Word Processor Technician Medication Therapy Management Clinic 11/22/2023, 8:28 AM documented in this encounter Plan of Treatment Upcoming Encounters Date Type Department Care Team (Late st Contact Info) Description 01/03/2024 8:30 AM EDT Office Visit Pharmacy, [address] [place] [address] [place] [phone] 01/24/2024 8:00 AM EDT Office Visit Family Medicine [address] [place] [phone] Lauren Benitez MD [address] [place] [address] [place] [phone] 05/10/2024 9:00 AM EDT Cardiac Studies Cardiology, [facility] [address] [place] [address] [place] [address] [place] [address] Health Maintenance Due Date Last Done Comments [...] goal of less than 8.0% (HCC)- Primary Type 2 diabetes mellitus with microalbuminuria, without long-term current use of insulin (HCC) documented in this encounter Advance Directives Documents on File Type Date Recorded 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 Advance Directives and Living Will 05/20/2017 ADVANCE DIRECTIVE PE NNA ADVANCE HEALTH CARE DIRECTIVE Advance Directives and Living Will 05/20/2017 LIVING WILL LIVING W ILL DECLARATION Power of Insurance Verification Representative 05/20/2017 POWER OF A TTORNEY DURABLE POWER OF EXECUTIVE STAFF ASSISTANT FOR HEALTH CARE Latest Code Status on [...] Advance Directives occurred with: Family Care Teams Supervisor Press Room Relationship Specialty Start Date End Date Lauren Benitez MD [address] [place] [address] [place] [address] PCP - General Family Medicine 05/26/23 documented as of this encounter
[2024-05-10 08:31] LABS: Albumin Level 4.1 gm/dl (3.4-5.0); Magnesium 1.8 mg/dl (1.7-2.4); Potassium 3.6 mmol/L (3.5-5.1)
[2024-05-10 08:47] LABS: INR 1.2 (0.9-1.1); Prothrombin Time 13.3 Seconds (9.0-12.0)
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
[2024-05-10 10:31] LABS: T4 Free Thyroxine 0.93 ng/dl (0.61-1.60)
[2024-05-10 10:42] LABS: Folate (Folic Acid),Ser orPlas > 22.30 ng/ml (>5.38)
[2024-05-10 10:43] LABS: Vitamin B12 539 pg/ml (180-914)
[2024-05-10] MEDS: FUROSEMIDE 40 MG/4 ML VIAL IV ONE (11:22)
[2024-05-10] MEDS: METOPROLOL SUCC 50MG EXT REL TAB PO STA (11:22)
[2024-05-10] MEDS: FUROSEMIDE INJ 20 MG/2 ML VIAL IV ONE (11:22)
[2024-05-10] MEDS ORDERED: GLUCAGON FOR INJ 1 MG VIAL SQ PRN (11:37)
[2024-05-10] MEDS ORDERED: GLUCOSE 40% GEL 15 GM TUBE PO PRN (11:37)
[2024-05-10] MEDS ORDERED: GLUCOSE 10 TAB/TUBE PO PRN (11:37)
[2024-05-10] MEDS ORDERED: DEXTROSE 50% 50 ML SYRINGE IV PRN (11:37)
--- NOTE | 2024-05-10 11:40 | Electrocardiogram Report ---
Test Reason : Blood Pressure : / mmHG Vent. Rate : 078 BPM Atrial Rate : 078 BPM P-R Int : 000 ms QRS Dur : 150 ms QT Int : 398 ms P-R-T Axes : -22 252 038 degrees QTc Int : 453 ms Ventricular-paced rhythm Abnormal ECG When compared with ECG of 06-JAN-2023 10:00, Vent. rate has increased BY 17 BPM Confirmed by Milan Moss ([id number]) on 05/10/2024 11:40:30 AM Referred By: REFERRED SELF Confirmed By:Milan Moss
[2024-05-10 11:42] LABS: Adenovirus PCR Not Detected (NotDetected); Bordetella parapertussis PCR Not Detected (NotDetected); Bordetella pertussis PCR Not Detected (NotDetected); Chlamydia pneumoniae PCR Not Detected (NotDetected); Coronavirus 229E PCR Not Detected (NotDetected); Coronavirus CoV-2 (COVID19)PCR Not Detected (NotDetected); Coronavirus HKU1 PCR Not Detected (NotDetected); Coronavirus NL63 PCR Not Detected (NotDetected); Coronavirus OC43PCR Not Detected (NotDetected); Human Metapneumovirus PCR Not Detected (NotDetected); Influenza A PCR Not Detected (NotDetected); Influenza B PCR Not Detected (NotDetected); Mycoplasma pneumoniae PCR Not Detected (NotDetected); Parainfluenza Virus 1 PCR Not Detected (NotDetected); Parainfluenza Virus 2 PCR Not Detected (NotDetected); Parainfluenza Virus 3 PCR Not Detected (NotDetected); Parainfluenza Virus 4 PCR Not Detected (NotDetected); Respiratory Syncytial VirusPCR Not Detected (NotDetected); Rhinovirus/Enterovirus PCR Not Detected (NotDetected)
[2024-05-10] MEDS: cefTRIAXone SODIUM 2,000 MG/50 ML BAG IV SCH (12:37)
[2024-05-10] MEDS: INSULIN ASPART PER UNIT CHARGE SC SCH (12:38)
--- NOTE | 2024-05-10 13:30 | Magnetic Resonance Report ---
MR brain wo con HISTORY: 63 years-old Male sudden BLE weakness L > R acute weakness COMPARISON: Head CT of same day TECHNIQUE: Multiplanar multisequence MRI of the brain was obtained without IV contrast. FINDINGS: No restricted diffusion to suggest acute or subacute infarct. Midline structures appear unremarkable. Degenerative changes of the cervical spine. Areas of encephalomalacia and gliosis within the left oc cipital lobe and right high convexity consistent with old infarcts. There is an old right basal gangl ia infarct also noted as well as a focus of probable chronic lacunar infarcts in the left fatmata. No ac alicia intracranial hemorrhage, midline shift, abnormal extra axial collection, hydrocephalus or intra-a xial mass. Involutional changes with mild T2/FLAIR hyperintense foci throughout the white matter sugg estive of chronic microvascular ischemic disease. The cerebral venous sinuses and major arterial flow voids appear patent. Skull, orbits and soft tissu es are unremarkable. Paranasal sinuses are generally clear. IMPRESSION: 1. No acute intracranial abnormality. 2. Chronic infarcts as above. ACT 112: Negative or not required by law. The above report was generated using voice recognition software. It may contain grammatical, syntax o r spelling errors. Electronically signed by: Delfino Mooney M.D. 05/10/2024 1:29 PM
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
[2024-05-10] MEDS ORDERED: Nursing to Pharmacy Communication SCH (15:00)
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
[2024-05-10] MEDS: APIXABAN 5 MG TABLET PO SCH (18:29)
[2024-05-10] MEDS: DIGOXIN 0.125 MG TAB PO SCH (18:39)
[2024-05-10] MEDS: ASPIRIN 81 MG ECTAB PO SCH (18:39)
[2024-05-10] MEDS: SPIRONOLACTONE 25 MG TAB PO SCH (18:40)
[2024-05-10] MEDS: MUPIROCIN 2% OINT 22 GM TUBE TOP SCH (22:00)
[2024-05-10] MEDS: METOPROLOL SUCC 50MG EXT REL TAB PO SCH (22:00)
[2024-05-10] MEDS: traZODone HCL 50 MG TAB PO SCH (22:00)
[2024-05-10] MEDS: AMANTADINE HCL 100 MG CAPSULE PO SCH (22:00)
[2024-05-10] MEDS: LANTUS PER UNIT CHARGE SQ SCH (22:00)
[2024-05-10] MEDS: ATORVASTATIN 40 MG TAB PO SCH (22:36)
[2024-05-10] MEDS: ARIPiprazole 10 MG TAB PO SCH (22:36)
--- NOTE | 2024-05-11 07:13 | Ultrasound Report ---
US arterial duplex LE LT HISTORY: 63 years-old Male left leg ulceration; pale peripheral arterial disease with acute pain in the left lower leg COMPARISON: None TECHNIQUE: Multiple real-time sonographic images of the left lower leg arterial structures were obtai anabell assessing grayscale appearance, color and spectral flow FINDINGS: Atherosclerosis appears extensive. Mostly triphasic waveforms are noted above the level of the knee. Suboptimal visualization of the calf arteries. No arterial occlusion or significantly elevated peak s ystolic velocities identified. Mostly biphasic in triphasic waveforms in the lower leg. IMPRESSION: Extensive atherosclerosis without arterial occlusion or evidence of high-grade stenosis. ACT 112: Negative or not required by law. The above report was generated using voice recognition software. It may contain grammatical, syntax o r spelling errors. Electronically signed by: Delfino Mooney M.D. 05/11/2024 7:11 AM
[2024-05-11 07:43] LABS: Estimated Average Glucose 240 mg/dl
[2024-05-11 07:55] LABS: Basophils # (auto) 0.06 K/uL (0.00-0.20); Basophils % (auto) 1.1 %; Immature Granulocytes # (auto) 0.04 K/uL (0.01-0.20); Immature Granulocytes % (auto) 0.7 %; Lymphocytes # (auto) 0.83 K/uL (1.20-3.40); Lymphocytes % (auto) 14.7 %; Monocytes # (auto) 0.58 K/uL (0.11-0.59); Monocytes % (auto) 10.2 %; Neutrophils # (auto) 4.15 K/uL (1.40-6.50); Neutrophils % (auto) 73.3 %
[2024-05-11 08:05] LABS: INR 1.3 (0.9-1.1); Prothrombin Time 13.7 Seconds (9.0-12.0)
[2024-05-11 08:13] LABS: Hematocrit (blood only) 44.1 % (42.0-52.0); Hemoglobin 15.2 g/dl (14.0-18.0); Mean Corpuscular Hemoglobin 31.9 pg (25.0-34.0); Mean Corpuscular Hgb Conc 34.5 g/dL (32.0-36.0); Mean Corpuscular Volume 92.6 fL (80.0-100.0); Mean Platelet Volume 12.1 fL (9.4-12.4); Platelet Count 88 K/uL (130-400); RDW Coefficient of Variation 13.2 % (11.5-14.5); RDW Standard Deviation 44.9 fL (36.4-46.3); Red Blood Count 4.76 M/uL (4.70-6.10)
[2024-05-11 08:21] LABS: Platelet Estimate Decreased (Normal)
[2024-05-11] MEDS ORDERED: PHARMACY GLYCEMIC MGMT CONSULT PRN (08:52)
[2024-05-11 08:54] LABS: Albumin Globulin Ratio 1.1 (0.9-2); Albumin Level 3.7 gm/dl (3.4-5.0); BUN Creatinine Ratio 20.5 (10-20); Bilirubin,Total 1.5 mg/dl (0.2-1.0); Calcium 9.2 mg/dl (8.6-10.3); Chol HDL Ratio 3.7 (0-5); Creatinine Clr Calc Pharmacy 73.7 ml/min; Est GFR (Non-African American) 66.4 ml/min; Globulin 3.3 gm/dl (2.5-4.0); Potassium 3.6 mmol/L (3.5-5.1)
[2024-05-11] MEDS: MULTIVITAMIN TAB PO SCH (10:06)
[2024-05-11] MEDS: LANTUS PER UNIT CHARGE SQ ONE (10:09)
[2024-05-11] MEDS: DOXYCYCLINE HYCLATE 100 MG CAP PO SCH (13:06)
--- NOTE | 2024-05-11 14:27 | Hospitalist Progress Note ---
Date of Service May 11, 2024 Assessment & Plan (1) Generalized weakness: (2) CHF (congestive heart failure): (3) Atrial fibrillation with RVR: (4) CKD (chronic kidney disease), stage III: Plan Mr. Regan is a 63 year old gentleman with past medical history remarkable for HFrEF s/p AICD, Afib on eliquis, CAD s/p stent, IDDM, HTN, Schizoaffective disorder,Depression,CKDII, hx of LV thrombus, CVA, HLD, Mild mitral regurgitation seen for resented to [facility] due to BLE weakness Left leg cellulitis Dehydration Generalized weakness Thrombocytopenia/Chronic petechial rash -Arterial Doppler:Extensive atherosclerosis without arterial occlusion or evidence of high-grade stenosis. -- Blood cultures pending Continue Rocephin, add doxycycline Hold diuretics for now Monitor volume status Monitor CBC Check peripheral smear Parkinsonism Likely due to antipsychotic medication use Acute metabolic encephalopathy --MRI Brain:No acute intracranial abnormality. Chronic infarcts. Started on amantadine 100 mg twice a day Appreciate neurology input PT OT, fall precautions Needs follow-up with psychiatry on discharge H/O CVA Thought to be cardioembolic Continue aspirin, Lipitor On Eliquis Chronic systolic, diastolic CHF Ischemic cardiomyopathy Pulmonary hypertension Pacemaker functioning well Resume home diuretics as able Monitor volume status Appreciate cardiology input H/O A-fib CAD S/P stent H/O LV thrombus Continue aspirin, Lipitor, metoprolol, digoxin On Eliquis for anticoagulation Chronic troponin elevation Likely due to CHF, pulmonary hypertension, renal insufficiency Doubt ACS CKD III Monitor renal function Avoid nephrotoxic agents as able Schizoaffective disorder Depression On Abilify Needs follow-up with psychiatry on discharge Transaminitis Chronic Monitor LFTs DM II Uncontrolled HbA1c 10.0 Continue insulin while hospitalized Monitor BGs Glycemic pharmacist consulted conservation educator consulted DVT Px: Eliquis Code Status DNI DNR Admission and Anticipated Discharge Date Admission Date: May 10, 2024 Subjective Patient is seen and examined at bedside Poor historian Denies any chest pain, dyspnea, nausea, abdominal pain, dizziness Review of Systems Review of Systems: All systems reviewed & are unremarkable except as noted in Subjective Physical Exam Physical Exam: Physical Exam: Vitals signs as noted above General Appearance:Moderately built and nourished, chronically ill appearing, no apparent distress Head: normocephalic, Atraumatic Eyes: normal inspection, EOMI Neck: supple, Trachea midline Respiratory/Chest: Normal breath sounds, CTA, No accessory muscle use Cardiovascular: S1, S2, No murmur, + pacer Abdomen/GI:Soft, Non tender, Bowel sounds present Extremities/Musculoskeletal:normal inspection, trace edema, + petechial rash predominantly left lower extremity Neurologic/Psych:AAOX23, grossly no focal neurological deficits, + resting tremor Skin: normal color, warm Results & Data Results & Data Vital Signs (Past 12 Hours) Vital Signs Temp Pulse Pulse Pulse Resp BP Pulse Ox 05/11/24 13:00 86 05/11/24 11:46 36.9 C 71 18 132/79 98 05/11/24 10:00 05/11/24 07:26 37.4 C 69 18 111/77 98 05/11/24 07:00 70 05/11/24 04:01 37 C 70 18 121/75 97 O2 Del Method O2 Flow Rate 05/11/24 13:00 05/11/24 11:46 Nasal Cannula 2 05/11/24 10:00 Room Air 05/11/24 07:26 Room Air 05/11/24 07:00 05/11/24 04:01 Nasal Cannula 2 Laboratory Results Short CBC 05/11/24 Range/Units 07:18 WBC 5.60 (4.8-10.8) K/ul Hgb 15.2 (14.0-18.0) g/dl Hct 44.1 (42.0-52.0) % Plt Count 88 L (130-400) K/uL BMP 05/11/24 07:18 Sodium 135 L Potassium 3.6 Chloride 100 Carbon Dioxide 27 BUN 24 H Creatinine 1.17 Glucose 165 H Calcium 9.2 Liver Function 05/11/24 Range/Units 07:18 Total Bilirubin 1.5 H (0.2-1.0) mg/dl AST 74 H (13-39) U/L ALT 68 H (7-52) U/L Alkaline Phosphatase 59 (34-104) U/L Albumin 3.7 (3.4-5.0) gm/dl (2) CHF (congestive heart failure) Heart failure chronicity: unspecified Heart failure type: unspecified Qualified Code(s): I50.9 - Heart failure, unspecified
--- NOTE | 2024-05-11 15:30 | Pharmacy Report ---
Pharmacy Glycemic Short Note 2 - Date of Service May 11, 2024 - Glycemic Short BSG Results (Last 24 hours): 05/10/24 05/10/24 05/11/24 17:14 20:23 07:18 Glucose 165 H POC Glucose 162 H 247 H 05/11/24 05/11/24 08:15 12:20 Glucose POC Glucose 177 H 270 H OUTPATIENT ANTIDIABETIC REGIMEN: * Lantus 30 units SC HS * metformin * dulaglutide ASSESSMENT: * Kit is a 63 yo T2DM who presented with BLE weakness with concern for possible cellulitis * Patient received Lantus 20 units SQ last evening. Fasting BSG above goal at 177 mg/dL. Will increase Lantus. * Persistent post prandial BSG elevation. Will tighten carb coverage. PLAN FOR INPATIENT GLYCEMIC CONTROL: * Hold outpatient oral diabetes medications * Basal insulin * Lantus 5 units SQ this AM * Lantus 20-25 units SQ qPM (25 units for BSG > 200 mg/dL) * Bolus insulin * NovoLog per scale ACHS or Q6hrs while NPO * Goal Range: Low 110 mg/dL - High 140 mg/dL * Correction Factor: 20 mg/dL/unit * Nutritional / Prandial insulin per carb ratio of 1 unit per 7 grams CHO consumed
--- NOTE | 2024-05-11 16:13 | Cardiology Progress Note ---
Date of Service May 11, 2024 Assessment & Plan (1) Chronic heart failure with reduced ejection fraction and diastolic dysfunction: (2) Generalized weakness: (3) Elevated troponin: (4) Febrile: Plan 63-year-old male presenting to the emergency department via ambulance due to inability to move his legs. MRI negative for stroke. Currently receiving antibiotic therapy for lower extremity cellulitis. Cardiology consultation requested to assess volume status in the setting of chronic heart failure with severely reduced left ventricular ejection fraction. Diuretic therapy held yesterday 05/10/2024. Restart torsemide 20 mg daily. Consider restarting Aldactone in the next 24-48 hours pending ongoing clinical assessment. Continue other chronic cardiovascular medications including Eliquis, low-dose aspirin, atorvastatin, digoxin, and metoprolol succinate. No need for repeat echocardiogram. Cardiology will sign off. Please call with additional concerns/questions. I spent a total of 25 minutes on the date of service in preparation, delivery, and documentation of the care provided to this patient, excluding any time spent in the performance of separately billed services. Admission and Anticipated Discharge Date Admission Date: May 11, 2024 Subjective 63-year-old male seen and examined at the bedside. Diuretic therapy held ye sterday due to evidence of volume depletion. Denies chest pain or unusual shortness of breath. Telemetry reveals ventricular paced rhythm in the 70s. No orthopnea or PND. Review of Systems Review of Systems: All systems reviewed & are unremarkable except as noted in Subjective Physical Exam Constitutional: + ill appearing; no acute distress Cardiovascular: Rate/Rhythm: regular rate and regular rhythm Heart Sounds: normal S1, normal S2 and + murmur Vessels: no JVD Extremities: no edema Neurologic: Motor/Sensory: + tremor Results & Data Vital Signs (Past 12 Hours) Vital Signs Temp Pulse Pulse Resp BP Pulse Ox O2 Del Method 05/11/24 15:48 79 05/11/24 14:40 37.6 C H 69 18 135/77 98 Nasal Cannula 05/11/24 13:00 86 05/11/24 11:46 36.9 C 71 18 132/79 98 Nasal Cannula 05/11/24 10:00 Room Air 05/11/24 07:26 37.4 C 69 18 111/77 98 Room Air 05/11/24 07:00 70 O2 Flow Rate 05/11/24 15:48 07/26/24 14:40 2 05/11/24 13:00 05/11/24 11:46 2 05/11/24 10:00 05/11/24 07:26 05/11/24 07:00 Laboratory Results Cardiac Enzymes 05/10/24 05/11/24 Range/Units 19:20 07:18 AST 74 H (13-39) U/L Troponin I High Sens 45.0 H D (0-20) pg/ml Coagulation 05/11/24 Range/Units 07:18 PT 13.7 H (9.0-12.0) Seconds Lipids 05/11/24 Range/Units 07:18 Triglycerides 106 (0-150) mg/dl Cholesterol 84 (0-200) mg/dl HDL Cholesterol 23 mg/dl Cholesterol/HDL Ratio 3.7 (0-5) CBC 05/11/24 Range/Units 07:18 WBC 5.60 (4.8-10.8) K/ul RBC 4.76 (4.70-6.10) M/uL Hgb 15.2 (14.0-18.0) g/dl Hct 44.1 (42.0-52.0) % Plt Count 88 L (130-400) K/uL Neut # (Auto) 4.15 (1.40-6.50) K/uL Lymph # (Auto) 0.83 L (1.20-3.40) K/uL Dunn # (Auto) 0.58 (0.11-0.59) K/uL Eos # (Auto) 0.00 (0.00-0.50) K/uL Baso # (Auto) 0.06 (0.00-0.20) K/uL Comprehensive Metabolic Panel 05/11/24 Range/Units 07:18 Sodium 135 L (136-145) mmol/L Potassium 3.6 (3.5-5.1) mmol/L Chloride 100 (98-107) mmol/L Carbon Dioxide 27 (21-32) mmol/L BUN 24 H (6-23) mg/dl Creatinine 1.17 (0.6-1.4) mg/dl Glucose 165 H (70-99(Fasting)) mg/dl Calcium 9.2 (8.6-10.3) mg/dl AST 74 H (13-39) U/L ALT 68 H (7-52) U/L Alkaline Phosphatase 59 (34-104) U/L Total Protein 7.0 (6.0-8.3) gm/dl Albumin 3.7 (3.4-5.0) gm/dl Intake and Output 05/11/24 05/11/24 05/11/24 06:59 14:59 22:59 Intake Total 520 / 1070 50 / 50 Output Total 350 / 350 Balance 170 / 720 50 / 50 Intake: IV 50 / 50 cefTRIAXone SODIUM 2,000 mg In 50 / 50 50 ml @ 100 mls/hr IV Q24H [facility] Rx#:[id number] Oral 520 / 520 Output: Urine Amount (Catheter) 350 / 350 Tang/Indwelling 350 / 350 Other: # Unmeasured Voids 1 5 Weight 89.6 kg Weight Measurement Method Built in [facility]
[2024-05-11] MEDS: ACETAMINOPHEN 1,000 MG/100 ML VIAL IV STA (20:01)
[2024-05-11] MEDS: PIPER/TAZO 4.5g in D5W MINI-B 100 ML IV ONE (20:08)
[2024-05-11] MEDS: LANTUS PER UNIT CHARGE SQ SCH (21:47)
[2024-05-12] MEDS: INSULIN ASPART PER UNIT CHARGE SC SCH (00:19)
[2024-05-12] MEDS: PIPERACILLIN/TAZOBACTAM 4.5 GM in DEXTROSE 5% MINI-B 100 ML IV SCH (00:24)
[2024-05-12 07:50] LABS: Hematocrit (blood only) 43.7 % (42.0-52.0); Hemoglobin 15.1 g/dl (14.0-18.0); Mean Corpuscular Hemoglobin 32.5 pg (25.0-34.0); Mean Corpuscular Hgb Conc 34.6 g/dL (32.0-36.0); Mean Platelet Volume 12.5 fL (9.4-12.4); Platelet Count 80 K/uL (130-400); RDW Coefficient of Variation 13.4 % (11.5-14.5); RDW Standard Deviation 45.9 fL (36.4-46.3); Red Blood Count 4.65 M/uL (4.70-6.10); White Blood Count 6.79 K/ul (4.8-10.8)
[2024-05-12] MEDS: TORSEMIDE 20 MG TAB PO SCH (09:32)
--- NOTE | 2024-05-12 15:18 | Pharmacy Report ---
Pharmacy Glycemic Short Note 2 - Date of Service May 12, 2024 - Glycemic Short BSG Results (Last 24 hours): 05/11/24 05/11/24 05/12/24 16:36 20:28 00:11 POC Glucose 244 H 274 H 150 H 05/12/24 05/12/24 05/12/24 08:16 12:05 12:05 POC Glucose 186 H 357 H* 358 H* OUTPATIENT ANTIDIABETIC REGIMEN: * Lantus 30 units SC HS * metformin * dulaglutide ASSESSMENT: 05/12 * Kit received 67 units of insulin yesterday (30 were basal) * Fasting BSG this AM above goal range, will increase basal insulin by 15-30% based on BSG at bedtime * Considering tighter breakfast carbohydrate coverage, but incorrect carb ratio used this AM likely contributory to lunchtime elevation 05/11 * Kit is a 63 yo T2DM who presented with BLE weakness with concern for possible cellulitis * Patient received Lantus 20 units SQ last evening. Fasting BSG above goal at 177 mg/dL. Will increase Lantus. * Persistent post prandial BSG elevation. Will tighten carb coverage. PLAN FOR INPATIENT GLYCEMIC CONTROL: * Hold outpatient oral diabetes medications * Basal insulin * Lantus 35-40 units SQ qPM (40 units for BSG > 180 mg/dL) * Bolus insulin * NovoLog per scale ACHS or Q6hrs while NPO * Goal Range: Low 110 mg/dL - High 140 mg/dL * Correction Factor: 20 mg/dL/unit * Nutritional / Prandial insulin per carb ratio of 1 unit per 7 grams CHO consumed
--- NOTE | 2024-05-12 16:08 | Hospitalist Progress Note ---
Date of Service May 12, 2024 Assessment & Plan (1) Generalized weakness: (2) CHF (congestive heart failure): (3) Atrial fibrillation with RVR: (4) CKD (chronic kidney disease), stage III: Plan Mr. Regan is a 63 year old gentleman with past medical history remarkable for HFrEF s/p AICD, Afib on eliquis, CAD s/p stent, IDDM, HTN, Schizoaffective disorder,Depression,CKDII, hx of LV thrombus, CVA, HLD, Mild mitral regurgitation seen for resented to [facility] ED due to BLE weakness Left leg cellulitis Dehydration Generalized weakness Thrombocytopenia/Chronic petechial rash -Arterial Doppler:Extensive atherosclerosis without arterial occlusion or evidence of high-grade stenosis. -- Blood cultures no growth today Continue Rocephin, add doxycycline>> Zosyn, Doxy Monitor CBC Check peripheral smear--pending Parkinsonism Likely due to antipsychotic medication use Acute metabolic encephalopathy --MRI Brain:No acute intracranial abnormality. Chronic infarcts. Started on amantadine 100 mg twice a day Appreciate neurology input PT OT, fall precautions Needs follow-up with psychiatry on discharge H/O CVA Thought to be cardioembolic Continue aspirin, Lipitor On Eliquis Chronic systolic, diastolic CHF Ischemic cardiomyopathy Pulmonary hypertension Pacemaker functioning well Monitor volume status Appreciate cardiology input Aldactone on hold Resume torsemide 20 mg daily Plan to resume Aldactone in 1 to 2 days H/O A-fib CAD S/P stent H/O LV thrombus Continue aspirin, Lipitor, metoprolol, digoxin On Eliquis for anticoagulation Chronic troponin elevation Likely due to CHF, pulmonary hypertension, renal insufficiency Doubt ACS CKD III Monitor renal function Avoid nephrotoxic agents as able Schizoaffective disorder Depression On Abilify Needs follow-up with psychiatry on discharge Transaminitis Chronic Monitor LFTs DM II Uncontrolled HbA1c 10.0 Continue insulin while hospitalized Monitor BGs Glycemic pharmacist consulted paraeducator consulted DVT Px: Eliquis Code Status DNI DNR Admission and Anticipated Discharge Date Admission Date: May 11, 2024 Subjective Patient is seen and examined at bedside States feeling better today No new complaints Less confused today Denies any chest pain, dyspnea, nausea, abdominal pain, dizziness Afebrile today Review of Systems Review of Systems: All systems reviewed & are unremarkable except as noted in Subjective Physical Exam Physical Exam: Physical Exam: Vitals signs as noted above General Appearance:Moderately built and nourished, chronically ill appearing, no apparent distress Head: normocephalic, Atraumatic Eyes: normal inspection, EOMI Neck: supple, Trachea midline Respiratory/Chest: Normal breath sounds, CTA, No accessory muscle use Cardiovascular: S1, S2, No murmur, + pacer Abdomen/GI:Soft, Non tender, Bowel sounds present Extremities/Musculoskeletal:normal inspection, trace edema, + petechial rash predominantly left lower extremity Neurologic/Psych:AAOX2, grossly no focal neurological deficits, + resting tremor Skin: normal color, warm Results & Data Results & Data Vital Signs (Past 12 Hours) Vital Signs Temp Pulse Resp BP Pulse Ox O2 Del Method O2 Flow Rate 05/12/24 15:43 36.6 C 75 18 120/88 97 Nasal Cannula 2 05/12/24 11:53 37.2 C 76 16 119/93 92 Nasal Cannula 2 05/12/24 08:26 36.4 C L 72 16 114/75 100 Nasal Cannula 2.5 05/12/24 08:10 Nasal Cannula 2 Laboratory Results Short CBC 05/12/24 Range/Units 07:14 WBC 6.79 (4.8-10.8) K/ul Hgb 15.1 (14.0-18.0) g/dl Hct 43.7 (42.0-52.0) % Plt Count 80 L (130-400) K/uL (2) CHF (congestive heart failure) Heart failure chronicity: unspecified Heart failure type: unspecified Qualified Code(s): I50.9 - Heart failure, unspecified
[2024-05-12] MEDS: ACETAMINOPHEN 325 MG TAB PO PRN (19:48)
[2024-05-13] MEDS: INSULIN ASPART PER UNIT CHARGE SC SCH (01:00)
[2024-05-13 07:35] LABS: Hematocrit (blood only) 39.5 % (42.0-52.0); Hemoglobin 13.9 g/dl (14.0-18.0); Mean Corpuscular Hgb Conc 35.2 g/dL (32.0-36.0); Mean Corpuscular Volume 90.8 fL (80.0-100.0); Mean Platelet Volume 13.4 fL (9.4-12.4); Platelet Count 81 K/uL (130-400); RDW Coefficient of Variation 13.2 % (11.5-14.5); RDW Standard Deviation 43.8 fL (36.4-46.3); Red Blood Count 4.35 M/uL (4.70-6.10); White Blood Count 6.92 K/ul (4.8-10.8)
[2024-05-13 07:51] LABS: Albumin Level 3.1 gm/dl (3.4-5.0); BUN Creatinine Ratio 24.7 (10-20); Bilirubin,Total 1.8 mg/dl (0.2-1.0); Calcium 8.4 mg/dl (8.6-10.3); Creatinine Clr Calc Pharmacy 56.2 ml/min; Est GFR (African American) 55.2 ml/min; Est GFR (Non-African American) 47.6 ml/min; Magnesium 1.9 mg/dl (1.7-2.4); Potassium 3.1 mmol/L (3.5-5.1); Total Protein 6.1 gm/dl (6.0-8.3)
[2024-05-13] MEDS: POTASSIUM CHLORIDE CRTAB 20 MEQ TABCR PO ONE (11:00)
[2024-05-13] MEDS: POTASSIUM CHLORIDE / WTR 10 MEQ/100 ML PLCT IV SCH (11:02)
--- NOTE | 2024-05-13 16:03 | Hospitalist Progress Note ---
Date of Service May 13, 2024 Assessment & Plan (1) Generalized weakness: (2) CHF (congestive heart failure): (3) Atrial fibrillation with RVR: (4) CKD (chronic kidney disease), stage III: Plan Mr. Regan is a 63 year old gentleman with past medical history remarkable for HFrEF s/p AICD, Afib on eliquis, CAD s/p stent, IDDM, HTN, Schizoaffective disorder,Depression,CKDII, hx of LV thrombus, CVA, HLD, Mild mitral regurgitation seen for resented to [facility] ED due to BLE weakness Left leg cellulitis Dehydration Generalized weakness Thrombocytopenia/Chronic petechial rash -Arterial Doppler:Extensive atherosclerosis without arterial occlusion or evidence of high-grade stenosis. -- Blood cultures no growth to date Continue Rocephin, add doxycycline>> Zosyn, Doxy Monitor CBC Check peripheral smear--pending Cultures remain negative, afebrile today Clinically improving Parkinsonism Likely due to antipsychotic medication use Acute metabolic encephalopathy --MRI Brain:No acute intracranial abnormality. Chronic infarcts. Started on amantadine 100 mg twice a day Appreciate neurology input PT OT, fall precautions Needs follow-up with psychiatry on discharge H/O CVA Thought to be cardioembolic Continue aspirin, Lipitor On Eliquis VAIBHAV on CKD III Monitor renal function Avoid nephrotoxic agents as able Creatinine 1.5 today Gentle IV fluids given history of CHF Avoid nephrotoxic agents as able Chronic systolic, diastolic CHF Ischemic cardiomyopathy Pulmonary hypertension Pacemaker functioning well Monitor volume status Appreciate cardiology input Hold diuretics given low BP Monitor volume status H/O A-fib CAD S/P stent H/O LV thrombus Continue aspirin, Lipitor, metoprolol, digoxin On Eliquis for anticoagulation Chronic troponin elevation Likely due to CHF, pulmonary hypertension, renal insufficiency Doubt ACS Schizoaffective disorder Depression On Abilify Needs follow-up with psychiatry on discharge Transaminitis Chronic Monitor LFTs DM II Uncontrolled HbA1c 10.0 Continue insulin while hospitalized Monitor BGs Glycemic pharmacist consulted health promotion educator consulted DVT Px: Eliquis Code Status DNI DNR Admission and Anticipated Discharge Date Admission Date: May 11, 2024 Subjective Patient is seen and examined at bedside Sitting in chair during my encounter Offers no complaints Denies any chest pain, dyspnea, nausea, abdominal pain, dizziness Blood cultures remain negative Review of Systems Review of Systems: All systems reviewed & are unremarkable except as noted in Subjective Physical Exam Physical Exam: Physical Exam: Vitals signs as noted above General Appearance:Moderately built and nourished, chronically ill appearing, no apparent distress Head: normocephalic, Atraumatic Eyes: normal inspection, EOMI Neck: supple, Trachea midline Respiratory/Chest: Normal breath sounds, CTA, No accessory muscle use Cardiovascular: S1, S2, No murmur, + pacer Abdomen/GI:Soft, Non tender, Bowel sounds present Extremities/Musculoskeletal:normal inspection, trace edema, + petechial rash predominantly left lower extremity Neurologic/Psych:AAOX2, grossly no focal neurological deficits, + resting tremor Skin: normal color, warm Results & Data Results & Data Vital Signs (Past 12 Hours) Vital Signs Temp Pulse Resp BP Pulse Ox Pulse Ox O2 Del Method 05/13/24 14:35 36.3 C L 70 19 97/65 L 98 Room Air 05/13/24 13:00 93 05/13/24 11:15 36.7 C 71 18 116/65 96 Room Air 05/13/24 08:00 Nasal Cannula 05/13/24 07:30 36.5 C 79 16 113/75 97 Nasal Cannula 05/13/24 04:04 36.7 C 66 18 114/73 97 Nasal Cannula O2 Del Method O2 Flow Rate 05/13/24 14:35 05/13/24 13:00 Room Air 05/13/24 11:15 05/13/24 08:00 2 05/13/24 07:30 2 05/13/24 04:04 2 Laboratory Results Short CBC 05/13/24 Range/Units 06:41 WBC 6.92 (4.8-10.8) K/ul Hgb 13.9 L (14.0-18.0) g/dl Hct 39.5 L (42.0-52.0) % Plt Count 81 L (130-400) K/uL BMP 05/13/24 06:41 Sodium 132 L Potassium 3.1 L Chloride 96 L Carbon Dioxide 30 BUN 38 H Creatinine 1.54 H D Glucose 95 Calcium 8.4 L Liver Function 05/13/24 Range/Units 06:41 Total Bilirubin 1.8 H (0.2-1.0) mg/dl AST 107 H (13-39) U/L ALT 111 H (7-52) U/L Alkaline Phosphatase 59 (34-104) U/L Albumin 3.1 L (3.4-5.0) gm/dl (2) CHF (congestive heart failure) Heart failure chronicity: unspecified Heart failure type: unspecified Qualified Code(s): I50.9 - Heart failure, unspecified
[2024-05-13 20:52] LABS: Babesia microti DNA Not Detected (Not Detected)
[2024-05-13] MEDS: SODIUM CHLORIDE 0.9% 1,000 ML IV SCH (21:29)
[2024-05-14 08:35] LABS: Hematocrit (blood only) 35.4 % (42.0-52.0); Hemoglobin 12.5 g/dl (14.0-18.0); Mean Corpuscular Hemoglobin 32.3 pg (25.0-34.0); Mean Corpuscular Hgb Conc 35.3 g/dL (32.0-36.0); Mean Corpuscular Volume 91.5 fL (80.0-100.0); Mean Platelet Volume 13.4 fL (9.4-12.4); Platelet Count 100 K/uL (130-400); RDW Coefficient of Variation 13.2 % (11.5-14.5); RDW Standard Deviation 44.1 fL (36.4-46.3); Red Blood Count 3.87 M/uL (4.70-6.10); White Blood Count 7.21 K/ul (4.8-10.8)
[2024-05-14 08:50] LABS: Albumin Globulin Ratio 1.1 (0.9-2); BUN Creatinine Ratio 24.2 (10-20); Bilirubin,Total 1.4 mg/dl (0.2-1.0); Creatinine Clr Calc Pharmacy 66.1 ml/min; Est GFR (African American) 66.5 ml/min; Est GFR (Non-African American) 57.4 ml/min; Globulin 2.7 gm/dl (2.5-4.0); Potassium 3.7 mmol/L (3.5-5.1); Total Protein 5.7 gm/dl (6.0-8.3)
--- NOTE | 2024-05-14 10:10 | Pharmacy Report ---
Pharmacy Glycemic Short Note 2 - Date of Service May 14, 2024 - Glycemic Short BSG Results (Last 24 hours): 05/13/24 05/13/24 05/13/24 11:58 17:04 20:02 Glucose POC Glucose 212 H 222 H 299 H 05/14/24 05/14/24 08:04 08:08 Glucose 127 H POC Glucose 139 H OUTPATIENT ANTIDIABETIC REGIMEN: * Lantus 30 units SC HS * metformin * dulaglutide ASSESSMENT: 05/14 * Kit received 82 units of insulin yesterday (40 were basal) * Fasting BSG within goal range this AM, will schedule current regimen * BSGs trend up throughout the day, will tighten carbohydrate coverage, correction factor appears adequate. 05/12 * Kit received 67 units of insulin yesterday (30 were basal) * Fasting BSG this AM above goal range, will increase basal insulin by 15-30% based on BSG at bedtime * Considering tighter breakfast carbohydrate coverage, but incorrect carb ratio used this AM likely contributory to lunchtime elevation 05/11 * Kit is a 63 yo T2DM who presented with BLE weakness with concern for possible cellulitis * Patient received Lantus 20 units SQ last evening. Fasting BSG above goal at 177 mg/dL. Will increase Lantus. * Persistent post prandial BSG elevation. Will tighten carb coverage. PLAN FOR INPATIENT GLYCEMIC CONTROL: * Hold outpatient oral diabetes medications * Basal insulin * Lantus 40 units SQ qPM * Bolus insulin * NovoLog per scale ACHS or Q6hrs while NPO * Goal Range: Low 110 mg/dL - High 140 mg/dL * Correction Factor: 20 mg/dL/unit * Nutritional / Prandial insulin per carb ratio of 1 unit per 5 grams CHO consumed
[2024-05-14] MEDS: ADVANCED PROBIOTIC 625 MG CAPSULE PO SCH (12:06)
[2024-05-14 15:35] LABS: Ehrlichia chaff DNA Bld Negative (Negative)
--- NOTE | 2024-05-14 17:21 | Hospitalist Progress Note ---
Date of Service May 14, 2024 Assessment & Plan (1) Generalized weakness: (2) CHF (congestive heart failure): (3) Atrial fibrillation with RVR: (4) CKD (chronic kidney disease), stage III: Plan Mr. Regan is a 63 year old gentleman with past medical history remarkable for HFrEF s/p AICD, Afib on eliquis, CAD s/p stent, IDDM, HTN, Schizoaffective disorder,Depression,CKDII, hx of LV thrombus, CVA, HLD, Mild mitral regurgitation seen for resented to [facility] ED due to BLE weakness Left leg cellulitis Dehydration Generalized weakness Thrombocytopenia/Chronic petechial rash -Arterial Doppler:Extensive atherosclerosis without arterial occlusion or evidence of high-grade stenosis. -- Blood cultures no growth to date Continue Rocephin, doxycycline>> Zosyn, Doxy Monitor CBC Check peripheral smear--Non contributory Cultures remain negative, afebrile today May need ID eval if recurrence of fever Parkinsonism Likely due to antipsychotic medication use Acute metabolic encephalopathy --MRI Brain:No acute intracranial abnormality. Chronic infarcts. Started on amantadine 100 mg twice a day Appreciate neurology input PT OT, fall precautions Needs follow-up with psychiatry on discharge H/O CVA Thought to be cardioembolic Continue aspirin, Lipitor On Eliquis VAIBHAV on CKD III Monitor renal function Avoid nephrotoxic agents as able Creatinine 1.3 today Gentle IV fluids given history of CHF Avoid nephrotoxic agents as able Chronic systolic, diastolic CHF Ischemic cardiomyopathy Pulmonary hypertension Pacemaker functioning well Monitor volume status Appreciate cardiology input Monitor volume status Resume diuretics as able H/O A-fib CAD S/P stent H/O LV thrombus Continue aspirin, Lipitor, metoprolol, digoxin On Eliquis for anticoagulation Chronic troponin elevation Likely due to CHF, pulmonary hypertension, renal insufficiency Doubt ACS Schizoaffective disorder Depression On Abilify Needs follow-up with psychiatry on discharge Transaminitis Chronic Monitor LFTs DM II Uncontrolled HbA1c 10.0 Continue insulin while hospitalized Monitor BGs Glycemic pharmacist consulted diabetic educator consulted DVT Px: Eliquis Code Status DNI DNR Admission and Anticipated Discharge Date Admission Date: May 11, 2024 Subjective Patient is seen and examined at bedside Had 1 large loose BM today per family Patient offers no new complaints today Discussed with patient's family at bedside Denies any chest pain, dyspnea, nausea, abdominal pain, dizziness Review of Systems Review of Systems: All systems reviewed & are unremarkable except as noted in Subjective Physical Exam Physical Exam: Physical Exam: Vitals signs as noted above General Appearance:Moderately built and nourished, chronically ill appearing, no apparent distress Head: normocephalic, Atraumatic Eyes: normal inspection, EOMI Neck: supple, Trachea midline Respiratory/Chest: Normal breath sounds, CTA, No accessory muscle use Cardiovascular: S1, S2, No murmur, + pacer Abdomen/GI:Soft, Non tender, Bowel sounds present Extremities/Musculoskeletal:normal inspection, trace edema, + petechial rash predominantly left lower extremity Neurologic/Psych:AAOX2, grossly no focal neurological deficits, + resting tremor Skin: normal color, warm Results & Data Results & Data Vital Signs (Past 12 Hours) Vital Signs Temp Pulse Pulse Resp BP BP Pulse Ox 05/14/24 17:11 73 05/14/24 11:20 36.7 C 70 18 105/65 99 05/14/24 08:20 05/14/24 07:35 72 05/14/24 07:26 36.9 C 69 18 102/59 L 98 O2 Del Method O2 Flow Rate 05/14/24 17:11 05/14/24 11:20 Room Air 05/14/24 08:20 Room Air, Nasal Cannula 2 05/14/24 07:35 05/14/24 07:26 Nasal Cannula 2 Laboratory Results Short CBC 05/14/24 Range/Units 08:08 WBC 7.21 (4.8-10.8) K/ul Hgb 12.5 L (14.0-18.0) g/dl Hct 35.4 L (42.0-52.0) % Plt Count 100 L (130-400) K/uL BMP 05/14/24 08:08 Sodium 131 L Potassium 3.7 Chloride 98 Carbon Dioxide 29 BUN 32 H Creatinine 1.32 Glucose 127 H Calcium 8.0 L Liver Function 05/14/24 Range/Units 08:08 Total Bilirubin 1.4 H (0.2-1.0) mg/dl AST 79 H (13-39) U/L ALT 90 H (7-52) U/L Alkaline Phosphatase 60 (34-104) U/L Albumin 3.0 L (3.4-5.0) gm/dl (2) CHF (congestive heart failure) Heart failure chronicity: unspecified Heart failure type: unspecified Qualified Code(s): I50.9 - Heart failure, unspecified
[2024-05-14] MEDS: LANTUS PER UNIT CHARGE SC SCH (21:00)
[2024-05-15 06:44] LABS: Albumin Globulin Ratio 1.1 (0.9-2); BUN Creatinine Ratio 22.3 (10-20); Bilirubin,Total 1.3 mg/dl (0.2-1.0); Calcium 8.1 mg/dl (8.6-10.3); Creatinine Clr Calc Pharmacy 71.9 ml/min; Est GFR (African American) 73.9 ml/min; Est GFR (Non-African American) 63.8 ml/min; Globulin 2.7 gm/dl (2.5-4.0); Potassium 3.3 mmol/L (3.5-5.1); Total Protein 5.7 gm/dl (6.0-8.3)
[2024-05-15] MEDS: POTASSIUM CHLORIDE CRTAB 20 MEQ TABCR PO STA (09:54)
[2024-05-15] MEDS: INSULIN ASPART PER UNIT CHARGE SC SCH ×2 (09:54→12:55)
--- NOTE | 2024-05-15 18:01 | Hospitalist Progress Note ---
Date of Service May 15, 2024 Assessment & Plan (1) Generalized weakness: (2) CHF (congestive heart failure): (3) Atrial fibrillation with RVR: (4) CKD (chronic kidney disease), stage III: Plan Mr. Regan is a 63 year old gentleman with past medical history remarkable for HFrEF s/p AICD, Afib on eliquis, CAD s/p stent, IDDM, HTN, Schizoaffective disorder,Depression,CKDII, hx of LV thrombus, CVA, HLD, Mild mitral regurgitation seen for resented to [facility] ED due to BLE weakness Left leg cellulitis Dehydration Generalized weakness Thrombocytopenia/Chronic petechial rash -Arterial Doppler:Extensive atherosclerosis without arterial occlusion or evidence of high-grade stenosis. -- Blood cultures no growth to date Continue Rocephin, doxycycline>> Zosyn, Doxy Check peripheral smear--Non contributory Cultures remain negative, afebrile today PT OT, fall precautions Acute metabolic encephalopathy --MRI Brain:No acute intracranial abnormality. Chronic infarcts. Resolved Parkinsonism Likely due to antipsychotic medication use Started on amantadine 100 mg twice a day Appreciate neurology input H/O CVA Thought to be cardioembolic Continue aspirin, Lipitor On Eliquis VAIBHAV on CKD III Monitor renal function Avoid nephrotoxic agents as able Creatinine 1.3 today Gentle IV fluids given history of CHF Avoid nephrotoxic agents agents Creatinine has improved to normal Chronic systolic, diastolic CHF Ischemic cardiomyopathy Pulmonary hypertension Pacemaker functioning well Monitor volume status Appreciate cardiology input Monitor volume status Resume diuretics as able H/O A-fib CAD S/P stent H/O LV thrombus Continue aspirin, Lipitor, metoprolol, digoxin On Eliquis for anticoagulation Chronic troponin elevation Likely due to CHF, pulmonary hypertension, renal insufficiency Doubt ACS Schizoaffective disorder Depression On Abilify Will ask for psychiatric evaluation Transaminitis Chronic Monitor LFTs DM II Uncontrolled HbA1c 10.0 Continue insulin while hospitalized Monitor BGs Glycemic pharmacist consulted perinatal educator consulted DVT Px: Eliquis Code Status DNI DNR Admission and Anticipated Discharge Date Admission Date: May 11, 2024 Subjective 05/15/2024 The patient was seen and examined in medical telemetry unit He has been stable and denies any significant symptoms No fever and or chills and no nausea or vomiting He will have a psychiatric evaluation Review of Systems Review of Systems: All systems reviewed and are unremarkable except as noted below Physical Exam Physical Exam: Sitting on a chair without any acute distress Constitutional: + ill appearing Eyes: PERRL, conjunctivae normal, anicteric sclerae ENMT: external ear and nose normal, oropharynx normal Neck: trachea midline, no thyromegaly Respiratory: no respiratory distress Auscultation: lungs clear to auscultat ion bilaterally Cardiovascular: Rate/Rhythm: regular rate and regular rhythm; not tachycardic Heart Sounds: normal S1 and normal S2; no murmur Gastrointestinal (Abdomen): Inspection/Auscultation: normal bowel sounds; abdomen not distended Percussion/Palpation: abdomen soft; abdomen nontender Musculoskeletal: No acute arthritis involving any of the joint Neurologic: normal touch/pain/proprioception and moves all extremities; no focal motor deficits Psychiatric: Affect: + depressed affect Mood: + depressed mood and + anxious mood Lymphatic: no cervical or axillary lymphadenopathy Results & Data Results & Data Vital Signs (Past 12 Hours) Vital Signs Temp Pulse Pulse Resp BP BP Pulse Ox 05/15/24 15:31 36.4 C 74 18 113/76 98 05/15/24 15:00 72 05/15/24 11:28 36.4 C 72 18 104/66 93 05/15/24 11:00 05/15/24 08:00 73 05/15/24 07:51 36.8 C 71 18 112/70 91 O2 Del Method O2 Flow Rate 05/15/24 15:31 Nasal Cannula 2 05/15/24 15:00 05/15/24 11:28 Room Air 05/15/24 11:00 Nasal Cannula 2 05/15/24 08:00 05/15/24 07:51 Nasal Cannula 2 Laboratory Results [facility] 05/15/24 05:59 Sodium 132 L Potassium 3.3 L Chloride 98 Carbon Dioxide 29 BUN 27 H Creatinine 1.21 Glucose 82 Calcium 8.1 L Liver Function 05/15/24 Range/Units 05:59 Total Bilirubin 1.3 H (0.2-1.0) mg/dl AST 77 H (13-39) U/L ALT 91 H (7-52) U/L Alkaline Phosphatase 65 (34-104) U/L Albumin 3.0 L (3.4-5.0) gm/dl Medications Administered Current Inpatient Medications Acetaminophen (Acetaminophen 325 Mg Tab) 650 mg PO Q4H PRN PRN Reason: Pain or Fever Stop: 06/09/24 13:00 Last Admin: 05/12/24 19:48 Dose: 650 mg Amantadine HCl (Amantadine Hcl 100 Mg Capsule) 100 mg PO BID [facility] Stop: 06/09/24 20:59 Last Admin: 05/15/24 09:52 Dose: 100 mg Apixaban (Apixaban 5 Mg Tablet) 5 mg PO BID [facility] Stop: 06/09/24 13:29 Last Admin: 05/15/24 09:52 Dose: 5 mg Aripiprazole (Aripiprazole 10 Mg Tab) 10 mg PO [facility] Stop: 06/09/24 20:59 Last Admin: 05/14/24 21:01 Dose: 10 mg Aspirin (Aspirin 81 Mg Ectab) [facility] Stop: 06/09/24 13:59 Last Admin: 05/15/24 09:52 Dose: 81 mg Atorvastatin Calcium (Atorvastatin 40 Mg Tab) 40 mg PO [facility] Stop: 06/09/24 20:59 Last Admin: 05/12/24 20:43 Dose: 40 mg Dextrose (Dextrose 50% 50 Ml Syringe) 25 - 50 ml IV UD PRN; Protocol PRN Reason: Hypoglycemia Protocol Stop: 06/09/24 11:36 Digoxin (Digoxin 0.125 Mg Tab) 0.125 mg PO Q24H [facility] Stop: 06/09/24 13:59 Last Admin: 05/15/24 17:49 Dose: 0.125 mg Doxycycline Hyclate (Doxycycline Hyclate 100 Mg Cap) 100 mg PO BID [facility] Stop: 05/18/24 12:44 Last Admin: 05/15/24 09:52 Dose: 100 mg Glucagon (Glucagon For Inj 1 Mg Vial) 1 mg SQ UD PRN; Protocol PRN Reason: Hypoglycemia Protocol Stop: 06/09/24 11:36 Glucose (Glucose 40% Gel 15 Gm Tube) 15 - 30 gm PO UD PRN; Protocol PRN Reason: Hypoglycemia Protocol Stop: 06/09/24 11:36 Glucose (Glucose 10 Tab/Tube) 4 - 8 tab PO UD PRN; Protocol PRN Reason: Hypoglycemia Treatment Stop: 06/09/24 11:36 Piperacillin Sod/Tazobactam (Sod 4.5 gm/ Dextrose) 100 mls @ 25 mls/hr IV Q8H [facility]; Protocol Stop: 05/22/24 00:59 Last Admin: 05/15/24 17:51 Dose: 25 mls/hr Insulin Aspart (Insulin Aspart Per Unit Charge) 0 units SC QDB [facility] Stop: 06/14/24 07:29 Last Admin: 05/15/24 13:00 Dose: 7 units Insulin Aspart (Insulin Aspart Per Unit Charge) 0 units SC TID@1130,1630,2100 [facility] Stop: 06/14/24 11:29 Last Admin: 05/15/24 17:50 Dose: 12 units Insulin Glargine (Lantus Per Unit Charge) 40 units SC HS [facility] Stop: 06/13/24 20:59 Last Admin: 05/14/24 21:00 Dose: 40 units Lactobacillus Acidophilus (Advanced Probiotic 625 Mg Capsule) 1,250 mg PO DAILY [facility] Stop: 06/13/24 10:44 Last Admin: 05/15/24 09:52 Dose: 1,250 mg Metoprolol Succinate (Metoprolol Succ 50mg Ext Rel Tab) 50 mg PO PM [facility] Stop: 06/09/24 20:59 Last Admin: 05/14/24 21:02 Dose: 50 mg Miscellaneous (Carbohydrates For Hypoglycemia ) 15 - 30 gm PO UD PRN PRN Reason: Hypoglycemia Protocol Stop: 06/09/24 11:36 Miscellaneous Information (Pharmacy Glycemic Mgmt Consult) 1 each N/A UD PRN; Protocol PRN Reason: Consult Stop: 06/10/24 08:51 Multivitamins (Multivitamin Tab) 1 tab PO QAM [facility] Stop: 06/10/24 08:59 Last Admin: 05/15/24 09:52 Dose: 1 tab Mupirocin (Mupirocin 2% Oint 22 Gm Tube) 1 appln TOP BID [facility] Stop: 06/09/24 20:59 Last Admin: 05/15/24 09:53 Dose: 1 appln Spironolactone (Spironolactone 25 Mg Tab) 25 mg PO QAM [facility] Stop: 06/09/24 13:00 Last Admin: 05/10/24 18:40 Dose: Not Given Torsemide (Torsemide 20 Mg Tab) 20 mg PO QAM [facility] Stop: 06/11/24 08:59 Last Admin: 05/13/24 09:03 Dose: 20 mg Trazodone HCl (Trazodone Hcl 50 Mg Tab) 50 mg PO HS [facility] Stop: 06/09/24 20:59 Last Admin: 05/14/24 21:00 Dose: 50 mg (2) CHF (congestive heart failure) Heart failure chronicity: unspecified Heart failure type: unspecified Qualified Code(s): I50.9 - Heart failure, unspecified
[2024-05-16 09:37] LABS: BUN Creatinine Ratio 19.2 (10-20); Calcium 8.2 mg/dl (8.6-10.3); Est GFR (African American) 94.2 ml/min; Est GFR (Non-African American) 81.3 ml/min; Phosphorus 2.9 mg/dl (2.5-4.9); Potassium 3.6 mmol/L (3.5-5.1)
[2024-05-16 09:54] LABS: Hematocrit (blood only) 35.5 % (42.0-52.0); Hemoglobin 12.6 g/dl (14.0-18.0); Mean Corpuscular Hemoglobin 32.2 pg (25.0-34.0); Mean Corpuscular Hgb Conc 35.5 g/dL (32.0-36.0); Mean Corpuscular Volume 90.8 fL (80.0-100.0); Mean Platelet Volume 12.8 fL (9.4-12.4); Platelet Count 24 K/uL (130-400); RDW Coefficient of Variation 13.6 % (11.5-14.5); RDW Standard Deviation 44.8 fL (36.4-46.3); Red Blood Count 3.91 M/uL (4.70-6.10); White Blood Count 8.54 K/ul (4.8-10.8)
[2024-05-16 10:01] LABS: Basophils # (auto) 0.06 K/uL (0.00-0.20); Basophils % (auto) 0.7 %; Echinocytes 1+; Eosinophils # (auto) 0.12 K/uL (0.00-0.50); Eosinophils % (auto) 1.4 %; Immature Granulocytes # (auto) 0.23 K/uL (0.01-0.20); Immature Granulocytes % (auto) 2.7 %; Lymphocytes # (auto) 0.95 K/uL (1.20-3.40); Lymphocytes % (auto) 11.1 %; Monocytes # (auto) 0.57 K/uL (0.11-0.59); Monocytes % (auto) 6.7 %; Neutrophils # (auto) 6.61 K/uL (1.40-6.50); Neutrophils % (auto) 77.4 %; Polychromasia 1+
--- NOTE | 2024-05-16 10:51 | Pharmacy Report ---
Pharmacy Glycemic Short Note 2 - Date of Service May 16, 2024 - Glycemic Short BSG Results (Last 24 hours): 05/15/24 05/15/24 05/15/24 12:17 17:17 20:28 Glucose POC Glucose 167 H 151 H 256 H 05/16/24 05/16/24 08:07 08:56 Glucose 80 POC Glucose 76 OUTPATIENT ANTIDIABETIC REGIMEN: * Lantus 30 units SC HS * metformin * dulaglutide ASSESSMENT: 05/15 * Kit received 70 units of insulin yesterday (40 were basal) * Fasting BSG within goal range this AM, will continue 40 units HS * NovoLog changed to be tighter with breakfast, then looser throughout the rest of the day - continue at this time. 05/14 * Kit received 82 units of insulin yesterday (40 were basal) * Fasting BSG within goal range this AM, will schedule current regimen * BSGs trend up throughout the day, will tighten carbohydrate coverage, correction factor appears adequate. 05/12 * Kit received 67 units of insulin yesterday (30 were basal) * Fasting BSG this AM above goal range, will increase basal insulin by 15-30% based on BSG at bedtime * Considering tighter breakfast carbohydrate coverage, but incorrect carb ratio used this AM likely contributory to lunchtime elevation 05/11 * Kit is a 63 yo T2DM who presented with BLE weakness with concern for possible cellulitis * Patient received Lantus 20 units SQ last evening. Fasting BSG above goal at 177 mg/dL. Will increase Lantus. * Persistent post prandial BSG elevation. Will tighten carb coverage. PLAN FOR INPATIENT GLYCEMIC CONTROL: * Hold outpatient oral diabetes medications * Basal insulin * Lantus 40 units SQ qPM * Bolus insulin * NovoLog per scale ACHS or Q6hrs while NPO * Goal Range: Low 110 mg/dL - High 140 mg/dL * Correction Factor: 12mg/dL/unit at breakfast; 20 mg/dL/unit all other times * Nutritional / Prandial insulin per carb ratio of 1 unit per 4 grams CHO consumed at breakfast; 1 unit per 5 grams CHO consumed all other times
[2024-05-16 12:47] LABS: Reticulocyte % 3.4 % (0.50-2.00); Reticulocytes # 0.14 10^6/uL (0.020-0.100)
[2024-05-16 13:19] LABS: INR 1.2 (0.9-1.1); Partial Thromboplastin Time 28 Seconds (21-31); Prothrombin Time 12.7 Seconds (9.0-12.0)
[2024-05-16 13:25] LABS: Ferritin 374.8 ng/ml (8-388)
--- NOTE | 2024-05-16 14:52 | Hospitalist Progress Note ---
Date of Service May 16, 2024 Assessment & Plan (1) Generalized weakness: (2) CHF (congestive heart failure): (3) Atrial fibrillation with RVR: (4) CKD (chronic kidney disease), stage III: Plan Mr. Regan is a 63 year old gentleman with past medical history remarkable for HFrEF s/p AICD, Afib on eliquis, CAD s/p stent, IDDM, HTN, Schizoaffective disorder,Depression,CKDII, hx of LV thrombus, CVA, HLD, Mild mitral regurgitation seen for resented to [facility] ED due to BLE weakness Left leg cellulitis Dehydration Generalized weakness Thrombocytopenia/Chronic petechial rash -Arterial Doppler:Extensive atherosclerosis without arterial occlusion or evidence of high-grade stenosis. -- Blood cultures no growth to date Continue Rocephin, doxycycline>> Zosyn, Doxy Check peripheral smear--Non contributory Cultures remain negative, afebrile today PT OT, fall precautions Petechial hemorrhage Involving bilateral lower legs Doubt vasculitic lesions Platelet count has been low and it has gone down to 24 as of 05/16/2024 Peripheral smear has been negative for any significant findings but myelodysplastic syndrome was not excluded Will ask for hematology evaluation Acute metabolic encephalopathy --MRI Brain:No acute intracranial abnormality. Chronic infarcts. Resolved Parkinsonism Likely due to antipsychotic medication use Started on amantadine 100 mg twice a day Appreciate neurology input H/O CVA Thought to be cardioembolic Continue aspirin, Lipitor On Eliquis VAIBHAV on CKD III Monitor renal function Avoid nephrotoxic agents as able Creatinine 1.3 today Gentle IV fluids given history of CHF Avoid nephrotoxic agents agents Creatinine has improved to normal Chronic systolic, diastolic CHF Ischemic cardiomyopathy Pulmonary hypertension Pacemaker functioning well Monitor volume status Appreciate cardiology input Monitor volume status Resume diuretics as able H/O A-fib CAD S/P stent H/O LV thrombus Continue aspirin, Lipitor, metoprolol, digoxin On Eliquis for anticoagulation Chronic troponin elevation Likely due to CHF, pulmonary hypertension, renal insufficiency Doubt ACS Schizoaffective disorder Depression On Abilify Will ask for psychiatric evaluation Transaminitis Chronic Monitor LFTs DM II Uncontrolled HbA1c 10.0 Continue insulin while hospitalized Monitor BGs Glycemic pharmacist consulted rn diabetes educator consulted DVT Px: Eliquis Code Status DNI DNR Admission and Anticipated Discharge Date Admission Date: May 11, 2024 Subjective 05/15/2024 The patient was seen and examined in medical telemetry unit He has been stable and denies any significant symptoms No fever and or chills and no nausea or vomiting He will have a psychiatric evaluation 05/16/2024 The patient was seen and examined in medical telemetry unit He remains stable and looks to be depressed Denies any significant symptoms Awaiting placement Review of Systems Review of Systems: All systems reviewed and are unremarkable except as noted below Physical Exam Physical Exam: Sitting on a chair without any acute distress Constitutional: + ill appearing Eyes: PERRL, conjunctivae normal, anicteric sclerae ENMT: external ear and nose normal, oropharynx normal Neck: trachea midline, no thyromegaly Respiratory: no respiratory distress Auscultation: lungs clear to auscultation bilaterally Cardiovascular: Rate/Rhythm: regular rate and regular rhythm; not tachycardic Heart Sounds: normal S1 and normal S2; no murmur Gastrointestinal (Abdomen): Inspection/Auscultation: normal bowel sounds; abdomen not distended Percussion/Palpation: abdomen soft; abdomen nontender Neurologic: normal touch/pain/proprioception and moves all extremities; no focal motor deficits Psychiatric: Affect: + depressed affect Mood: + depressed mood and + anxious mood Lymphatic: no cervical or axillary lymphadenopathy Results & Data Results & Data Vital Signs (Past 12 Hours) Vital Signs Temp Pulse Pulse Resp BP Pulse Ox O2 Del Method 05/16/24 13:00 77 05/16/24 11:36 36.5 C 70 17 114/68 99 Room Air 05/16/24 07:43 36.8 C 71 17 117/76 100 Nasal Cannula 05/16/24 07:32 Nasal Cannula 05/16/24 05:48 71 O2 Flow Rate 05/16/24 13:00 05/16/24 11:36 2 05/16/24 07:43 2 05/16/24 07:32 2 05/16/24 05:48 Laboratory Results Short CBC 05/16/24 Range/Units 08:56 WBC 8.54 (4.8-10.8) K/ul Hgb 12.6 L (14.0-18.0) g/dl Hct 35.5 L (42.0-52.0) % Plt Count 24 L* (130-400) K/uL BMP 05/16/24 08:56 Sodium 132 L Potassium 3.6 Chloride 99 Carbon Dioxide 28 BUN 19 Creatinine 0.99 Glucose 80 Calcium 8.2 L Medications Administered Current Inpatient Medications Acetaminophen (Acetaminophen 325 Mg Tab) 650 mg PO Q4H PRN PRN Reason: Pain or Fever Stop: 06/09/24 13:00 Last Admin: 05/12/24 19:48 Dose: 650 mg Amantadine HCl (Amantadine Hcl 100 Mg Capsule) 100 mg PO BID [facility] Stop: 06/09/24 20:59 Last Admin: 05/16/24 08:44 Dose: 100 mg Apixaban (Apixaban 5 Mg Tablet) 5 mg PO BID [facility] Stop: 06/09/24 13:29 Last Admin: 05/16/24 08:44 Dose: 5 mg Aripiprazole (Aripiprazole 10 Mg Tab) 10 mg PO [facility] Stop: 06/09/24 20:59 Last Admin: 05/15/24 20:26 Dose: 10 mg Aspirin (Aspirin 81 Mg Ectab) 81 mg PO QAM [facility] Stop: 06/09/24 13:59 Last Admin: 05/16/24 08:44 Dose: 81 mg Atorvastatin Calcium (Atorvastatin 40 Mg Tab) 40 mg PO HS [facility] Stop: 06/09/24 20:59 Last Admin: 05/12/24 20:43 Dose: 40 mg Dextrose (Dextrose 50% 50 Ml Syringe) 25 - 50 ml IV UD PRN; Protocol PRN Reason: Hypoglycemia Protocol Stop: 06/09/24 11:36 Digoxin (Digoxin 0.125 Mg Tab) 0.125 mg PO Q24H [facility] Stop: 06/09/24 13:59 Last Admin: 05/15/24 17:49 Dose: 0.125 mg Doxycycline Hyclate (Doxycycline Hyclate 100 Mg Cap) 100 mg PO BID [facility] Stop: 05/18/24 12:44 Last Admin: 05/16/24 08:44 Dose: 100 mg Glucagon (Glucagon For Inj 1 Mg Vial) 1 mg SQ UD PRN; Protocol PRN Reason: Hypoglycemia Protocol Stop: 06/09/24 11:36 Glucose (Glucose 40% Gel 15 Gm Tube) 15 - 30 gm PO UD PRN; Protocol PRN Reason: Hypoglycemia Protocol Stop: 06/09/24 11:36 Glucose (Glucose 10 Tab/Tube) 4 - 8 tab PO UD PRN; Protocol PRN Reason: Hypoglycemia Treatment Stop: 06/09/24 11:36 Piperacillin Sod/Tazobactam (Sod 4.5 gm/ Dextrose) 100 mls @ 25 mls/hr IV Q8H [facility]; Protocol Stop: 05/22/24 00:59 Last Infusion: 05/16/24 12:45 Dose: Infused Insulin Aspart (Insulin Aspart Per Unit Charge) 0 units SC QDB [facility] Stop: 06/14/24 07:29 Last Admin: 05/15/24 13:00 Dose: 7 units Insulin Aspart (Insulin Aspart Per Unit Charge) 0 units SC TID@1130,1630,2100 [facility] Stop: 06/14/24 11:29 Last Admin: 05/16/24 12:54 Dose: 7 units Insulin Glargine (Lantus Per Unit Charge) 40 units SC HS [facility] Stop: 06/13/24 20:59 Last Admin: 05/15/24 21:16 Dose: 40 units Lactobacillus Acidophilus (Advanced Probiotic 625 Mg Capsule) 1,250 mg PO DAILY [facility] Stop: 06/13/24 10:44 Last Admin: 05/16/24 08:44 Dose: 1,250 mg Metoprolol Succinate (Metoprolol Succ 50mg Ext Rel Tab) 50 mg PO PM [facility] Stop: 06/09/24 20:59 Last Admin: 05/15/24 20:26 Dose: 50 mg Miscellaneous (Carbohydrates For Hypoglycemia ) 15 - 30 gm PO UD PRN PRN Reason: Hypoglycemia Protocol Stop: 06/09/24 11:36 Miscellaneous Information (Pharmacy Glycemic Mgmt Consult) 1 each N/A UD PRN; Protocol PRN Reason: Consult Stop: 06/10/24 08:51 Multivitamins (Multivitamin Tab) 1 tab PO QAM [facility] Stop: 06/10/24 08:59 Last Admin: 05/16/24 08:44 Dose: 1 tab Mupirocin (Mupirocin 2% Oint 22 Gm Tube) 1 appln TOP BID [facility] Stop: 06/09/24 20:59 Last Admin: 05/16/24 08:44 Dose: 1 appln Spironolactone (Spironolactone 25 Mg Tab) 25 mg PO QAM [facility] Stop: 06/09/24 13:00 Last Admin: 05/10/24 18:40 Dose: Not Given Torsemide (Torsemide 20 Mg Tab) 20 mg PO QAM [facility] Stop: 06/11/24 08:59 Last Admin: 05/13/24 09:03 Dose: 20 mg Trazodone HCl (Trazodone Hcl 50 Mg Tab) 50 mg PO HS [facility] Stop: 06/09/24 20:59 Last Admin: 05/15/24 21:16 Dose: 50 mg (2) CHF (congestive heart failure) Heart failure chronicity: unspecified Heart failure type: unspecified Qualified Code(s): I50.9 - Heart failure, unspecified
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
--- NOTE | 2024-05-16 15:41 | Ultrasound Report ---
US abdomen limited CLINICAL HISTORY: Thrombocytopenia, evaluate for hepatosplenomegaly COMPARISON STUDY: Abdominal ultrasound 07/25/2019. FINDINGS: Transabdominal scanning of the liver and spleen were performed with client relations representative images s ubmitted. The liver measures 15.1 cm in length and the spleen measures 10.1 cm in length. Of note, th e spleen is partially obscured by overlying bowel gas. No hepatic or splenic masses identified. No fl uid collections. The main portal vein is patent. IMPRESSION: The liver and spleen are normal in size. ACT 112: Negative or not required by law. Electronically signed by: Tristen Soto M.D. 05/16/2024 3:40 PM
[2024-05-17] MEDS: CARBOHYDRATES FOR HYPOGLYCEMIA PO PRN (04:19)
--- NOTE | 2024-05-17 07:14 | Pharmacy Report ---
Pharmacy Glycemic Short Note 2 - Date of Service May 17, 2024 - Glycemic Short BSG Results (Last 24 hours): 05/16/24 05/16/24 05/16/24 08:07 08:56 11:58 Glucose 80 POC Glucose 76 162 H 05/16/24 05/16/24 05/17/24 16:50 19:45 04:19 Glucose POC Glucose 162 H 285 H 57 L* 05/17/24 05/17/24 04:38 04:56 Glucose POC Glucose 66 L* 75 OUTPATIENT ANTIDIABETIC REGIMEN: * Lantus 30 units SC HS * metformin * dulaglutide ASSESSMENT: 05/17 * Kit received 72 units of insulin yesterday (40 were basal) * Hypoglycemic at 0400 this morning (57,66mg/dl) - decrease HS Lantus, change goal range, and loosen CR slightly to prevent further hypoglycemia. 05/16 * Kit received 70 units of insulin yesterday (40 were basal) * Fasting BSG within goal range this AM, will continue 40 units HS * NovoLog changed to be tighter with breakfast, then looser throughout the rest of the day - continue at this time. 05/14 * Kit received 82 units of insulin yesterday (40 were basal) * Fasting BSG within goal range this AM, will schedule current regimen * BSGs trend up throughout the day, will tighten carbohydrate coverage, correction factor appears adequate. 05/12 * Kit received 67 units of insulin yesterday (30 were basal) * Fasting BSG this AM above goal range, will increase basal insulin by 15-30% based on BSG at bedtime * Considering tighter breakfast carbohydrate coverage, but incorrect carb ratio used this AM likely contributory to lunchtime elevation 05/11 * Kit is a 63 yo T2DM who presented with BLE weakness with concern for possible cellulitis * Patient received Lantus 20 units SQ last evening. Fasting BSG above goal at 177 mg/dL. Will increase Lantus. * Persistent post prandial BSG elevation. Will tighten carb coverage. PLAN FOR INPATIENT GLYCEMIC CONTROL: * Hold outpatient oral diabetes medications * Basal insulin * Lantus 35 units SQ qPM * Bolus insulin * NovoLog per scale ACHS or Q6hrs while NPO * Goal Range: Low 120 mg/dL - High 150 mg/dL * Correction Factor: 12mg/dL/unit at breakfast; 25 mg/dL/unit all other times * Nutritional / Prandial insulin per carb ratio of 1 unit per 4 grams CHO consumed at breakfast; 1 unit per 5 grams CHO consumed all other times
[2024-05-17 08:50] LABS: BUN Creatinine Ratio 19.8 (10-20); Calcium 8.3 mg/dl (8.6-10.3); Creatinine Clr Calc Pharmacy 94.6 ml/min; Est GFR (African American) 103.6 ml/min; Est GFR (Non-African American) 89.4 ml/min; Magnesium 2.2 mg/dl (1.7-2.4); Potassium 3.7 mmol/L (3.5-5.1)
[2024-05-17 08:51] LABS: Hematocrit (blood only) 32.7 % (42.0-52.0); Hemoglobin 11.7 g/dl (14.0-18.0); Mean Corpuscular Hemoglobin 32.8 pg (25.0-34.0); Mean Corpuscular Hgb Conc 35.8 g/dL (32.0-36.0); Mean Corpuscular Volume 91.6 fL (80.0-100.0); Mean Platelet Volume 14.2 fL (9.4-12.4); Platelet Count 49 K/uL (130-400); RDW Coefficient of Variation 13.9 % (11.5-14.5); RDW Standard Deviation 46.1 fL (36.4-46.3); Red Blood Count 3.57 M/uL (4.70-6.10); White Blood Count 7.27 K/ul (4.8-10.8)
[2024-05-17 09:02] LABS: Basophils # (auto) 0.05 K/uL (0.00-0.20); Basophils % (auto) 0.7 %; Eosinophils # (auto) 0.07 K/uL (0.00-0.50); Immature Granulocytes # (auto) 0.27 K/uL (0.01-0.20); Immature Granulocytes % (auto) 3.7 %; Lymphocytes # (auto) 0.97 K/uL (1.20-3.40); Lymphocytes % (auto) 13.3 %; Monocytes # (auto) 0.58 K/uL (0.11-0.59); Neutrophils # (auto) 5.33 K/uL (1.40-6.50); Neutrophils % (auto) 73.3 %; Platelet Estimate Decreased (Normal)
[2024-05-17] MEDS: AMOXICILLIN/CLAVULANATE 875 MG TAB PO SCH (16:28)
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
--- NOTE | 2024-05-17 16:52 | Hospitalist Progress Note ---
Date of Service May 17, 2024 Assessment & Plan (1) Generalized weakness: (2) CHF (congestive heart failure): (3) Atrial fibrillation with RVR: (4) CKD (chronic kidney disease), stage III: Plan Mr. Regan is a 63 year old gentleman with past medical history remarkable for HFrEF s/p AICD, Afib on eliquis, CAD s/p stent, IDDM, HTN, Schizoaffective disorder,Depression,CKDII, hx of LV thrombus, CVA, HLD, Mild mitral regurgitation seen for resented to [facility] due to BLE weakness Left leg cellulitis Dehydration Generalized weakness Thrombocytopenia/Chronic petechial rash -Arterial Doppler:Extensive atherosclerosis without arterial occlusion or evidence of high-grade stenosis. -- Blood cultures no growth to date Continue Rocephin, doxycycline>> Zosyn, Doxy Check peripheral smear--Non contributory Cultures remain negative, afebrile today PT OT, fall precautions Cellulitis of the legs are much improved Will change antibiotic to oral Augmentin to finish the course for a total of 7 days Petechial hemorrhage Involving bilateral lower legs Doubt vasculitic lesions Platelet count has been low and it has gone down to 24 as of 05/16/2024 Peripheral smear has been negative for any significant findings but myelodysplastic syndrome was not excluded Appreciate hematology input and recommendation The patient did not receive any heparin during this admission Thrombocytopenia is thought to be due to infection/drug reaction Likely to improve if it is below 30,000 we will give IVIG/prednisone Will continue to follow Schizoaffective disorder Depression On Abilify Appreciate psychiatric evaluation Ready to go for any skilled care facility 30-day stay in a facility has been signed Acute metabolic encephalopathy --MRI Brain:No acute intracranial abnormality. Chronic infarcts. Resolved Parkinsonism Likely due to antipsychotic medication use Started on amantadine 100 mg twice a day Appreciate neurology input H/O CVA Thought to be cardioembolic Continue aspirin, Lipitor On Eliquis VAIBHAV on CKD III Monitor renal function Avoid nephrotoxic agents as able Creatinine 1.3 today Gentle IV fluids given history of CHF Avoid nephrotoxic agents agents Creatinine has improved to normal Chronic systolic, diastolic CHF Ischemic cardiomyopathy Pulmonary hypertension Pacemaker functioning well Monitor volume status Appreciate cardiology input Monitor volume status Resume diuretics as able H/O A-fib CAD S/P stent H/O LV thrombus Continue aspirin, Lipitor, metoprolol, digoxin On Eliquis for anticoagulation Chronic troponin elevation Likely due to CHF, pulmonary hypertension, renal insufficiency Doubt ACS Transaminitis Chronic Monitor LFTs DM II Uncontrolled HbA1c 10.0 Continue insulin while hospitalized Monitor BGs Glycemic pharmacist consulted certified breastfeeding educator consulted DVT Px: Eliquis Code Status DNI DNR Admission and Anticipated Discharge Date Admission Date: May 11, 2024 Subjective 05/15/2024 The patient was seen and examined in medical telemetry unit He has been stable and denies any significant symptoms No fever and or chills and no nausea or vomiting He will have a psychiatric evaluation 05/16/2024 The patient was seen and examined in medical telemetry unit He remains stable and looks to be depressed Denies any significant symptoms Awaiting placement 05/17/2024 The patient was seen and examined in medical telemetry unit He has been stable and may be feeling little bit better Denies any significant symptoms except weakness Awaiting placement Review of Systems Review of Systems: All systems reviewed and are unremarkable except as noted below Physical Exam Physical Exam: Sitting on a chair without any acute distress Constitutional: + ill appearing Eyes: PERRL, conjunctivae normal, anicteric sclerae ENMT: external ear and nose normal, oropharynx normal Neck: trachea midline, no thyromegaly Respiratory: no respiratory distress Auscultation: lungs clear to auscultation bilaterally Cardiovascular: Rate/Rhythm: regular rate and regular rhythm; not tachycardic Heart Sounds: normal S1 and normal S2; no murmur Gastrointestinal (Abdomen): Inspection/Auscultation: normal bowel sounds; abdomen not distended Percussion/Palpation: abdomen soft; abdomen nontender Neurologic: normal touch/pain/proprioception and moves all extremities; no focal motor deficits Psychiatric: Affect: + depressed affect Mood: + depressed mood and + anxious mood Lymphatic: no cervical or axillary lymphadenopathy Results & Data Results & Data Vital Signs (Past 12 Hours) Vital Signs Temp Pulse Pulse Resp BP Pulse Ox O2 Del Method 05/17/24 16:28 78 05/17/24 16:17 36.8 C 79 17 108/73 95 Room Air 05/17/24 13:49 79 05/17/24 11:45 36.4 C L 76 18 110/71 97 Room Air 05/17/24 11:26 97 Room Air, Nasal Cannula 05/17/24 07:46 36.4 C L 81 18 111/72 97 Room Air 05/17/24 07:28 Nasal Cannula 05/17/24 05:47 80 O2 Flow Rate 05/17/24 16:28 05/17/24 16:17 05/17/24 13:49 05/17/24 11:45 05/17/24 11:26 2 05/17/24 07:46 05/17/24 07:28 2 05/17/24 05:47 Laboratory Results Short CBC 05/17/24 Range/Units 08:11 WBC 7.27 (4.8-10.8) K/ul Hgb 11.7 L (14.0-18.0) g/dl Hct 32.7 L (42.0-52.0) % Plt Count 49 L D (130-400) K/uL BMP 05/17/24 08:11 Sodium 134 L Potassium 3.7 Chloride 99 Carbon Dioxide 31 BUN 18 Creatinine 0.91 Glucose 104 H Calcium 8.3 L Medications Administered Current Inpatient Medications Acetaminophen (Acetaminophen 325 Mg Tab) 650 mg PO Q4H PRN PRN Reason: Pain or Fever Stop: 06/09/24 13:00 Last Admin: 05/12/24 19:48 Dose: 650 mg Amantadine HCl (Amantadine Hcl 100 Mg Capsule) 100 mg PO BID [facility] Stop: 06/09/24 20:59 Last Admin: 05/17/24 08:18 Dose: 100 mg Amoxicillin/Clavulanate Potassium (Amoxicillin/Clavulanate 875 Mg Tab) 1 tab PO BIDM [facility]; Protocol Stop: 05/24/24 16:59 Last Admin: 05/17/24 16:28 Dose: 1 tab Apixaban (Apixaban 5 Mg Tablet) 5 mg PO BID [facility] Stop: 06/09/24 13:29 Last Admin: 05/17/24 08:18 Dose: 5 mg Aripiprazole (Aripiprazole 10 Mg Tab) 10 mg PO HS [facility] Stop: 06/09/24 20:59 Last Admin: 05/16/24 20:47 Dose: 10 mg Aspirin (Aspirin 81 Mg Ectab) 81 mg PO QAM [facility] Stop: 06/09/24 13:59 Last Admin: 05/17/24 08:18 Dose: 81 mg Atorvastatin Calcium (Atorvastatin 40 Mg Tab) 40 mg PO HS [facility] Stop: 06/09/24 20:59 Last Admin: 05/12/24 20:43 Dose: 40 mg Dextrose (Dextrose 50% 50 Ml Syringe) 25 - 50 ml IV UD PRN; Protocol PRN Reason: Hypoglycemia Protocol Stop: 06/09/24 11:36 Digoxin (Digoxin 0.125 Mg Tab) 0.125 mg PO Q24H [facility] Stop: 06/09/24 13:59 Last Admin: 05/17/24 16:28 Dose: 0.125 mg Glucagon (Glucagon For Inj 1 Mg Vial) 1 mg SQ UD PRN; Protocol PRN Reason: Hypoglycemia Protocol Stop: 06/09/24 11:36 Glucose (Glucose 40% Gel 15 Gm Tube) 15 - 30 gm PO UD PRN; Protocol PRN Reason: Hypoglycemia Protocol Stop: 06/09/24 11:36 Glucose (Glucose 10 Tab/Tube) 4 - 8 tab PO UD PRN; Protocol PRN Reason: Hypoglycemia Treatment Stop: 06/09/24 11:36 Insulin Aspart (Insulin Aspart Per Unit Charge) 0 units SC QDB [facility] Stop: 06/14/24 07:29 Last Admin: 05/17/24 08:52 Dose: 10 units Insulin Aspart (Insulin Aspart Per Unit Charge) 0 units SC TID@1130,1630,2100 [facility] Stop: 06/14/24 11:29 Last Admin: 05/17/24 12:28 Dose: 11 units Insulin Glargine (Lantus Per Unit Charge) 35 units SC HS [facility]; Protocol Stop: 06/16/24 20:59 Lactobacillus Acidophilus (Advanced Probiotic 625 Mg Capsule) 1,250 mg PO DAILY [facility] Stop: 06/13/24 10:44 Last Admin: 05/17/24 08:18 Dose: 1,250 mg Metoprolol Succinate (Metoprolol Succ 50mg Ext Rel Tab) 50 mg PO PM [facility] Stop: 06/09/24 20:59 Last Admin: 05/16/24 20:47 Dose: 50 mg Miscellaneous (Carbohydrates For Hypoglycemia ) 15 - 30 gm PO UD PRN PRN Reason: Hypoglycemia Protocol Stop: 06/09/24 11:36 Last Admin: 05/17/24 04:38 Dose: 16 gm Miscellaneous Information (Pharmacy Glycemic Mgmt Consult) 1 each N/A UD PRN; Protocol PRN Reason: Consult Stop: 06/10/24 08:51 Multivitamins (Multivitamin Tab) 1 tab PO QAM [facility] Stop: 06/10/24 08:59 Last Admin: 05/17/24 08:18 Dose: 1 tab Mupirocin (Mupirocin 2% Oint 22 Gm Tube) 1 appln TOP BID [facility] Stop: 06/09/24 20:59 Last Admin: 05/17/24 08:18 Dose: 1 appln Spironolactone (Spironolactone 25 Mg Tab) 25 mg PO QAM [facility] Stop: 06/09/24 13:00 Last Admin: 05/10/24 18:40 Dose: Not Given Torsemide (Torsemide 20 Mg Tab) 20 mg PO QAM [facility] Stop: 06/11/24 08:59 Last Admin: 05/13/24 09:03 Dose: 20 mg Trazodone HCl (Trazodone Hcl 50 Mg Tab) 50 mg PO [facility] Stop: 06/09/24 20:59 Last Admin: 05/16/24 20:47 Dose: 50 mg (2) CHF (congestive heart failure) Heart failure chronicity: unspecified Heart failure type: unspecified Qualified Code(s): I50.9 - Heart failure, unspecified
[2024-05-17] MEDS: LANTUS PER UNIT CHARGE SC SCH (21:04)
[2024-05-18 06:40] LABS: BUN Creatinine Ratio 16.2 (10-20); Calcium 8.2 mg/dl (8.6-10.3); Creatinine Clr Calc Pharmacy 87.1 ml/min; Est GFR (African American) 93.6 ml/min; Est GFR (Non-African American) 80.7 ml/min; Potassium 3.4 mmol/L (3.5-5.1)
[2024-05-18 07:13] LABS: Basophils # (auto) 0.08 K/uL (0.00-0.20); Basophils % (auto) 0.9 %; Eosinophils # (auto) 0.15 K/uL (0.00-0.50); Eosinophils % (auto) 1.6 %; Hematocrit (blood only) 34.7 % (42.0-52.0); Hemoglobin 11.8 g/dl (14.0-18.0); Immature Granulocytes # (auto) 0.44 K/uL (0.01-0.20); Immature Granulocytes % (auto) 4.8 %; Lymphocytes % (auto) 14.3 %; Mean Corpuscular Hemoglobin 32.1 pg (25.0-34.0); Mean Corpuscular Volume 94.3 fL (80.0-100.0); Monocytes % (auto) 9.9 %; Neutrophils # (auto) 6.23 K/uL (1.40-6.50); Neutrophils % (auto) 68.5 %; Platelet Count 111 K/uL (130-400); RDW Coefficient of Variation 14.4 % (11.5-14.5); RDW Standard Deviation 47.6 fL (36.4-46.3); Red Blood Count 3.68 M/uL (4.70-6.10)
[2024-05-18] MEDS: POTASSIUM CHLORIDE CRTAB 20 MEQ TABCR PO STA (08:03)
--- NOTE | 2024-05-18 08:38 | Pharmacy Report ---
Pharmacy Glycemic Short Note 2 - Date of Service May 18, 2024 - Glycemic Short BSG Results (Last 24 hours): 05/17/24 05/17/24 05/17/24 08:11 12:05 16:58 Glucose 104 H POC Glucose 112 H 112 H 05/17/24 05/17/24 05/18/24 20:04 23:04 05:53 Glucose 63 L POC Glucose 181 H 89 05/18/24 07:51 Glucose POC Glucose 74 OUTPATIENT ANTIDIABETIC REGIMEN: * Lantus 30 units SC HS * Metformin 1 g PO BIDM * Trulicity 4.5 mg SC weekly HbA1c: 10% (05/11/24) ASSESSMENT: 05/18/24: * Much lower overall blood sugar trend yesterday into this morning (74 mg/dL) * Will err on side of caution and reduce basal insulin this evening to decrease risk of hypoglycemia * IV antibiotics have been changed to PO 05/17: * Kit received 72 units of insulin yesterday (40 were basal) * Hypoglycemic at 0400 this morning (57,66mg/dl) - decrease HS Lantus, change goal range, and loosen CR slightly to prevent further hypoglycemia. Background: * Kit is a 63 yo T2DM who presented with BLE weakness with concern for possible cellulitis * Patient received Lantus 20 units SQ last evening. Fasting BSG above goal at 177 mg/dL. Will increase Lantus. * Persistent post prandial BSG elevation. Will tighten carb coverage. PLAN FOR INPATIENT GLYCEMIC CONTROL: * Hold outpatient oral diabetes medications * Basal insulin * Lantus 20 units SC qPM * Bolus insulin * NovoLog per scale ACHS or Q6hrs while NPO * Goal Range: Low 120 mg/dL - High 150 mg/dL * Correction Factor: 12 mg/dL/unit at breakfast; 25 mg/dL/unit all other times * Nutritional / Prandial insulin per carb ratio of 1 unit per 4 grams CHO consumed at breakfast, 1 unit per 5 grams CHO consumed at lunch, dinner, HS
--- NOTE | 2024-05-18 15:40 | Hospitalist Progress Note ---
Date of Service May 18, 2024 Assessment & Plan (1) Generalized weakness: (2) CHF (congestive heart failure): (3) Atrial fibrillation with RVR: (4) CKD (chronic kidney disease), stage III: Plan Mr. Regan is a 63 year old gentleman with past medical history remarkable for HFrEF s/p AICD, Afib on eliquis, CAD s/p stent, IDDM, HTN, Schizoaffective disorder,Depression,CKDII, hx of LV thrombus, CVA, HLD, Mild mitral regurgitation seen for resented to [facility] due to BLE weakness Left leg cellulitis Dehydration Generalized weakness Thrombocytopenia/Chronic petechial rash -Arterial Doppler:Extensive atherosclerosis without arterial occlusion or evidence of high-grade stenosis. -- Blood cultures no growth to date Continue Rocephin, doxycycline>> Zosyn, Doxy Check peripheral smear--Non contributory Cultures remain negative, afebrile today PT OT, fall precautions Cellulitis of the legs are much improved Will change antibiotic to oral Augmentin to finish the course for a total of 7 days Cellulitis of the legs are much improved Petechial hemorrhage Involving bilateral lower legs Doubt vasculitic lesions Platelet count has been low and it has gone down to 24 as of 05/16/2024 Peripheral smear has been negative for any significant findings but myelodysplastic syndrome was not excluded Appreciate hematology input and recommendation The patient did not receive any heparin during this admission Thrombocytopenia is thought to be due to infection/drug reaction Likely to improve if it is below 30,000 we will give IVIG/prednisone Petechiae in the extremities are much improved with improvement of the platelet count to 111 Remains medically stable to be discharged Schizoaffective disorder Depression On Abilify Appreciate psychiatric evaluation Ready to go for any skilled care facility 30-day stay in a facility has been signed No acute psychotic issues Acute metabolic encephalopathy --MRI Brain:No acute intracranial abnormality. Chronic infarcts. Resolved Parkinsonism Likely due to antipsychotic medication use Started on amantadine 100 mg twice a day Appreciate neurology input H/O CVA Thought to be cardioembolic Continue aspirin, Lipitor On Eliquis VAIBHAV on CKD III Monitor renal function Avoid nephrotoxic agents as able Creatinine 1.3 today Gentle IV fluids given history of CHF Avoid nephrotoxic agents agents Creatinine has improved to normal Chronic systolic, diastolic CHF Ischemic cardiomyopathy Pulmonary hypertension Pacemaker functioning well Monitor volume status Appreciate cardiology input Monitor volume status Resume diuretics as able H/O A-fib CAD S/P stent H/O LV thrombus Continue aspirin, Lipitor, metoprolol, digoxin On Eliquis for anticoagulation Chronic troponin elevation Likely due to CHF, pulmonary hypertension, renal insufficiency Doubt ACS Transaminitis Chronic Monitor LFTs DM II Uncontrolled HbA1c 10.0 Continue insulin while hospitalized Monitor BGs Glycemic pharmacist consulted staff development educator consulted DVT Px: Eliquis Code Status DNI DNR Likely discharge to [facility] tomorrow Admission and Anticipated Discharge Date Admission Date: May 11, 2024 Subjective 05/15/2024 The patient was seen and examined in medical telemetry unit He has been stable and denies any significant symptoms No fever and or chills and no nausea or vomiting He will have a psychiatric evaluation 05/16/2024 The patient was seen and examined in medical telemetry unit He remains stable and looks to be depressed Denies any significant symptoms Awaiting placement 05/17/2024 The patient was seen and examined in medical telemetry unit He has been stable and may be feeling little bit better Denies any significant symptoms except weakness Awaiting placement 05/18/2024 The patient was seen and examined in medical telemetry unit He has been stable and denies any significant symptoms Complains to have diarrhea with negative for any C. difficile infection Likely secondary to use of antibiotic and will try Imodium if worse Review of Systems Review of Systems: All systems reviewed and are unremarkable except as noted below Physical Exam Physical Exam: Sitting on a chair without any acute distress Constitutional: + ill appearing Eyes: PERRL, conjunctivae normal, anicteric sclerae ENMT: external ear and nose normal, oropharynx normal Neck: trachea midline, no thyromegaly Respiratory: no respiratory distress Auscultation: lungs clear to auscultat ion bilaterally Cardiovascular: Rate/Rhythm: regular rate and regular rhythm; not tachycardic Heart Sounds: normal S1 and normal S2; no murmur Gastrointestinal (Abdomen): Inspection/Auscultation: normal bowel sounds; abdomen not distended Percussion/Palpation: abdomen soft; abdomen nontender Skin: Headache in the extremities are much improved Neurologic: normal touch/pain/proprioception and moves all extremities; no focal motor deficits Psychiatric: Affect: + depressed affect Mood: + depressed mood and + anxious mood Lymphatic: no cervical or axillary lymphadenopathy Results & Data Results & Data Vital Signs (Past 12 Hours) Vital Signs Temp Pulse Pulse Pulse Resp BP BP 05/18/24 15:17 36.9 C 82 20 117/76 05/18/24 14:00 77 05/18/24 11:46 36.6 C 71 77 20 120/75 108/73 05/18/24 11:30 36.6 C 77 20 120/75 05/18/24 08:14 36.8 C 63 20 92/57 L 05/18/24 08:00 05/18/24 07:14 78 Pulse Ox O2 Del Method 05/18/24 15:17 94 Room Air 05/18/24 14:00 05/18/24 11:46 94 05/18/24 11:30 94 Room Air 05/18/24 08:14 95 Room Air 05/18/24 08:00 Room Air 05/18/24 07:14 Laboratory Results Short CBC 05/18/24 Range/Units 05:53 WBC 9.10 (4.8-10.8) K/ul Hgb 11.8 L (14.0-18.0) g/dl Hct 34.7 L (42.0-52.0) % Plt Count 111 L D (130-400) K/uL BMP 05/18/24 05:53 Sodium 138 Potassium 3.4 L Chloride 103 Carbon Dioxide 31 BUN 16 Creatinine 0.99 Glucose 63 L Calcium 8.2 L Medications Administered Current Inpatient Medications Acetaminophen (Acetaminophen 325 Mg Tab) 650 mg PO Q4H PRN PRN Reason: Pain or Fever Stop: 06/09/24 13:00 Last Admin: 05/12/24 19:48 Dose: 650 mg Amantadine HCl (Amantadine Hcl 100 Mg Capsule) 100 mg PO BID [facility] Stop: 06/09/24 20:59 Last Admin: 05/18/24 08:03 Dose: 100 mg Amoxicillin/Clavulanate Potassium (Amoxicillin/Clavulanate 875 Mg Tab) 1 tab PO BIDM [facility]; Protocol Stop: 05/24/24 16:59 Last Admin: 05/18/24 08:03 Dose: 1 tab Apixaban (Apixaban 5 Mg Tablet) 5 mg PO BID [facility] Stop: 06/09/24 13:29 Last Admin: 05/18/24 08:04 Dose: 5 mg Aripiprazole (Aripiprazole 10 Mg Tab) 10 mg PO HS [facility] Stop: 06/09/24 20:59 Last Admin: 05/17/24 21:05 Dose: 10 mg Aspirin (Aspirin 81 Mg Ectab) 81 mg PO QAM [facility] Stop: 06/09/24 13:59 Last Admin: 05/18/24 08:04 Dose: 81 mg Atorvastatin Calcium (Atorvastatin 40 Mg Tab) 40 mg PO [facility] Stop: 06/09/24 20:59 Last Admin: 05/12/24 20:43 Dose: 40 mg Dextrose (Dextrose 50% 50 Ml Syringe) 25 - 50 ml IV UD PRN; Protocol PRN Reason: Hypoglycemia Protocol Stop: 06/09/24 11:36 Digoxin (Digoxin 0.125 Mg Tab) 0.125 mg PO Q24H [facility] Stop: 06/09/24 13:59 Last Admin: 05/17/24 16:28 Dose: 0.125 mg Glucagon (Glucagon For Inj 1 Mg Vial) 1 mg SQ UD PRN; Protocol PRN Reason: Hypoglycemia Protocol Stop: 06/09/24 11:36 Glucose (Glucose 40% Gel 15 Gm Tube) 15 - 30 gm PO UD PRN; Protocol PRN Reason: Hypoglycemia Protocol Stop: 06/09/24 11:36 Glucose (Glucose 10 Tab/Tube) 4 - 8 tab PO UD PRN; Protocol PRN Reason: Hypoglycemia Treatment Stop: 06/09/24 11:36 Insulin Aspart (Insulin Aspart Per Unit Charge) 0 units SC QDB [facility] Stop: 06/14/24 07:29 Last Admin: 05/18/24 09:02 Dose: 7 units Insulin Aspart (Insulin Aspart Per Unit Charge) 0 units SC TID@1130,1630,2100 [facility] Stop: 06/14/24 11:29 Last Admin: 05/18/24 13:05 Dose: 11 units Insulin Glargine (Lantus Per Unit Charge) 20 units SC [facility]; Protocol Stop: 06/16/24 20:59 Lactobacillus Acidophilus (Advanced Probiotic 625 Mg Capsule) 1,250 mg PO DAILY [facility] Stop: 06/13/24 10:44 Last Admin: 05/18/24 08:03 Dose: 1,250 mg Metoprolol Succinate (Metoprolol Succ 50mg Ext Rel Tab) 50 mg PO PM [facility] Stop: 06/09/24 20:59 Last Admin: 05/17/24 21:05 Dose: 50 mg Miscellaneous (Carbohydrates For Hypoglycemia ) 15 - 30 gm PO UD PRN PRN Reason: Hypoglycemia Protocol Stop: 06/09/24 11:36 Last Admin: 05/17/24 04:38 Dose: 16 gm Miscellaneous Information (Pharmacy Glycemic Mgmt Consult) 1 each N/A UD PRN; Protocol PRN Reason: Consult Stop: 06/10/24 08:51 Multivitamins (Multivitamin Tab) 1 tab PO QAM [facility] Stop: 06/10/24 08:59 Last Admin: 05/18/24 08:04 Dose: 1 tab Mupirocin (Mupirocin 2% Oint 22 Gm Tube) 1 appln TOP BID [facility] Stop: 06/09/24 20:59 Last Admin: 05/18/24 08:04 Dose: 1 appln Spironolactone (Spironolactone 25 Mg Tab) 25 mg PO QAM [facility] Stop: 06/09/24 13:00 Last Admin: 05/10/24 18:40 Dose: Not Given Torsemide (Torsemide 20 Mg Tab) 20 mg PO QAM [facility] Stop: 06/11/24 08:59 Last Admin: 05/13/24 09:03 Dose: 20 mg Trazodone HCl (Trazodone Hcl 50 Mg Tab) 50 mg PO HS [facility] Stop: 06/09/24 20:59 Last Admin: 05/17/24 21:08 Dose: 50 mg (2) CHF (congestive heart failure) Heart failure chronicity: unspecified Heart failure type: unspecified Qualified Code(s): I50.9 - Heart failure, unspecified
[2024-05-18] MEDS: LANTUS PER UNIT CHARGE SC SCH (21:35)
[2024-05-19 07:32] LABS: Basophils # (auto) 0.06 K/uL (0.00-0.20); Basophils % (auto) 0.8 %; Eosinophils # (auto) 0.23 K/uL (0.00-0.50); Eosinophils % (auto) 3.1 %; Hematocrit (blood only) 34.3 % (42.0-52.0); Hemoglobin 11.7 g/dl (14.0-18.0); Immature Granulocytes # (auto) 0.32 K/uL (0.01-0.20); Immature Granulocytes % (auto) 4.3 %; Lymphocytes # (auto) 1.55 K/uL (1.20-3.40); Lymphocytes % (auto) 20.8 %; Mean Corpuscular Hemoglobin 32.2 pg (25.0-34.0); Mean Corpuscular Hgb Conc 34.1 g/dL (32.0-36.0); Mean Corpuscular Volume 94.5 fL (80.0-100.0); Mean Platelet Volume 12.7 fL (9.4-12.4); Monocytes % (auto) 9.4 %; Neutrophils # (auto) 4.58 K/uL (1.40-6.50); Neutrophils % (auto) 61.6 %; Platelet Count 158 K/uL (130-400); RDW Coefficient of Variation 14.9 % (11.5-14.5); RDW Standard Deviation 49.9 fL (36.4-46.3); Red Blood Count 3.63 M/uL (4.70-6.10); White Blood Count 7.44 K/ul (4.8-10.8)
[2024-05-19 07:43] LABS: BUN Creatinine Ratio 15.8 (10-20); Calcium 8.3 mg/dl (8.6-10.3); Creatinine Clr Calc Pharmacy 90.5 ml/min; Est GFR (African American) 98.3 ml/min; Est GFR (Non-African American) 84.9 ml/min; Potassium 3.8 mmol/L (3.5-5.1)
--- NOTE | 2024-05-19 11:20 | Hospitalist Progress Note ---
Date of Service May 19, 2024 Assessment & Plan (1) Generalized weakness: (2) CHF (congestive heart failure): (3) Atrial fibrillation with RVR: (4) CKD (chronic kidney disease), stage III: Plan Mr. Regan is a 63 year old gentleman with past medical history remarkable for HFrEF s/p AICD, Afib on eliquis, CAD s/p stent, IDDM, HTN, Schizoaffective disorder,Depression,CKDII, hx of LV thrombus, CVA, HLD, Mild mitral regurgitation seen for resented to [facility] ED due to BLE weakness Left leg cellulitis Dehydration Generalized weakness Thrombocytopenia/Chronic petechial rash -Arterial Doppler:Extensive atherosclerosis without arterial occlusion or evidence of high-grade stenosis. -- Blood cultures no growth to date Continue Rocephin, doxycycline>> Zosyn, Doxy Check peripheral smear--Non contributory Cultures remain negative, afebrile today PT OT, fall precautions Cellulitis of the legs are much improved Will change antibiotic to oral Augmentin to finish the course for a total of 7 days Cellulitis of the legs are much improved Will finish the course of antibiotic Petechial hemorrhage Involving bilateral lower legs Doubt vasculitic lesions Platelet count has been low and it has gone down to 24 as of 05/16/2024 Peripheral smear has been negative for any significant findings but myelodysplastic syndrome was not excluded Appreciate hematology input and recommendation The patient did not receive any heparin during this admission Thrombocytopenia is thought to be due to infection/drug reaction Likely to improve if it is below 30,000 we will give IVIG/prednisone Petechiae in the extremities are much improved with improvement of the platelet count to 111 Remains medically stable to be discharged Petechial hemorrhages is much improved and the platelet count has been normalized Schizoaffective disorder Depression On Abilify Appreciate psychiatric evaluation Ready to go for any skilled care facility 30-day stay in a facility has been signed No acute psychotic issues Acute metabolic encephalopathy --MRI Brain:No acute intracranial abnormality. Chronic infarcts. Resolved Parkinsonism Likely due to antipsychotic medication use Started on amantadine 100 mg twice a day Appreciate neurology input H/O CVA Thought to be cardioembolic Continue aspirin, Lipitor On Eliquis VAIBHAV on CKD III Monitor renal function Avoid nephrotoxic agents as able Creatinine 1.3 today Gentle IV fluids given history of CHF Avoid nephrotoxic agents agents Creatinine has improved to normal Chronic systolic, diastolic CHF Ischemic cardiomyopathy Pulmonary hypertension Pacemaker functioning well Monitor volume status Appreciate cardiology input Monitor volume status Resume diuretics as able No signs and or symptoms of fluid overload H/O A-fib CAD S/P stent H/O LV thrombus Continue aspirin, Lipitor, metoprolol, digoxin On Eliquis for anticoagulation Chronic troponin elevation Likely due to CHF, pulmonary hypertension, renal insufficiency Doubt ACS Transaminitis Chronic Monitor LFTs DM II Uncontrolled HbA1c 10.0 Continue insulin while hospitalized Monitor BGs Glycemic pharmacist consulted cosmetology educator consulted DVT Px: Eliquis Code Status DNI DNR Likely discharge to [facility] this afternoon Admission and Anticipated Discharge Date Admission Date: May 11, 2024 Subjective 05/15/2024 The patient was seen and examined in medical telemetry unit He has been stable and denies any significant symptoms No fever and or chills and no nausea or vomiting He will have a psychiatric evaluation 05/16/2024 The patient was seen and examined in medical telemetry unit He remains stable and looks to be depressed Denies any significant symptoms Awaiting placement 05/17/2024 The patient was seen and examined in medical telemetry unit He has been stable and may be feeling little bit better Denies any significant symptoms except weakness Awaiting placement 05/18/2024 The patient was seen and examined in medical telemetry unit He has been stable and denies any significant symptoms Complains to have diarrhea with negative for any C. difficile infection Likely secondary to use of antibiotic and will try Imodium if worse 05/19/2024 The patient was seen and examined in medical telemetry unit He remains stable and denies any significant symptoms His rash has improved a lot and the platelet count is normalized He will be discharged to [facility] this afternoon Review of Systems Review of Systems: All systems reviewed and are unremarkable except as noted below Physical Exam Physical Exam: Sitting on a chair without any acute distress Constitutional: + ill appearing Eyes: PERRL, conjunctivae normal, anicteric sclerae ENMT: external ear and nose normal, oropharynx normal Neck: trachea midline, no thyromegaly Respiratory: no respiratory distress Auscultation: lungs clear to ausculta tion bilaterally Cardiovascular: Rate/Rhythm: regular rate and regular rhythm; not tachycardic Heart Sounds: normal S1 and normal S2; no murmur Gastrointestinal (Abdomen): Inspection/Auscultation: normal bowel sounds; abdomen not distended Percussion/Palpation: abdomen soft; abdomen nontender Skin: Petechial rash involving the extremities are improved. Leg cellulitis is improved too Neurologic: normal touch/pain/proprioception and moves all extremities; no focal motor deficits Psychiatric: Affect: + depressed affect Mood: + depressed mood and + anxious mood Lymphatic: no cervical or axillary lymphadenopathy Results & Data Results & Data Vital Signs (Past 12 Hours) Vital Signs Temp Pulse Pulse Resp BP BP Pulse Ox 05/19/24 11:15 36.5 C 75 18 137/74 98 05/19/24 10:09 05/19/24 08:30 36.7 C 72 18 103/63 97 05/19/24 02:28 36.7 C 74 18 114/73 95 05/18/24 23:30 70 O2 Del Method 05/19/24 11:15 Room Air 05/19/24 10:09 Room Air 05/19/24 08:30 Room Air 05/19/24 02:28 Room Air 05/18/24 23:30 Laboratory Results Short CBC 05/19/24 Range/Units 06:18 WBC 7.44 (4.8-10.8) K/ul Hgb 11.7 L (14.0-18.0) g/dl Hct 34.3 L (42.0-52.0) % Plt Count 158 (130-400) K/uL BMP 05/19/24 06:18 Sodium 137 Potassium 3.8 Chloride 104 Carbon Dioxide 30 BUN 15 Creatinine 0.95 Glucose 64 L Calcium 8.3 L Medications Administered Current Inpatient Medications Acetaminophen (Acetaminophen 325 Mg Tab) 650 mg PO Q4H PRN PRN Reason: Pain or Fever Stop: 06/09/24 13:00 Last Admin: 05/18/24 21:36 Dose: 650 mg Amantadine HCl (Amantadine Hcl 100 Mg Capsule) 100 mg PO BID [facility] Stop: 06/09/24 20:59 Last Admin: 05/19/24 09:03 Dose: 100 mg Amoxicillin/Clavulanate Potassium (Amoxicillin/Clavulanate 875 Mg Tab) [facility] Protocol Stop: 05/24/24 16:59 Last Admin: 05/19/24 09:03 Dose: 1 tab Apixaban (Apixaban 5 Mg Tablet) 5 mg PO BID [facility] Stop: 06/09/24 13:29 Last Admin: 05/19/24 09:03 Dose: 5 mg Aripiprazole (Aripiprazole 10 Mg Tab) 10 mg PO HS [facility] Stop: 06/09/24 20:59 Last Admin: 05/18/24 21:37 Dose: 10 mg Aspirin (Aspirin 81 Mg Ectab) 81 mg PO QAM [facility] Stop: 06/09/24 13:59 Last Admin: 05/19/24 09:04 Dose: 81 mg Atorvastatin Calcium (Atorvastatin 40 Mg Tab) 40 mg PO HS [facility] Stop: 06/09/24 20:59 Last Admin: 05/12/24 20:43 Dose: 40 mg Dextrose (Dextrose 50% 50 Ml Syringe) 25 - 50 ml IV UD PRN; Protocol PRN Reason: Hypoglycemia Protocol Stop: 06/09/24 11:36 Digoxin (Digoxin 0.125 Mg Tab) 0.125 mg PO Q24H [facility] Stop: 06/09/24 13:59 Last Admin: 05/18/24 16:58 Dose: 0.125 mg Glucagon (Glucagon For Inj 1 Mg Vial) 1 mg SQ UD PRN; Protocol PRN Reason: Hypoglycemia Protocol Stop: 06/09/24 11:36 Glucose (Glucose 40% Gel 15 Gm Tube) 15 - 30 gm PO UD PRN; Protocol PRN Reason: Hypoglycemia Protocol Stop: 06/09/24 11:36 Glucose (Glucose 10 Tab/Tube) 4 - 8 tab PO UD PRN; Protocol PRN Reason: Hypoglycemia Treatment Stop: 06/09/24 11:36 Insulin Aspart (Insulin Aspart Per Unit Charge) 0 units SC QDB [facility] Stop: 06/14/24 07:29 Last Admin: 05/19/24 09:02 Dose: 10 units Insulin Aspart (Insulin Aspart Per Unit Charge) 0 units SC TID@1130,1630,2100 [facility] Stop: 06/14/24 11:29 Last Admin: 05/18/24 21:35 Dose: 2 units Insulin Glargine (Lantus Per Unit Charge) 20 units SC HS [facility]; Protocol Stop: 06/16/24 20:59 Last Admin: 05/18/24 21:35 Dose: 20 units Lactobacillus Acidophilus (Advanced Probiotic 625 Mg Capsule) 1,250 mg PO DAILY [facility] Stop: 06/13/24 10:44 Last Admin: 05/19/24 09:03 Dose: 1,250 mg Metoprolol Succinate (Metoprolol Succ 50mg Ext Rel Tab) 50 mg PO PM СВЕТЛАНА Stop: 06/09/24 20:59 Last Admin: 05/18/24 21:37 Dose: 50 mg Miscellaneous (Carbohydrates For Hypoglycemia ) 15 - 30 gm PO UD PRN PRN Reason: Hypoglycemia Protocol Stop: 06/09/24 11:36 Last Admin: 05/17/24 04:38 Dose: 16 gm Miscellaneous Information (Pharmacy Glycemic Mgmt Consult) 1 each N/A UD PRN; Protocol PRN Reason: Consult Stop: 06/10/24 08:51 Multivitamins (Multivitamin Tab) 1 tab PO QAM СВЕТЛАНА Stop: 06/10/24 08:59 Last Admin: 05/19/24 09:03 Dose: 1 tab Mupirocin (Mupirocin 2% Oint 22 Gm Tube) 1 appln TOP BID [facility] Stop: 06/09/24 20:59 Last Admin: 05/19/24 09:04 Dose: 1 appln Spironolactone (Spironolactone 25 Mg Tab) 25 mg PO QAM [facility] Stop: 06/09/24 13:00 Last Admin: 05/10/24 18:40 Dose: Not Given Torsemide (Torsemide 20 Mg Tab) 20 mg PO QAM СВЕТЛАНА Stop: 06/11/24 08:59 Last Admin: 05/13/24 09:03 Dose: 20 mg Trazodone HCl (Trazodone Hcl 50 Mg Tab) 50 mg PO HS [facility] Stop: 06/09/24 20:59 Last Admin: 05/18/24 21:36 Dose: 50 mg (2) CHF (congestive heart failure) Heart failure chronicity: unspecified Heart failure type: unspecified Qualified Code(s): I50.9 - Heart failure, unspecified
--- NOTE | 2024-05-20 07:31 | Discharge Summary ---
Date of Service May 20, 2024 Admission HPI Per Admitting Provider Mr. Regan is a 63 year old gentleman with past medical history remarkable for HFrEF s/p AICD, Afib on eliquis, CAD s/p stent, IDDM, HTN, Schizoaffective disorder,Depression,CKDII, hx of LV thrombus, CVA, HLD, Mild mitral regurgitation seen for resented to [facility] ED due to BLE weakness Patient reports 3 days of feeling unwell with weakness in L>R lower extremity. He states the weakness is not dissimilar to prior stroke in which LLE was predominately affected. He notes that he was weak and with a dry cough. The weakness persisted prompting presentation. Patient has been compliant with medications except did no take meds this am. Denies any urinary symptoms, changes in bowel habits or other concerns. Reports subjective fevers. He endorses baseline tremor of RUE and mouth. Denies any chest pain, palpitations, or SOB Reports chronic BLE petechiae, unchanged for years In the ED, vitals were notable for BP of 120-140s, HR of 70s-140s, and O2 sat of 96 on room air. Febrile to 37.6 COVID/Flu procal negative, mild transaminitis Imaging revealed no acute intracranial hemorrhage, chronic small infarcts COVID/RSV/FLU negative EKG V-paced ED interventions: IVF 500cc Patient to be admitted to [facility] for further evaluation and management of weakness and fever Admission Exam Per Admitting Provider Physical Exam: GENERAL APPEARANCE: AxOx4, confusion regarding home medications pleasant and communicative no acute distress. HEENT: NC, AT. MMM. EOMI, clear conjunctiva, oropharynx clear. tremor NECK: Supple without lymphadenopathy. No stiffness or restricted ROM. HEART: Normal rate and regular rhythm, normal S1/S1, no m/r/g LUNGS: CTAB, moving air well. No crackles or wheezes are heard. ABDOMEN: Soft, nontender, nondistended with good bowel sounds heard. BACK: No CVAT, no obvious deformity. EXTREMITIES: Without cyanosis, clubbing or edema. NEUROLOGICAL: Grossly nonfocal. Alert and oriented, moving all 4 extremities. CNII-XII intact, strength 3/5 in LLE, 4/5 RLE Skin: nonblanching petechial rash BLE, small skin break on LLE, slight surrounding erythema with weeping of wound Principal Diagnosis Left leg cellulitis, bilateral leg weakness, petechial hemorrhage and no more thrombocytopenia, schizoaffective disorder, parkinsonism, history of CVA Discharge Exam Sitting on a chair without any acute distress Constitutional + ill appearing Eyes PERRL, conjunctivae normal, anicteric sclerae ENMT external ear and nose normal, oropharynx normal Neck trachea midline, no thyromegaly Respiratory no respiratory distress Auscultation: lungs clear to auscultation bilaterally Cardiovascular Rate/Rhythm: regular rate and regular rhythm; not tachycardic Heart Sounds: normal S1 and normal S2; no murmur Gastrointestinal (Abdomen) Inspection/Auscultation: normal bowel sounds; abdomen not distended Percussion/Palpation: abdomen soft; abdomen nontender Neurologic normal touch/pain/proprioception and moves all extremities; no focal motor deficits Psychiatric Affect: + depressed affect Mood: + depressed mood and + anxious mood Lymphatic no cervical or axillary lymphadenopathy Discharge Data Allergies Allergy/AdvReac Type Severity Reaction Status Date / Time codeine Allergy Severe ANAPHYLAXSI Verified 04/20/23 09:19 S propoxyphene Allergy Severe RASH PER PT Verified 04/20/23 09:19 acetaminophen [From Percocet] AdvReac Mild itch Verified 05/11/24 19:44 oxycodone [From Percocet] AdvReac Mild itch Verified 05/11/24 19:44 Consultations 05/10/24 09:49 ED Decision to Admit Stat 05/10/24 11:47 Consult Neurology Routine 05/10/24 11:49 Consult Cardiology Routine 05/16/24 11:26 Consult Hematology Routine Ordered Studies 05/10/24 07:19 CT head/brain wo con Stat 05/10/24 09:33 MRI Brain [MR brain wo con] Stat 05/10/24 16:23 US arterial duplex LE LT Routine 05/16/24 12:15 US abdomen limited Routine Diabetes Follow up Diabetes Follow-up Needed for HgbA1c >9% Hospital Course (1) Generalized weakness: (2) CHF (congestive heart failure): (3) Atrial fibrillation with RVR: (4) CKD (chronic kidney disease), stage III: Plan Mr. Regan is a 63 year old gentleman with past medical history remarkable for HFrEF s/p AICD, Afib on eliquis, CAD s/p stent, IDDM, HTN, Schizoaffective disorder,Depression,CKDII, hx of LV thrombus, CVA, HLD, Mild mitral regurgitation seen for resented to [facility] ED due to BLE weakness Left leg cellulitis Dehydration Generalized weakness Thrombocytopenia/Chronic petechial rash -Arterial Doppler:Extensive atherosclerosis without arterial occlusion or evidence of high-grade stenosis. -- Blood cultures no growth to date Continue Rocephin, doxycycline>> Zosyn, Doxy Check peripheral smear--Non contributory Cultures remain negative, afebrile today PT OT, fall precautions Cellulitis of the legs are much improved Will change antibiotic to oral Augmentin to finish the course for a total of 7 days Cellulitis of the legs are much improved Will finish the course of antibiotic Petechial hemorrhage Involving bilateral lower legs Doubt vasculitic lesions Platelet count has been low and it has gone down to 24 as of 05/16/2024 Peripheral smear has been negative for any significant findings but myelodysplastic syndrome was not excluded Appreciate hematology input and recommendation The patient did not receive any heparin during this admission Thrombocytopenia is thought to be due to infection/drug reaction Likely to improve if it is below 30,000 we will give IVIG/prednisone Petechiae in the extremities are much improved with improvement of the platelet count to 111 Remains medically stable to be discharged Petechial hemorrhages is much improved and the platelet count has been normali zed Schizoaffective disorder Depression On Abilify Appreciate psychiatric evaluation Ready to go for any skilled care facility 30-day stay in a facility has been signed No acute psychotic issues Acute metabolic encephalopathy --MRI Brain:No acute intracranial abnormality. Chronic infarcts. Resolved Parkinsonism Likely due to antipsychotic medication use Started on amantadine 100 mg twice a day Appreciate neurology input H/O CVA Thought to be cardioembolic Continue aspirin, Lipitor On Eliquis VAIBHAV on CKD III Monitor renal function Avoid nephrotoxic agents as able Creatinine 1.3 today Gentle IV fluids given history of CHF Avoid nephrotoxic agents agents Creatinine has improved to normal Chronic systolic, diastolic CHF Ischemic cardiomyopathy Pulmonary hypertension Pacemaker functioning well Monitor volume status Appreciate cardiology input Monitor volume status Resume diuretics as able No signs and or symptoms of fluid overload H/O A-fib CAD S/P stent H/O LV thrombus Continue aspirin, Lipitor, metoprolol, digoxin On Eliquis for anticoagulation Chronic troponin elevation Likely due to CHF, pulmonary hypertension, renal insufficiency Doubt ACS Transaminitis Chronic Monitor LFTs DM II Uncontrolled HbA1c 10.0 Continue insulin while hospitalized Monitor BGs Glycemic pharmacist consulted life skills educator consulted DVT Px: Eliquis Code Status DNI DNR Likely discharge to [facility] this afternoon Total Time Total Time Spent Total Time Spent (In Minutes): 40 minutes Discharge Plan Discharge Items Patient Disposition: Transfer Long-Term Fac Reason For Visit: BILATERAL LEG WEAKNESS, HX OF STROKE Discharge Diagnosis: Left leg cellulitis, bilateral leg weakness, petechial hemorrhage and no more thrombocytopenia, schizoaffective disorder, parkinsonism, history of CVA Activity: As commented below Activity Comment: Will need to continue physical therapy and Occupational Therapy Non-emergency contact: Primary Care Provider Call non-emergency contact if: you have any medication questions and your symptoms worsen Follow-up/Referrals: Gómez Pierson MD [Primary Care Provider] - (Please make an appointment with your PCP within 7 days following discharge from the facility) Diet: Carb Consistent or DM2 and Lactose Intolerant Diet Texture: Easy to Chew Addtl Attending Provider Instructions: Please take precautions to avoid falls Take your medications as advised Pending Studies at Discharge: No Stand-Alone Forms: [facility] [employer] Skilled Items Patient informed of condition?: Yes DNR: Yes Discharge Level of Care: Skilled Communicable Disease: No Discharge Prognosis: Stable Lines: None Urinary Catheter: Yes Medications and DC Order Prescriptions: New amantadine HCl 100 mg Capsule 100 mg PO BID Qty: 60 0RF amoxicillin-pot clavulanate 875-125 mg Tablet 1 tab PO BIDM Qty: 10 0RF Advanced Probiotic 625 mg (10 billion cell) Capsule 1 cap PO DAILY Qty: 30 0RF Continued atorvastatin 40 mg tablet 40 mg PO HS aripiprazole 10 mg tablet 10 mg PO HS multivitamin Tablet 1 tab PO QAM Rx Instructions: Unable to verify OTC meds at this date/time. metoprolol succinate 50 mg Tablet Extended Release 24 Hr 50 mg PO PM spironolactone 25 mg Tablet 25 mg PO QAM digoxin 125 mcg (0.125 mg) Tablet 125 mcg PO QAM Eliquis 5 mg Tablet 5 mg PO BID Trulicity 1.5 mg/0.5 mL Pen Injector 4.5 mg SUBCUT WK Rx Instructions: On Saturdays torsemide 20 mg tablet 20 mg PO DAILY aspirin 81 mg Tablet,Delayed Release (Dr/Ec) 81 mg PO QAM Rx Instructions: Unable to verify OTC meds at this date/time. insulin glargine [Lantus Solostar U-100 Insulin] 100 unit/mL (3 mL) insulin pen 30 unit SUBCUT HS trazodone 50 mg tablet 50 mg PO HS mupirocin 2 % ointment 1 applic topical BID Qty: 22 0RF metformin 500 mg tablet extended release 24 hr 1,000 mg PO BID Discharge Orders: Discharge Order (Routine); Ordered 05/19/24 Ordered By: Gus Maki/Other Patient Handouts: Thrombocytopenia, Nutrition for Wound Healing, Managing Type 2 Diabetes, Diabetes: Meal Planning Admission Data Admit Date/Time: 05/11/24 12:35 Attending Provider: Gus Walton Admit Provider: Lacey Mays Primary Care Provider: Gómez Pierson Other Providers: Lacey Mays; Milan Mckeon; [place]; [facility]; Vahe Corona; Sarah Smith Other Interventions: Discharge Summary Assessment (RN) Last Done: 05/19/24 13:14
== END 2024-05-19 14:37 | DRG 602 ==
LOC: ED 06:36 → EDINP 06:36 → SUATTDRO 10:00 → 2W 12:48 → SUATTDRO 05-11 12:35